=== PATIENT | male | born 1950 | race Caucasian/White ===

== ENCOUNTER 2020-01-10 13:47 | Inpatient (IN) | payer MEDICARE, SELFPAY ==
[2020-01-10] VITALS (15 sets, daily range): BP systolic 112–172; BP diastolic 72–131; PULSE 94–110; RESP 16–27; TEMP 36.6–37; O2SAT 88–97; BMI 36.6
--- NOTE | 2020-01-10 14:05 | W.ED.CHESTPA ---
HPI - Chest Pain General: Chief Complaint: Chest Pain Stated Complaint: cp Time Seen by Provider: 01/10/20 13:51 History of Present Illness: HPI narrative: 69-year-old male comes in complaining of chest pain for the last week. He has been daily taking nitro relieves his chest pain is worse with exertion but does not improve with rest unless he takes a nitro. He is taking 5 nitro since this morning most of his pain is gone he has known coronary disease and previously has had stents for coronary disease as well as peripheral artery disease. He does get dyspneic with that and nauseous he is not had any diaphoresis. He also reports he is a regular smoker and has a history of COPD he has noticed increasing clear sputum recently. MD complaint: chest pain Pertinent past history: coronary artery disease and other (COPD) Onset (ago): day(s) Timing of current episode: episodic, daily and increasing Prior episodes: Yes Onset: during exertion Pain location: substernal Severity: severe Quality: tightness and heaviness Relieving factors: nitroglycerin Exacerbating factors: exertion Associated symptoms: Deny diaphoresis, dyspnea, fever(s) or vomiting Treatment prior to arrival: nitroglycerin Review of Systems Const: Denies: fever or diaphoresis ENMT: Denies: throat pain, ear pain, nasal discharge or nasal congestion Card: Reports: chest pain and shortness of breath on exertion; Denies: edema or shortness of breath when lying down Resp: Reports: productive cough and wheezing; Denies: shortness of breath GI: Denies: vomiting : Denies: flank pain, painful urination, urinary frequency or urinary urgency Skin/Breast: Denies: rash or itching [facility] ED PFSH: Medical History (Updated 01/10/20 @ 17:15 by Mark Javier MD) ASHD (arteriosclerotic heart disease) Carotid stenosis, bilateral COPD (chronic obstructive pulmonary disease) Diabetes Diastolic heart failure Echocardiogram from 2017 shows an EF of 61% grade 1 diastolic dysfunction Dyslipidemia Haemophilus influenzae pneumonia Treated with Levaquin in 2017 Myocardial infarction Obesity PAD (peripheral artery disease) Tobacco abuse Surgical History H/O heart artery stent PCI to ostial 99% LCx on July 11, 2012;12/15/2016 he had another angiogram showing patent circumflex stent, 10-20% ostial left main, 20-30% ostial RCA stenosis and LV gram showed left ventricular ejection fraction of 50-55% with mild apical hypokinesis. S/P peripheral artery angioplasty with stent placement S/P shoulder surgery Family History (Updated 01/10/20 @ 16:32 by Mark Javier MD) Mother Psychiatric illness Other Cancer Social History (Updated 01/10/20 @ 16:33 by Mark Javier MD) Smoking and tobacco status: current every day smoker cigarettes Packs smoked per day: 1 Number of cigarettes per day: >20 Alcohol intake: former Household members: family Housing: House Physical Exam Const: COMMON NORMALS: no apparent distress GENERAL APPEARANCE: cooperative and comfortable ORIENTATION/CONSCIOUSNESS: Yes awake, Yes oriented to person, Yes oriented to place and Yes oriented to time HENMT: COMMON NORMALS: normocephalic, head/scalp atraumatic, hearing grossly normal bilaterally, external ears normal, EAC's normal, TM's normal bilaterally, nasal mucous membranes and turbinates normal, moist oral mucous membranes and oropharynx normal HEAD & SCALP: normocephalic and atraumatic NOSE: nasal mucous membranes and turbinates normal EXTERNAL EAR: Yes external ears normal EXTERNAL AUDITORY CANAL: EAC's normal TYMPANIC MEMBRANE: TM's normal bilaterally Eye: COMMON NORMALS: PERRL, EOMs intact bilaterally, conjunctivae normal and no scleral icterus CONJUNCTIVA: Yes conjunctivae normal PUPIL: Yes PERRL Neck/C-Spine: COMMON NORMALS: full ROM, no lymphadenopathy, supple and no JVD Lymph: LYMPHATIC: no lymphadenopathy noted and no lymphedema noted Resp: COMMON NORMALS: normal respiratory effort, no retractions, no use of accessory muscles and clear to auscultation bilaterally AUSCULTATION: clear to auscultation bilaterally Cardio: COMMON NORMALS: no JVD, regular rate, regular rhythm and no murmurs RATE: regular rate RHYTHM: regular rhythm GI: COMMON NORMALS: soft to palpation and no hepatosplenomegaly AUSCULTATION: Yes normoactive bowel sounds PALPATION: Yes soft, No tender, No guarding and Yes no hepatosplenomegaly Extremity: COMMON NORMALS: normal to inspection, normal capillary refill, no clubbing, cyanosis or edema, no calf tenderness and no pedal edema Neuro: SENSORIUM/ORIENTATION: Yes oriented to person, Yes oriented to place and Yes oriented to time Skin: COMMON NORMALS: no rashes or lesions noted GENERAL SKIN EXAM: no rashes or lesions noted Course Vital Signs: Vital signs: Vital Signs Temperature 98.0 F 01/10/20 13:52 Pulse Rate 98 01/10/20 16:42 Respiratory Rate 18 01/10/20 16:42 Blood Pressure 130/88 01/10/20 16:42 Pulse Oximetry 96 01/10/20 16:42 MDM - Chest Pain Lab Data: Labs: Lab Results 01/10/20 01/10/20 01/10/20 Range/Units 14:00 14:00 14:00 WBC 12.0 H (4.0-10.0) 10^3/ uL RBC 5.54 H (4.1-5.3) 10^6/u L Hgb 17.0 H (11.7-16.6) g/dL Hct 53.2 H (42.0-52.0) % MCV 96.0 H (80-94) fL MCH 30.7 (28.0-34.0) pg MCHC 32.0 (30.0-36.0) g/dL RDW 13.4 (12.1-15.1) % Plt Count 236 (130-400) 10^3/c mm MPV 9.2 (7.4-10.4) fL Neut % (Auto) 64.0 % Lymph % (Auto) 24.7 % [place] % (Auto) 7.5 % Eos % (Auto) 2.8 % Baso % (Auto) 0.5 % Neut # (Auto) 7.7 (1.8-7.7) 10^3/u L Lymph # (Auto) 3.0 (0.8-4.8) 10^3/u L [place] # (Auto) 0.9 (0.2-0.9) 10^3/u L Eos # (Auto) 0.3 (0.0-0.8) 10^3/u L Baso # (Auto) 0.1 (0.0-0.1) 10^3/u L Nucleated RBC % (a uto) 0 % Nucleated RBCs # 0.0 /100WBC PT (10.5-13.3) SECO NDS INR (0.8-1.2) APTT (23.9-36.7) SECO NDS D-Dimer (0-0.59) ug/mIFE U Specimen Type Sample Site ABG pH (7.35-7.45) ABG pCO2 (35-45) mmHg ABG pO2 (80.0-100.0) mmH g ABG HCO3 (22-26) mmol/L ABG Base Excess (-2.0-2.0) mmol/ L Mike Test Hematocrit (42-52) % O2 Delivery Device O2 Liters/Min % FiO2 % Manager Creative [employer] ID Blood Gas Notified Time Sodium 137 (136-145) mmol/L Potassium 4.2 (3.5-5.1) mmol/L Chloride 98 (98-107) mmol/L Carbon Dioxide 29 (22-29) mmol/L Anion Gap 14.2 (5-19) BUN 10 (8-23) mg/dL Creatinine 0.8 (0.7-1.2) mg/dL GFR Calculation 96.4 (90-130) mL/min Glucose 150 H (65-115) mg/dL Calculated Osmolal ity 283 L (285-295) mOsm/k g Lactic Acid (0.5-2.2) mmol/L Calcium 9.6 (8.5-10.5) mg/dL Magnesium 1.9 (1.7-2.3) mg/dL Total Bilirubin 0.5 (0.15-1.2) mg/dL AST 19 (0-40) U/L ALT 18 (0-41) U/L Alkaline Phosphata se 80 (40-130) IU/L Lactate Dehydrogen ase 204 (135-225) U/L Creatine Kinase 234 (39-308) U/L Troponin T Baselin e 42 H (0-15) ng/mL Troponin T [address] [place] (0-15) ng/mL Delta Troponin T (0-10) ABS# NT-Pro-B Natriuret Pep 1493 H (0-125) pg/mL Total Protein 7.6 (6.6-8.7) g/dL Albumin 4.4 (3.5-5.2) g/dL Globulin 3.2 (1.3-4.6) g/dL Procalcitonin 0.07 (0-0.5) ng/mL Urine Color (Yellow) Urine Appearance (CLEAR) Urine pH (5-7) Ur Specific Gravit y (1.005-1.030) Urine Protein (Negative) Urine Glucose (UA) (Normal) Urine Ketones (Negative) Urine Blood (Negative) Urine Nitrate (Negative) Urine Bilirubin (NEGATIVE) Urine Urobilinogen (Negative) mg/dL Ur Leukocyte Yoly ase (Negative) Influenza Type A A g (Negative) Influenza Type B A g (Negative) 01/10/20 01/10/20 01/10/20 Range/Units 14:00 14:00 15:05 WBC (4.0-10.0) 10^3/ uL RBC (4.1-5.3) 10^6/u L Hgb (11.7-16.6) g/dL Hct (42.0-52.0) % MCV (80-94) fL MCH (28.0-34.0) pg MCHC (30.0-36.0) g/dL RDW (12.1-15.1) % Plt Count (130-400) 10^3/c mm MPV (7.4-10.4) fL Neut % (Auto) % Lymph % (Auto) % [place] % (Auto) % Eos % (Auto) % Baso % (Auto) % Neut # (Auto) (1.8-7.7) 10^3/u L Lymph # (Auto) (0.8-4.8) 10^3/u L [place] # (Auto) (0.2-0.9) 10^3/u L Eos # (Auto) (0.0-0.8) 10^3/u L Baso # (Auto) (0.0-0.1) 10^3/u L Nucleated RBC % (a uto) % Nucleated RBCs # /100WBC PT 13.20 (10.5-13.3) SECO NDS INR 0.97 (0.8-1.2) APTT 27.6 (23.9-36.7) SECO NDS D-Dimer 0.95 H (0-0.59) ug/mIFE U Specimen Type Arterial Sample Site Radial, left ABG pH 7.38 (7.35-7.45) ABG pCO2 48.9 H (35-45) mmHg ABG pO2 72.5 L (80.0-100.0) mmH g ABG HCO3 29.0 H (22-26) mmol/L ABG Base Excess 2.8 H (-2.0-2.0) mmol/ L Mike Test Pos Hematocrit 51.7 (42-52) % O2 Delivery Device Nc O2 Liters/Min 2.0 % FiO2 28.0 % Manager [employer] ID [email or web address] Blood Gas Notified Time 1517 Sodium (136-145) mmol/L Potassium (3.5-5.1) mmol/L Chloride (98-107) mmol/L Carbon Dioxide (22-29) mmol/L Anion Gap (5-19) BUN (8-23) mg/dL Creatinine (0.7-1.2) mg/dL GFR Calculation (90-130) mL/min Glucose (65-115) mg/dL Calculated Osmolal ity (285-295) mOsm/k g Lactic Acid 2.2 (0.5-2.2) mmol/L Calcium (8.5-10.5) mg/dL Magnesium (1.7-2.3) mg/dL Total Bilirubin (0.15-1.2) mg/dL AST (0-40) U/L ALT (0-41) U/L Alkaline Phosphata se (40-130) IU/L Lactate Dehydrogen ase (135-225) U/L Creatine Kinase (39-308) U/L Troponin T Baselin e (0-15) ng/mL Troponin T [address] [place] (0-15) ng/mL Delta Troponin T (0-10) ABS# NT-Pro-B Natriuret Pep (0-125) pg/mL Total Protein (6.6-8.7) g/dL Albumin (3.5-5.2) g/dL Globulin (1.3-4.6) g/dL Procalcitonin (0-0.5) ng/mL Urine Color (Yellow) Urine Appearance (CLEAR) Urine pH (5-7) Ur Specific Gravit y (1.005-1.030) Urine Protein (Negative) Urine Glucose (UA) (Normal) Urine Ketones (Negative) Urine Blood (Negative) Urine Nitrate (Negative) Urine Bilirubin (NEGATIVE) Urine Urobilinogen (Negative) mg/dL Ur Leukocyte Yoly ase (Negative) Influenza Type A A g (Negative) Influenza Type B A g (Negative) 01/10/20 01/10/20 01/10/20 Range/Units 15:27 15:27 16:10 WBC (4.0-10.0) 10^3/ uL RBC (4.1-5.3) 10^6/u L Hgb (11.7-16.6) g/dL Hct (42.0-52.0) % MCV (80-94) fL MCH (28.0-34.0) pg MCHC (30.0-36.0) g/dL RDW (12.1-15.1) % Plt Count (130-400) 10^3/c mm MPV (7.4-10.4) fL Neut % (Auto) % Lymph % (Auto) % [place] % (Auto) % Eos % (Auto) % Baso % (Auto) % Neut # (Auto) (1.8-7.7) 10^3/u L Lymph # (Auto) (0.8-4.8) 10^3/u L [place] # (Auto) (0.2-0.9) 10^3/u L Eos # (Auto) (0.0-0.8) 10^3/u L Baso # (Auto) (0.0-0.1) 10^3/u L Nucleated RBC % (a uto) % Nucleated RBCs # /100WBC PT (10.5-13.3) SECO NDS INR (0.8-1.2) APTT (23.9-36.7) SECO NDS D-Dimer (0-0.59) ug/mIFE U Specimen Type Sample Site ABG pH (7.35-7.45) ABG pCO2 (35-45) mmHg ABG pO2 (80.0-100.0) mmH g ABG HCO3 (22-26) mmol/L ABG Base Excess (-2.0-2.0) mmol/ L Mike Test Hematocrit (42-52) % O2 Delivery Device O2 Liters/Min % FiO2 % Manager Creative [employer] ID Blood Gas Notified Time Sodium (136-145) mmol/L Potassium (3.5-5.1) mmol/L Chloride (98-107) mmol/L Carbon Dioxide (22-29) mmol/L Anion Gap (5-19) BUN (8-23) mg/dL Creatinine (0.7-1.2) mg/dL GFR Calculation (90-130) mL/min Glucose (65-115) mg/dL Calculated Osmolal ity (285-295) mOsm/k g Lactic Acid (0.5-2.2) mmol/L Calcium (8.5-10.5) mg/dL Magnesium (1.7-2.3) mg/dL Total Bilirubin (0.15-1.2) mg/dL AST (0-40) U/L ALT (0-41) U/L Alkaline Phosphata se (40-130) IU/L Lactate Dehydrogen ase (135-225) U/L Creatine Kinase (39-308) U/L Troponin T Baselin e (0-15) ng/mL Troponin T [address] [place] 38.89 H (0-15) ng/mL Delta Troponin T -3.11 L (0-10) ABS# NT-Pro-B Natriuret Pep (0-125) pg/mL Total Protein (6.6-8.7) g/dL Albumin (3.5-5.2) g/dL Globulin (1.3-4.6) g/dL Procalcitonin (0-0.5) ng/mL Urine Color Yellow (Yellow) Urine Appearance Clear (CLEAR) Urine pH 7 (5-7) Ur Specific Gravit y 1.000 L (1.005-1.030) Urine Protein Neg (Negative) Urine Glucose (UA) 4+ H (Normal) Urine Ketones Negative (Negative) Urine Blood Neg (Negative) Urine Nitrate Negative (Negative) Urine Bilirubin Neg (NEGATIVE) Urine Urobilinogen Norm (Negative) mg/dL Ur Leukocyte Yoly ase Negative (Negative) Influenza Type A A g Negative (Negative) Influenza Type B A g Negative (Negative) Discharge Plan Discharge Patient Disposition: Admitted As Inpatient Admit Provider: Mark Javier Clinical Impression: Unstable angina pectoris, COPD (chronic obstructive pulmonary disease), H/O heart artery stent, History of peripheral arterial disease, Diabetes mellitus Condition: Stable Interventions: ED Discharge Assessment Last Done: 01/10/20 16:42 Coding Level of Care Code ED Electronics Worker for Chg Fwd Exam Comprehensive
--- NOTE | 2020-01-10 14:16 | XR_ITS ---
WS: [id number] CHEST XRAY TECHNIQUE: Portable chest. CLINICAL INFORMATION: dyspnea/cough COMPARISON: September 13, 2017 FINDINGS: Heart: Cardiomegaly. Lungs: Diffuse bilateral perihilar and lower lung infiltrates. Correlation for CHF. Mild pulmonary va scular congestion. No significant pleural fluid. Bones: Normal visualized bony structures. XR/XR chest 1V portable [id number] IMPRESSION: 1. Cardiomegaly with pulmonary vascular congestion with perihilar and lower gabriel ng infiltrates. Recommend correlation for CHF. Interstitial pneumonia is an add itional consideration. 2. No significant pleural fluid.
--- NOTE | 2020-01-10 14:16 | ECG_ITS ---
Measurements Intervals [place] Rate: 105 P: 68 [place]: 153 QRS: 163 QRSD: 90 T: 21 QT: 338 QTc: 448 SINUS TACHYCARDIA PATTERN CONSISTENT WITH PULMONARY DISEASE POSSIBLE RIGHT VENTRICULAR HYPERTROPHY [SOME/ALL OF: PROMINENT R IN V1, LATE TRANSITION, RAD, NABILA, SSS] POSSIBLE INFERIOR MYOCARDIAL INFARCTION , PROBABLY OLD [30 ms Q WAVE IN II/aVF] Compared to ECG 09/10/2017 18:32:31 No significant changes Electronically Signed On 01-11-2020 6:43:29 CDT by Clyde Ritter M.D. [email or web address]
[2020-01-10] MEDS: nitroglycerin 1 gm/inch oint Pkt 1 INCH TOPICAL (14:34)
[2020-01-10] MEDS: enoxaparin 100 mg/mL Syringe SUBCUT (14:34)
[2020-01-10 15:18] LABS: ABG PCO2 48.9 mmHg (35-45); ABG PH Result 7.38 (7.35-7.45); Arterial Blood Gas Hematocrit 51.7 % (42-52); Base Excess ABG 2.8 mmol/L (-2.0-2.0); Blood Gas Allen Test Pos; Blood Gas Operator Identificat glc; Blood Gas Sample Site Radial, left; Blood Gas Sample Type Arterial; Oxygen Device NC; PO2 ABG 72.5 mmHg (80.0-100.0)
[2020-01-10 15:19] LABS: Blood Gas CCRB Time 1517
[2020-01-10 15:23] LABS: Lactic Sepsis W/Reflex 2.2 mmol/L (0.5-2.2)
[2020-01-10 15:29] LABS: Basophils # 0.1 10^3/uL (0.0-0.1); Basophils % 0.5 %; Eosinophils # 0.3 10^3/uL (0.0-0.8); Eosinophils % 2.8 %; Hematocrit 53.2 % (42.0-52.0); Lymphocytes % 24.7 %; Mean Corpuscular Hemoglobin 30.7 pg (28.0-34.0); Mean Platelet Volume 9.2 fL (7.4-10.4); Monocytes # 0.9 10^3/uL (0.2-0.9); Monocytes % 7.5 %; Neutrophils # 7.7 10^3/uL (1.8-7.7); Nucleated Red Blood Cells % 0 %; Platelet Count 236 10^3/cmm (130-400); Red Blood Count 5.54 10^6/uL (4.1-5.3); Red Cell Distribution Width 13.4 % (12.1-15.1)
--- NOTE | 2020-01-10 15:31 | PC.NURSE ---
Pt swabbed for COVID-19, influenza, sputum culture obtained, and urine sample obtained. All samples labeled and sent to lab. Pt provided with warm blanket per request.
[2020-01-10 15:37] LABS: INR 0.97 (0.8-1.2); Partial Thromboplastin Time 27.6 SECONDS (23.9-36.7)
[2020-01-10 15:40] LABS: D Dimer 0.95 ug/mIFEU (0-0.59)
[2020-01-10 15:44] LABS: Add Urine Microscopic? NO
[2020-01-10 15:49] LABS: Troponin(5th) Baseline 42 ng/mL (0-15)
[2020-01-10 15:58] LABS: Alanine Aminotransferase 18 U/L (0-41); Albumin Level 4.4 g/dL (3.5-5.2); Alkaline Phosphatase 80 IU/L (40-130); Anion Gap 14.2 (5-19); Aspartate Amino Transferase 19 U/L (0-40); Blood Urea Nitrogen 10 mg/dL (8-23); Calcium 9.6 mg/dL (8.5-10.5); Carbon Dioxide 29 mmol/L (22-29); Chloride 98 mmol/L (98-107); Creatine Phosphokinase 234 U/L (39-308); Globulin 3.2 g/dL (1.3-4.6); Glomerular Filtration Rate 96.4 mL/min (90-130); Glucose 150 mg/dL (65-115); Lactate Dehydrogenase 204 U/L (135-225); Magnesium 1.9 mg/dL (1.7-2.3); NT Pro B Type Natriuretic Pept 1493 pg/mL (0-125); Osmolality Calculated 283 mOsm/kg (285-295); Potassium 4.2 mmol/L (3.5-5.1); Sodium 137 mmol/L (136-145); Total Bilirubin 0.5 mg/dL (0.15-1.2); Total Protein 7.6 g/dL (6.6-8.7)
[2020-01-10 16:10] LABS: Influenza A by IFA Negative (Negative); Influenza B by IFA Negative (Negative)
[2020-01-10 16:13] LABS: Bilirubin Urine Neg (NEGATIVE); Blood Urine Neg (Negative); Glucose Urine UA 4+ (Normal); Ketones Urine Negative (Negative); Leukocyte Esterase Urine Negative (Negative); Nitrate Urine Negative (Negative); Protein Urine Neg (Negative); Urine Appearance Clear (CLEAR); Urine Color Yellow (Yellow); Urobilinogen Urine Norm (Negative); pH Urine 7 (5-7)
--- NOTE | 2020-01-10 16:16 | ECG_ITS ---
Measurements Intervals [place] Rate: 100 P: 71 [place]: 148 QRS: 199 QRSD: 98 T: -16 QT: 347 QTc: 448 SINUS TACHYCARDIA POSSIBLE RIGHT VENTRICULAR HYPERTROPHY [SOME/ALL OF: PROMINENT R IN V1, LATE TRANSITION, RAD, NABILA, SSS] POSSIBLE ANTERIOR MYOCARDIAL INFARCTION [30 ms Q WAVE IN V3/V4, OR R < 0.2 mV IN V4], OF INDETERMINATE AGE MODERATE T-WAVE ABNORMALITY, CONSIDER LATERAL ISCHEMIA [-0.1+ mV T WAVE IN I/aVL/V5/V6] Compared to ECG 09/10/2017 18:32:31 T-wave abnormality now present Possible ischemia now present Myocardial infarct finding still present Electronically Signed On 01-11-2020 6:47:24 CDT by Clyde Ritter M.D. [email or web address]
--- NOTE | 2020-01-10 16:28 | PM.HP ---
Providers/Chief Complaint Primary Care Provider: Melinda Mccullough DO Chief Complaint: ANGINA, COUGH, COPD History of Present Illness Ramy Lawler is a 69 year old male with significant past medical history of myocardial infarction, PCI to ostial LCx in June 2012, bilateral carotid artery stenosis, peripheral arterial disease post angioplasty, dyslipidemia, diastolic heart failure, type 2 diabetes mellitus, COPD, chronic smoker, hypertension who presented to the ER today with complaint of ongoing chest pain for last 7 days which is getting exacerbated with mild exertion and at present even sitting up fast in his bed makes this symptoms worse. Chest pain is central radiating to his jaw associated with nausea but no vomiting and dizziness. He is also complaining of shortness of breath which gets worse on mild exertion and states for last 3 weeks he has been getting up at night because of choking sensation but denies of having any orthopnea. He states he is also been having sinus congestion and postnasal drip for last 2 weeks which has been stable. He has not had any fevers at home. Denies of having any sick contacts or recent travels. Denies of having any palpitations, diaphoresis, abdominal pain, diarrhea, dysuria, generalized body aches, malaise, night sweats. Review of Systems Const: Denies: fever, chills, body aches, change in appetite, malaise, night sweats, diaphoresis, change in sleep pattern, daytime sleepiness or snoring Eyes: Denies: change in vision, blurry vision, photophobia, eye discomfort or eye discharge ENMT: Denies: throat pain, enlarged tonsils, hoarseness, mouth pain, oral sores/lesions, dry mouth, tinnitus, nasal congestion or post nasal drip Card: Reports: chest pain, lightheadedness, shortness of breath on exertion and leg pain with exertion; Denies: palpitations, irregular heart rhythm, edema, swelling of feet/ankles, syncope, pre-syncope, shortness of breath when lying down or bluish discoloration of hands/feet Resp: Reports: shortness of breath; Denies: productive cough, non-productive cough, wheezing, stridor, pain on inspiration, change in phlegm color, coughing up blood or chest congestion GI: Denies: abdominal pain, nausea, vomiting, vomiting blood, coffee grounds in vomit, difficulty swallowing, heartburn/indigestion, diarrhea, constipation, bloating, cramping, change in bowel habits, painful bowel movements, blood in stool or black tarry stool : Denies: flank pain, difficulty urinating, painful urination, urinary frequency, urinary urgency, urinary hesitancy, urinary dribbling, difficulty starting urination, change in urine stream, nighttime urination or blood in urine Musc: Denies: neck pain, back pain, extremity pain, joint pain, joint swelling, redness, joint stiffness or limited range of motion Neuro: Reports: numbness in extremities; Denies: headache, weakness in extremities, changes in sensation, lack of coordination, difficulty walking, frequent falls, dizziness, vertigo, confusion, slurred speech, difficulty communicating thoughts or seizure-like activity Psych: Denies: anxiety, depression, mood swings, panic attacks, hopelessness or irritability Endo: Denies: excessive urination, excessive thirst, tired all the time, cold intolerance, excessive sweating, flushing or heat intolerance Joao/Lymph: Denies: easy bruising or easy bleeding All/Imm: Denies: tongue swelling, facial swelling or acute wheezing Medications/Allergies Home Medications Medication Instructions Recorded Confirmed Last Taken Type atorvastatin 40 mg tablet 40 mg PO DAILY 01/08/20 01/10/20 01/09/20 History clopidogrel 75 mg tablet 75 mg PO DAILY 01/08/20 01/10/20 01/10/20 History furosemide 40 mg tablet 40 mg PO DAILY 01/08/20 01/10/20 01/08/20 History glipizide 10 mg tablet 10 mg PO DAILY 01/08/20 01/10/20 01/09/20 History lisinopril 10 mg tablet 10 mg PO DAILY PRN 01/08/20 01/10/20 Unknown History potassium chloride 10 mEq 10 meq PO DAILY 01/08/20 01/10/20 01/10/20 History tablet,extended release(part/cryst) tamsulosin 0.4 mg capsule 0.4 mg PO DAILY 01/08/20 01/10/20 Unknown History albuterol sulfate [Ventolin HFA] 2 puff INHALATION 6XD PRN 01/10/20 01/10/20 Unknown History empagliflozin-linagliptin 1 tab PO DAILY 01/10/20 01/10/20 01/10/20 History [Glyxambi] nitroglycerin 0.4 mg SUBLINGUAL PRN PRN 01/10/20 01/10/20 01/10/20 History semaglutide [Ozempic] 0.25 mg SUBCUT Q7D 01/10/20 01/10/20 01/07/20 History tiotropium-olodaterol [Stiolto See Rx Instructions .ROUTE .COMPLEX 01/10/20 01/10/20 Unknown History Respimat] Allergies Allergy/AdvReac Type Severity Reaction Status Date / Time Sulfa (Sulfonamide Allergy Unknown Unknown Unverified 01/08/20 15:06 Antibiotics) PFSH Acute PFSH: Medical History ASHD (arteriosclerotic heart disease) Carotid stenosis, bilateral COPD (chronic obstructive pulmonary disease) Diabetes Dyslipidemia Myocardial infarction Obesity PAD (peripheral artery disease) Tobacco abuse Surgical History H/O heart artery stent PCI to ostial 99% LCx on July 11, 2012;12/15/2016 he had another angiogram showing patent circumflex stent, 10-20% ostial left main, 20-30% ostial RCA stenosis and LV gram showed left ventricular ejection fraction of 50-55% with mild apical hypokinesis. S/P peripheral artery angioplasty with stent placement S/P shoulder surgery Family History (Updated 01/10/20 @ 16:32 by Mark Javier MD) Mother Psychiatric illness Other Cancer Social History (Updated 01/10/20 @ 16:33 by Mark Javier MD) Smoking and tobacco status: current every day smoker cigarettes Packs smoked per day: 1 Number of cigarettes per day: >20 Alcohol intake: former Household members: family Housing: House Vitals/I&O/Wt Last Vital Signs Temp 98.0 F 01/10/20 13:52 Pulse 100 01/10/20 16:16 Resp 16 01/10/20 16:16 BP 122/86 01/10/20 16:16 Pulse Ox 94 01/10/20 16:16 Weight last 48 hrs Weight 99.79 kg Physical Exam Narrative: EXAM NARRATIVE: General: No acute distress, AO x3 HEENT: PERRLA, pupils bilaterally equal and reactive Chest: Bilateral fine crackles, right more than left, normal vesicular breath sounds, equal good air entry bilaterally CVS: S1-S2 regular, no murmurs, no tachycardia, no gallops, no rubs Abdomen: Soft, nontender, no organomegaly, bowel sounds present Neuro: No focal deficits, no facial deformity, AO x3, power 5/5 in all limbs Data : 01/10/20 14:00 01/10/20 14:00 Micro: Microbiology 01/10/20 14:00 Blood Culture - Preliminary Blood SPECIMEN COLLECTED A&P Assessment and plan (1) Shortness of breath: Status: Acute (2) Angina of effort: Status: Acute (3) Tobacco abuse: Status: Acute (4) H/O heart artery stent: Status: Acute (5) COPD (chronic obstructive pulmonary disease): Status: Acute (6) Obesity: Status: Acute (7) Dyslipidemia: Status: Acute (8) Carotid stenosis, bilateral: Status: Acute (9) Diastolic heart failure: Status: Acute Additional A&P Information Angina: History of CAD with PCI in 2011: With last angiogram in 2017. Aspirin 325 mg stat followed by 81 mg daily. Continue with home dose of Plavix and statin. Patient already given full dose Lovenox. We will continue with 1 mg/kg body weight every 12 as creatinine clearance is more than 30. Nitrate as needed for pain. Morphine 1 mg IV every 2 hour as needed for pain Oxygen supplementation keeping saturation over 94%. Check lipid panel, HbA1c tomorrow morning. 2-hour troponin has a delta of -3. We will continue to follow-up every 6 hours. Shortness of breath: Most likely because of congestive heart failure. Last echocardiogram shows diastolic heart failure. Given the history of sinus congestion, postnasal drip and x-ray finding cannot rule out COVID-19. Will test. Isolation precautions till then. Lasix 40 mg IV stat. 40 mg Lasix daily from tomorrow morning. Strict input output charting. Daily weights. Echocardiogram. Chances of pneumonia are less as patient does not have any fever, procalcitonin is negative. Patient does have mild white blood count cell elevation but has no left shift. Most likely because of hemoconcentration as patient also has hemoglobin of 17. We will continue to monitor. We will hold off on antibiotics for now. Once COVID 19 test comes back we will consult cardiology as per the result status for further evaluation for anginal symptoms with stress test versus angiogram. Type 2 diabetes mellitus: Check HbA1c. History sliding scale at high protocol. Hypertension: Continue on home medication of lisinopril. We will continue to monitor blood pressures. Tobacco abuse: Discussed with patient in detail regarding need of tobacco cessation due to severe concerning symptoms of CAD. We will change medications as per the clinical course and the results of the blood work. Full code. Cardiac diabetic diet. Attestations Medical Necessity Statement*: For more than 2 midnights for angina Time Spent in Patient Care: Greater than 35 minutes Coding Level of Care Code Acute Scoreboard Operator for g Fwd Diagnoses Shortness of breath R06.02 Angina of effort I20.8 Tobacco abuse Z72.0 H/O heart artery stent Z95.5 COPD (chronic obstructive pulmonary disease) J44.9 Obesity E66.9 Dyslipidemia E78.5 Carotid stenosis, bilateral I65.23 Diastolic heart failure I50.30
[2020-01-10 16:32] LABS: Troponin 5 2HR 38.89 ng/mL (0-15)
[2020-01-10 16:49] LABS: Troponin 5 2HR Delta -3.11 ABS# (0-10)
[2020-01-10 16:57] LABS: Reflex Lactate Order REFLEX LACTIC ORDERD
[2020-01-10 17:17] LABS: Procalcitonin 0.07 ng/mL (0-0.5)
[2020-01-10 17:28] LABS: C Reactive Protein 1.9 mg/L (0.0-4.9); Ferritin 240 ng/mL (30-400)
[2020-01-10] MEDS: FUROsemide 10 mg/mL SDV 4mL 40 MG IVP (17:52)
[2020-01-10] MEDS: aspirin 325 mg EC Tablet PO (17:52)
[2020-01-10] MEDS: albuterol 8 gm MDI 2 PUFF INHALATION (20:11)
--- NOTE | 2020-01-10 20:16 | ECG_ITS ---
Measurements Intervals [place] Rate: 95 P: 71 AK: 159 QRS: 162 QRSD: 91 T: -12 QT: 346 QTc: 435 SINUS RHYTHM PATTERN CONSISTENT WITH PULMONARY DISEASE RIGHT VENTRICULAR HYPERTROPHY AND ST-T CHANGE [SOME/ALL OF: PROMINENT R IN V1, LATE TRANSITION, RAD, NABILA, SSS, RIGHT PRECORDIA Compared to ECG 09/10/2017 18:32:31 ST (T wave) deviation now present Sinus tachycardia no longer present Myocardial infarct finding no longer present Electronically Signed On 01-11-2020 6:46:57 CDT by Clyde Ritter M.D. [id number]
--- NOTE | 2020-01-10 20:21 | PC.NURSE ---
PT in normal sinus rhythm to sinus tachycardia. See rhythm strip in chart.
--- NOTE | 2020-01-10 20:26 | PC.NURSE ---
Patient refuses SCDs at this time as he is having to stand to urinate frequently. Requests that SCDs be placed when he goes to bed.
[2020-01-10 20:38] LABS: Lactic Acid level (Lactate) 1.7 mmol/L (0.5-2.2)
[2020-01-10 20:39] LABS: Troponin 5 6HR 44.73 ng/mL (0-15); Troponin 5 6HR Delta 2.73 ng/L (0-12)
[2020-01-10 21:38] LABS: Glucose Point of Care 127 mg/dL (70-110)
[2020-01-11] VITALS (18 sets, daily range): BP systolic 93–153; BP diastolic 68–88; PULSE 87–114; RESP 17–25; TEMP 36.5–37; O2SAT 90–95
[2020-01-11] MEDS: enoxaparin 100 mg/mL Syringe SUBCUT (02:16)
[2020-01-11] MEDS: albuterol 8 gm MDI 2 PUFF INHALATION ×4 (02:25→21:03)
[2020-01-11 04:50] LABS: Basophils # 0.1 10^3/uL (0.0-0.1); Basophils % 0.6 %; Eosinophils # 0.5 10^3/uL (0.0-0.8); Eosinophils % 4.2 %; Hematocrit 52.2 % (42.0-52.0); Hemoglobin 16.8 g/dL (11.7-16.6); Lymphocytes # 3.3 10^3/uL (0.8-4.8); Mean Corpuscular HGB Conc 32.2 g/dL (30.0-36.0); Mean Corpuscular Hemoglobin 30.8 pg (28.0-34.0); Mean Corpuscular Volume 95.8 fL (80-94); Mean Platelet Volume 9.2 fL (7.4-10.4); Monocytes # 0.9 10^3/uL (0.2-0.9); Monocytes % 8.1 %; Neutrophils # 6.5 10^3/uL (1.8-7.7); Neutrophils % 57.7 %; Nucleated Red Blood Cells % 0 %; Platelet Count 234 10^3/cmm (130-400); Red Blood Count 5.45 10^6/uL (4.1-5.3); Red Cell Distribution Width 13.5 % (12.1-15.1); White Blood Count 11.2 10^3/uL (4.0-10.0)
[2020-01-11 05:03] LABS: Estmated Average Glucose 180; Hemoglobin A1C 7.9 % (4.0-6.0)
[2020-01-11 05:09] LABS: Alanine Aminotransferase 21 U/L (0-41); Albumin Level 3.9 g/dL (3.5-5.2); Alkaline Phosphatase 75 IU/L (40-130); Anion Gap 15.2 (5-19); Blood Urea Nitrogen 12 mg/dL (8-23); Calcium 9.5 mg/dL (8.5-10.5); Carbon Dioxide 30 mmol/L (22-29); Chloride 98 mmol/L (98-107); Chol HDL Ratio 5.47 mg/dL (1.0-5.00); Cholesterol 164 mg/dL (0-200); Globulin 3.5 g/dL (1.3-4.6); Glomerular Filtration Rate 96.4 mL/min (90-130); Glucose 150 mg/dL (65-115); HDL Cholesterol 30 mg/dL (60-100); LDL Cholesterol Calculated 57 mg/dL (50-129); Osmolality Calculated 287 mOsm/kg (285-295); Potassium 4.2 mmol/L (3.5-5.1); Sodium 139 mmol/L (136-145); Total Bilirubin 0.2 mg/dL (0.15-1.2); Total Protein 7.4 g/dL (6.6-8.7); Triglycerides 384 mg/dL (0-150); VLDL Cholestrol Calculation 77 mg/dL (0-30)
[2020-01-11] MEDS: acetaminophen 325 mg Tablet 650 MG PO (05:09)
[2020-01-11 05:11] LABS: Aspartate Amino Transferase 23 U/L (0-40)
--- NOTE | 2020-01-11 07:39 | XR_ITS ---
WS: [id number] CHEST XRAY TECHNIQUE: Portable chest. CLINICAL INFORMATION: chf COMPARISON: January 10, 2020 FINDINGS: Heart: Cardiomegaly. Aortic calcification. Lungs: Mild chronic emphysematous changes. No focal pneumonia. No acute pulmonary infiltrates. Bones: Normal visualized bony structures. XR/XR chest 1V portable [id number] IMPRESSION: 1. Stable cardiomegaly. 2. No acute pulmonary infiltrates. No focal pneumonia.
--- NOTE | 2020-01-11 09:23 | ECG_ITS ---
Measurements Intervals [place] Rate: 111 P: 54 MA: 136 QRS: 183 QRSD: 91 T: 40 QT: 330 QTc: 450 SINUS TACHYCARDIA POSSIBLE RIGHT VENTRICULAR HYPERTROPHY [SOME/ALL OF: PROMINENT R IN V1, LATE FAUSTIN TRANSITION, RAD, NABILA, SSS] POSSIBLE ANTERIOR MYOCARDIAL INFARCTION [30 ms Q WAVE IN V3/V4, OR R < 0.2 mV IN V4]PROBABLY OLD INTERPRETATION BASED ON A DEFAULT AGE OF 40 YEARS Compared to ECG 01/10/2020 20:22:44 T-wave abnormality no longer present Possible ischemia no longer present Myocardial infarct finding still present Electronically Signed On 01-11-2020 18:11:31 CDT by Michael Arora M.D. [id number]
[2020-01-11] MEDS: nitroglycerin 0.4 mg sublingual Tablet SUBLINGUAL ×2 (09:25→16:31)
[2020-01-11] MEDS: tamsulosin 0.4 mg Capsule PO (09:32)
[2020-01-11] MEDS: clopidogrel 75 mg Tablet PO (09:32)
[2020-01-11] MEDS: FUROsemide 10 mg/mL SDV 4mL 40 MG IVP ×2 (09:32→17:22)
[2020-01-11] MEDS: aspirin 81 mg EC Tablet PO (09:33)
[2020-01-11] MEDS: atorvastatin 40 mg Tablet PO (09:33)
--- NOTE | 2020-01-11 09:55 | PC.NURSE ---
complaint of chest pain with pain going down left arm and hand tingling with pain. Nitro given once subl. BP elevated. within 5 minutes says pain is easing down, and within 15 min says he feels much better. EKG and chest xray was done.
--- NOTE | 2020-01-11 10:58 | P.PN_ITS ---
Subjective Subjective: Interval history: No acute events overnight. This morning on evaluation patient had chest pain 15 minutes ago. Chest pain was central radiating to left arm with numbness in his hand. Patient states chest pain is similar to what he had during his heart attack. He states at home he lives at 6-1/2 L of oxygen. He states his breathing is at baseline. Denies any nausea, vomiting, headache, palpitations, dizziness. Vitals/I&O/Wt Last Vital Signs Temp 97.8 F 01/11/20 06:00 Pulse 111 H 01/11/20 10:00 Resp 18 01/11/20 10:00 BP 119/77 01/11/20 10:00 Pulse Ox 91 01/11/20 10:00 01/10/20 01/11/20 01/11/20 22:59 06:59 14:59 Intake Total 1320 / 1320 170 / 1490 240 / 240 Output Total 1600 / 1600 925 / 2525 Balance -280 / -280 -755 / -1035 240 / 240 Weight last 48 hrs Weight 98.702 kg Weight 99.79 kg Physical Exam Narrative: EXAM NARRATIVE: General: No acute distress, AO x3 HEENT: PERRLA, pupils bilaterally equal and reactive Chest: Bilateral fine crackles, right more than left, normal vesicular breath sounds, equal good air entry bilaterally CVS: S1-S2 regular, no murmurs, no tachycardia, no gallops, no rubs Abdomen: Soft, nontender, no organomegaly, bowel sounds present Neuro: No focal deficits, no facial deformity, AO x3, power 5/5 in all limbs Data : 01/11/20 04:21 01/11/20 04:21 Micro: Microbiology 01/10/20 17:00 Blood Culture - Preliminary Blood SPECIMEN COLLECTED 01/10/20 15:27 Gram Stain - Final Sputum - Expectorated Sputum 01/10/20 14:00 Blood Culture - Preliminary Blood SPECIMEN COLLECTED A&P Assessment and plan (1) Shortness of breath: Status: Acute (2) Angina of effort: Status: Acute (3) Tobacco abuse: Status: Acute (4) H/O heart artery stent: Status: Acute (5) COPD (chronic obstructive pulmonary disease): Status: Acute (6) Obesity: Status: Acute (7) Dyslipidemia: Status: Acute (8) Carotid stenosis, bilateral: Status: Acute (9) Diastolic heart failure: Status: Acute Additional A&P Information Angina: History of CAD with PCI in 2012: With last angiogram in 2017. Continue with aspirin, Plavix and statin. Lipid panel results noted. Continue with Lovenox full dose at 1 mg/kg body weight every 12 hourly. If patient has more chest pain we will start him on a nitro drip. For now sublingual nitrate as needed for pain. Morphine 1 mg IV every 2 hour as needed for pain Oxygen supplementation keeping saturation over 94%. Cardiology consulted. Dr. Ritter will see patient today. Shortness of breath: Most likely because of congestive heart failure. Last echocardiogram shows diastolic heart failure. Given the history of sinus congestion, postnasal drip and x-ray finding cannot rule out COVID-19. Results awaited. Continue with isolation. Lasix 40 mg IV every 12 hourly. Overall 2 L negative since admission. Chest x-ray today morning better than yesterday but still showing congestion. Strict input output charting. Daily weights. Echocardiogram. Chances of pneumonia are less as patient does not have any fever, procalcitonin is negative. Patient does have mild white blood count cell elevation but has no left shift. Most likely because of hemoconcentration as patient also has hemoglobin of 17. We will continue to monitor. We will hold off on antibiotics for now. Type 2 diabetes mellitus: A1c 7.9. History sliding scale at high protocol. Hypertension: Continue on home medication of lisinopril. We will continue to monitor blood pressures. Tobacco abuse: Discussed with patient in detail regarding need of tobacco cessation due to severe concerning symptoms of CAD. We will change medications as per the clinical course and the results of the blood work. Full code. Cardiac diabetic diet. Attestations Medical Necessity Statement*: Angina, COVID-19 rule out Time Spent in Patient Care: Greater than 35 minutes Coding Level of Care Code Acute Legal Job Titles for [facility] Fwd Diagnoses Shortness of breath R06.02 Angina of effort I20.8 Tobacco abuse Z72.0 H/O heart artery stent Z95.5 COPD (chronic obstructive pulmonary disease) J44.9 Obesity E66.9 Dyslipidemia E78.5 Carotid stenosis, bilateral I65.23 Diastolic heart failure I50.30
[2020-01-11 11:31] LABS: Glucose Point of Care 192 mg/dL (70-110)
[2020-01-11 11:31] LABS: Glucose Point of Care 125 mg/dL (70-110)
--- NOTE | 2020-01-11 11:36 | P.CONIM_ITS ---
Providers/Reason For Consult Consulting Physican/Specialty*: Cardiovascular medicine Reason for Consult*: Chest pain Attending Physician: Mark Javier MD Primary Care Provider: Melinda Mccullough DO History of Present Illness History of Present Illness Ramy Lawler is a 69 year old male who is well-known to me with multiple problems noted below. He has chronic coronary artery disease and relatively severe peripheral vascular disease along with diabetes, chronic tobacco abuse and a history of alcoholism. He simply will not stop smoking. He had a stent placed in his ostial circumflex back in 2013. Almost exactly 3 years ago he was admitted with an episode just like this complaint with chest pain. Angiography was performed but it was very difficult. Because of his underlying peripheral disease he had no access from the legs. He also had no pulse in the wrist so access from the radial was impossible. We performed the angiogram from the right brachial artery. He had 20 to 30% stenoses. The circumflex stent was patent. His ejection fraction was 50 to 55%. He is in and out of the office in the emergency room with chest pain fairly frequently. About 7 or 8 days ago he started having mild swelling in his legs and noticed that his legs were discolored. He has severe underlying peripheral arterial disease. Both external iliac arteries are occluded. He has been to [place] at some point and had an intervention however I do not have those records. After his legs became discolored he then started having chest pain. He is a very poor historian but it sounds like he is been taking nitroglycerin 6 or 7 a day. He called and requested an office appointment. When he came in yesterday, he was having chest pain so the nurses took him to the emergency room and he has been admitted. His COVID-19 test is still pending. He is been placed on Lovenox. He is not had any further episodes of chest pain since he has been here. He has a history of an old myocardial infarction with an ischemic cardiomyopathy and multiple other problems as listed below. His last echo suggested cor pulmonale with an increased right heart size. He also probably has sleep apnea but I have never seen a test for this. His troponins have been negative. His EKG shows right ventricular hypertrophy and right axis deviation consistent with pulmonary disease. His BNP is slightly elevated. His chest x-ray shows a mild degree of pulmonary vascular redistribution slightly worse since 2017. Review of Systems General: Reports: 10 or more systems reviewed and unremarkable except in HPI and below Meds/Allergies Home Medications and Allergies Home Medications Medication Instructions Recorded Confirmed Last Taken Type atorvastatin 40 mg tablet 40 mg PO DAILY 01/08/20 01/10/20 01/09/20 History clopidogrel 75 mg tablet 75 mg PO DAILY 01/08/20 01/10/20 01/10/20 History furosemide 40 mg tablet 40 mg PO DAILY 01/08/20 01/10/20 01/08/20 History glipizide 10 mg tablet 10 mg PO DAILY 01/08/20 01/10/20 01/09/20 History lisinopril 10 mg tablet 10 mg PO DAILY PRN 01/08/20 01/10/20 Unknown History potassium chloride 10 mEq 10 meq PO DAILY 01/08/20 01/10/20 01/10/20 History tablet,extended release(part/cryst) tamsulosin 0.4 mg capsule 0.4 mg PO DAILY 01/08/20 01/10/20 Unknown History albuterol sulfate [Ventolin HFA] 2 puff INHALATION 6XD PRN 01/10/20 01/10/20 Unknown History empagliflozin-linagliptin 1 tab PO DAILY 01/10/20 01/10/20 01/10/20 History [Glyxambi] nitroglycerin 0.4 mg SUBLINGUAL PRN PRN 01/10/20 01/10/20 01/10/20 History semaglutide [Ozempic] 0.25 mg SUBCUT Q7D 01/10/20 01/10/20 01/07/20 History tiotropium-olodaterol [Stiolto See Rx Instructions .ROUTE .COMPLEX 01/10/20 01/10/20 Unknown History Respimat] Allergies Allergy/AdvReac Type Severity Reaction Status Date / Time Sulfa (Sulfonamide Allergy Unknown Unknown Unverified 01/08/20 15:06 Antibiotics) Current Medications Current Medications Generic Name Dose Route Start Last Admin Trade Name Freq PRN Reason Stop Dose Admin Acetaminophen 650 mg 01/10/20 17:32 01/11/20 05:09 Tylenol PO 650 mg Q6H PRN Administration Mild/Mod Pain Or Temp >/= 101 Albuterol Sulfate 2 puff 01/10/20 21:00 01/11/20 09:15 Ventolin INHALATION 2 puff Q6H.RESPIRATORY AMBERLY Administration Aspirin 81 mg 01/11/20 09:00 01/11/20 09:33 Aspirin Ec PO 81 mg DAILY AMBERLY Administration Atorvastatin Calcium 40 mg 01/11/20 09:00 01/11/20 09:33 Lipitor PO 40 mg DAILY AMBERLY Administration Clopidogrel Bisulfate 75 mg 01/11/20 09:00 01/11/20 09:32 Plavix PO 75 mg DAILY AMBERLY Administration Enoxaparin Sodium 100 mg 01/11/20 02:30 01/11/20 02:16 Lovenox 1 mg/kg (100 mg) 100 mg SUBCUT Administration Q12H [facility] Insulin Aspart 0 unit 01/10/20 18:00 01/11/20 11:31 Novolog SUBCUT 8 unit WM&BEDTIME AMBERLY Administration Protocol Nitroglycerin 0.4 mg 01/10/20 17:32 01/11/20 09:25 Nitrostat SUBLINGUAL 1 tab PRN PRN Administration CHEST PAINS Tamsulosin HCl 0.4 mg 01/11/20 09:00 01/11/20 09:32 Flomax PO 0.4 mg DAILY AMBERLY Administration Tiotropium [place] 18 mcg 01/11/20 08:00 01/11/20 09:14 Spiriva INHALATION 18 mcg DAILY.RESPIRATORY AMBERLY Administration PFSH Acute PFSH: Medical History (Updated 01/11/20 @ 11:43 by Clyde Ritter MD) ASHD (arteriosclerotic heart disease) Carotid stenosis, bilateral COPD (chronic obstructive pulmonary disease) Cor pulmonale Diabetes Diastolic heart failure Echocardiogram from 2017 shows an EF of 61% grade 1 diastolic dysfunction Dyslipidemia Haemophilus influenzae pneumonia Treated with Levaquin in 2017 Myocardial infarction Obesity PAD (peripheral artery disease) Sleep apnea Tobacco abuse Surgical History H/O heart artery stent PCI to ostial 99% LCx on July 11, 2012;12/15/2016 he had another angiogram showing patent circumflex stent, 10-20% ostial left main, 20-30% ostial RCA stenosis and LV gram showed left ventricular ejection fraction of 50-55% with mild apical hypokinesis. S/P peripheral artery angioplasty with stent placement S/P shoulder surgery Family History (Updated 01/10/20 @ 16:32 by Mark Javier MD) Mother Psychiatric illness Other Cancer Social History (Updated 01/10/20 @ 16:33 by Mark Javier MD) Smoking and tobacco status: current every day smoker cigarettes Packs smoked per day: 1 Number of cigarettes per day: >20 Alcohol intake: former Household members: family Housing: House Vitals/I&O/Wt Last Vital Signs Temp 97.8 F 01/11/20 06:00 Pulse 111 H 01/11/20 10:00 Resp 18 01/11/20 10:00 BP 119/77 01/11/20 10:00 Pulse Ox 91 01/11/20 10:00 01/10/20 01/11/20 01/11/20 22:59 06:59 14:59 Intake Total 1320 / 1320 170 / 1490 240 / 240 Output Total 1600 / 1600 925 / 2525 Balance -280 / -280 -755 / -1035 240 / 240 Weight last 48 hrs Weight 217 lb 9.6 oz Weight 220 lb Physical Exam Narrative: EXAM NARRATIVE: GENERAL: In general he is comfortable at rest eating lunch HEENT: Exam within normal limits. NECK: Supple without jugular vein distention. The carotid upstroke is normal without bruits. BACK: Exam normal. LUNGS: Clear. HEART: Regular rate and rhythm. ABDOMEN: Benign without organomegaly or tenderness. EXTREMITIES: No edema. Decreased pulses from the femorals down. No right radial pulse. Slight discoloration of the feet. NEUROLOGIC: Exam normal. SKIN: Unremarkable. Data Micro: Micro: Microbiology 01/10/20 17:00 Blood Culture - Pr eliminary Blood SPECIMEN [facility] 01/10/20 15:27 Gram Stain - Final Sputum - Expector ated Sputum 01/10/20 14:00 Blood Culture - Pr eliminary Blood SPECIMEN [facility] A&P Assessment and plan (1) Shortness of breath: Status: Acute (2) Diastolic heart failure: Status: Acute (3) Tobacco abuse: Status: Acute (4) H/O heart artery stent: Status: Acute (5) COPD (chronic obstructive pulmonary disease): Status: Acute (6) Obesity: Status: Acute (7) Dyslipidemia: Status: Acute (8) Carotid stenosis, bilateral: Status: Acute (9) ASHD (arteriosclerotic heart disease): Status: Acute (10) PAD (peripheral artery disease): Status: Acute Additional A&P Information He usually presents a difficult diagnostic dilemma. I do not see any changes on his EKG and his troponins are negative. If he was truly having unstable angina for the last 8 days one would expect changes on the EKG and a troponin leak. He has had neither. The other problem is difficult access. About the only place to access his vasculature is the right brachial artery which is not a particularly safe place to perform angiography. Therefore, once his COVID-19 test comes back negative I would perform a Lexiscan sestamibi tomorrow. If his ischemic burden is nil or low I would continue to treat him medically. Consult Attestations Medical Necessity Statement: Not applicable Coding Level of Care Code New Pt Acute Incident Response Engineer for Chg Fwd Patient Type New History Comprehensive Exam Comprehensive Medical Decision Making High Complexity Diagnoses Shortness of breath R06.02 Diastolic heart failure I50.30 Tobacco abuse Z72.0 H/O heart artery stent Z95.5 COPD (chronic obstructive pulmonary disease) J44.9 Obesity E66.9 Dyslipidemia E78.5 Carotid stenosis, bilateral I65.23 ASHD (arteriosclerotic heart disease) I25.10 PAD (peripheral artery disease) I73.9
--- NOTE | 2020-01-11 14:00 | ECG_ITS ---
Measurements Intervals [place] Rate: 99 P: 71 NM: 151 QRS: 171 QRSD: 90 T: -51 QT: 341 QTc: 438 SINUS RHYTHM POSSIBLE LEFT ATRIAL ENLARGEMENT [-0.1mV P WAVE IN V1/V2] POSSIBLE RIGHT VENTRICULAR HYPERTROPHY [SOME/ALL OF: PROMINENT R IN V1, LATE TRANSITION, RAD, NABILA, SSS] POSSIBLE ANTERIOR MYOCARDIAL INFARCTION [30 ms Q WAVE IN V3/V4, OR R < 0.2 mV IN V4 OF INDETERMINATE AGE MODERATE T-WAVE ABNORMALITY, CONSIDER LATERAL ISCHEMIA [-0.1+ mV T WAVE IN I/a I/aVL/V5/V6].INTERPRETATION BASED ON A DEFAULT AGE OF 40 YEARS Compared to ECG 01/10/2020 20:22:44.Sinus tachycardia no longer present Myocardial infarct finding still present.T-wave abnormality still present Possible ischemia still present Electronically Signed On 01-11-2020 18:13:13 CDT by Michael Arora M.D. [id number]
--- NOTE | 2020-01-11 14:35 | PC.NURSE ---
1400 complaint of chest pain going down left arm into hand, making hand numb while sitting in bedside chair. Feet purple, after getting back into bed feet pinked back up. Nitro subl. given, 1 tablet, pain eased down within 3 minutes, hanging on with hand numbness slightly for about 15 min until feeling better. Became diaphoretic with chest pain, and pale after it was gone. Dr. Ritter and Dr. Angel notified.
--- NOTE | 2020-01-11 15:45 | PC.NURSE ---
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 No c/o's of pain. Daughter, Tamera notified of transfering to [facility].
--- NOTE | 2020-01-11 16:40 | PC.NURSE ---
Patient reports chest pain located in medial chest, rated 8/10, radiating to left arm with tingling in left hand. Patient reports the pain as pressure and tightness in chest that makes it difficult to breathe. Vitals assessed, 1 SL nitro administered. Pain reassessed in 5 minutes. Patient stated chest pain was gone but left hand was still tingling. Pain reassessed again in 5 minutes. Patient states symptoms have resolved. Nurse to continue to monitor.
[2020-01-11 16:51] LABS: Glucose Point of Care 115 mg/dL (70-110)
--- NOTE | 2020-01-11 17:21 | USCV_ITS ---
Ramy Lawler Age: 69 Gender: M : 1950 Exam Date: 01/11/2020 16:46 Ordering Phys: Mark Javier MD Technologist: Bogdan Ceballos Exam Location: [facility] Indication: CHF HX OF [place] BP: 112 / 80 HR: 93 Rhythm: Sinus Technical Quality: Suboptimal MEASUREMENTS (Male / Female) Normal Values 2D ECHO LV Diastolic Diameter PLAX 5.0 cm 4.2 - 5.9 / 3.9 - 5.3 cm LV Systolic Diameter PLAX 3.1 cm IVS Diastolic Thickness 0.9 cm 0.6 - 1.0 / 0.6 - 0.9 cm IVS Systolic Thickness 1.7 cm LVPW Diastolic Thickness 1.1 cm 0.6 - 1.0 / 0.6 - 0.9 cm LVPW Systolic Thickness 1.7 cm LVOT Diameter 2.1 cm LV Ejection Fraction 2D Teich 69.3 % LV Ejection Fraction MOD 2C 56.5 % LV Ejection Fraction 2C AL 57.3 % LA Diameter 3.9 cm LA Width 3.9 cm LA Height 5.8 cm RA Width 5.8 cm RA Height 6.2 cm Aorta at Sinotubular Diameter 2.5 cm M-MODE LV Diastolic Diameter MM 4.6 cm 4.2 - 5.9 / 3.9 - 5.3 cm LV Systolic Diameter MM 3.0 cm LV Ejection Fraction MM Teich 63.8 % IVS Diastolic Thickness MM 1.3 cm 0.6 - 1.0 / 0.6 - 0.9 cm IVS Systolic Thickness MM 1.7 cm LVPW Diastolic Thickness MM 1.2 cm 0.6 - 1.0 / 0.6 - 0.9 cm LVPW Systolic Thickness MM 1.6 cm RV Diastolic Diameter MM 2.5 cm Aortic Annulus Diameter 3.8 cm LA Ao Ratio MM 1.0 MV E Point Septal Separation 1.0 cm DOPPLER AV Peak Velocity 110.0 cm/s LVOT Peak Velocity 78.0 cm/s AV Area Cont Eq vti 3.4 cm squared AV Area Cont Eq pk 2.5 cm squared MV Area PHT 5.0 cm squared Mitral E to A Ratio 0.7 MV E' Velocity 5.0 cm/s Mitral E to MV E' Ratio 10.9 Mitral E to LV E' Lateral Ratio 9.2 Mitral E to LV E' Septal Ratio 13.6 TR Peak Velocity 104.0 cm/s TR Peak Gradient 4.3 mmHg FINDINGS Left Ventricle The ventricle is poorly seen. It appears to be normal in size to upper limit of normal in size. There is hypokinesis of the anterior wall, lateral wall and perhaps the apex. The inferior wall appears to be moving normally. A rough estimate of the ejection fraction would be 40%. Diastolic function cannot be determined. Right Ventricle Normal right ventricular size and systolic function. Right Atrium Moderately increased right atrial size. Left Atrium Mildly increased left atrial size. Mitral Valve Mitral valve not well visualized. Aortic Valve Aortic valve not well visualized. Tricuspid Valve Tricuspid valve not well visualized. Pulmonic Valve Pulmonic valve not well visualized. Pericardium Normal pericardium without effusion. Aorta Normal ascending aorta dimension. CONCLUSIONS The ventricle is poorly seen. It appears to be normal in size to upper limit of normal in size. There is hypokinesis of the anterior wall, lateral wall and perhaps the apex. The inferior wall appears to be moving normally. A rough estimate of the ejection fraction would be 40%. Diastolic function cannot be determined. Moderately increased right atrial size. Mildly increased left atrial size. When compared to the previous echo from 2017 the ejection fraction has dropped. This suggest the development of worsening coronary artery disease Dr. Clyde Ritter MD (Electronically Signed) Final Date: 12 January 2020 14:50 S
[2020-01-11 20:45] LABS: Glucose Point of Care 203 mg/dL (70-110)
[2020-01-11] MEDS: budesonide 0.5 mg/2 mL Neb INHALATION (21:03)
[2020-01-12] VITALS (10 sets, daily range): BP systolic 94–148; BP diastolic 60–78; PULSE 86–108; RESP 18–20; TEMP 36.4–36.8; O2SAT 91–96
[2020-01-12] MEDS: nitroglycerin 0.4 mg sublingual Tablet SUBLINGUAL ×2 (02:28→10:00)
--- NOTE | 2020-01-12 02:30 | PC.NURSE ---
PT C/O CHEST PAIN 03/29. PT STATES THAT ITS USUALLY RELIEVED WITH A NITRO. WILL CONTINUE TO MONITOR.
--- NOTE | 2020-01-12 02:35 | PC.NURSE ---
PT STATES THAT CP IS A LOT BETTER AFTER NITRO. BP 120/63 AFTER NITRO. PT C/O 2/10 CHEST PAIN. WILL CONTINUE TO MONITOR.
[2020-01-12] MEDS: albuterol 8 gm MDI 2 PUFF INHALATION ×3 (02:54→21:12)
[2020-01-12] MEDS: FUROsemide 10 mg/mL SDV 4mL 40 MG IVP (05:18)
[2020-01-12 05:28] LABS: Basophils % 0.4 %; Eosinophils # 0.4 10^3/uL (0.0-0.8); Eosinophils % 3.9 %; Hematocrit 53.3 % (42.0-52.0); Hemoglobin 17.2 g/dL (11.7-16.6); Lymphocytes # 2.9 10^3/uL (0.8-4.8); Lymphocytes % 25.2 %; Mean Corpuscular HGB Conc 32.3 g/dL (30.0-36.0); Mean Platelet Volume 8.9 fL (7.4-10.4); Monocytes % 8.7 %; Neutrophils % 61.4 %; Nucleated Red Blood Cells % 0 %; Platelet Count 219 10^3/cmm (130-400); Red Blood Count 5.55 10^6/uL (4.1-5.3); Red Cell Distribution Width 13.2 % (12.1-15.1); White Blood Count 11.4 10^3/uL (4.0-10.0)
[2020-01-12 05:47] LABS: Alanine Aminotransferase 20 U/L (0-41); Alkaline Phosphatase 69 IU/L (40-130); Anion Gap 14.9 (5-19); Aspartate Amino Transferase 17 U/L (0-40); Blood Urea Nitrogen 17 mg/dL (8-23); Calcium 9.6 mg/dL (8.5-10.5); Carbon Dioxide 29 mmol/L (22-29); Chloride 97 mmol/L (98-107); Creatinine Clr Calc Pharmacy 94.2638; Globulin 3.5 g/dL (1.3-4.6); Glomerular Filtration Rate 96.4 mL/min (90-130); Glucose 142 mg/dL (65-115); Osmolality Calculated 283 mOsm/kg (285-295); Potassium 3.9 mmol/L (3.5-5.1); Sodium 137 mmol/L (136-145); Total Bilirubin 0.5 mg/dL (0.15-1.2); Total Protein 7.5 g/dL (6.6-8.7)
--- NOTE | 2020-01-12 06:15 | ECG_ITS ---
NAME OF STUDY: LEXISCAN SESTAMIBI STRESS TEST INDICATION: Chest Pain, PROCEDURE: At the baseline, the EKG revealed normal sinus rhythm with a poor R wave progression. Possible old anteroseptal PR. Diffuse nonspecific ST-T changes. Low voltage complexes in the limb leads. The baseline blood pressure was 102/77 mm Hg with a heart rate of 91 beats/min. Lexiscan was infused over a period of 20 seconds. A total of 0.4 milligrams of Lexiscan was infused. The stress phase was continued for a total of 5 minutes. Heart rate at the end of the stress phase was 99 with a blood pressure 101/65. The EKG at the peak infusion revealed no significant changes. Sestamibi was injected 20 seconds after the Lexiscan infusion. Blood pressure at the end of the recovery phase was 100/65 with a heart rate of 99 per minute. CONCLUSION: 1. No significant EKG changes with the LexiScan infusion 2. No LexiScan induced chest pain or cardiac arrhythmia 3. Normal blood pressure and heart rate response 4. Sestamibi/sestamibi perfusion scan pending; see separate report. Electronically Signed On 01-12-2020 13:23:16 CDT by Michael Arora M.D. [id number]
[2020-01-12 06:32] LABS: Glucose Point of Care 137 mg/dL (70-110)
--- NOTE | 2020-01-12 07:00 | NMCV_ITS ---
NM mary perf SPECT r/s* [id number] Ramy Lawler Age: 69 Gender: M : 1950 Exam Date: 01/12/2020 07:00 Ordering Phys: Clyde Ritter MD ([email or web address]) Technologist: MOOSE [place] Exam Location: [facility] Indications: ANGINA, COUGH, COPD STRESS TEST Please see separate stress test report in [facility] for full findings IMAGE PROTOCOL Rest/Stress 1 Lexiscan Day Radiopharmaceutical Dose (mCi) Administration Site Administered by Rest: Tc-99m 10.9 IV MOOSE Delvalle Sestamibi Stress:Tc-99m 33.0 IV MOOSE Delvalle Sestamibi Rest: 12-Jan-2020 60 Discovery 630 Stress: 12-Jan-2020 30 Discovery 630 0.4mg Lexiscan. Supine position only as patient was unable to lay prone. SPECT RESULTS Technical Quality: Excellent Raw Data Analysis: Normal Image Corrections: No attenuation or motion correction applied Summed Stress Score: 11 Summed Rest Score: 2 Summed Difference Score: 9 PERFUSION FINDINGS Moderate area of decreased tracer uptake in the mid anterolateral, mid inferoseptal,, apical anterior, lateral, inferior and LV apex. Some reversibility was noted during all these regions. FUNCTIONAL RESULTS (calculated via Gated SPECT) Stress Image LV EF (%): 36 Stress EDV (mL):107 TID: 1.04 Stress ESV (mL):68 FUNCTIONAL FINDINGS: Segmental wall motion analysis revealed diffuse hypokinesia of the septum, LV apex, mid and apical anterior wall regions. IMPRESSIONS 1. Myocardial perfusion imaging revealing areas of persistent decreased tracer uptake in the distal distribution of all the 3 coronary arteries with significant ischemia, suggestive of three-vessel coronary artery disease 2. Diminished LV ejection fraction of 36%. 3. LV wall motion analysis revealing multiple wall motion normalities. 4. Mildly dilated LV cavity. No similar previous studies are available for comparison Dr Michael Arora MD FAC (Electronically Signed) Final Date: 12 January 2020 14:11 S
--- NOTE | 2020-01-12 07:30 | PC.NURSE ---
Patient off unit to [facility] for stress test.
--- NOTE | 2020-01-12 07:45 | P.PN_ITS ---
Subjective Subjective: Interval history: Ramy had a couple of episodes of chest pain yesterday while in the ICU. Still no EKG changes and still no troponin elevation. He is scheduled for stress test this morning. He has been moved out of the ICU and up to the second floor. Medications: Reviewed: Yes Vitals/I&O/Wt Last Vital Signs Temp 97.5 F L 01/12/20 04:00 Pulse 95 01/12/20 04:00 Resp 20 H 01/12/20 04:00 BP 109/74 01/12/20 04:00 Pulse Ox 91 01/12/20 04:00 01/11/20 01/12/20 01/12/20 22:59 06:59 14:59 Intake Total 240 / 840 Output Total 825 / 1825 Balance -585 / -985 Weight last 48 hrs Weight 206 lb 9 oz Weight 217 lb 9.6 oz Weight 220 lb Physical Exam Narrative: EXAM NARRATIVE: GENERAL: General he looks comfortable at rest HEENT: Exam within normal limits. NECK: Supple without jugular vein distention. The carotid upstroke is normal without bruits. BACK: Exam normal. LUNGS: Clear. HEART: Regular rate and rhythm. ABDOMEN: Benign without organomegaly or tenderness. EXTREMITIES: No edema. NEUROLOGIC: Exam normal. SKIN: Unremarkable. Data : 01/12/20 05:00 01/12/20 05:00 Micro: Microbiology 01/10/20 17:00 Blood Culture - Preliminary Blood NEGATIVE TO DATE 01/10/20 14:00 Blood Culture - Preliminary Blood NEGATIVE TO DATE A&P Assessment and plan (1) Myocardial infarction: Status: Acute (2) PAD (peripheral artery disease): Status: Acute (3) ASHD (arteriosclerotic heart disease): Status: Acute (4) Shortness of breath: Status: Acute (5) Diastolic heart failure: Status: Acute (6) Tobacco abuse: Status: Acute (7) H/O heart artery stent: Status: Acute (8) COPD (chronic obstructive pulmonary disease): Status: Acute (9) Obesity: Status: Acute (10) Dyslipidemia: Status: Acute (11) Carotid stenosis, bilateral: Status: Acute Additional A&P Information We will await the results of the stress test then make further recommendations. Attestations Medical Necessity Statement*: Not applicable Coding Level of Care Code Acute Health Care Facility Administrator for Chg Fwd History Detailed Exam Detailed Medical Decision Making Moderate Complexity Diagnoses Myocardial infarction I21.9 PAD (peripheral artery disease) I73.9 ASHD (arteriosclerotic heart disease) I25.10 Shortness of breath R06.02 Diastolic heart failure I50.30 Tobacco abuse Z72.0 H/O heart artery stent Z95.5 COPD (chronic obstructive pulmonary disease) J44.9 Obesity E66.9 Dyslipidemia E78.5 Carotid stenosis, bilateral I65.23
[2020-01-12] MEDS: regadenoson 0.4 Mg/5 ml Syringe IVP (08:05)
--- NOTE | 2020-01-12 10:00 | PC.NURSE ---
Patient c/o chest pain radiating to left arm 06/29. Re;ieved with one ntg sL.
[2020-01-12] MEDS: clopidogrel 75 mg Tablet PO (10:01)
[2020-01-12] MEDS: aspirin 81 mg EC Tablet PO (10:01)
[2020-01-12] MEDS: tamsulosin 0.4 mg Capsule PO (10:02)
[2020-01-12] MEDS: enoxaparin 40 mg/0.4 mL Syringe SUBCUT (10:02)
[2020-01-12] MEDS: atorvastatin 40 mg Tablet PO (10:02)
--- NOTE | 2020-01-12 11:08 | PM.PN ---
Subjective Subjective: Interval history: Overnight patient had chest pain twice. Will last chest pain around 10 AM. Patient underwent stress test today morning. Chest pain associated with nausea but no vomiting and mild diaphoresis. He denies of having any shortness of breath at present. He continues to saturate over 90% on 5 L nasal cannula. Vitals/I&O/Wt Last Vital Signs Temp 97.5 F L 01/12/20 04:00 Pulse 99 01/12/20 08:19 Resp 20 H 01/12/20 04:00 BP 100/65 01/12/20 08:19 Pulse Ox 91 01/12/20 04:00 01/11/20 01/12/20 01/12/20 22:59 06:59 14:59 Intake Total 240 / 840 Output Total 825 / 1825 Balance -585 / -985 Weight last 48 hrs Weight 93.695 kg Weight 98.702 kg Weight 99.79 kg Physical Exam Narrative: EXAM NARRATIVE: General: No acute distress, AO x3 HEENT: PERRLA, pupils bilaterally equal and reactive Chest: Bilateral fine crackles, right more than left, normal vesicular breath sounds, equal good air entry bilaterally CVS: S1-S2 regular, no murmurs, no tachycardia, no gallops, no rubs Abdomen: Soft, nontender, no organomegaly, bowel sounds present Neuro: No focal deficits, no facial deformity, AO x3, power 5/5 in all limbs Data : 01/12/20 05:00 01/12/20 05:00 Micro: Microbiology 01/10/20 15:27 Gram Stain - Final Sputum - Expectorated Sputum Sputum Culture - Preliminary 01/10/20 17:00 Blood Culture - Preliminary Blood NEGATIVE TO DATE 01/10/20 14:00 Blood Culture - Preliminary Blood NEGATIVE TO DATE A&P Assessment and plan (1) Shortness of breath: Status: Acute (2) Angina of effort: Status: Acute (3) Tobacco abuse: Status: Acute (4) H/O heart artery stent: Status: Acute (5) COPD (chronic obstructive pulmonary disease): Status: Acute (6) Obesity: Status: Acute (7) Dyslipidemia: Status: Acute (8) Carotid stenosis, bilateral: Status: Acute (9) Diastolic heart failure: Status: Acute Additional A&P Information Angina: History of CAD with PCI in 2011: With last angiogram in 2017. Continue with aspirin, Plavix and statin. Lipid panel results noted. Because patient continues to have chest pain we will start him on a low-dose of Imdur 30 mg daily. Patient underwent stress test today morning. Will await for the results. Dr. Ritter's input appreciated. Shortness of breath: Most likely because of congestive heart failure. Last echocardiogram shows diastolic dysfunction. COVID-19 testing negative. Patient already got IV 40 mg Lasix today morning. We will start him on oral Lasix 60 mg for tomorrow morning. Overall 2 L negative since admission. Chest x-ray today morning better than yesterday but still showing congestion. Strict input output charting. Daily weights. Echocardiogram results awaited. Chances of pneumonia are less as patient does not have any fever, procalcitonin is negative. Patient does have mild white blood count cell elevation but has no left shift. Most likely because of hemoconcentration as patient also has hemoglobin of 17. We will continue to monitor. We will hold off on antibiotics for now. COPD: Continue with home dose of inhalers. At home patient is on 6 L of nasal cannula oxygen supplementation. Patient would most likely need oxygen evaluation before discharge. Type 2 diabetes mellitus: A1c 7.9. History sliding scale at high protocol. Hypertension: Continue on home medication of lisinopril. We will continue to monitor blood pressures. Tobacco abuse: Discussed with patient in detail regarding need of tobacco cessation due to severe concerning symptoms of CAD. We will change medications as per the clinical course and the results of the blood work. Full code. Cardiac diabetic diet. Attestations Medical Necessity Statement*: Unstable angina, Time Spent in Patient Care: 16 - 35 minutes Coding Level of Care Code Acute Cell Inspector for [facility] Fwd Diagnoses Shortness of breath R06.02 Angina of effort I20.8 Tobacco abuse Z72.0 H/O heart artery stent Z95.5 COPD (chronic obstructive pulmonary disease) J44.9 Obesity E66.9 Dyslipidemia E78.5 Carotid stenosis, bilateral I65.23 Diastolic heart failure I50.30
[2020-01-12 11:09] LABS: Glucose Point of Care 152 mg/dL (70-110)
[2020-01-12] MEDS: isosorbide mononitrate ER 30 mg Tablet PO (12:10)
[2020-01-12 16:55] LABS: Glucose Point of Care 147 mg/dL (70-110)
--- NOTE | 2020-01-12 19:44 | PC.NURSE ---
Talked to patient reguarding NPO status after midnight for his procedure tomorrow. Patient verbalized understanding. Will continue to monitor.
[2020-01-12 21:09] LABS: Glucose Point of Care 163 mg/dL (70-110)
[2020-01-12] MEDS: budesonide 0.5 mg/2 mL Neb INHALATION (21:12)
--- NOTE | 2020-01-12 21:34 | PC.NURSE ---
Late entry: Javi NGO called Dr. Ritter and told him patient wanted to go ahead and do the angiogram procedure 01/13/2020. Javi NGO told me that Dr. Ritter would come in the morning and place orders for the procedure. Will continue to monitor.
[2020-01-13] VITALS (24 sets, daily range): BP systolic 61–132; BP diastolic 43–85; PULSE 24–129; RESP 13–25; TEMP 35.6–36.5; O2SAT 90–118
--- NOTE | 2020-01-13 05:57 | XACV_ITS ---
Exam Room: [facility] Ht: 165 cm Wt: 95 kg BSA: 2.13 m2 Gender: Male : 1950 Any Known Allergies: Sulfa Exam Priority: Routine Indication(s): - Abnormal nuclear perfusion test - Chest pain Procedure(s): Procedure Description: Diagnostic procedure Procedure Description: Coronary Angiography Diagnostic Cath Status: Urgent Diagnostic Findings 69-year-old man with multiple underlying medical problems including known coronary artery disease, peripheral disease, tobacco abuse among others. Presented with unstable angina with frequent use of sublingual nitroglycerin. EKG and troponins unremarkable. Stress testing abnormal in all 3 distributions. Previous angiography attempts have been made difficult by the lack of access via the femoral arteries and lack of pulses in the radial artery. Patient's previous angiogram 3 years ago was done from the right brachial artery. At that time a previously placed circumflex stent was patent and there were no significant new lesions. Angiography this time again performed via the right brachial artery. Difficulty with access. Also proximal upper arm vessels very tortuous and calcified making placement of the catheters difficult. Additionally, the patient was agitated and had multiple severe coughing paroxysms during the angiogram. Angiography reveals right coronary artery dominance. The left main coronary artery exhibits a 50% ostial stenosis which is calcified. The LAD contains a 99% stenosis in the proximal portion which is heavily calcified. The remainder of the LAD exhibits mild diffuse disease. The circumflex contains a stent in the very proximal portion. The stent is patent and there is patchy in-stent restenosis throughout which is about 10 or 20% stenosed at the worst. There then 3 obtuse marginal branches. The first is a medium sized vessel and contains moderate proximal disease. The second is a large vessel and contains moderate proximal disease. The third is a large vessel and is normal. The right coronary artery is the dominant vessel and is nearly flush occluded. There is a 99% ostial stenosis. I was never able to actually enter the ostium of the vessel with multiple catheters. There is a elongated 99% stenosis in the proximal portion. The remainder the vessel exhibits mild diffuse disease. Due to the patient's underlying severe comorbidities and high risk for coronary bypass surgery I made an attempt briefly to place a stent in the proximal LAD. The guide caused angina due to restriction of flow. Several attempts to pass the stent including the use of a guide liner failed. The vessel is simply too heavily calcified to allow passage of a stent. I was concerned that balloon angioplasty would rupture the vessel and cause a dissection and closure. I then stopped the procedure. I will have cardiac surgery evaluate the patient. Conclusions Left main coronary artery disease. Three-vessel coronary artery disease. Recommendations Medical treatment. Cardiac surgery consultation for risk assessment. Interventional RX Recommendation: medical therapy and/or counseling Diagnostic RX Recommendation: medical therapy and/or counseling Anticoagulation: Heparin Pressures Phase:Rest AO : 95 mmHg / 61 mmHg ( 77 mmHg ) @ 2:40:00 AM 100 mmHg / 60 mmHg ( 79 mmHg ) @ 2:43:00 AM 100 mmHg / 64 mmHg ( 79 mmHg ) @ 2:46:00 AM 99 mmHg / 61 mmHg ( 78 mmHg ) @ 3:00:00 AM 105 mmHg / 60 mmHg ( 78 mmHg ) @ 3:06:00 AM 89 mmHg / 57 mmHg ( 70 mmHg ) @ 3:14:00 AM 111 mmHg / 84 mmHg ( 98 mmHg ) @ 3:21:00 AM Clinical Evaluation EBL: 5mL-10mL Procedural Details Procedure Consent Obtained. Current Diagnosis : Chest Pain. Pre-Procedure Time Out. Identified patient by full name and date of as verbalized by the patient/guarantor. Does the consent match the physician's order: Yes. Accurate & Complete Informed Consent: Yes. Inpatient/Outpatient History & Physical on Chart: Yes. If H&P is completed, is and addenduem needed: No; If yes, is the addendum complete: N/A. Visualize and Verify Site with Patient/Guarantor: N/A. Relevant Radiology Images available: Yes. The risks, benefits, and alternatives of sedation and/or procedure were discussed by physician. The patient agrees to continue. Procedure started. [facility] Clinical Fraility Score: 6: Moderately Frail. Visual Basic .Net Developer Indications: ACS > 24 hours. Chest Pain Symptom Assessment: Typical Angina Symptoms. Cardiovascular Instability: No. Correct patient, site and procedure confirmed by cath team. PERRLA. Strong, equal hand handle sander operator bilaterally. Lungs clear x 5 lobes. Current diagnosis: ACS. Patient arrives with a wet, productive cough and is coarse throughout all lung feilds. The existing IV in the right AC was discontiued by Lola Aden RN, [facility]. The site was noted to be filled with white pus and had a foul odor. Dr Ritter was notified and an order was received for Ancef 1 gm IVPB. IV Site on Arrival: 20 gauge in the left hand. IV Fluids: 0.9% NaCl at KVO. 0 mL infused prior to pathology laboratory technologist. Pre Procedural Pulses: right brachial was Doppled. Oxygen started at 2liters/min via nasal canula. right brachial was prepped with chloroprep then draped in the usual sterile fashion. Physician notified. Baseline sample Acquired. HR: 94 BPM. Patient's family unavailable due to the hospital's current restrictions d/t COVID-19. Physician arrived. Equipment: 6F - Radial. Cardiac Cath Pack. ACIST Manifold Kit Model BT 2000. Heparinized Saline (2 units/mL), 1000 mL bag. Physician scrubbed in. Immediate Pre-Procedure Time Out. Correct Patient: Yes; Correct Procedure: Yes; Correct Site: Yes; Correct Patient Position: Yes; Correct Supplies: Yes; Dried Flammable Prep: Yes; Blood Products Available: N/A. Lidocaine 1% infiltrated to the right brachial. Brachial artery access on the right have been unsuccessful up to this point. Arterial access obtained. A 6 greenlandic TIG catheter in over the exchange wire. Multiple views taken of left coronary artery. Catheter redirected to the RCA. Catheter attached to Normal Saline flush at KVO to maintain patency. Dr Ritter scrubbed out. Dr Ritter scrubbed in. Catheter removed over the exchange wire. A CRD 6F JR4 100cm Diagnostic Catheter was advanced over the exchange wire and used for Right coronary angiography. Unable to cannulate the RCA. Catheter removed over the exchange wire. A 6 greenlandic 3DRC catheter in over the exchange wire. Unable to cannulate the RCA. A 6 greenlandic AR MOD catheter in over the exchange wire. Multiple views taken of right coronary artery. Catheter removed over the exchange wire. Inventory is FIA Formula E XT .014 190cm Str. Guidewire. Inventory is Endoflator. Physician review of cine films. 6 greenlandic XB 3 guide catheter was inserted over the exchange wire. Delia guidewire was advanced through the guide catheter to lesion in the Prox LAD. Resolute [place] 3.5 x 12 stent in over the Delia guidewire. Intact stent baloon out over the Delia guidewire. Guideliner in over the Delia guidewire. Delia guidewire out, guideliner out, XB 3.[address] Ritter scrubbed out. Sheath(s) sutured into position with 2-0 silk and sterile 4x4's and Op-site applied over the site. No oozing or signs and symptoms of hematoma noted. Arterial sheath flushed and connected to tranducer and pressure bag with heparinized saline. Post Procedure: Pulses reassessed and unchanged. PERRLA. Strong, equal hand handle sander operator bilaterally. No VTE prophylaxis required. Medication's Wasted: Lidocaine 1% = 15 mL. Medication's Wasted: Heparin = 4000 units. PCI Indication: NSTE. Complications: none. Estimated blood loss: 5mL-10mL. Procedure completed. A Suture was successful obtaining hemostatsis at the Right Brachial artery insertion site. Patient transferred by wheelchair to ICU. Vital chart was stopped. Site: Right Brachial artery Sheath Size: 6 Fr Hemostasis Method: Suture Hemostasis Success: Successful Procedure Medications Start: 7:05 AM Stop: 7:05 AM Medication: Versed Amount: 1 mg Route: I.V. Start: 7:05 AM Stop: 7:05 AM Medication: Fentanyl Amount: 25 mcg Route: I.V. Start: 7:19 AM Stop: 7:19 AM Medication: Ancef Amount: 1 g Route: I.V. Start: 7:20 AM Stop: 7:20 AM Medication: Versed Amount: 1 mg Route: I.V. Start: 7:24 AM Stop: 7:24 AM Medication: Fentanyl Amount: 25 mcg Route: I.V. Start: 7:39 AM Stop: 7:39 AM Medication: Versed Amount: 1 mg Route: I.V. Start: 8:12 AM Stop: 8:12 AM Medication: Heparin Amount: 5000 units Start: 8:19 AM Stop: 8:19 AM Medication: Fentanyl Amount: 25 mcg Route: I.V. Start: 8:24 AM Stop: 8:24 AM Medication: Fentanyl Amount: 25 mcg Route: I.V. I, the attending physician, have reviewed and verified all procedure medications. Yes, all medications given per verbal order History/Risk Factors Hypertension: Yes Dyslipidemia: Yes Diabetic Therapy: Insulin Peripheral Arterial Disease (PAD): Yes Myocardial Infarction (ID): Yes Obesity: Yes Renal Disease: No Tobacco Use: Current/Recent(w/in 1 year) Prior Interventions PCI: Yes CABG: No Valve Surgery: No Date of PCI: 07/11/2012 Report Signatures Finalized by:Dr. Clyde Ritter MD on 01/13/2020 9:10:37 AM
[2020-01-13] MEDS: diphenhydrAMINE 50 mg Capsule PO (06:06)
[2020-01-13] MEDS: sodium chloride 0.9% 1,000 ML 50 ML IV (06:06)
[2020-01-13 06:19] LABS: Glucose Point of Care 142 mg/dL (70-110)
--- NOTE | 2020-01-13 06:47 | PC.NURSE ---
Patient off to pathology lab technician report given to Jamie NGO.
[2020-01-13] MEDS: morphine 4 mg/mL SDV 1 mL 2 MG IVP ×4 (09:02→20:12)
--- NOTE | 2020-01-13 09:10 | PC.SOCIAL ---
IMM Page 2 of IMM updated and given to patient with [employer] number provided. Initialed, dated, and timed and placed in chart.
[2020-01-13] MEDS: nitroglycerin 0.4 mg sublingual Tablet SUBLINGUAL ×2 (09:41→12:58)
--- NOTE | 2020-01-13 09:55 | USCV_ITS ---
Ramy Lawler Age: 69 Gender: M : 1950 Exam Date: 01/13/2020 10:20 Ordering Phys: Beck Pedroza MD (Andy) ([email or web address]) Technologist: Yamileth Oh [place] [facility] [place]: Failed cath intervention, assess for CABG RIGHT LEFT LOWER EXTREMITY Diameter Diameter (cm) (cm) 0.57 High Thigh 0.31 0.31 Mid Thigh 0.20 0.21 Above Knee 0.22 0.29 Below Knee 0.27 0.28 Mid Calf 0.30 0.32 Ankle 0.24 RIGHT LEFT UPPER EXTREMITY The Upper Extremity section is not evaluated at this time Findings See measurements listed above. Veins are found to be easily compressible. Conclusions Relatively small caliber patent veins bilaterally with no evidence of thrombosis The veins measured anywhere from 0.21-0.57 on the right side and 0.2-0.31 on the left side. The venous dimensions are as mentioned above Dr Michael Arora MD FAC (Electronically Signed) Final Date: 14 January 2020 09:34 S
[2020-01-13] MEDS: metoprolol tartrate 1 mg/1 mL SDV 5 mL 5 MG IV ×2 (10:08→17:31)
[2020-01-13] MEDS: tamsulosin 0.4 mg Capsule PO (10:10)
[2020-01-13] MEDS: lisinopril 5 mg Tablet PO (10:10)
[2020-01-13] MEDS: atorvastatin 40 mg Tablet PO (10:11)
[2020-01-13] MEDS: FUROsemide 40 mg Tablet 60 MG PO (10:11)
[2020-01-13] MEDS: isosorbide mononitrate ER 30 mg Tablet PO (10:11)
--- NOTE | 2020-01-13 10:17 | P.PN_ITS ---
Subjective Subjective: Interval history: This morning patient was examined in the ICU, he has returned to his cardiac catheterization procedure, there was difficulty in access during the procedure and there are plans for cardiothoracic surgical evaluation, currently patient is complaining of chest pain, states that 2 mg of morphine does not help, denies shortness of breath, is on 6 L oxygen, states that he uses 6 L oxygen intermittently throughout the day at home, denies headaches, blurry vision, jaw pain, shoulder pain, back pain Vitals/I&O/Wt Last Vital Signs Temp 97.7 F 01/13/20 08:50 Pulse 24 L 01/13/20 09:50 Resp 20 H 01/13/20 09:02 BP 120/79 01/13/20 08:50 Pulse Ox 118 H 01/13/20 09:50 01/12/20 01/13/20 01/13/20 22:59 06:59 14:59 Intake Total 480 / 840 Output Total 250 / 250 Balance 480 / 840 -250 / 590 Weight last 48 hrs Weight 95.481 kg Weight 93.695 kg Physical Exam Narrative: EXAM NARRATIVE: At the left arterial line in place Const: COMMON NORMALS: no apparent distress and oriented x3 HENMT: COMMON NORMALS: normocephalic HEAD & SCALP: normocephalic Neck/C-Spine: COMMON NORMALS: no JVD Resp: COMMON NORMALS: normal respiratory effort, no retractions, no use of accessory muscles and clear to auscultation bilaterally AUSCULTATION: clear to auscultation bilaterally Cardio: COMMON NORMALS: no JVD, regular rate, regular rhythm, S1 normal heart sound and S2 normal heart sound RATE: regular rate RHYTHM: regular rhythm HEART SOUNDS: S1 normal and S2 normal GI: COMMON NORMALS: normal to inspection, nondistended, normoactive bowel sounds, soft to palpation, non-tender, no hepatosplenomegaly, no masses and no bruits PALPATION: Yes soft and Yes no hepatosplenomegaly Extremity: COMMON NORMALS: normal capillary refill, no clubbing, cyanosis or edema, no calf tenderness and no pedal edema Neuro: COMMON NORMALS: oriented x3 Data : 01/12/20 05:00 01/12/20 05:00 Micro: Microbiology 01/10/20 15:27 Gram Stain - Final Sputum - Expectorated Sputum Sputum Culture - Preliminary A&P Assessment and plan (1) Shortness of breath: Status: Acute (2) Angina of effort: Status: Acute (3) Tobacco abuse: Status: Acute (4) H/O heart artery stent: Status: Acute (5) COPD (chronic obstructive pulmonary disease): Status: Acute (6) Obesity: Status: Acute (7) Dyslipidemia: Status: Acute (8) Carotid stenosis, bilateral: Status: Acute (9) Diastolic heart failure: Status: Acute Additional A&P Information Angina: History of CAD with PCI in 2012: With last angiogram in 2017. Continue with aspirin, Plavix and statin and Imdur 30 mg daily Cardiac stress test shows triple-vessel CAD Patient had a cardiac catheterization this morning, will await Dr. Ritter's recommendation but I hear that there are plans for cardiothoracic surgical evaluation and vein mapping Shortness of breath: Most likely because of congestive heart failure. Last echocardiogram shows diastolic dysfunction. COVID-19 testing negative. 60 mg Lasix p.o. daily Overall 1430cc negative since admission.. Strict input output charting. Daily weights. Echocardiogram results: -There is hypokinesis of the anterior wall, lateral wall and perhaps the apex. The inferior wall appears to be moving normally. A rough estimate of the ejection fraction would be 40%. Diastolic function cannot be determined.Moderately increased right atrial size.Mildly increased left atrial size.When compared to the previous echo from 2017 the ejection fraction has dropped. This suggest the development of worsening coronary artery disease Leukocytosis 11.4, likely reactive, no fevers COPD: Continue with home dose of inhalers. At home patient is on 6 L of nasal cannula oxygen supplementation. Patient states he has been smoking since he was 8 years old Type 2 diabetes mellitus: A1c 7.9. History sliding scale at high protocol. Hypertension: Continue on home medication of lisinopril. We will continue to monitor blood pressures. Tobacco abuse: Discussed with patient in detail regarding need of tobacco cessation due to severe concerning symptoms of CAD. Full code. diabetic diet. Attestations Medical Necessity Statement*: Patient requires continued hospitalization due to angina, plans on cardiothoracic surgical evaluation Coding Level of Care Code Acute [employer] Supervisor for [facility] Shawn Diagnoses Shortness of breath R06.02 Angina of effort I20.8 Tobacco abuse Z72.0 H/O heart artery stent Z95.5 COPD (chronic obstructive pulmonary disease) J44.9 Obesity E66.9 Dyslipidemia E78.5 Carotid stenosis, bilateral I65.23 Diastolic heart failure I50.30
[2020-01-13] MEDS: sodium chloride 0.9% 1,000 ML 100 ML IV ×2 (10:21→16:29)
[2020-01-13] MEDS: morphine 4 mg/mL SDV 1 mL 1 MG IVP (10:23)
[2020-01-13 10:34] LABS: Glucose Point of Care 216 mg/dL (70-110)
[2020-01-13] MEDS: nitroglycerin 1 gm/inch oint Pkt 1 INCH TOPICAL ×3 (10:40→23:52)
[2020-01-13 12:41] LABS: Glucose Point of Care 274 mg/dL (70-110)
[2020-01-13] MEDS: enoxaparin 40 mg/0.4 mL Syringe SUBCUT (12:54)
[2020-01-13] MEDS: aspirin 81 mg EC Tablet PO (12:54)
[2020-01-13] MEDS: acetaminophen 325 mg Tablet 650 MG PO (12:57)
--- NOTE | 2020-01-13 12:57 | PM.CONSULT ---
Providers/Reason For Consult Consulting Physican/Specialty*: Dr. Pedroza, cardiothoracic surgery Reason for Consult*: Severe coronary artery disease not addressable by percutaneous intervention Requesting Physcian: Dr. Ritter Attending Physician: Huey Malin MD Primary Care Provider: Melinda Mccullough DO History of Present Illness History of Present Illness Ramy Lawler is a 69 year old male with a known history of coronary artery disease as well as substantial peripheral vascular disease status post bilateral external iliac artery interventions. He has had prior interventions of the coronary system including stenting of the circumflex artery. He was last seen by Dr. Ritter about 3 years ago where he was found to have a patent stent in the proximal circumflex artery and some diffuse disease throughout. He represents with worsening anginal symptoms. Due to his substantial peripheral vascular disease, is required prior angiography by Dr. Ritter 3 years ago through the right brachial approach. He underwent Covid screening and was negative. He had a sestamibi study performed which did reveal ischemia throughout. He has completed a left heart catheterization earlier today by Dr. Ritter. Unfortunately, his disease has advanced. He has a complex and quite calcific proximal LAD stenosis but he also has an ostial left main lesion as well. He also has an ostial heavily diseased right RCA. Ejection fraction about 50%. Dr. Ritter did attempt in a valiant approach to intervene on the proximal LAD lesion though due to the ostial stenosis of the left main as well as difficulty maintaining engagement of appropriate guidance, this was unsuccessful and as well the patient had progressive chest discomfort during these attempts as well as protracted coughing episodes while lying flat. Mr. Lawler has substantial comorbidities that would make open surgery revascularization quite challenging. He is substantially obese, has severe peripheral vascular disease with dependent rubor of the lower extremities, protracted and recalcitrant tobacco use for which he is been unable to decrease at all despite his vascular disease. He clearly has very marginal pulmonary reserve and states he can only walk several feet at a time without marked dyspnea. I have personally reviewed the left heart catheterization with Dr. Ritter. I have conversed with Mr. Lawler at bedside. Of also spoken with his daughter who is a nursing leader here at [facility] [place]. Review of Systems Const: Denies: fever, chills, change in appetite, change in weight, fatigue or night sweats Eyes: Denies: change in vision or blurry vision ENMT: Denies: painful swallowing or hoarseness Card: Reports: chest pain, edema, shortness of breath on exertion, shortness of breath when lying down, leg pain with exertion and bluish discoloration of hands/feet Resp: Reports: shortness of breath, non-productive cough and wheezing; Denies: coughing up blood GI: Denies: abdominal pain, nausea, vomiting, difficulty swallowing, heartburn/indigestion or change in bowel habits : Denies: difficulty urinating, painful urination, urinary frequency, urinary urgency or urinary hesitancy Musc: Denies: extremity pain or extremity swelling Skin/Breast: Denies: rash Neuro: Reports: numbness in extremities and changes in sensation; Denies: headache Psych: Denies: anxiety, depression or change in appetite Endo: Denies: excessive urination, excessive thirst or cold intolerance Joao/Lymph: Denies: easy bruising, easy bleeding, petechiae or enlarged lymph nodes Meds/Allergies Home Medications and Allergies Home Medications Medication Instructions Recorded Confirmed Last Taken Type atorvastatin 40 mg tablet 40 mg PO DAILY 01/08/20 01/10/20 01/09/20 History clopidogrel 75 mg tablet 75 mg PO DAILY 01/08/20 01/10/20 01/10/20 History furosemide 40 mg tablet 40 mg PO DAILY 01/08/20 01/10/20 01/08/20 History glipizide 10 mg tablet 10 mg PO DAILY 01/08/20 01/10/20 01/09/20 History lisinopril 10 mg tablet 10 mg PO DAILY PRN 01/08/20 01/10/20 Unknown History potassium chloride 10 mEq 10 meq PO DAILY 01/08/20 01/10/20 01/10/20 History tablet,extended release(part/cryst) tamsulosin 0.4 mg capsule 0.4 mg PO DAILY 01/08/20 01/10/20 Unknown History albuterol sulfate [Ventolin HFA] 2 puff INHALATION 6XD PRN 01/10/20 01/10/20 Unknown History empagliflozin-linagliptin 1 tab PO DAILY 01/10/20 01/10/20 01/10/20 History [Glyxambi] nitroglycerin 0.4 mg SUBLINGUAL PRN PRN 01/10/20 01/10/20 01/10/20 History semaglutide [Ozempic] 0.25 mg SUBCUT Q7D 01/10/20 01/10/20 01/07/20 History tiotropium-olodaterol [Stiolto See Rx Instructions .ROUTE .COMPLEX 01/10/20 01/10/20 Unknown History Respimat] Allergies Allergy/AdvReac Type Severity Reaction Status Date / Time Sulfa (Sulfonamide Allergy Unknown Unknown Verified 01/11/20 15:25 Antibiotics) Current Medications Current Medications Generic Name Dose Route Start Last Admin Trade Name Freq PRN Reason Stop Dose Admin Acetaminophen 650 mg 01/10/20 17:32 01/11/20 05:09 Tylenol PO 650 mg Q6H PRN Administration Mild/Mod Pain Or Temp >/= 101 Albuterol Sulfate 2 puff 01/10/20 21:00 01/13/20 08:26 Ventolin INHALATION Not Given Q6H.RESPIRATORY AMBERLY Aspirin 81 mg 01/11/20 09:00 01/13/20 12:54 Aspirin Ec PO 81 mg DAILY AMBERLY Administration Atorvastatin Calcium 40 mg 01/11/20 09:00 01/13/20 10:11 Lipitor PO 40 mg DAILY AMBERLY Administration Budesonide 0.5 mg 01/11/20 18:00 01/13/20 08:27 Pulmicort INHALATION Not Given BID.RESPIRATORY AMBERLY Clopidogrel Bisulfate 75 mg 01/11/20 09:00 01/12/20 10:01 Plavix PO 75 mg DAILY AMBERLY Administration Enoxaparin Sodium 40 mg 01/12/20 09:00 01/13/20 12:54 Lovenox SUBCUT 40 mg DAILY AMBERLY Administration Furosemide 60 mg 01/13/20 08:00 01/13/20 10:11 Lasix PO 60 mg DAILY@0800 AMBERLY Administration Sodium Chloride 1,000 mls @ 50 mls/hr 01/13/20 05:56 01/13/20 06:06 Sodium Chloride 0.9% IV 01/14/20 01:55 50 mls/hr .Q20H ONE Administration Sodium Chloride 1,000 mls @ 50 mls/hr 01/13/20 06:15 01/13/20 06:31 Sodium Chloride 0.9% IV 01/14/20 02:14 Not Given .Q20H ONE Sodium Chloride 1,000 mls @ 100 mls/hr 01/13/20 08:50 01/13/20 10:21 Sodium Chloride 0.9% IV 100 mls/hr .Q10H AMBERLY Administration Insulin Aspart 0 unit 01/10/20 18:00 01/13/20 12:18 Novolog SUBCUT Not Given [facility] Protocol Isosorbide Mononitrate 30 mg 01/12/20 11:55 01/13/20 10:11 Imdur PO 30 mg DAILY AMBERLY Administration Lisinopril 5 mg 01/13/20 09:00 01/13/20 10:10 Prinivil PO 5 mg DAILY AMBERLY Administration Metoprolol Tartrate 5 mg 01/13/20 09:49 01/13/20 10:08 Metoprolol Tartrate IV 5 mg Q6H PRN Administration HEART RATE-HIGH Morphine Sulfate 2 mg 01/10/20 17:32 01/13/20 09:02 Morphine IVP 2 mg Q4H PRN Administration SEVERE PAIN Morphine Sulfate 1 mg 01/13/20 10:18 01/13/20 10:23 Morphine IVP 1 mg ONCE PRN Administration SEVERE PAIN Nitroglycerin 0.4 mg 01/10/20 17:32 01/13/20 09:41 Nitrostat SUBLINGUAL 1 tab PRN PRN Administration CHEST PAINS Nitroglycerin 1 inch 01/13/20 10:00 01/13/20 10:40 Nitro-Bid TOPICAL 1 inch Q6H AMBERLY Administration Tamsulosin HCl 0.4 mg 01/11/20 09:00 01/13/20 10:10 Flomax PO 0.4 mg DAILY AMBERLY Administration Tiotropium [place] 18 mcg 01/11/20 08:00 01/13/20 08:27 Spiriva INHALATION Not Given DAILY.RESPIRATORY AMBERLY PFSH Acute PFSH: Medical History (Updated 01/11/20 @ 11:43 by Clyde Ritter MD) ASHD (arteriosclerotic heart disease) Carotid stenosis, bilateral COPD (chronic obstructive pulmonary disease) Cor pulmonale Diabetes Diastolic heart failure Echocardiogram from 2017 shows an EF of 61% grade 1 diastolic dysfunction Dyslipidemia Haemophilus influenzae pneumonia Treated with Levaquin in 2017 Myocardial infarction Obesity PAD (peripheral artery disease) Sleep apnea Tobacco abuse Surgical History H/O heart artery stent PCI to ostial 99% LCx on July 11, 2012;12/15/2016 he had another angiogram showing patent circumflex stent, 10-20% ostial left main, 20-30% ostial RCA stenosis and LV gram showed left ventricular ejection fraction of 50-55% with mild apical hypokinesis. S/P peripheral artery angioplasty with stent placement S/P shoulder surgery Family History Mother Psychiatric illness Other Cancer Social History Smoking and tobacco status: current every day smoker cigarettes Packs smoked per day: 1 Number of cigarettes per day: >20 Alcohol intake: former Household members: family Housing: House Vitals/I&O/Wt Last Vital Signs Temp 97.7 F 01/13/20 08:50 Pulse 24 L 01/13/20 09:50 Resp 20 H 01/13/20 09:02 BP 120/79 01/13/20 08:50 Pulse Ox 118 H 01/13/20 09:50 01/12/20 01/13/20 01/13/20 22:59 06:59 14:59 Intake Total 480 / 840 Output Total 250 / 250 Balance 480 / 840 -250 / 590 Weight last 48 hrs Weight 210 lb 8 oz Weight 206 lb 9 oz Physical Exam Narrative: EXAM NARRATIVE: Mr. Lawler is a obese ill-appearing gentleman with clearly advanced pulmonary dysfunction and marked obesity. He has dependent rubor of his lower extremities consistent with his known severe peripheral vascular disease. Chest: COMMONS NORMALS: inspection of chest normal CHEST: No sternal flail Resp: COMMON NORMALS: negative for no use of accessory muscles EFFORT & INSPECTION: Yes actively coughing, Yes uses accessory muscles, Yes paradoxical thoraco-abdominal movements and No tracheal deviation AUSCULTATION: abnormal I/E ratio and wheezes Cardio: COMMON NORMALS: negative for regular rhythm and negative for peripheral pulses 2+ throughout RHYTHM: abnormal rhythm PERIPHERAL PULSES: No pulses 2+ throughout, radial pulses not present, posterior tibial pulses not present and dorsalis pedis pulses not present GI: COMMON NORMALS: non-tender INSPECTION: No normal to inspection (Marked obesity) Extremity: GENERAL: Yes pallor and Yes pulses abnormal Data Micro: Micro: Microbiology 01/10/20 15:27 Gram Stain - Final Sputum - Expector ated Sputum Sputum Culture - P reliminary A&P Assessment and plan (1) Myocardial infarction: 69-year-old gentleman with severe, noninterventional coronary artery disease including ostial left main stenosis, critical and calcific proximal LAD stenosis, and heavily diseased proximal RCA. Ejection fraction about 50%. He has multiple comorbidities including severe peripheral vascular disease with prior bilateral external iliac artery interventions, prior stenting to the circumflex artery, COPD, home oxygen dependency for at least 3 years, type 2 diabetes mellitus, heavy and persistent tobacco use, dyslipidemia, diastolic heart failure, and hypertension. I have performed Society of thoracic surgery calculations in relation to the data that I have available. At least risk include the following: Mortality 10% Renal failure 4% Permanent stroke 4% Prolonged ventilation 50% or greater Deep sternal wound infection 1% Reoperation 4% Morbidity or mortality combination of over 50% Extended length of hospital stay at least 25% Dr. Van from our pulmonary medicine service has been gracious enough to come in this weekend to assist in evaluation of Mr. Lawler. Even with the best of situations, I feel this is a substantially risky endeavor with clearly a protracted course to ensue with an outcome which is very much uncertain. Our options, however, may be limited. 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
[2020-01-13] MEDS: albuterol 8 gm MDI 2 PUFF INHALATION (14:45)
[2020-01-13 16:38] LABS: Glucose Point of Care 216 mg/dL (70-110)
[2020-01-13 18:07] LABS: Hematocrit 53.5 % (42.0-52.0); Hemoglobin 16.4 g/dL (11.7-16.6)
--- NOTE | 2020-01-13 21:31 | PM.CONSULT ---
Providers/Reason For Consult Consulting Physican/Specialty*: Pulmonary and critical care medicine Reason for Consult*: Evaluation of the pulmonary status in a patient with multivessel coronary artery disease likely requiring coronary artery bypass graft Attending Physician: Huey Malin MD Primary Care Provider: Melinda Mccullough DO History of Present Illness History of Present Illness Ramy Lawler is a 69 year old male who presented to the hospital on January 09 with substernal chest pain lasting for about a week. The patient has an extensive past medical history. The patient has coronary artery disease status post PCI and stenting. The patient has severe peripheral vascular disease. He is diabetic with an A1c of 7.8. Essentially a bad vasculopath. The patient unfortunately also has a diagnosis of COPD and uses 6-1/2 L of oxygen at home. The patient has been smoking since he was 8 years of age and despite multiple sessions of counseling he was not able to quit smoking. The patient gives me history of chronic cough, sputum production, wheezing and severe exertional shortness of breath. The patient would get predictably short of breath walking less than 50 feet. He also gives a history of exacerbation of COPD once to twice a year. Following presentation to the hospital on January 09, the patient underwent a cardiac stress test, echocardiogram and a cardiac catheterization. The cardiac catheterization performed on 01/12 revealed multivessel coronary artery disease. The patient also has reduced ejection fraction. The patient continues to experience ongoing substernal chest pain which he describes as burning and heaviness. Following the cardiac catheterization today, the patient had episodes of arrhythmia and currently the patient is in sinus tachycardia with a heart rate in 1115's. Interestingly, the patient does not have any significant elevation of the creatinine and he is not hypertensive. Radiologic data: The patient had several chest x-rays performed after presenting to the hospital. The initial chest x-ray revealed bilateral hyperinflation with pulmonary vascular congestion. The repeat chest x-ray revealed improvement of the pulmonary vascular congestion. There is no evidence of any mass lesion. A CT scan of the chest from 2016 revealed bilateral upper lobe predominant paraseptal emphysema. The CT scan was obtained with contrast to rule out pulmonary embolism. There was some degree of groundglass opacity in the lung parenchyma which could have been secondary to the contrast. Or that could have been indicative of some degree of interstitial lung disease secondary to smoking. Pulmonary function test: None available. Laboratory data: The patient had an arterial blood gas performed on admission. His PCO2 was 49 and PO2 was 72 on 2 L oxygen. It appears that the patient does not have any significant oxygenation problem the predominant problem is mild degree of hypercapnia which is also correlating with a bicarbonate level of 27 on the BMP. The patient's body habitus and symptomatology and data is consistent with chronic bronchitis. The patient is currently on dual antiplatelet therapy. He has completed 3 days therapy with enoxaparin. He is receiving Nitropaste as well as morphine as needed. Currently he is on DuoNeb and Pulmicort nebulization. I had performed a bedside ultrasound. The patient has bilateral B-lines without any pleural effusion. There is significant enlargement of the right ventricle with interventricular septal deviation to the left as well as significantly dilated inferior vena cava without any respiratory variation. Review of Systems Narrative: General: No fevers chills Skin: No rash HEENT: No nasal congestion, rhinitis, sinusitis Neck: There is no neck swelling, mass or swollen glands. Respiratory: Please see my HPI. Cardiovascular: Substernal chest pain, no significant resting shortness of breath, no lower extremity edema. Gastrointestinal: No abdominal pain, nausea, vomiting, burning sensation in the epigastric area Musculoskeletal: No joint pain or swelling currently, however the patient has bilateral lower extremity swelling at home at baseline Neurological: Patient is awake alert and oriented x3, no paralysis, gross motor function is normal. Psychiatric: Mild anxiety Meds/Allergies Home Medications and Allergies Home Medications Medication Instructions Recorded Confirmed Last Taken Type atorvastatin 40 mg tablet 40 mg PO DAILY 01/08/20 01/10/20 01/09/20 History clopidogrel 75 mg tablet 75 mg PO DAILY 01/08/20 01/10/20 01/10/20 History furosemide 40 mg tablet 40 mg PO DAILY 01/08/20 01/10/20 01/08/20 History glipizide 10 mg tablet 10 mg PO DAILY 01/08/20 01/10/20 01/09/20 History lisinopril 10 mg tablet 10 mg PO DAILY PRN 01/08/20 01/10/20 Unknown History potassium chloride 10 mEq 10 meq PO DAILY 01/08/20 01/10/20 01/10/20 History tablet,extended release(part/cryst) tamsulosin 0.4 mg capsule 0.4 mg PO DAILY 01/08/20 01/10/20 Unknown History albuterol sulfate [Ventolin HFA] 2 puff INHALATION 6XD PRN 01/10/20 01/10/20 Unknown History empagliflozin-linagliptin 1 tab PO DAILY 01/10/20 01/10/20 01/10/20 History [Glyxambi] nitroglycerin 0.4 mg SUBLINGUAL PRN PRN 01/10/20 01/10/20 01/10/20 History semaglutide [Ozempic] 0.25 mg SUBCUT Q7D 01/10/20 01/10/20 01/07/20 History tiotropium-olodaterol [Stiolto See Rx Instructions .ROUTE .COMPLEX 01/10/20 01/10/20 Unknown History Respimat] Allergies Allergy/AdvReac Type Severity Reaction Status Date / Time Sulfa (Sulfonamide Allergy Unknown Unknown Verified 01/11/20 15:25 Antibiotics) Current Medications Current Medications Generic Name Dose Route Start Last Admin Trade Name Freq PRN Reason Stop Dose Admin Acetaminophen 650 mg 01/10/20 17:32 01/13/20 12:57 Tylenol PO 650 mg Q6H PRN Administration Mild/Mod Pain Or Temp >/= 101 Aspirin 81 mg 01/11/20 09:00 01/13/20 12:54 Aspirin Ec PO 81 mg DAILY AMBERLY Administration Atorvastatin Calcium 40 mg 01/11/20 09:00 01/13/20 10:11 Lipitor PO 40 mg DAILY AMBERLY Administration Budesonide 0.5 mg 01/11/20 18:00 01/13/20 08:27 Pulmicort INHALATION Not Given BID.RESPIRATORY AMBERLY Clopidogrel Bisulfate 75 mg 01/11/20 09:00 01/12/20 10:01 Plavix PO 75 mg DAILY AMBERLY Administration Enoxaparin Sodium 40 mg 01/12/20 09:00 01/13/20 12:54 Lovenox SUBCUT 40 mg DAILY AMBERLY Administration Furosemide 60 mg 01/13/20 08:00 01/13/20 10:11 Lasix PO 60 mg DAILY@0800 AMBERLY Administration Sodium Chloride 1,000 mls @ 50 mls/hr 01/13/20 05:56 01/13/20 06:06 Sodium Chloride 0.9% IV 01/14/20 01:55 50 mls/hr .Q20H ONE Administration Sodium Chloride 1,000 mls @ 50 mls/hr 01/13/20 06:15 01/13/20 06:31 Sodium Chloride 0.9% IV 01/14/20 02:14 Not Given .Q20H ONE Sodium Chloride 1,000 mls @ 100 mls/hr 01/13/20 08:50 01/13/20 20:41 Sodium Chloride 0.9% IV 30 mls/hr .Q10H AMBERLY Infusion Insulin Aspart 0 unit 01/10/20 18:00 01/13/20 17:47 Novolog SUBCUT 8 unit WM&BEDTIME AMBERLY Administration Protocol Isosorbide Mononitrate 30 mg 01/12/20 11:55 01/13/20 10:11 Imdur PO 30 mg DAILY AMBERLY Administration Lisinopril 5 mg 01/13/20 09:00 01/13/20 10:10 Prinivil PO 5 mg DAILY AMBERLY Administration Metoprolol Tartrate 5 mg 01/13/20 09:49 01/13/20 17:31 Metoprolol Tartrate IV 5 mg Q6H PRN Administration HEART RATE-HIGH Morphine Sulfate 2 mg 01/13/20 20:05 01/13/20 20:12 Morphine IVP 2 mg Q2H PRN Administration SEVERE PAIN Nitroglycerin 0.4 mg 01/10/20 17:32 01/13/20 12:58 Nitrostat SUBLINGUAL 1 tab PRN PRN Administration CHEST PAINS Nitroglycerin 1 inch 01/13/20 10:00 01/13/20 16:47 Nitro-Bid TOPICAL 1 inch Q6H AMBERLY Administration Tamsulosin HCl 0.4 mg 01/11/20 09:00 01/13/20 10:10 Flomax PO 0.4 mg DAILY AMBERLY Administration PFSH Acute PFSH: Medical History ASHD (arteriosclerotic heart disease) Carotid stenosis, bilateral COPD (chronic obstructive pulmonary disease) Cor pulmonale Diabetes Diastolic heart failure Echocardiogram from 2017 shows an EF of 61% grade 1 diastolic dysfunction Dyslipidemia Haemophilus influenzae pneumonia Treated with Levaquin in 2017 Myocardial infarction Obesity PAD (peripheral artery disease) Sleep apnea Tobacco abuse Surgical History H/O heart artery stent PCI to ostial 99% LCx on July 11, 2012;12/15/2016 he had another angiogram showing patent circumflex stent, 10-20% ostial left main, 20-30% ostial RCA stenosis and LV gram showed left ventricular ejection fraction of 50-55% with mild apical hypokinesis. S/P peripheral artery angioplasty with stent placement S/P shoulder surgery Family History Mother Psychiatric illness Other Cancer Social History Smoking and tobacco status: current every day smoker cigarettes Packs smoked per day: 1 Number of cigarettes per day: >20 Alcohol intake: former Household members: family Housing: House Vitals/I&O/Wt Last Vital Signs Temp 96.4 F L 01/13/20 16:00 Pulse 115 H 01/13/20 20:00 Resp 20 H 01/13/20 20:12 BP 101/71 01/13/20 20:00 Pulse Ox 100 01/13/20 20:12 01/13/20 01/13/20 01/13/20 06:59 14:59 22:59 Intake Total 500 / 500 1745 / 2245 Output Total 250 / 250 125 / 125 425 / 550 Balance -250 / 590 375 / 375 1320 / 1695 Weight last 48 hrs Weight 210 lb 8 oz Weight 206 lb 9 oz Physical Exam Narrative: EXAM NARRATIVE: General: Patient is awake alert and oriented, in mild distress from chest discomfort Neck: Positive JVD Respiratory: Auscultation: Vesicular breath sound with prolonged expiration, no significant crackles or wheezing diffuse rhonchi Cardiovascular: Tachycardia, regular rhythm, S1-S2 present, pansystolic murmur in the tricuspid area, positive right ventricular heave, no peripheral edema. Abdomen: Soft, nontender, distended from obesity, positive bowel sound Musculoskeletal: No obvious joint deformity Skin: No rash Neuro: Mental status is normal, no gross cranial nerve deficit, normal motor and coordination. Urinary Catheter Management^: Reyes: Cath Placed During This Visit: yes Reason for Continuing Indwelling Catheter: Accurate Measurement of Urinary Output in Critically Ill Patients Urinary Catheter Date of Insertion: 01/13/20 Urinary Catheter Time of Insertion: 11:00 Data Micro: Micro: Microbiology 01/10/20 15:27 Gram Stain - Final Sputum - Expector ated Sputum Sputum Culture - P reliminary Other Data: Other data: I have reviewed the patient's laboratory, microbiologic and radiologic data. Please see the HPI for details. A&P Assessment and plan (1) COPD (chronic obstructive pulmonary disease): The patient has a diagnosis of COPD and based on his symptoms and mMRC class III he would qualify for gold class D COPD. At home, the patient was on Stiolto and as needed albuterol inhaler. Here we are going to start the patient on Pulmicort nebulization as well as levalbuterol and ipratropium nebulizer. The CT scan of the chest in 2017 revealed bilateral upper lobe predominant paraseptal emphysema. The patient symptomatology and radiologic appearance is more consistent with chronic bronchitis. The patient's body habitus is also consistent with chronic bronchitis. The patient has evidence of cor pulmonale. On the bedside echocardiogram today the patient had RV dilation with deviation of the interventricular septum towards the left. The patient had also evidence of bilateral B-lines. This would be consistent with biventricular failure. The cor pulmonale is likely secondary to a combination of left heart and elevated pulmonary pressure from COPD. Unfortunately I do not have any pulmonary function test available. Based on the fact that the patient has hypercapnia I would assume his FEV1 is less than 40%. Status: Acute (2) Chronic respiratory failure with hypercapnia: The patient has evidence of chronic respiratory failure with hypercapnia. This could be secondary to sleep apnea, obesity hypoventilation syndrome or nocturnal hypoventilation from COPD or a combination of all of them. The patient will benefit from BiPAP or a home ventilator. I am going to try and see if the patient can tolerate the BiPAP tonight. I will give him a small dose of Xanax to help him with a Status: Acute (3) Nocturnal hypoxia: The patient would officially need a pulse oximetry and a sleep study if he is able to tolerate that in the future. For the time being, we are going to closely monitor his pulse oximetry at nighttime. I had stopped the patient oxygen when he was resting and his oxygen saturation was well above 92%. Status: Acute (4) Chronic hypoxemic respiratory failure: The patient has a diagnosis of chronic hypoxic respiratory failure and uses oxygen during the day as well as night. I do not have a 6-minute walk test or nocturnal oximetry to evaluate the patient. The patient does tell me that his oxygen saturation level at home goes down to 70% sometimes with exertion and that is when he would use oxygen. History I am assuming the patient has desaturation with exertion. Status: Acute (5) Tobacco abuse: The patient unfortunately continues smoke. Had an extensive discussion with the patient regarding importance of quitting smoking however the patient is not sure whether he will be able to do that. The patient is at high risk for any surgical intervention given his ongoing smoking history. Status: Acute (6) ASHD (arteriosclerotic heart disease): The patient has multivessel coronary artery disease and is currently undergoing evaluation by Dr. Pedroza for coronary artery bypass graft. The patient will be a high risk candidate from the pulmonary standpoint given the presence of hypercapnia which is also indicative of an FEV1 likely less than 40%. The patient also has evidence of polycythemia which is likely secondary to nocturnal hypoventilation or obesity hypoventilation syndrome. The patient continues to smoke which will also add to his risk. The patient is likely to lose significant amount of lung function secondary to atelectasis from pain and the surgical intervention in the thorax. I discussed this with the patient and his family in detail. It is possible to optimize the patient as outpatient however his coronary artery disease is critical which might result in significant complication including . The patient also has severe peripheral vascular disease and any intraoperative borderline hypotension might result in organ hypoperfusion and dysfunction. Status: Acute Coding Level of Care Code Acute Head End [employer] [facility] for [facility] Fwd Diagnoses COPD (chronic obstructive pulmonary disease) J44.9 Chronic respiratory failure with hypercapnia J96.12 Nocturnal hypoxia G47.34 Chronic hypoxemic respiratory failure J96.11 Tobacco abuse Z72.0 ASHD (arteriosclerotic heart disease) I25.10
[2020-01-13] MEDS: metoprolol tartrate 1 mg/1 mL SDV 5 mL 2.5 MG IV ×2 (21:43→23:56)
[2020-01-13] MEDS: levalbuterol 1.25 mg/3 mL Neb INHALATION (21:46)
[2020-01-13] MEDS: ALPRAZolam 0.25 mg Tablet PO (21:46)
[2020-01-13] MEDS: budesonide 0.5 mg/2 mL Neb INHALATION (21:46)
[2020-01-13] MEDS: FUROsemide 10 mg/mL SDV 4mL 40 MG IVP (21:58)
[2020-01-14] VITALS (19 sets, daily range): BP systolic 59–90; BP diastolic 42–67; PULSE 72–115; RESP 14–25; TEMP 36.3–36.7; O2SAT 86–100
[2020-01-14 00:33] LABS: Glucose Point of Care 161 mg/dL (70-110)
[2020-01-14] MEDS: levalbuterol 1.25 mg/3 mL Neb INHALATION ×4 (00:47→11:32)
[2020-01-14] MEDS: ipratropium 0.5 mg/2.5 mL Neb INHALATION ×4 (00:47→11:32)
--- NOTE | 2020-01-14 00:55 | ECG_ITS ---
Measurements Intervals [place] Rate: 95 P: 77 ND: 158 QRS: 126 QRSD: 98 T: 123 QT: 359 QTc: 453 SINUS RHYTHM PATTERN CONSISTENT WITH PULMONARY DISEASE POSSIBLE RIGHT VENTRICULAR HYPERTROPHY [SOME/ALL OF: PROMINENT R IN V1, LATE TRANSITION, RAD, NABILA, SSS] ST DEVIATION AND MODERATE T-WAVE ABNORMALITY, CONSIDER ANTERIOR ISCHEMIA [-0.1+ mV T WAVE IN V3/V4] Compared to ECG 01/11/2020 13:30:30 Myocardial infarct finding no longer present T-wave abnormality still present Possible ischemia still present Electronically Signed On 01-14-2020 20:22:55 CDT by Michael Arora M.D. [id number]
--- NOTE | 2020-01-14 00:56 | PC.NURSE ---
Addendum entered by Dai Vargas RN 01/14/20 01:12: Nitro patch to chest was taken off at time of event. Will continue to monitor closely. Original Note: At 0045 BP 70/47 which dropped to 59/42. Upon entering room pt laying on left side comfortably. Found patient diaphoretic with complaints of nausea. Reports chest pain 2/10 verbalizes its not too bad right now . HR now 74, telemetry showing changes with some ST depression and tall P waves. Dr. Wall notified by phone. EKG ordered and completed. Bp had improved on physician arrival to unit 85/45. Patient dozing intermittently.
--- NOTE | 2020-01-14 01:06 | P.EN_ITS ---
Event Note Event Note: Called the patient's blood pressure 50s over 30s. He had been given 40 mg of IV Lasix earlier. He is only had about 225 ml of urine output since then. He actually feels better than he has with less chest pain. He is alert. Twelve-lead EKG does not show any acute changes and actually looks bet ter than the previous one in terms of ST segment changes. Current blood pressure is 75/58 with a map of 63. I reviewed patient's records. He has had this happen a couple of times. Reported to me that he had some fluid on bedside echo done this evening. I had originally ordered a small fluid bolus but we will presently hold off. May have to consider pressor support. Heart rate is currently right around 100. Nursing reports that there was some consideration for Midrin but I do not see an order for such. His nitroglycerin paste was removed. He is on Imdur 30 mg daily, lisinopril 5 mg daily as well as Lasix orally daily. I suspect the current hypotension is in association with the Lasix. Nursing is at the bedside and monitoring him closely. Since he actually feels better we will not acutely intervene at this moment in time but I discussed plans with nursing staff should blood pressures remain persistently low.
[2020-01-14 05:05] LABS: Basophils % 0.2 %; Eosinophils % 0.2 %; Hematocrit 50.4 % (42.0-52.0); Hemoglobin 15.5 g/dL (11.7-16.6); Lymphocytes # 2.3 10^3/uL (0.8-4.8); Lymphocytes % 11.8 %; Mean Corpuscular HGB Conc 30.8 g/dL (30.0-36.0); Mean Corpuscular Hemoglobin 31.1 pg (28.0-34.0); Mean Corpuscular Volume 101.2 fL (80-94); Mean Platelet Volume 9.2 fL (7.4-10.4); Monocytes # 1.3 10^3/uL (0.2-0.9); Monocytes % 6.9 %; Neutrophils # 15.5 10^3/uL (1.8-7.7); Neutrophils % 80.3 %; Nucleated Red Blood Cells % 0 %; Platelet Count 205 10^3/cmm (130-400); Red Blood Count 4.98 10^6/uL (4.1-5.3); Red Cell Distribution Width 13.6 % (12.1-15.1); White Blood Count 19.2 10^3/uL (4.0-10.0)
[2020-01-14 05:20] LABS: Anion Gap 18.7 (5-19); Blood Urea Nitrogen 26 mg/dL (8-23); Calcium 9.3 mg/dL (8.5-10.5); Carbon Dioxide 24 mmol/L (22-29); Chloride 96 mmol/L (98-107); Glomerular Filtration Rate 84.2 mL/min (90-130); Glucose 172 mg/dL (65-115); Osmolality Calculated 279 mOsm/kg (285-295); Potassium 4.7 mmol/L (3.5-5.1); Sodium 134 mmol/L (136-145)
[2020-01-14] MEDS: nitroglycerin 1 gm/inch oint Pkt 1 INCH TOPICAL (05:20)
[2020-01-14] MEDS: ondansetron 2 mg/ML SDV 2 mL 4 MG IVP (06:29)
[2020-01-14 07:34] LABS: Glucose Point of Care 150 mg/dL (70-110)
[2020-01-14] MEDS: FUROsemide 40 mg Tablet 60 MG PO (07:34)
--- NOTE | 2020-01-14 08:13 | XRR_ITS ---
PROCEDURE INFORMATION: Exam: XR Chest, 1 View Exam date and time: 01/14/2020 8:14 AM Age: 69 years old Clinical indication: Shortness of breath; Additional info: SOB TECHNIQUE: Imaging protocol: XR of the chest Views: 1 view. COMPARISON: CR XR chest 1V portable [id number] 01/11/2020 9:05 AM FINDINGS: Lungs: Emphysematous change, interstitial prominence, and mild airspace disease. Pleural space: Small left pleural effusion. Heart/Mediastinum: Borderline cardiomegaly. Bones/joints: Osteopenia and degenerative change. XR/XR chest 1V portable [id number] IMPRESSION: 1. Emphysematous change, interstitial prominence, and mild airspace disease. 2. Small left pleural effusion.
[2020-01-14] MEDS: budesonide 0.5 mg/2 mL Neb INHALATION (08:17)
[2020-01-14] MEDS: tamsulosin 0.4 mg Capsule PO (09:07)
[2020-01-14] MEDS: isosorbide mononitrate ER 30 mg Tablet PO (09:07)
[2020-01-14] MEDS: aspirin 81 mg EC Tablet PO (09:07)
[2020-01-14] MEDS: clopidogrel 75 mg Tablet PO (09:07)
[2020-01-14] MEDS: atorvastatin 40 mg Tablet PO (09:07)
[2020-01-14] MEDS: lisinopril 5 mg Tablet PO (09:07)
[2020-01-14] MEDS: metoprolol tartrate 1 mg/1 mL SDV 5 mL 5 MG IV (09:08)
[2020-01-14] MEDS: enoxaparin 40 mg/0.4 mL Syringe SUBCUT (09:08)
--- NOTE | 2020-01-14 09:49 | PM.PN ---
Subjective Subjective: Interval history: Cardiology coverage This is a 69-year-old white male, is admitted to hospital with complaints of chest pain and shortness of breath. He has LV dysfunction by echocardiogram, ejection fraction around 40%. He had abnormal myocardial perfusion imaging, and underwent cardiac authorization yesterday. He was found to have high-grade complex coronary lesions. Further details, please refer to the echocardiogram, myocardial perfusion imaging and the cardiac catheterization data. Patient has been having episodes of chest pain since hospital admission. The pain seems to be better today. He grades intensity of pain as 2/10 today. The chest pain has been waxing and waning. His blood pressure was running low in the 80s. The mean pressure is between 60-70 mmHg. He denies any fever or chills. He was tested for COVID-19 and was found to be negative. Medications: Reviewed: Yes Medication Review Details: Current Medications Acetaminophen (Tylenol) 650 mg PO Q6H PRN PRN Reason: Mild/Mod Pain Or Temp >/= 101 Last Admin: 01/13/20 12:57 Dose: 650 mg Documented by: Aspirin (Aspirin Ec) 81 mg PO DAILY [facility] Last Admin: 01/14/20 09:07 Dose: 81 mg Documented by: Atorvastatin Calcium (Lipitor) 40 mg PO DAILY [facility] Last Admin: 01/14/20 09:07 Dose: 40 mg Documented by: Bisacodyl (Dulcolax) 10 mg PO DAILY PRN PRN Reason: CONSTIPATION Budesonide (Pulmicort) 0.5 mg INHALATION BID.RESPIRATORY [facility] Last Admin: 01/14/20 08:17 Dose: 0.5 mg Documented by: Clopidogrel Bisulfate (Plavix) 75 mg PO DAILY [facility] Last Admin: 01/14/20 09:07 Dose: 75 mg Documented by: Enoxaparin Sodium (Lovenox) 40 mg SUBCUT DAILY [facility] Last Admin: 01/14/20 09:08 Dose: 40 mg Documented by: Furosemide (Lasix) 60 mg PO DAILY@0800 [facility] Last Admin: 01/14/20 07:34 Dose: 60 mg Documented by: Amiodarone HCl 900 mg/Dextrose/ IV Miscellaneous Supplies 518 mls @ 0 mls/hr IV .Q0M [facility]; Protocol Amiodarone HCl 900 mg/Dextrose/ IV Miscellaneous Supplies 518 mls @ 17.267 mls/hr IV .Q24H [facility] Nitroglycerin/Dextrose (Nitroglycerin Drip) 50 mg in 250 mls @ 0 mls/hr IV .Q0M [facility]; Protocol Insulin Aspart (Novolog) 0 unit SUBCUT WM&BEDTIME AMBERLY; Protocol Last Admin: 01/14/20 07:35 Dose: 6 unit Documented by: Ipratropium [place] (Atrovent Neb) 0.5 mg INHALATION Q4H.RESPIRATORY [facility] Last Admin: 01/14/20 08:17 Dose: 0.5 mg Documented by: Isosorbide Mononitrate (Imdur) 30 mg PO DAILY [facility] Last Admin: 01/14/20 09:07 Dose: 30 mg Documented by: Lactulose (Constulose) 10 gm PO DAILY PRN PRN Reason: CONSTIPA Levalbuterol HCl (Xopenex) 1.25 mg INHALATION Q4H.RESPIRATORY PRN PRN Reason: SHORTNESS OF BREATH Last Admin: 01/14/20 08:17 Dose: 1.25 mg Documented by: Lisinopril (Prinivil) 5 mg PO DAILY [facility] Last Admin: 01/14/20 09:07 Dose: 5 mg Documented by: Metoprolol Tartrate (Metoprolol Tartrate) 5 mg IV Q6H PRN PRN Reason: HEART RATE-HIGH Last Admin: 01/14/20 09:08 Dose: 5 mg Documented by: Morphine Sulfate (Morphine) 2 mg IVP Q2H PRN PRN Reason: SEVERE PAIN Last Admin: 01/13/20 20:12 Dose: 2 mg Documented by: Nitroglycerin (Nitrostat) 0.4 mg SUBLINGUAL PRN PRN PRN Reason: CHEST PAINS Last Admin: 01/13/20 12:58 Dose: 1 tab Documented by: Nitroglycerin (Nitro-Bid) 1 inch TOPICAL Q6H [facility] Last Admin: 01/14/20 05:20 Dose: 1 inch Documented by: Ondansetron HCl (Zofran) 4 mg IVP Q6H PRN PRN Reason: NAUSEA AND VOMITING Last Admin: 01/14/20 06:29 Dose: 4 mg Documented by: Tamsulosin HCl (Flomax) 0.4 mg PO DAILY [facility] Last Admin: 01/14/20 09:07 Dose: 0.4 mg Documented by: Vitals/I&O/Wt Last Vital Signs Temp 97.3 F L 01/14/20 08:00 Pulse 109 H 01/14/20 08:23 Resp 18 01/14/20 08:23 BP 80/60 01/14/20 08:00 Pulse Ox 93 01/14/20 08:23 01/13/20 01/14/20 01/14/20 22:59 06:59 14:59 Intake Total 1835 / 2335 210 / 2545 368 / 368 Output Total 425 / 550 325 / 875 Balance 1410 / 1785 -115 / 1670 368 / 368 Weight last 48 hrs Weight 211 lb 14.4 oz Weight 210 lb 8 oz Physical Exam Narrative: EXAM NARRATIVE: GENERAL: The patient is alert and oriented times three. Mild discomfort. Minimally short of breath. HEENT: No significant pallor, icterus or lymphadenopathy. NECK: Trachea appears to be central. No masses noted. No JVD or thyromegaly appreciated. No carotid bruit. RESPIRATORY: The breath sounds are heard bilaterally with diminished intensity of breath sounds in the bases. Coarse crackles and occasional expiratory wheezing. BREASTS: Deferred. HEART: The PMI could not be palpated. No other palpable precordial events. The first and second heart sounds are normal. No S3. S4 present. Short systolic murmur in the left sternal border. No diastolic murmurs. No pericardial rub. ABDOMEN: No vessel pulsations or distention. No tenderness. No organomegaly appreciated. No abdominal bruit. Bowel sounds are normally heard. : Deferred. RECTAL: Deferred. LYMPHATIC: No lymphadenopathy noted in the neck . EXTREMITIES: Dorsalis pedis and posterior pulses are nonpalpable. Lower extremities related to cold with purplish discoloration, in the left lower extremity. MUSCULOSKELETAL: No acute joint deformities or swelling SKIN: As mentioned above. No rashes NEUROPSYCHIATRIC: The patient is alert and oriented x3. No focal motor deficits. Urinary Catheter Management^: Reyes: Cath Placed During This Visit: yes Reason for Continuing Indwelling Catheter: Accurate Measurement of Urinary Output in Critically Ill Patients Urinary Catheter Date of Insertion: 01/13/20 Urinary Catheter Time of Insertion: 11:00 Data : 01/14/20 04:40 01/14/20 04:40 Micro: Microbiology 01/10/20 15:27 Gram Stain - Final Sputum - Expectorated Sputum Sputum Culture - Preliminary Cardiac catheterization: My impression: I reviewed the cardiac catheterization data pt was found to have around 50% left main disease near the ostium. The LAD was found to have a high-grade calcified lesion proximally and also in the mid segment. Right coronary artery ostium also was found to have a high-grade lesion.? Codominant artery. The circumflex artery was found to have a proximally stented segment with mild to moderate in-stent stenosis. One of the obtuse marginal artery also may have moderate to severe disease. Because of the heavy calcification in the arteries, the degree of stenosis could not be delineated well. Echo: My impression: The echocardiogram from 01/11/2020 the ventricle is poorly seen. It appears to be normal in size to upper limit of normal in size. There is hypokinesis of the anterior wall, lateral wall and perhaps the apex. The inferior wall appears to be moving normally. A rough estimate of the ejection fraction would be 40%. Diastolic function cannot be determined. Moderately increased right atrial size. Mildly increased left atrial size. When compared to the previous echo from 2017 the ejection fraction has dropped. This suggest the development of worsening coronary artery disease Myocardial perfusion imaging: I personally reviewed and interpreted this imaging study as follows: My impression: Perfusion imaging was done on 01/12/2020 1. Myocardial perfusion imaging revealing areas of persistent decreased tracer uptake in the distal distribution of all the 3 coronary arteries with significant ischemia, suggestive of three-vessel coronary artery disease 2. Diminished LV ejection fraction of 36%. 3. LV wall motion analysis revealing multiple wall motion normalities. 4. Mildly dilated LV cavity. EKG 6: My Interpretation: Sinus rhythm with diffuse nonspecific ST-T changes. Poor R wave progression. Some features of right ventricular hypertrophy. No significant change from the previous EKGs. A&P Assessment and plan (1) Atherosclerotic heart disease [place] coronary artery w/angina pectoris: Patient's chest pain seems to be better than what he had at the time of admission. However, in view of his ongoing symptoms and the complex coronary lesions, for further management of this condition, he requires a revascularization procedure. Both the surgical and the percutaneous interventions high risk procedures in view of his multiple comorbid conditions. His severe extensive peripheral artery disease, extensive calcification in the coronary arteries, severe COPD/cor pulmonale are going to be some major limiting factors. Since our hospital is not equipped for high risk procedures, it would be appropriate to transfer him to a facility where this can be performed. After discussions with the patient and his family, it was decided to transfer the patient to [facility] in [place]. The risk and benefits were discussed with the patient and family in detail which they understood well. Dr. Ritter had extensive discussions with the family and patient today and also in the past. I contacted Dr. Hutchinson, the shactor helper at the [facility] in [place]. The patient's condition and the current status was discussed in detail. Dr. Hutchinson accepted his transfer for further evaluation and management. Status: Acute Qualifiers: [place] vs. transplanted heart: [place] heart Qualified Code(s): I25.119 - Atherosclerotic heart disease of [place] coronary artery with unspecified angina pectoris (2) Hypotension arterial: This could be multifactorial. The ischemia, LV dysfunction, nitrates, diuretics, etc. are contributing factors. The mean arterial pressure is in the 60-70 range. Patient seems to be reasonably comfortable with this. Status: Acute Qualifiers: Hypotension type: other hypotension type Qualified Code(s): I95.89 - Other hypotension (3) Chronic hypoxemic respiratory failure: May continue on the current management for the time being. Patient may require invasive pulmonary evaluation, if he goes for surgical intervention. He was seen by our intellectual property lawyer yesterday. Appreciate Dr. Van's recommendations Status: Acute (4) Diastolic heart failure: Currently he seems to be compensated. It may be difficult to trial court judge the hemodynamics because of severe COPD, without invasive monitoring. According the patient, his shortness of breath is improving Status: Acute Qualifiers: Heart failure chronicity: acute on chronic Qualified Code(s): I50.33 - Acute on chronic diastolic (congestive) heart failure (5) Ischemic cardiomyopathy: The LV ejection fraction was around 40% by echocardiogram. Because of the relative hypotension, he may not be a candidate for any afterload reduction at this point. May continue on the current medications. Status: Acute Additional A&P Information Since the patient seems to be fairly stable over the last more than 12 hours, even though the blood pressure is relatively low, in view of complex medical conditions, it may be appropriate to transfer him to a facility where high risk procedures can be performed. Patient and the family understand this well. We will make the arrangements for him to be transferred to [facility]. Attestations Medical Necessity Statement*: Possible transfer to the [facility] in [place] today. Coding Level of Care Code Acute Hospital Unit Coordinator for [facility] Diagnoses Atherosclerotic heart disease [place] coronary artery w/angina pectoris I25.119 [place] vs. transplanted heart: [place] heart Hypotension arterial I95.89 Hypotension type: other hypotension type Chronic hypoxemic respiratory failure J96.11 Diastolic heart failure I50.33 Heart failure chronicity: acute on chronic Ischemic cardiomyopathy I25.5
--- NOTE | 2020-01-14 11:18 | P.MISC_ITS ---
Miscellaneous Note Note: I was contacted by the patient's daughter who is a nurse here in this facility to talk to the patient. I reviewed the consultation notes by Dr. Pedroza and Dr. Van. I had a conversation with the patient in his room with his daughter present and his on speaker phone. I explained to all of them in detail the situation. He has severe three-vessel disease with left main disease. Yesterday during the angiogram I made an attempt to stent the LAD. Upon placement of the guide he had angina due to decrease in flow secondary to the guide placement with left main disease. The LAD lesion is heavily calcified and a stent would not pass beyond the very proximal portion of the lesion. I was not comfortable trying to place a balloon and therefore fear of cracking or rupturing the lesion and not being able to pass a stent. This is due to the heavy calcification. Additionally I could not place a catheter coaxially in the right coronary artery due to it being a near flush occlusion. There is a subtotal stenosis at the ostium of the right. The circumflex is patent however there is modest disease there as well. His severe underlying comorbidities to include severe COPD which is oxygen dependent, cor pulmonale, diffuse noncardiac vascular disease, obesity, diabetes among others makes his surgical risk very high and certainly prohibitive in this institution. He cannot be sent home to tune up his lungs due to unstable angina at rest despite treatment here in the hospital. He had an episode of hypotension last night probably related to the combination of topical nitrates and loop diuretics. Therefore, he needs transfer to a tertiary care facility for reassessment of revascularization options. After a lengthy discussion with the patient, his and daughter they agree to transfer to [facility] in [place]. I will arrange for the echo to be placed on a CD as well as the cardiac cath films to be placed on a CD. We will send them with him obviously.
[2020-01-14 12:49] LABS: Glucose Point of Care 169 mg/dL (70-110)
[2020-01-14] MEDS: ALPRAZolam 0.25 mg Tablet PO (13:07)
--- NOTE | 2020-01-14 13:45 | P.PN_ITS ---
Subjective Subjective: Interval history: Overnight patient had an episode of hypotension overnight, he did receive Lasix, was asymptomatic, currently his maps greater than 65, denies chest pain, denies shortness of breath, patient wants us to speak to his about his options, he is a bit weary about the various opinions, and he is having difficulty understanding the various options are available, and he would like us to include his and is the decision making. Vitals/I&O/Wt Last Vital Signs Temp 97.3 F L 01/14/20 08:00 Pulse 99 01/14/20 11:35 Resp 22 H 01/14/20 11:32 BP 81/55 01/14/20 10:00 Pulse Ox 94 01/14/20 11:32 01/13/20 01/14/20 01/14/20 22:59 06:59 14:59 Intake Total 1835 / 2335 210 / 2545 368 / 368 Output Total 425 / 550 325 / 875 Balance 1410 / 1785 -115 / 1670 368 / 368 Weight last 48 hrs Weight 96.116 kg Weight 95.481 kg Physical Exam Const: COMMON NORMALS: no apparent distress and oriented x3 HENMT: COMMON NORMALS: normocephalic HEAD & SCALP: normocephalic Neck/C-Spine: COMMON NORMALS: no JVD Resp: COMMON NORMALS: normal respiratory effort, no retractions, no use of accessory muscles and clear to auscultation bilaterally AUSCULTATION: clear to auscultation bilaterally Cardio: COMMON NORMALS: no JVD, regular rate, regular rhythm, S1 normal heart sound and S2 normal heart sound RATE: regular rate RHYTHM: regular rhythm HEART SOUNDS: S1 normal and S2 normal GI: COMMON NORMALS: normal to inspection, nondistended, normoactive bowel sounds, soft to palpation, non-tender, no hepatosplenomegaly, no masses and no bruits PALPATION: Yes soft and Yes no hepatosplenomegaly Extremity: COMMON NORMALS: normal capillary refill, no clubbing, cyanosis or edema, no calf tenderness and no pedal edema Neuro: COMMON NORMALS: oriented x3 Urinary Catheter Management^: Reyes: Cath Placed During This Visit: yes Reason for Continuing Indwelling Catheter: Accurate Measurement of Urinary Output in Critically Ill Patients Urinary Catheter Date of Insertion: 01/13/20 Urinary Catheter Time of Insertion: 11:00 Data : 01/14/20 04:40 01/14/20 04:40 Micro: Microbiology 01/10/20 15:27 Gram Stain - Final Sputum - Expectorated Sputum Sputum Culture - Final A&P Assessment and plan (1) Shortness of breath: Status: Acute (2) Angina of effort: Status: Acute (3) Tobacco abuse: Status: Acute (4) H/O heart artery stent: Status: Acute (5) COPD (chronic obstructive pulmonary disease): Status: Acute (6) Obesity: Status: Acute (7) Dyslipidemia: Status: Acute (8) Carotid stenosis, bilateral: Status: Acute (9) Diastolic heart failure: Status: Acute Additional A&P Information Angina: History of CAD with PCI in 2011: With last angiogram in 2017. Continue with aspirin, Plavix and statin and Imdur 30 mg daily Cardiac stress test and cardiac cath shows triple-vessel CAD Will await Dr. Ritter's, Dr. Van's, Dr. Pedroza's recommendations Shortness of breath: Most likely because of congestive heart failure. Last echocardiogram shows diastolic dysfunction. COVID-19 testing negative. 60 mg Lasix p.o. daily +608 mL since admission Strict input output charting. Daily weights. Echocardiogram results: -There is hypokinesis of the anterior wall, lateral wall and perhaps the apex. The inferior wall appears to be moving normally. A rough estimate of the ejection fraction would be 40%. Diastolic function cannot be determined.M oderately increased right atrial size.Mildly increased left atrial size.When compared to the previous echo from 2017 the ejection fraction has dropped. This suggest the development of worsening coronary artery disease Leukocytosis 19.2, likely reactive, chest x-ray no focal pneumonia, no fevers COPD: Continue with home dose of inhalers. At home patient is on 6 L of nasal cannula oxygen supplementation. Patient states he has been smoking since he was 8 years old Type 2 diabetes mellitus: A1c 7.9. History sliding scale at high protocol. Hypertension: Continue on home medication of lisinopril. We will continue to monitor blood pressures. Tobacco abuse: Discussed with patient in detail regarding need of tobacco cessation due to severe concerning symptoms of CAD. Full code. diabetic diet. 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
[2020-01-14 15:59] LABS: Troponin T (5th) Once 2975 ng/mL (0-15)
--- NOTE | 2020-01-14 16:03 | PC.NURSE ---
CRITICAL TROPONIN RESULT OF 2,[address] MARQUEZ; TELEPHONE ORDER ENTERED FOR 80MG OF LOVENOX IN ADDITION TO THE 40 ALREADY RECEIVED AT 0900 THIS MORNING; WILL CONTINUE TO MONITOR
[2020-01-14 16:13] LABS: Glucose Point of Care 179 mg/dL (70-110)
[2020-01-14] MEDS: enoxaparin 80 mg/0.8 mL Syringe SUBCUT (16:14)
--- NOTE | 2020-01-14 17:06 | PM.TDS ---
Transfer Summary Providers Date of Admission: 01/10/20 16:17 Date of Discharge: 01/14/20 Attending Provider at Admission: Mark Javier MD Attending Provider at Transfer: Huey Malin MD Primary Care Provider: Melinda Mccullough DO Anticipated Date of Transfer: Anticipated date of transfer: 01/14/20 Receiving Facility & Provider: Receiving Provider: [] Receiving facility: [] Diagnoses at Discharge Discharge Diagnosis (1) Atherosclerotic heart disease [place] coronary artery w/angina pectoris: Status: Acute Qualifiers: [place] vs. transplanted heart: [place] heart Qualified Code(s): I25.119 - Atherosclerotic heart disease of [place] coronary artery with unspecified angina pectoris (2) Hypotension arterial: Status: Acute Qualifiers: Hypotension type: other hypotension type Qualified Code(s): I95.89 - Other hypotension (3) Chronic hypoxemic respiratory failure: Status: Acute (4) Diastolic heart failure: Status: Acute Problem details: Echocardiogram from 2017 shows an EF of 61% grade 1 diastolic dysfunction Qualifiers: Heart failure chronicity: acute on chronic Qualified Code(s): I50.33 - Acute on chronic diastolic (congestive) heart failure (5) Ischemic cardiomyopathy: Status: Acute (6) Carotid stenosis, bilateral: Status: Acute (7) Dyslipidemia: Status: Acute (8) Obesity: Status: Acute (9) H/O heart artery stent: Status: Acute Problem details: PCI to ostial 99% LCx on July 11, 2012;12/15/2016 he had another angiogram showing patent circumflex stent, 10-20% ostial left main, 20-30% ostial RCA stenosis and LV gram showed left ventricular ejection fraction of 50-55% with mild apical hypokinesis. (10) Angina of effort: Status: Acute (11) Shortness of breath: Status: Acute Reason for Visit Reason for Visit: Reason For Visit: ANGINA, COUGH, COPD Hospital Course Discharge Summary: This is a 69-year-old male with a past medical history of myocardial infarct with PCI to ostial left circumflex, in June 2012, with last angiogram in 2016, bilateral carotid artery stenosis, peripheral arterial disease status post angioplasty, dyslipidemia, diastolic heart failure, insulin-dependent type 2 diabetes mellitus, COPD 6 L oxygen dependent, chronic smoker, hypertension, who presents the emergency room due to complaints of chest pain. Patient was admitted for unstable angina, was started on aspirin, Plavix, statin, therapeutic Lovenox, Imdur, cardiac stress test was abnormal myocardial perfusion imaging revealing areas of persistent decreased tracer uptake in the distal distribution of all the 3 coronary arteries with significant ischemia, suggestive of three-vessel coronary artery disease. Patient's echocardiogram showed hypokinesia of the anterior wall, lateral wall, and perhaps the apex. The inferior wall appears to be moving normally, ejection fraction of 40%, compared to echocardiogram in 2017 the ejection fraction had decreased, findings concerning for worsening coronary artery disease. Dr. Ritter performed a cardiac angiogram, which showed three-vessel coronary artery disease, LAD lesion to be heavily calcified, diffuse heavy calcification, subtotal stenosis of the ostium of the right, circumflex was patent however modest disease. Cardiothoracic surgery was consulted for surgical evaluation, however given his significant comorbidities (COPD 6 L dependent, cor pulmonale, diffuse noncardiac vascular disease, insulin-dependent type 2 diabetes mellitus), patient was felt to be a high risk for surgical intervention at our facility. Solar Installation Helper at our hospital spoke to Dr. Hutchinson body builder at [facility], who accepted the transfer. Given patient's hypotensive episodes, continued chest pain as inpatient, severe three-vessel CAD, he was deemed an urgent need for Air-Evac to [facility] for surgical evaluation and intervention. Physical Exam Const: COMMON NORMALS: no apparent distress and oriented x3 HENMT: COMMON NORMALS: normocephalic HEAD & SCALP: normocephalic Neck/C-Spine: COMMON NORMALS: no JVD Resp: COMMON NORMALS: normal respiratory effort, no retractions, no use of accessory muscles and clear to auscultation bilaterally AUSCULTATION: clear to auscultation bilaterally Cardio: COMMON NORMALS: no JVD, regular rate, regular rhythm, S1 normal heart sound and S2 normal heart sound RATE: regular rate RHYTHM: regular rhythm HEART SOUNDS: S1 normal and S2 normal GI: COMMON NORMALS: normal to inspection, nondistended, normoactive bowel sounds, soft to palpation, non-tender, no hepatosplenomegaly, no masses and no bruits PALPATION: Yes soft and Yes no hepatosplenomegaly Extremity: COMMON NORMALS: normal capillary refill, no clubbing, cyanosis or edema, no calf tenderness and no pedal edema Neuro: COMMON NORMALS: oriented x3 Psych: COMMON NORMALS: mental status grossly normal Urinary Catheter Management^: Reyes: Cath Placed During This Visit: yes Reason for Continuing Indwelling Catheter: Accurate Measurement of Urinary Output in Critically Ill Patients Urinary Catheter Date of Insertion: 01/13/20 Urinary Catheter Time of Insertion: 11:00 TS Data Data Completed and Pending: Completed Studies During Hospitalization Category Date Time Status 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 WASH 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 request for service Routin e Exams 01/13/20 05:[address] MIBI [Sestamibi Stress Test Reque st Exams 01/12/20 06:15 Completed ] Routine XR chest 1V sheeba ble [id number] Routine Exams 01/11/20 07:39 Completed XR chest 1V sheeba ble [id number] Stat Exams 01/10/20 14:16 Completed XR chest 1V sheeba ble [id number] Stat Exams 01/14/20 08:13 Completed NM mary perf SPECT r/s* [id number] Routin e Nuc Med 01/12/20 07:00 Completed CV echo complete* [id number] Routine Ultrasound 01/11/20 17:21 Completed US venous mapping lower extremity b ilate [CV venous Ultrasound 01/13/20 09:55 Completed mapping LE BI 939 70] Stat Pending at discharge Category Date Time Status Blood Culture Sta t Lab 01/10/20 17:00 Results Labs from last 24 hours 01/14/20 01/14/20 01/14/20 16:09 12:45 07:31 WBC RBC Hgb Hct MCV MCH MCHC RDW Plt Count MPV Neut % (Auto) Lymph % (Auto) [place] % (Auto) Eos % (Auto) Baso % (Auto) Neut # (Auto) Lymph # (Auto) [place] # (Auto) Eos # (Auto) Baso # (Auto) Nucleated RBC % (a uto) Nucleated RBCs # Sodium Potassium Chloride Carbon Dioxide Anion Gap BUN Creatinine GFR Calculation Glucose POC Glucose 179 169 150 Calculated Osmolal ity Calcium Troponin T Gen 5 n g/L 01/14/20 01/14/20 01/14/20 04:40 04:40 04:40 WBC 19.2 H RBC 4.98 Hgb 15.5 Hct 50.4 MCV 101.2 H MCH 31.1 MCHC 30.8 RDW 13.6 Plt Count 205 MPV 9.2 Neut % (Auto) 80.3 Lymph % (Auto) 11.8 [place] % (Auto) 6.9 Eos % (Auto) 0.2 Baso % (Auto) 0.2 Neut # (Auto) 15.5 H Lymph # (Auto) 2.3 [place] # (Auto) 1.3 H Eos # (Auto) 0.0 Baso # (Auto) 0.0 Nucleated RBC % (a uto) 0 Nucleated RBCs # 0.0 Sodium 134 L Potassium 4.7 Chloride 96 L Carbon Dioxide 24 Anion Gap 18.7 BUN 26 H Creatinine 0.9 GFR Calculation 84.2 L Glucose 172 H POC Glucose Calculated Osmolal ity 279 L Calcium 9.3 Troponin T Gen 5 n g/L 2975 H* 01/13/20 01/13/20 21:37 18:01 WBC RBC Hgb 16.4 Hct 53.5 H MCV MCH MCHC RDW Plt Count MPV Neut % (Auto) Lymph % (Auto) [place] % (Auto) Eos % (Auto) Baso % (Auto) Neut # (Auto) Lymph # (Auto) [place] # (Auto) Eos # (Auto) Baso # (Auto) Nucleated RBC % (a uto) Nucleated RBCs # Sodium Potassium Chloride Carbon Dioxide Anion Gap BUN Creatinine GFR Calculation Glucose POC Glucose 161 Calculated Osmolal ity Calcium Troponin T Gen 5 n g/L Vitals: Last Vital Signs Temp 97.8 F 01/14/20 16:00 Pulse 112 H 01/14/20 16:00 Resp 17 01/14/20 16:00 BP 76/57 01/14/20 16:00 Pulse Ox 99 01/14/20 16:00 TS Medications Medications Home Medications atorvastatin 40 mg tablet 40 mg PO DAILY 01/08/20 [History Confirmed 01/10/20] clopidogrel 75 mg tablet 75 mg PO DAILY 01/08/20 [History Confirmed 01/10/20] furosemide 40 mg tablet 40 mg PO DAILY 01/08/20 [History Confirmed 01/10/20] glipizide 10 mg tablet 10 mg PO DAILY 01/08/20 [History Confirmed 01/10/20] lisinopril 10 mg tablet 10 mg PO DAILY PRN 01/08/20 [History Confirmed 01/10/20] potassium chloride 10 mEq tablet,extended release(part/cryst) 10 meq PO DAILY 01/08/20 [History Confirmed 01/10/20] tamsulosin 0.4 mg capsule 0.4 mg PO DAILY 01/08/20 [History Confirmed 01/10/20] albuterol sulfate [Ventolin HFA] 2 puff INHALATION 6XD PRN 01/10/20 [History Confirmed 01/10/20] empagliflozin-linagliptin [Glyxambi] 1 tab PO DAILY 01/10/20 [History Confirmed 01/10/20] nitroglycerin 0.4 mg SUBLINGUAL PRN PRN 01/10/20 [History Confirmed 01/10/20] semaglutide [Ozempic] 0.25 mg SUBCUT Q7D 01/10/20 [History Confirmed 01/10/20] tiotropium-olodaterol [Stiolto Respimat] See Rx Instructions .ROUTE .COMPLEX 01/10/20 [History Confirmed 01/10/20] Active Medications Acetaminophen (Tylenol) 650 mg PO Q6H PRN PRN Reason: Mild/Mod Pain Or Temp >/= 101 Last Admin: 01/13/20 12:57 Dose: 650 mg Documented by: Alprazolam (Xanax) 0.25 mg PO BID PRN PRN Reason: ANXIETY Last Admin: 01/14/20 13:07 Dose: 0.25 mg Documented by: Aspirin (Aspirin Ec) 81 mg PO DAILY [facility] Last Admin: 01/14/20 09:07 Dose: 81 mg Documented by: Atorvastatin Calcium (Lipitor) 40 mg PO DAILY [facility] Last Admin: 01/14/20 09:07 Dose: 40 mg Documented by: Bisacodyl (Dulcolax) 10 mg PO DAILY PRN PRN Reason: CONSTIPATION Budesonide (Pulmicort) 0.5 mg INHALATION BID.RESPIRATORY [facility] Last Admin: 01/14/20 08:17 Dose: 0.5 mg Documented by: Clopidogrel Bisulfate (Plavix) 75 mg PO DAILY [facility] Last Admin: 01/14/20 09:07 Dose: 75 mg Documented by: Enoxaparin Sodium (Lovenox) 40 mg SUBCUT DAILY [facility] Last Admin: 01/14/20 09:08 Dose: 40 mg Documented by: Furosemide (Lasix) 60 mg PO DAILY@0800 [facility] Last Admin: 01/14/20 07:34 Dose: 60 mg Documented by: Amiodarone HCl 900 mg/Dextrose/ IV Miscellaneous Supplies 518 mls @ 0 mls/hr IV .Q0M [facility]; Protocol Amiodarone HCl 900 mg/Dextrose/ IV Miscellaneous Supplies 518 mls @ 17.267 mls/hr IV .Q24H [facility]BER[facility] Nitroglycerin/Dextrose (Nitroglycerin Drip) 50 mg in 250 mls @ 0 mls/hr IV .Q0M [facility]; Protocol Insulin Aspart (Novolog) 0 unit SUBCUT WM&BEDTIME [facility]; Protocol Last Admin: 01/14/20 12:50 Dose: 6 unit Documented by: Ipratropium Nelson (Atrovent Neb) 0.5 mg INHALATION Q4H.RESPIRATORY [facility] Last Admin: 01/14/20 16:09 Dose: Not Given Documented by: Isosorbide Mononitrate (Imdur) 30 mg PO DAILY [facility] Last Admin: 01/14/20 09:07 Dose: 30 mg Documented by: Lactulose (Constulose) 10 gm PO DAILY PRN PRN Reason: CONSTIPA Levalbuterol HCl (Xopenex) 1.25 mg INHALATION Q4H.RESPIRATORY PRN PRN Reason: SHORTNESS OF BREATH Last Admin: 01/14/20 11:32 Dose: 1.25 mg Documented by: Lisinopril (Prinivil) 5 mg PO DAILY [facility] Last Admin: 01/14/20 09:07 Dose: 5 mg Documented by: Metoprolol Tartrate (Metoprolol Tartrate) 5 mg IV Q6H PRN PRN Reason: HEART RATE-HIGH Last Admin: 01/14/20 09:08 Dose: 5 mg Documented by: Morphine Sulfate (Morphine) 2 mg IVP Q2H PRN PRN Reason: SEVERE PAIN Last Admin: 01/13/20 20:12 Dose: 2 mg Documented by: Nitroglycerin (Nitrostat) 0.4 mg SUBLINGUAL PRN PRN PRN Reason: CHEST PAINS Last Admin: 01/13/20 12:58 Dose: 1 tab Documented by: Nitroglycerin (Nitro-Bid) 1 inch TOPICAL Q6H [facility] Last Admin: 01/14/20 12:41 Dose: Not Given Documented by: Ondansetron HCl (Zofran) 4 mg IVP Q6H PRN PRN Reason: NAUSEA AND VOMITING Last Admin: 01/14/20 06:29 Dose: 4 mg Documented by: Tamsulosin HCl (Flomax) 0.4 mg PO DAILY [facility] Last Admin: 01/14/20 09:07 Dose: 0.4 mg Documented by: Discharge Plan Discharge Patient Disposition: Xfer Other Condition: Fair Prescriptions: New alprazolam 0.25 mg Tablet 0.25 mg PO BID PRN (Reason: Anxiety) 30 Days Qty: 30 RF: 0 bisacodyl 5 mg Tablet,Delayed Release (Dr/Ec) 10 mg PO DAILY PRN (Reason: Constipation) 30 Days Qty: 30 RF: 0 budesonide 0.5 mg/2 mL Suspension For Nebulization 0.5 mg inhalation BID.RESPIRATORY 30 Days Qty: 120 RF: 0 acetaminophen 325 mg Tablet 650 mg PO Q6H PRN (Reason: Mild/Mod Pain Or Temp >/= 101) Qty: 90 RF: 0 aspirin 81 mg Tablet,Delayed Release (Dr/Ec) 81 mg PO DAILY 30 Days Qty: 30 RF: 0 insulin aspart U-100 [Novolog U-100 Insulin aspart] 100 unit/mL Solution 0 unit SUBCUT WM&BEDTIME Qty: 30 RF: 0 isosorbide mononitrate 30 mg Tablet Extended Release 24 Hr 30 mg PO DAILY 30 Days Qty: 30 RF: 0 furosemide 40 mg Tablet 60 mg PO DAILY@0800 Qty: 30 RF: 0 levalbuterol HCl 1.25 mg/3 mL Solution For Nebulization 1.25 mg inhalation Q4H.RESPIRATORY PRN (Reason: Shortness Of Breath) 30 Days Qty: 30 RF: 0 ipratropium bromide 0.02 % Solution 0.5 mg inhalation Q4H.RESPIRATORY 30 Days Qty: 3 RF: 0 Continued clopidogrel 75 mg tablet 75 mg PO DAILY RF: 0 potassium chloride [Klor-Con M10] 10 mEq tablet,ER particles/crystals 10 meq PO DAILY RF: 0 tamsulosin [Flomax] 0.4 mg capsule 0.4 mg PO DAILY RF: 0 glipizide 10 mg tablet 10 mg PO DAILY RF: 0 atorvastatin 40 mg tablet 40 mg PO DAILY RF: 0 lisinopril 10 mg tablet 10 mg PO DAILY PRN (Reason: ELEVATED BLOOD PRESSURE) RF: 0 nitroglycerin 0.4 mg tablet, sublingual 0.4 mg sublingual PRN PRN (Reason: CHEST PAINS) RF: 0 Ventolin HFA 90 mcg/actuation Hfa Aerosol Inhaler 2 puff INHALATION 6XD PRN (Reason: Shortness Of Breath) RF: 0 Glyxambi 25-5 mg tablet 1 tab PO DAILY RF: 0 Stiolto Respimat 2.5-2.5 mcg/actuation mist See Rx Instructions .ROUTE .COMPLEX RF: 0 Ozempic 0.25 mg or 0.5 mg(2 mg/1.5 mL) pen injector 0.25 mg SUBCUT Q7D RF: 0 Discontinued furosemide 40 mg tablet 40 mg PO DAILY RF: 0 Discharge Orders: Discharge Order (Routine); Ordered 01/14/20 Ordered By: Huey Malin Discharge Diet: Cardiac Discharge Activity: Resume usual activity Transfer Attestations Time Spent in Transfer Care*: less than 30 min Quality Metrics Clinical Quality Measures: During this hospital stay, did patient experience: AMI Clinical Trial Participant: No Contraindication to aspirin (AMI): Aspirin given Contraindication to statin: Statin prescribed Coding Level of Care Code Acute Body Trimmer for g Fwd Diagnoses Atherosclerotic heart disease [place] coronary artery w/angina pectoris I25.119 [place] vs. transplanted heart: [place] heart Hypotension arterial I95.89 Hypotension type: other hypotension type Chronic hypoxemic respiratory failure J96.11 Diastolic heart failure I50.33 Heart failure chronicity: acute on chronic Ischemic cardiomyopathy I25.5 Carotid stenosis, bilateral I65.23 Dyslipidemia E78.5 Obesity E66.9 H/O heart artery stent Z95.5 Angina of effort I20.8 Shortness of breath R06.02
--- NOTE | 2020-01-14 17:52 | PC.NURSE ---
REPORT CALLED TO SHREYAS AT [facility]; AIR EVAC CREW AT BEDSIDE, REPORT GIVEN; PT PACKAGED UP AND TRANSFERRED TO STRETCHER; FAMILY NOTIFIED OF DEPARTURE; THIS RN CALLED SHREYAS TO INFORM THAT PT HAD DEPARTED; WILL CONTINUE TO MONITOR
== END 2020-01-14 16:30 | disposition short-term general hospital (02) | DRG 286 ==
LOC: ER 16:35 → CSU 16:36 → ICU 17:08 → MEDSURG 01-11 15:29 → ICU 01-13 08:34
PROVIDERS: Internal Medicine Cardiovascular Disease; Admitting Provider Student in an Organized Health Care Education/Training Program; Emergency Provider Family Medicine; Family Provider Family Medicine; PCP Family Medicine; Visit Provider Family Medicine
PROC: B2111ZZ Fluoroscopy of Multiple Coronary Arteries using Low Osmolar Contrast (ICD-10-PCS; principal; 2020-01-13 07:00)
DX: I25.119 Atherosclerotic heart disease of native coronary artery with unspecified angina pectoris (principal); I50.33 Acute on chronic diastolic (congestive) heart failure; I24.9 Acute ischemic heart disease, unspecified; J96.11 Chronic respiratory failure with hypoxia; I25.2 Old myocardial infarction; I65.23 Occlusion and stenosis of bilateral carotid arteries; E11.51 Type 2 diabetes mellitus with diabetic peripheral angiopathy without gangrene; Z95.820 Peripheral vascular angioplasty status with implants and grafts; E78.5 Hyperlipidemia, unspecified; I11.0 Hypertensive heart disease with heart failure; J44.9 Chronic obstructive pulmonary disease, unspecified; F17.210 Nicotine dependence, cigarettes, uncomplicated; E66.9 Obesity, unspecified; Z68.35 Body mass index [BMI] 35.0-35.9, adult; I25.5 Ischemic cardiomyopathy; I27.81 Cor pulmonale (chronic); Z87.01 Personal history of pneumonia (recurrent); F10.21 Alcohol dependence, in remission; Z79.51 Long term (current) use of inhaled steroids; Z79.84 Long term (current) use of oral hypoglycemic drugs; Z79.02 Long term (current) use of antithrombotics/antiplatelets; I95.9 Hypotension, unspecified
CPT/HCPCS: 12345; 36415; 36416; 36600; 51702; 71045; 78452; 80048; 80053; 80061; 81003; 82550; 82728; 82803; 82962; 83036; 83605; 83615; 83735; 83880; 84145; 84484; 85014; 85018; 85025; 85378; 85610; 85730; 86140; 87040; 87070; 87205; 87635; 87804; 93005; 93017; 93306; 93454; 93970; 94640; 94660; 96372; 96375; 99284; A9500; C1769; C1887; C1894; J1644; J1650; J1815; J1940; J2001; J2250; J2270; J2405; J2785; J3010; J3490; J7030; J7614; J7626; J7644; Q0163; Q9967

== ENCOUNTER 2020-02-27 13:32 | Outpatient (CLI) | payer MEDICARE, SELFPAY ==
[2020-02-27 13:57] LABS: Basophils % 0.3 %; Eosinophils # 0.6 10^3/uL (0.0-0.8); Eosinophils % 4.4 %; Hematocrit 31.8 % (42.0-52.0); Hemoglobin 9.9 g/dL (11.7-16.6); Lymphocytes # 2.2 10^3/uL (0.8-4.8); Lymphocytes % 16.6 %; Mean Corpuscular HGB Conc 31.1 g/dL (30.0-36.0); Mean Corpuscular Hemoglobin 30.5 pg (28.0-34.0); Mean Corpuscular Volume 97.8 fL (80-94); Mean Platelet Volume 9.6 fL (7.4-10.4); Monocytes # 0.8 10^3/uL (0.2-0.9); Monocytes % 6.1 %; Neutrophils # 9.3 10^3/uL (1.8-7.7); Neutrophils % 72.1 %; Nucleated Red Blood Cells % 0 %; Platelet Count 308 10^3/cmm (130-400); Red Blood Count 3.25 10^6/uL (4.1-5.3); Red Cell Distribution Width 14.7 % (12.1-15.1); White Blood Count 12.9 10^3/uL (4.0-10.0)
[2020-02-27 14:03] LABS: Anion Gap 15.2 (5-19); Blood Urea Nitrogen 30 mg/dL (8-23); Calcium 8.7 mg/dL (8.5-10.5); Carbon Dioxide 31 mmol/L (22-29); Chloride 92 mmol/L (98-107); Glomerular Filtration Rate 96.4 mL/min (90-130); Glucose 232 mg/dL (65-115); Osmolality Calculated 285 mOsm/kg (285-295); Potassium 3.2 mmol/L (3.5-5.1); Sodium 135 mmol/L (136-145)
== END 2020-02-27 13:33 | disposition home or self-care (01) ==
LOC: LAB 13:37
PROVIDERS: PCP Family Medicine; Visit Provider Internal Medicine Cardiovascular Disease
DX: I50.9 Heart failure, unspecified (principal); I25.10 Atherosclerotic heart disease of native coronary artery without angina pectoris
CPT/HCPCS: 80048; 85025

== ENCOUNTER 2020-03-05 14:54 | Outpatient (CLI) | payer MEDICARE, SELFPAY ==
[2020-03-05 15:28] LABS: Basophils % 0.4 %; Eosinophils # 0.6 10^3/uL (0.0-0.8); Eosinophils % 5.8 %; Hematocrit 32.5 % (42.0-52.0); Hemoglobin 10.2 g/dL (11.7-16.6); Lymphocytes # 1.8 10^3/uL (0.8-4.8); Lymphocytes % 17.9 %; Mean Corpuscular HGB Conc 31.4 g/dL (30.0-36.0); Mean Corpuscular Hemoglobin 30.9 pg (28.0-34.0); Mean Corpuscular Volume 98.5 fL (80-94); Mean Platelet Volume 9.3 fL (7.4-10.4); Monocytes # 0.7 10^3/uL (0.2-0.9); Monocytes % 6.8 %; Neutrophils # 7.1 10^3/uL (1.8-7.7); Neutrophils % 68.6 %; Nucleated Red Blood Cells % 0 %; Platelet Count 346 10^3/cmm (130-400); Red Cell Distribution Width 15.1 % (12.1-15.1); White Blood Count 10.3 10^3/uL (4.0-10.0)
[2020-03-05 16:03] LABS: Alanine Aminotransferase 16 U/L (0-41); Albumin Level 3.8 g/dL (3.5-5.2); Alkaline Phosphatase 88 IU/L (40-130); Anion Gap 16.4 (5-19); Aspartate Amino Transferase 14 U/L (0-40); Blood Urea Nitrogen 17 mg/dL (8-23); Calcium 9.6 mg/dL (8.5-10.5); Carbon Dioxide 31 mmol/L (22-29); Chloride 95 mmol/L (98-107); Globulin 3.4 g/dL (1.3-4.6); Glomerular Filtration Rate 96.4 mL/min (90-130); Glucose 215 mg/dL (65-115); Osmolality Calculated 291 mOsm/kg (285-295); Potassium 3.4 mmol/L (3.5-5.1); Sodium 139 mmol/L (136-145); Total Bilirubin 0.3 mg/dL (0.15-1.2); Total Protein 7.2 g/dL (6.6-8.7)
== END 2020-03-05 14:55 | disposition home or self-care (01) ==
LOC: LAB 14:56
PROVIDERS: PCP Family Medicine; Visit Provider Internal Medicine Cardiovascular Disease
DX: I50.9 Heart failure, unspecified (principal); N18.9 Chronic kidney disease, unspecified
CPT/HCPCS: 80053; 85025

== ENCOUNTER 2020-03-12 15:04 | Outpatient (CLI) | payer MEDICARE, SELFPAY ==
[2020-03-12 18:03] LABS: Basophils # 0.1 10^3/uL (0.0-0.1); Basophils % 0.5 %; Eosinophils # 0.3 10^3/uL (0.0-0.8); Eosinophils % 2.8 %; Hematocrit 33.4 % (42.0-52.0); Hemoglobin 10.2 g/dL (11.7-16.6); Lymphocytes # 2.6 10^3/uL (0.8-4.8); Lymphocytes % 23.5 %; Mean Corpuscular HGB Conc 30.5 g/dL (30.0-36.0); Mean Corpuscular Hemoglobin 31.1 pg (28.0-34.0); Mean Corpuscular Volume 101.8 fL (80-94); Mean Platelet Volume 9.5 fL (7.4-10.4); Monocytes # 0.6 10^3/uL (0.2-0.9); Monocytes % 5.3 %; Neutrophils # 7.4 10^3/uL (1.8-7.7); Neutrophils % 67.3 %; Nucleated Red Blood Cells % 0 %; Platelet Count 327 10^3/cmm (130-400); Red Blood Count 3.28 10^6/uL (4.1-5.3); Red Cell Distribution Width 15.1 % (12.1-15.1)
[2020-03-12 18:20] LABS: Anion Gap 18.5 (5-19); Blood Urea Nitrogen 19 mg/dL (8-23); Calcium 8.8 mg/dL (8.5-10.5); Carbon Dioxide 29 mmol/L (22-29); Chloride 94 mmol/L (98-107); Glomerular Filtration Rate 84.2 mL/min (90-130); Glucose 206 mg/dL (65-115); Osmolality Calculated 288 mOsm/kg (285-295); Potassium 3.5 mmol/L (3.5-5.1); Sodium 138 mmol/L (136-145)
== END 2020-03-12 15:05 | disposition home or self-care (01) ==
LOC: LAB 15:07
PROVIDERS: PCP Family Medicine; Visit Provider Internal Medicine Cardiovascular Disease
DX: Z45.2 Encounter for adjustment and management of vascular access device (principal)
CPT/HCPCS: 80048; 85025

== ENCOUNTER 2020-03-18 13:24 | Outpatient (CLI) | payer MEDICARE, SELFPAY ==
[2020-03-18 13:57] LABS: Basophils # 0.1 10^3/uL (0.0-0.1); Basophils % 0.5 %; Eosinophils # 0.4 10^3/uL (0.0-0.8); Eosinophils % 4.1 %; Hematocrit 35.7 % (42.0-52.0); Hemoglobin 10.9 g/dL (11.7-16.6); Lymphocytes % 21.5 %; Mean Corpuscular HGB Conc 30.5 g/dL (30.0-36.0); Mean Corpuscular Hemoglobin 30.3 pg (28.0-34.0); Mean Corpuscular Volume 99.2 fL (80-94); Mean Platelet Volume 9.5 fL (7.4-10.4); Monocytes # 0.6 10^3/uL (0.2-0.9); Monocytes % 5.9 %; Neutrophils # 6.3 10^3/uL (1.8-7.7); Neutrophils % 67.8 %; Nucleated Red Blood Cells % 0 %; Platelet Count 274 10^3/cmm (130-400); Red Cell Distribution Width 15.9 % (12.1-15.1); White Blood Count 9.3 10^3/uL (4.0-10.0)
[2020-03-18 14:11] LABS: Anion Gap 16.9 (5-19); Blood Urea Nitrogen 14 mg/dL (8-23); Calcium 9.4 mg/dL (8.5-10.5); Carbon Dioxide 28 mmol/L (22-29); Chloride 99 mmol/L (98-107); Glomerular Filtration Rate 84.2 mL/min (90-130); Glucose 119 mg/dL (65-115); Osmolality Calculated 287 mOsm/kg (285-295); Potassium 3.9 mmol/L (3.5-5.1); Sodium 140 mmol/L (136-145)
== END 2020-03-18 13:25 | disposition home or self-care (01) ==
LOC: LAB 13:26
PROVIDERS: PCP Family Medicine; Visit Provider Internal Medicine Cardiovascular Disease
DX: Z45.2 Encounter for adjustment and management of vascular access device (principal)
CPT/HCPCS: 80048; 85025

== ENCOUNTER 2020-03-26 15:31 | Outpatient (CLI) | payer MEDICARE, SELFPAY ==
[2020-03-26 16:07] LABS: Basophils # 0.1 10^3/uL (0.0-0.1); Basophils % 0.6 %; Eosinophils # 0.4 10^3/uL (0.0-0.8); Eosinophils % 3.9 %; Hematocrit 37.7 % (42.0-52.0); Hemoglobin 11.7 g/dL (11.7-16.6); Lymphocytes # 2.3 10^3/uL (0.8-4.8); Lymphocytes % 21.3 %; Mean Corpuscular Hemoglobin 30.5 pg (28.0-34.0); Mean Corpuscular Volume 98.2 fL (80-94); Mean Platelet Volume 9.7 fL (7.4-10.4); Monocytes # 0.7 10^3/uL (0.2-0.9); Monocytes % 6.7 %; Neutrophils # 7.2 10^3/uL (1.8-7.7); Neutrophils % 67.2 %; Nucleated Red Blood Cells % 0 %; Platelet Count 276 10^3/cmm (130-400); Red Blood Count 3.84 10^6/uL (4.1-5.3); Red Cell Distribution Width 15.6 % (12.1-15.1); White Blood Count 10.8 10^3/uL (4.0-10.0)
[2020-03-26 17:04] LABS: Anion Gap 17.7 (5-19); Blood Urea Nitrogen 21 mg/dL (8-23); Calcium 9.8 mg/dL (8.5-10.5); Carbon Dioxide 30 mmol/L (22-29); Chloride 91 mmol/L (98-107); Glomerular Filtration Rate 84.2 mL/min (90-130); Glucose 150 mg/dL (65-115); Osmolality Calculated 279 mOsm/kg (285-295); Potassium 3.7 mmol/L (3.5-5.1); Sodium 135 mmol/L (136-145)
== END 2020-03-26 15:32 | disposition home or self-care (01) ==
LOC: LAB 15:34
PROVIDERS: PCP Family Medicine; Visit Provider Internal Medicine Cardiovascular Disease
DX: Z45.2 Encounter for adjustment and management of vascular access device (principal)
CPT/HCPCS: 80048; 85025

== ENCOUNTER 2020-04-01 14:03 | Outpatient (CLI) | payer MEDICARE, SELFPAY ==
[2020-04-01 14:50] LABS: Basophils # 0.1 10^3/uL (0.0-0.1); Basophils % 0.6 %; Eosinophils # 0.4 10^3/uL (0.0-0.8); Hematocrit 39.4 % (42.0-52.0); Hemoglobin 12.1 g/dL (11.7-16.6); Lymphocytes # 1.7 10^3/uL (0.8-4.8); Lymphocytes % 15.1 %; Mean Corpuscular HGB Conc 30.7 g/dL (30.0-36.0); Mean Corpuscular Hemoglobin 30.4 pg (28.0-34.0); Mean Platelet Volume 9.6 fL (7.4-10.4); Monocytes # 0.7 10^3/uL (0.2-0.9); Neutrophils # 8.62 10^3/uL (1.8-7.7); Nucleated Red Blood Cells % 0 %; Platelet Count 271 10^3/cmm (130-400); Red Blood Count 3.98 10^6/uL (4.1-5.3); Red Cell Distribution Width 15.2 % (12.1-15.1); White Blood Count 11.5 10^3/uL (4.0-10.0)
[2020-04-01 14:56] LABS: Anion Gap 16.8 (5-19); Blood Urea Nitrogen 23 mg/dL (8-23); Carbon Dioxide 30 mmol/L (22-29); Chloride 92 mmol/L (98-107); Glomerular Filtration Rate 60.4 mL/min (90-130); Glucose 210 mg/dL (65-115); Osmolality Calculated 283 mOsm/kg (285-295); Potassium 3.8 mmol/L (3.5-5.1); Sodium 135 mmol/L (136-145)
== END 2020-04-01 14:04 | disposition home or self-care (01) ==
PROVIDERS: PCP Family Medicine; Visit Provider Internal Medicine Cardiovascular Disease
DX: Z45.2 Encounter for adjustment and management of vascular access device (principal)
CPT/HCPCS: 80048; 85025

== ENCOUNTER 2020-04-09 15:09 | Outpatient (CLI) | payer MEDICARE, SELFPAY ==
[2020-04-09 15:39] LABS: Basophils # 0.1 10^3/uL (0.0-0.1); Basophils % 0.5 %; Eosinophils # 0.3 10^3/uL (0.0-0.8); Eosinophils % 2.7 %; Hematocrit 40.6 % (42.0-52.0); Hemoglobin 12.3 g/dL (11.7-16.6); Lymphocytes % 18.5 %; Mean Corpuscular HGB Conc 30.3 g/dL (30.0-36.0); Mean Corpuscular Hemoglobin 29.4 pg (28.0-34.0); Mean Corpuscular Volume 96.9 fL (80-94); Mean Platelet Volume 9.4 fL (7.4-10.4); Monocytes # 0.6 10^3/uL (0.2-0.9); Monocytes % 5.5 %; Neutrophils # 7.83 10^3/uL (1.8-7.7); Neutrophils % 72.5 %; Nucleated Red Blood Cells % 0 %; Platelet Count 287 10^3/cmm (130-400); Red Blood Count 4.19 10^6/uL (4.1-5.3); Red Cell Distribution Width 14.7 % (12.1-15.1); White Blood Count 10.8 10^3/uL (4.0-10.0)
[2020-04-09 16:37] LABS: Alanine Aminotransferase 9 U/L (0-41); Albumin Level 4.6 g/dL (3.5-5.2); Alkaline Phosphatase 76 IU/L (40-130); Anion Gap 18.1 (5-19); Aspartate Amino Transferase 13 U/L (0-40); Blood Urea Nitrogen 21 mg/dL (8-23); Calcium 9.9 mg/dL (8.5-10.5); Carbon Dioxide 29 mmol/L (22-29); Chloride 92 mmol/L (98-107); Chol HDL Ratio 3.32 mg/dL (1.0-5.00); Cholesterol 113 mg/dL (0-200); Glomerular Filtration Rate 74.5 mL/min (90-130); Glucose 218 mg/dL (65-115); HDL Cholesterol 34 mg/dL (60-100); LDL Cholesterol Calculated 60 mg/dL (50-129); LDL HDL Ratio 1.76 RATIO (0.00-3.22); NT Pro B Type Natriuretic Pept 5763 pg/mL (0-125); Osmolality Calculated 285 mOsm/kg (285-295); Potassium 3.1 mmol/L (3.5-5.1); Sodium 136 mmol/L (136-145); Thyroid Stimulating Hormone 1.49 uIU/mL (0.27-4.20); Total Bilirubin 0.5 mg/dL (0.15-1.2); Total Protein 7.6 g/dL (6.6-8.7); Triglycerides 93 mg/dL (0-150)
[2020-04-09 17:10] LABS: Estmated Average Glucose 169; Hemoglobin A1C 7.5 % (4.0-6.0)
[2020-04-09 17:16] LABS: 25 Hydroxy Vitamin D 16 ng/mL (30-100)
== END 2020-04-09 15:10 | disposition home or self-care (01) ==
LOC: LAB 15:13
PROVIDERS: PCP Family Medicine; Visit Provider Internal Medicine Cardiovascular Disease
DX: Z45.2 Encounter for adjustment and management of vascular access device (principal)
CPT/HCPCS: 80053; 80061; 82306; 83036; 83880; 84443; 85025

== ENCOUNTER 2020-04-15 14:54 | Outpatient (CLI) | payer MEDICARE, SELFPAY ==
[2020-04-15 17:24] LABS: Anion Gap 18.9 (5-19); Blood Urea Nitrogen 27 mg/dL (8-23); Calcium 9.6 mg/dL (8.5-10.5); Carbon Dioxide 28 mmol/L (22-29); Chloride 92 mmol/L (98-107); Glomerular Filtration Rate 74.5 mL/min (90-130); Glucose 321 mg/dL (65-115); Osmolality Calculated 291 mOsm/kg (285-295); Sodium 136 mmol/L (136-145)
[2020-04-15 17:48] LABS: Hematocrit 38.6 % (42.0-52.0); Hemoglobin 11.9 g/dL (11.7-16.6); Mean Corpuscular HGB Conc 30.8 g/dL (30.0-36.0); Mean Corpuscular Hemoglobin 29.8 pg (28.0-34.0); Mean Corpuscular Volume 96.7 fL (80-94); Mean Platelet Volume 9.9 fL (7.4-10.4); Platelet Count 245 10^3/cmm (130-400); Red Blood Count 3.99 10^6/uL (4.1-5.3); Red Cell Distribution Width 14.6 % (12.1-15.1); White Blood Count 9.4 10^3/uL (4.0-10.0)
[2020-04-15 18:26] LABS: Potassium 2.9 mmol/L (3.5-5.1)
[2020-04-15 19:06] LABS: Absolute Eosinophils 0.1 10^3/cmm (0.0-0.7); Absolute Segmented Neutrophil 7.2 10/cmm (1.6-7.1); Eosinophils 2 %; Lymphocytes 17 %; Monocytes Absolute 0.2 10^3/cmm (0.1-0.6); Segmented Neutrophils 77 %; Total Cells Counted 100 (0-100)
[2020-04-15 19:07] LABS: Giant Platelets Trace; Platelet Estimate Normal (Normal)
== END 2020-04-15 14:55 | disposition home or self-care (01) ==
PROVIDERS: PCP Family Medicine; Visit Provider Internal Medicine Cardiovascular Disease
DX: I50.43 Acute on chronic combined systolic (congestive) and diastolic (congestive) heart failure (principal)
CPT/HCPCS: 80048; 85007; 85027

== ENCOUNTER 2020-04-23 14:32 | Outpatient (CLI) | payer MEDICARE, SELFPAY ==
[2020-04-23 15:30] LABS: Basophils % 0.4 %; Eosinophils # 0.2 10^3/uL (0.0-0.8); Eosinophils % 1.5 %; Hematocrit 40.8 % (42.0-52.0); Hemoglobin 12.7 g/dL (11.7-16.6); Lymphocytes # 1.6 10^3/uL (0.8-4.8); Lymphocytes % 15.3 %; Mean Corpuscular HGB Conc 31.1 g/dL (30.0-36.0); Mean Corpuscular Hemoglobin 30.3 pg (28.0-34.0); Mean Corpuscular Volume 97.4 fL (80-94); Mean Platelet Volume 10.1 fL (7.4-10.4); Monocytes # 0.6 10^3/uL (0.2-0.9); Neutrophils # 7.96 10^3/uL (1.8-7.7); Neutrophils % 76.4 %; Nucleated Red Blood Cells % 0 %; Platelet Count 221 10^3/cmm (130-400); Red Blood Count 4.19 10^6/uL (4.1-5.3); Red Cell Distribution Width 15.1 % (12.1-15.1); White Blood Count 10.4 10^3/uL (4.0-10.0)
[2020-04-23 15:52] LABS: Anion Gap 16.2 (5-19); Blood Urea Nitrogen 28 mg/dL (8-23); Calcium 8.8 mg/dL (8.5-10.5); Carbon Dioxide 24 mmol/L (22-29); Chloride 98 mmol/L (98-107); Glomerular Filtration Rate 66.8 mL/min (90-130); Glucose 201 mg/dL (65-115); Osmolality Calculated 281 mOsm/kg (285-295); Potassium 4.2 mmol/L (3.5-5.1); Sodium 134 mmol/L (136-145)
== END 2020-04-23 14:33 | disposition home or self-care (01) ==
LOC: LAB 14:34
PROVIDERS: PCP Family Medicine; Visit Provider Internal Medicine Cardiovascular Disease
DX: I50.43 Acute on chronic combined systolic (congestive) and diastolic (congestive) heart failure (principal)
CPT/HCPCS: 80048; 85025

== ENCOUNTER 2020-04-29 14:06 | Outpatient (CLI) | payer MEDICARE, SELFPAY ==
[2020-04-29 14:30] LABS: Basophils % 0.4 %; Eosinophils # 0.1 10^3/uL (0.0-0.8); Eosinophils % 1.5 %; Hematocrit 40.5 % (42.0-52.0); Hemoglobin 12.6 g/dL (11.7-16.6); Lymphocytes # 2.3 10^3/uL (0.8-4.8); Lymphocytes % 23.7 %; Mean Corpuscular HGB Conc 31.1 g/dL (30.0-36.0); Mean Corpuscular Hemoglobin 30.1 pg (28.0-34.0); Mean Corpuscular Volume 96.7 fL (80-94); Mean Platelet Volume 9.5 fL (7.4-10.4); Monocytes # 0.5 10^3/uL (0.2-0.9); Monocytes % 4.8 %; Neutrophils # 6.62 10^3/uL (1.8-7.7); Neutrophils % 69.3 %; Nucleated Red Blood Cells % 0 %; Platelet Count 213 10^3/cmm (130-400); Red Blood Count 4.19 10^6/uL (4.1-5.3); White Blood Count 9.6 10^3/uL (4.0-10.0)
[2020-04-29 14:49] LABS: Anion Gap 13.8 (5-19); Blood Urea Nitrogen 28 mg/dL (8-23); Carbon Dioxide 28 mmol/L (22-29); Chloride 96 mmol/L (98-107); Glomerular Filtration Rate 74.5 mL/min (90-130); Glucose 181 mg/dL (65-115); Osmolality Calculated 280 mOsm/kg (285-295); Potassium 3.8 mmol/L (3.5-5.1); Sodium 134 mmol/L (136-145)
== END 2020-04-29 14:07 | disposition home or self-care (01) ==
LOC: LAB 14:09
PROVIDERS: PCP Family Medicine; Visit Provider Internal Medicine Cardiovascular Disease
DX: Z45.2 Encounter for adjustment and management of vascular access device (principal)
CPT/HCPCS: 80048; 85025

== ENCOUNTER 2020-05-07 15:26 | Outpatient (CLI) | payer MEDICARE, SELFPAY ==
[2020-05-07 15:47] LABS: Basophils % 0.4 %; Eosinophils # 0.2 10^3/uL (0.0-0.8); Eosinophils % 2.1 %; Hematocrit 40.5 % (42.0-52.0); Hemoglobin 12.5 g/dL (11.7-16.6); Lymphocytes # 1.8 10^3/uL (0.8-4.8); Mean Corpuscular HGB Conc 30.9 g/dL (30.0-36.0); Mean Corpuscular Hemoglobin 29.1 pg (28.0-34.0); Mean Corpuscular Volume 94.2 fL (80-94); Mean Platelet Volume 9.6 fL (7.4-10.4); Monocytes # 0.5 10^3/uL (0.2-0.9); Monocytes % 4.8 %; Neutrophils # 8.08 10^3/uL (1.8-7.7); Neutrophils % 75.3 %; Nucleated Red Blood Cells % 0 %; Platelet Count 280 10^3/cmm (130-400); Red Cell Distribution Width 14.8 % (12.1-15.1); White Blood Count 10.7 10^3/uL (4.0-10.0)
[2020-05-07 16:14] LABS: Anion Gap 16.2 (5-19); Blood Urea Nitrogen 24 mg/dL (8-23); Carbon Dioxide 30 mmol/L (22-29); Chloride 91 mmol/L (98-107); Glomerular Filtration Rate 66.8 mL/min (90-130); Glucose 174 mg/dL (65-115); Osmolality Calculated 279 mOsm/kg (285-295); Potassium 3.2 mmol/L (3.5-5.1); Sodium 134 mmol/L (136-145)
== END 2020-05-07 15:27 | disposition home or self-care (01) ==
LOC: LAB 15:28
PROVIDERS: PCP Family Medicine; Visit Provider Internal Medicine Cardiovascular Disease
DX: I25.5 Ischemic cardiomyopathy (principal)
CPT/HCPCS: 80048; 85025

== ENCOUNTER 2020-05-13 14:00 | Outpatient (CLI) | payer MEDICARE, SELFPAY ==
[2020-05-13 14:27] LABS: Basophils # 0.1 10^3/uL (0.0-0.1); Basophils % 0.4 %; Eosinophils # 0.2 10^3/uL (0.0-0.8); Eosinophils % 1.6 %; Hematocrit 40.1 % (42.0-52.0); Hemoglobin 12.4 g/dL (11.7-16.6); Lymphocytes # 2.1 10^3/uL (0.8-4.8); Lymphocytes % 18.3 %; Mean Corpuscular HGB Conc 30.9 g/dL (30.0-36.0); Mean Corpuscular Hemoglobin 29.1 pg (28.0-34.0); Mean Corpuscular Volume 94.1 fL (80-94); Mean Platelet Volume 9.4 fL (7.4-10.4); Monocytes # 0.7 10^3/uL (0.2-0.9); Monocytes % 6.1 %; Neutrophils # 8.25 10^3/uL (1.8-7.7); Neutrophils % 73.2 %; Nucleated Red Blood Cells % 0 %; Platelet Count 325 10^3/cmm (130-400); Red Blood Count 4.26 10^6/uL (4.1-5.3); Red Cell Distribution Width 15.1 % (12.1-15.1); White Blood Count 11.3 10^3/uL (4.0-10.0)
[2020-05-13 14:46] LABS: Blood Urea Nitrogen 32 mg/dL (8-23); Calcium 8.9 mg/dL (8.5-10.5); Carbon Dioxide 26 mmol/L (22-29); Chloride 94 mmol/L (98-107); Glomerular Filtration Rate 74.5 mL/min (90-130); Glucose 155 mg/dL (65-115); Osmolality Calculated 276 mOsm/kg (285-295); Sodium 133 mmol/L (136-145)
== END 2020-05-13 14:01 | disposition home or self-care (01) ==
LOC: LAB 14:01
PROVIDERS: PCP Family Medicine; Visit Provider Internal Medicine Cardiovascular Disease
DX: I50.9 Heart failure, unspecified (principal); N18.2 Chronic kidney disease, stage 2 (mild); E11.9 Type 2 diabetes mellitus without complications; I73.9 Peripheral vascular disease, unspecified
CPT/HCPCS: 80048; 85025

== ENCOUNTER 2020-05-21 13:42 | Outpatient (CLI) | payer MEDICARE, SELFPAY ==
[2020-05-21 14:00] LABS: Hematocrit 41.1 % (42.0-52.0); Hemoglobin 13.2 g/dL (11.7-16.6); Mean Corpuscular HGB Conc 32.1 g/dL (30.0-36.0); Mean Corpuscular Hemoglobin 29.4 pg (28.0-34.0); Mean Corpuscular Volume 91.5 fL (80-94); Mean Platelet Volume 9.3 fL (7.4-10.4); Platelet Count 271 10^3/cmm (130-400); Red Blood Count 4.49 10^6/uL (4.1-5.3); White Blood Count 9.9 10^3/uL (4.0-10.0)
[2020-05-21 14:30] LABS: Anion Gap 20.1 (5-19); Blood Urea Nitrogen 37 mg/dL (8-23); Calcium 9.3 mg/dL (8.5-10.5); Carbon Dioxide 30 mmol/L (22-29); Chloride 86 mmol/L (98-107); Glomerular Filtration Rate 60.4 mL/min (90-130); Glucose 255 mg/dL (65-115); Osmolality Calculated 282 mOsm/kg (285-295); Potassium 3.1 mmol/L (3.5-5.1); Sodium 133 mmol/L (136-145)
[2020-05-21 14:33] LABS: Absolute Segmented Neutrophil 6.7 10/cmm (1.6-7.1); Lymphocytes 27 %; Monocytes Absolute 0.4 10^3/cmm (0.1-0.6); Segmented Neutrophils 68 %; Total Cells Counted 100 (0-100)
[2020-05-21 14:34] LABS: Platelet Estimate Normal (Normal)
== END 2020-05-21 13:43 | disposition home or self-care (01) ==
LOC: LAB 13:45
PROVIDERS: PCP Family Medicine; Visit Provider Internal Medicine Cardiovascular Disease
DX: I50.43 Acute on chronic combined systolic (congestive) and diastolic (congestive) heart failure (principal)
CPT/HCPCS: 80048; 85007; 85027

== ENCOUNTER 2020-05-28 11:58 | Outpatient (CLI) | payer MEDICARE, SELFPAY ==
[2020-05-28 12:20] LABS: Hematocrit 43.3 % (42.0-52.0); Hemoglobin 13.3 g/dL (11.7-16.6); Mean Corpuscular HGB Conc 30.7 g/dL (30.0-36.0); Mean Corpuscular Hemoglobin 28.5 pg (28.0-34.0); Mean Corpuscular Volume 92.7 fL (80-94); Mean Platelet Volume 9.9 fL (7.4-10.4); Platelet Count 218 10^3/cmm (130-400); Red Blood Count 4.67 10^6/uL (4.1-5.3); Red Cell Distribution Width 15.6 % (12.1-15.1); White Blood Count 10.9 10^3/uL (4.0-10.0)
[2020-05-28 12:41] LABS: Anion Gap 18.1 (5-19); Blood Urea Nitrogen 30 mg/dL (8-23); Carbon Dioxide 25 mmol/L (22-29); Chloride 95 mmol/L (98-107); Glomerular Filtration Rate 60.4 mL/min (90-130); Glucose 273 mg/dL (65-115); Osmolality Calculated 285 mOsm/kg (285-295); Potassium 4.1 mmol/L (3.5-5.1); Sodium 134 mmol/L (136-145)
[2020-05-28 12:51] LABS: Absolute Eosinophils 0.2 10^3/cmm (0.0-0.7); Absolute Neutrophil 9.2 10^3/cmm (1.4-6.5); Band Neutrophils Absolute 0.1 10^3/cmm (0.0-1.2); Eosinophils 2 %; Lymphocytes 7 %; Lymphocytes Absolute 0.9 10^3/cmm (1.2-3.4); Monocytes Absolute 0.4 10^3/cmm (0.1-0.6); Platelet Estimate Normal (Normal); Segmented Neutrophils 83 %; Total Cells Counted 100 (0-100)
== END 2020-05-28 11:59 | disposition home or self-care (01) ==
LOC: LAB 12:00
PROVIDERS: PCP Family Medicine; Visit Provider Internal Medicine Cardiovascular Disease
DX: I50.43 Acute on chronic combined systolic (congestive) and diastolic (congestive) heart failure (principal)
CPT/HCPCS: 80048; 85007; 85027

== ENCOUNTER 2020-06-04 14:12 | Outpatient (CLI) | payer MEDICARE, SELFPAY ==
[2020-06-04 14:23] LABS: Basophils # 0.1 10^3/uL (0.0-0.1); Basophils % 0.4 %; Eosinophils # 0.2 10^3/uL (0.0-0.8); Eosinophils % 1.5 %; Hematocrit 42.7 % (42.0-52.0); Hemoglobin 13.5 g/dL (11.7-16.6); Lymphocytes # 2.1 10^3/uL (0.8-4.8); Mean Corpuscular HGB Conc 31.6 g/dL (30.0-36.0); Mean Corpuscular Hemoglobin 29.1 pg (28.0-34.0); Mean Platelet Volume 9.5 fL (7.4-10.4); Monocytes # 0.6 10^3/uL (0.2-0.9); Neutrophils # 8.72 10^3/uL (1.8-7.7); Neutrophils % 74.6 %; Nucleated Red Blood Cells % 0 %; Platelet Count 227 10^3/cmm (130-400); Red Blood Count 4.64 10^6/uL (4.1-5.3); Red Cell Distribution Width 15.7 % (12.1-15.1); White Blood Count 11.7 10^3/uL (4.0-10.0)
[2020-06-04 14:39] LABS: Anion Gap 19.8 (5-19); Blood Urea Nitrogen 23 mg/dL (8-23); Calcium 9.3 mg/dL (8.5-10.5); Carbon Dioxide 23 mmol/L (22-29); Chloride 94 mmol/L (98-107); Glomerular Filtration Rate 60.4 mL/min (90-130); Glucose 237 mg/dL (65-115); Osmolality Calculated 280 mOsm/kg (285-295); Potassium 3.8 mmol/L (3.5-5.1); Sodium 133 mmol/L (136-145)
== END 2020-06-04 14:13 | disposition home or self-care (01) ==
LOC: LAB 14:14
PROVIDERS: PCP Family Medicine; Visit Provider Internal Medicine Cardiovascular Disease
DX: I50.43 Acute on chronic combined systolic (congestive) and diastolic (congestive) heart failure (principal)
CPT/HCPCS: 80048; 85025

== ENCOUNTER 2020-06-10 16:12 | Outpatient (CLI) | payer MEDICARE, SELFPAY ==
[2020-06-10 16:33] LABS: Basophils # 0.1 10^3/uL (0.0-0.1); Basophils % 0.4 %; Eosinophils # 0.2 10^3/uL (0.0-0.8); Eosinophils % 2.1 %; Hematocrit 44.9 % (42.0-52.0); Lymphocytes # 2.2 10^3/uL (0.8-4.8); Lymphocytes % 19.6 %; Mean Corpuscular HGB Conc 31.2 g/dL (30.0-36.0); Mean Corpuscular Hemoglobin 28.7 pg (28.0-34.0); Mean Corpuscular Volume 92.2 fL (80-94); Mean Platelet Volume 9.8 fL (7.4-10.4); Monocytes # 0.6 10^3/uL (0.2-0.9); Monocytes % 5.2 %; Neutrophils # 8.08 10^3/uL (1.8-7.7); Nucleated Red Blood Cells % 0 %; Platelet Count 243 10^3/cmm (130-400); Red Blood Count 4.87 10^6/uL (4.1-5.3); Red Cell Distribution Width 15.6 % (12.1-15.1); White Blood Count 11.3 10^3/uL (4.0-10.0)
== END 2020-06-10 16:13 | disposition home or self-care (01) ==
PROVIDERS: PCP Family Medicine; Visit Provider Internal Medicine Cardiovascular Disease
DX: Z45.2 Encounter for adjustment and management of vascular access device (principal)
CPT/HCPCS: 85025

== ENCOUNTER 2020-06-14 14:14 | Outpatient (CLI) | payer MEDICARE, SELFPAY ==
[2020-06-14 15:03] LABS: Anion Gap 15.7 (5-19); Blood Urea Nitrogen 22 mg/dL (8-23); Calcium 9.3 mg/dL (8.5-10.5); Carbon Dioxide 25 mmol/L (22-29); Chloride 94 mmol/L (98-107); Glomerular Filtration Rate 74.5 mL/min (90-130); Glucose 223 mg/dL (65-115); Osmolality Calculated 282 mOsm/kg (285-295); Potassium 3.7 mmol/L (3.5-5.1); Sodium 131 mmol/L (136-145)
== END 2020-06-14 14:15 | disposition home or self-care (01) ==
LOC: LAB 14:18
PROVIDERS: PCP Family Medicine; Visit Provider Internal Medicine Cardiovascular Disease
DX: Z45.2 Encounter for adjustment and management of vascular access device (principal)
CPT/HCPCS: 80048

== ENCOUNTER 2020-06-18 13:52 | Outpatient (CLI) | payer MEDICARE, SELFPAY ==
[2020-06-18 14:47] LABS: Basophils % 0.3 %; Eosinophils # 0.1 10^3/uL (0.0-0.8); Eosinophils % 1.1 %; Hematocrit 41.8 % (42.0-52.0); Hemoglobin 13.2 g/dL (11.7-16.6); Lymphocytes # 1.9 10^3/uL (0.8-4.8); Lymphocytes % 15.9 %; Mean Corpuscular HGB Conc 31.6 g/dL (30.0-36.0); Mean Corpuscular Hemoglobin 29.3 pg (28.0-34.0); Mean Corpuscular Volume 92.9 fL (80-94); Mean Platelet Volume 9.8 fL (7.4-10.4); Monocytes # 0.6 10^3/uL (0.2-0.9); Monocytes % 5.2 %; Neutrophils # 9.18 10^3/uL (1.8-7.7); Nucleated Red Blood Cells % 0 %; Platelet Count 233 10^3/cmm (130-400); Red Cell Distribution Width 15.9 % (12.1-15.1); White Blood Count 11.9 10^3/uL (4.0-10.0)
[2020-06-18 15:06] LABS: Anion Gap 22.5 (5-19); Blood Urea Nitrogen 33 mg/dL (8-23); Calcium 9.9 mg/dL (8.5-10.5); Carbon Dioxide 27 mmol/L (22-29); Chloride 84 mmol/L (98-107); Glomerular Filtration Rate 60.4 mL/min (90-130); Glucose 340 mg/dL (65-115); Osmolality Calculated 291 mOsm/kg (285-295); Potassium 3.5 mmol/L (3.5-5.1); Sodium 130 mmol/L (136-145)
== END 2020-06-18 13:53 | disposition home or self-care (01) ==
LOC: LAB 13:56
PROVIDERS: PCP Family Medicine; Visit Provider Internal Medicine Cardiovascular Disease
DX: Z45.2 Encounter for adjustment and management of vascular access device (principal)
CPT/HCPCS: 80048; 85025

== ENCOUNTER 2020-06-28 13:05 | Emergency (ER) | payer MEDICARE, SELFPAY ==
[2020-06-28] VITALS (9 sets, daily range): BP systolic 92–108; BP diastolic 56–66; PULSE 83–103; RESP 19–25; TEMP 36.9; O2SAT 95–99; BMI 36.1
--- NOTE | 2020-06-28 13:48 | XR_ITS ---
WS: [id number] Portable AP upright chest, 06/28/2020 Clinical Data: SOB Comparison: Portable chest, 01/14/2020. Findings: The heart is enlarged and the pulmonary vascularity is increased. No nodules or masses are seen. The aortic arch shows calcification and tortuosity. There is a right internal jugular venous ca theter which ends in the superior vena cava. There are clips in the infraclavicular regions bilateral ly from surgery. Monitor leads are on the chest wall. XR/XR chest 1V portable [id number] Impression: 1. Cardiomegaly and pulmonary vascular congestion. 2. Right internal jugular venous catheter.
--- NOTE | 2020-06-28 13:49 | ECG_ITS ---
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 Measurements Intervals [place] Rate: 96 P: 144 IL: 153 QRS: -16 QRSD: 105 T: 150 QT: 384 QTc: 486 Interpretive Statements SINUS RHYTHM LEFT ATRIAL ENLARGEMENT [-0.15mV P WAVE IN V1/V2] LOW QRS VOLTAGE IN EXTREMITY LEADS [QRS DEFLECTION < 0.5 mV IN LIMB LEADS] PATTERN CONSISTENT WITH PULMONARY DISEASE Compared to ECG 01/14/2020 00:56:51 Ectopic atrial rhythm now present Ventricular premature complex(es) now present Low QRS voltage now present Sinus rhythm no longer present T-wave abnormality no longer present Possible ischemia no longer present Electronically Signed On 06-28-2020 18:45:52 CDT by Chandler Thompson M.D. [id number] f
[2020-06-28 14:23] LABS: Basophils % 0.2 %; Eosinophils # 0.1 10^3/uL (0.0-0.8); Eosinophils % 0.8 %; Hematocrit 40.2 % (42.0-52.0); Hemoglobin 13.3 g/dL (11.7-16.6); Lymphocytes # 1.6 10^3/uL (0.8-4.8); Lymphocytes % 10.9 %; Mean Corpuscular HGB Conc 33.1 g/dL (30.0-36.0); Mean Corpuscular Hemoglobin 29.1 pg (28.0-34.0); Mean Platelet Volume 9.2 fL (7.4-10.4); Monocytes # 0.9 10^3/uL (0.2-0.9); Monocytes % 5.9 %; Neutrophils # 11.92 10^3/uL (1.8-7.7); Neutrophils % 81.4 %; Nucleated Red Blood Cells % 0 %; Platelet Count 283 10^3/cmm (130-400); Red Blood Count 4.57 10^6/uL (4.1-5.3); Red Cell Distribution Width 15.8 % (12.1-15.1); White Blood Count 14.6 10^3/uL (4.0-10.0)
[2020-06-28 14:42] LABS: Lactic Sepsis W/Reflex 2.5 mmol/L (0.5-2.2)
[2020-06-28 14:44] LABS: Add Urine Microscopic? NO
[2020-06-28 14:49] LABS: INR 1.11 (0.8-1.2)
[2020-06-28 14:49] LABS: Bilirubin Urine Neg (Negative); Blood Urine Neg (Negative); Glucose Urine UA 4+ (Normal); Ketones Urine Negative (Negative); Leukocyte Esterase Urine Negative (Negative); Nitrate Urine Negative (Negative); Protein Urine Neg (Negative); Urine Appearance Clear (CLEAR); Urine Color Yellow (Yellow); Urobilinogen Urine Neg (Negative); pH Urine 6 (5-7)
[2020-06-28 14:52] LABS: Alanine Aminotransferase 13 U/L (0-41); Albumin Level 4.7 g/dL (3.5-5.2); Alkaline Phosphatase 123 IU/L (40-130); Anion Gap 17.1 (5-19); Aspartate Amino Transferase 14 U/L (0-40); Blood Urea Nitrogen 39 mg/dL (8-23); Calcium 10.1 mg/dL (8.5-10.5); Carbon Dioxide 35 mmol/L (22-29); Chloride 81 mmol/L (98-107); Globulin 3.1 g/dL (1.3-4.6); Glomerular Filtration Rate 66.8 mL/min (90-130); Glucose 381 mg/dL (65-115); Magnesium 2.3 mg/dL (1.7-2.3); NT Pro B Type Natriuretic Pept 12378 pg/mL (0-125); Osmolality Calculated 295 mOsm/kg (285-295); Potassium 3.1 mmol/L (3.5-5.1); Sodium 130 mmol/L (136-145); Total Bilirubin 0.9 mg/dL (0.15-1.2); Total Protein 7.8 g/dL (6.6-8.7)
[2020-06-28 14:58] LABS: Troponin(5th) Baseline 153 ng/L (0-15)
--- NOTE | 2020-06-28 15:49 | ECG_ITS ---
[facility] Test Date: 2020-06-28 Pat Name: Ramy Lawler Department: Room: Gender: Male Collect On Delivery Clerk: : 1950 Requested By: Pamela Musa Order Number: [id number] Aristeo MD: Ai Faustin M.D. Measurements Intervals [place] Rate: 95 P: 55 [place]: 153 QRS: -46 QRSD: 103 T: 64 QT: 364 QTc: 460 Interpretive Statements SINUS RHYTHM POSSIBLE LEFT ATRIAL ENLARGEMENT [-0.1mV P WAVE IN V1/V2] LEFT AXIS DEVIATION [QRS AXIS < -30] LOW QRS VOLTAGE IN EXTREMITY LEADS [QRS DEFLECTION < 0.5 mV IN LIMB LEADS] Compared to ECG 06/28/2020 16:23:50 Sinus arrhythmia no longer present Electronically Signed On 06-29-2020 18:12:49 CDT by Ai Faustin M.D. [id number]
[2020-06-28 16:06] LABS: Reflex Lactate Order REFLEX LACTIC ORDERD
[2020-06-28] MEDS: oxyCODONE-APAP 10-325 mg Tablet 1 TAB PO (17:01)
[2020-06-28 17:09] LABS: Troponin 5 2HR Delta 5.1 ABS# (0-10)
[2020-06-28 17:15] LABS: Troponin 5 2HR 158.1 ng/L (0-15)
[2020-06-28 17:40] LABS: Lactic Acid level (Lactate) 2.1 mmol/L (0.5-2.2)
--- NOTE | 2020-06-28 19:05 | ED_ITS ---
HPI - Chest Pain General: Chief Complaint: Chest Pain Stated Complaint: CHEST PAIN Time Seen by Provider: 06/28/20 13:46 History of Present Illness: HPI narrative: Patient is a 69-year-old male with a history of end-stage CHF. He had an IA in the springtime, somewhere around January. He was transferred to [place] and discharged from there in early February with a dobutamine drip. He has been on the same dose without any specific follow-up since then. Over the past week or so he is gotten increasingly more short of breath, has had increased fluid buildup, less responsive to his diuretics. He was seen at his explosives operator office here locally and they sent him to the ER to be evaluated and then transferred to [place]. complaint: chest pain Onset (ago): week(s) (Off and on) Timing of current episode: episodic Prior episodes: Yes Onset: during rest Pain location: left chest Pain radiation: none Quality: tightness and aching Exacerbating factors: nothing Associated symptoms: Reports dyspnea and leg edema; Deny abdominal pain, fever(s), nausea or vomiting Review of Systems General: Reports: 10 or more systems reviewed and unremarkable except in HPI and below Const: Denies: fever(s), chills, fatigue or malaise Eyes: Denies: change in vision ENMT: Denies: odynophagia Card: Reports: swelling of feet/ankles; Denies: chest pain Resp: Reports: dyspnea GI: Denies: abdominal pain, nausea or vomiting : Denies: flank pain Musc: Denies: neck pain or back pain Skin/Breast: Denies: rash Neuro: Reports: weakness in extremities; Denies: headache(s) or numbness in extremities Joao/Lymph: Denies: easy bruising or easy bleeding PFS ED PFSH: Medical History ASHD (arteriosclerotic heart disease) Atherosclerotic heart disease [place] coronary artery w/angina pectoris Carotid stenosis, bilateral COPD (chronic obstructive pulmonary disease) Cor pulmonale Diabetes Diastolic heart failure Dyslipidemia Haemophilus influenzae pneumonia Treated with Levaquin in 2017 Ischemic cardiomyopathy Myocardial infarction Obesity PAD (peripheral artery disease) Sleep apnea Systolic heart failure LVEF 40%, echocardiogram 01/11/2020 Tobacco abuse Surgical History H/O heart artery stent PCI to ostial 99% LCx on July 11, 2012;12/15/2016 he had another angiogram showing patent circumflex stent, 10-20% ostial left main, 20-30% ostial RCA stenosis and LV gram showed left ventricular ejection fraction of 50-55% with mild apical hypokinesis. S/P peripheral artery angioplasty with stent placement S/P shoulder surgery Family History Mother Psychiatric illness Other Cancer Social History Smoking and tobacco status: former smoker Alcohol intake: former Substance/Drug Use: never Household members: family Housing: House Physical Exam Const: COMMON NORMALS: no acute distress, patient oriented x3, no limitations and alert GENERAL APPEARANCE: cooperative HENMT: HEAD & SCALP: normal to inspection FACE & SINUS: normal facial exam Eye: GENERAL EYE: appearance normal, both eyes and all related structures Neck/C-Spine: COMMON NORMALS: supple, no meningeal signs and no JVD Chest: COMMONS NORMALS: normal inspection of the chest Resp: EFFORT & INSPECTION: Yes tachypneic and Yes labored AUSCULTATION: rales Cardio: COMMON NORMALS: no JVD, regular rate, regular rhythm and No murmurs present (Cardio) RATE: regular rate RHYTHM: regular rhythm GI: COMMON NORMALS: Normal to inspection, nondistended, normoactive bowel sounds present, Soft to palpation and non-tender INSPECTION: Yes normal to inspection AUSCULTATION: Yes normoactive bowel sounds PALPATION: Yes Soft to palpation Back/Pelvis: COMMON NORMALS: thoracic and lumbar spine normal to inspection Extremity: COMMON NORMALS: normal to inspection GENERAL: Yes edema (3+) Neuro: COMMON NORMALS: patient oriented x3, moves all extremities, no focal motor deficits and no sensory deficits noted SENSORIUM/ORIENTATION: Yes alert MENINGEAL SIGNS: Yes no meningeal signs Psych: COMMON NORMALS: mental status grossly normal, cooperative and normal affect Skin: COMMON NORMALS: no rashes or lesions noted and turgor normal GENERAL SKIN EXAM: no rashes or lesions noted and turgor normal Course ED course: This patient has advanced CHF. He is on a home dobutamine infusion. I spoke with the explosives operator here and they feel that they do not have anything to offer him here so he will need to be transferred. He has had some frustrations with arranging follow-up and outpatient management through [facility] and initially requested to go somewhere else. There were no other beds available however and [facility] did have a bed. He has agreed to go there. Spoke with Dr. Weaver who has accepted him for cardiology patient. Vital Signs: Vital signs: Vital Signs Temperature 98.5 F 06/28/20 13:32 Pulse Rate 103 H 06/28/20 18:00 Respiratory Rate 19 H 06/28/20 18:00 Blood Pressure 108/66 06/28/20 18:00 Pulse Oximetry 98 06/28/20 18:00 MDM - Chest Pain Lab Data: Labs: Lab Results 06/28/20 06/28/20 06/28/20 Range/Units 14:15 14:15 14:15 WBC 14.6 H (4.0-10.0) 10^3/ uL RBC 4.57 (4.1-5.3) 10^6/u L Hgb 13.3 (11.7-16.6) g/dL Hct 40.2 L (42.0-52.0) % MCV 88.0 (80-94) fL MCH 29.1 (28.0-34.0) pg MCHC 33.1 (30.0-36.0) g/dL RDW 15.8 H (12.1-15.1) % Plt Count 283 (130-400) 10^3/c mm MPV 9.2 (7.4-10.4) fL Neut % (Auto) 81.4 % Lymph % (Auto) 10.9 % Mercer % (Auto) 5.9 % Eos % (Auto) 0.8 % Baso % (Auto) 0.2 % Neut # (Auto) 11.92 H (1.8-7.7) 10^3/u L Lymph # (Auto) 1.6 (0.8-4.8) 10^3/u L Mercer # (Auto) 0.9 (0.2-0.9) 10^3/u L Eos # (Auto) 0.1 (0.0-0.8) 10^3/u L Baso # (Auto) 0.0 (0.0-0.1) 10^3/u L Nucleated RBC % (a uto) 0 % Nucleated RBCs # 0.0 /100WBC PT 14.70 (12.1-14.9) SECO NDS INR 1.11 (0.8-1.2) Sodium 130 L (136-145) mmol/L Potassium 3.1 L (3.5-5.1) mmol/L Chloride 81 L (98-107) mmol/L Carbon Dioxide 35 H (22-29) mmol/L Anion Gap 17.1 (5-19) BUN 39 H (8-23) mg/dL Creatinine 1.1 (0.7-1.2) mg/dL GFR Calculation 66.8 L (90-130) mL/min Glucose 381 H (65-115) mg/dL Calculated Osmolal ity 295 (285-295) mOsm/k g Lactic Acid (0.5-2.2) mmol/L Lactic Acid (Sepsi s) (0.5-2.2) mmol/L Calcium 10.1 (8.5-10.5) mg/dL Magnesium 2.3 (1.7-2.3) mg/dL Total Bilirubin 0.9 (0.15-1.2) mg/dL AST 14 (0-40) U/L ALT 13 (0-41) U/L Alkaline Phosphata se 123 (40-130) IU/L Troponin T Baselin e (0-15) ng/L Troponin T 120 Min duc (0-15) ng/L Delta Troponin T (0-10) ABS# NT-Pro-B Natriuret Pep 13281 H (0-125) pg/mL Total Protein 7.8 (6.6-8.7) g/dL Albumin 4.7 (3.5-5.2) g/dL Globulin 3.1 (1.3-4.6) g/dL Urine Color (Yellow) Urine Appearance (CLEAR) Urine pH (5-7) Ur Specific Gravit y (1.005-1.030) Urine Protein (Negative) Urine Glucose (UA) (Normal) Urine Ketones (Negative) Urine Blood (Negative) Urine Nitrate (Negative) Urine Bilirubin (Negative) Urine Urobilinogen (Negative) mg/dL Ur Leukocyte Yoly ase (Negative) 06/28/20 06/28/20 06/28/20 Range/Units 14:15 14:15 14:35 WBC (4.0-10.0) 10^3/ uL RBC (4.1-5.3) 10^6/u L Hgb (11.7-16.6) g/dL Hct (42.0-52.0) % MCV (80-94) fL MCH (28.0-34.0) pg MCHC (30.0-36.0) g/dL RDW (12.1-15.1) % Plt Count (130-400) 10^3/c mm MPV (7.4-10.4) fL Neut % (Auto) % Lymph % (Auto) % Mercer % (Auto) % Eos % (Auto) % Baso % (Auto) % Neut # (Auto) (1.8-7.7) 10^3/u L Lymph # (Auto) (0.8-4.8) 10^3/u L Mercer # (Auto) (0.2-0.9) 10^3/u L Eos # (Auto) (0.0-0.8) 10^3/u L Baso # (Auto) (0.0-0.1) 10^3/u L Nucleated RBC % (a uto) % Nucleated RBCs # /100WBC PT (12.1-14.9) SECO NDS INR (0.8-1.2) Sodium (136-145) mmol/L Potassium (3.5-5.1) mmol/L Chloride (98-107) mmol/L Carbon Dioxide (22-29) mmol/L Anion Gap (5-19) BUN (8-23) mg/dL Creatinine (0.7-1.2) mg/dL GFR Calculation (90-130) mL/min Glucose (65-115) mg/dL Calculated Osmolal ity (285-295) mOsm/k g Lactic Acid 2.5 H (0.5-2.2) mmol/L Lactic Acid (Sepsi s) (0.5-2.2) mmol/L Calcium (8.5-10.5) mg/dL Magnesium (1.7-2.3) mg/dL Total Bilirubin (0.15-1.2) mg/dL AST (0-40) U/L ALT (0-41) U/L Alkaline Phosphata se (40-130) IU/L Troponin T Baselin e 153 H* (0-15) ng/L Troponin T 120 Min duc (0-15) ng/L Delta Troponin T (0-10) ABS# NT-Pro-B Natriuret Pep (0-125) pg/mL Total Protein (6.6-8.7) g/dL Albumin (3.5-5.2) g/dL Globulin (1.3-4.6) g/dL Urine Color Yellow (Yellow) Urine Appearance Clear (CLEAR) Urine pH 6 (5-7) Ur Specific Gravit y 1.010 (1.005-1.030) Urine Protein Neg (Negative) Urine Glucose (UA) 4+ H (Normal) Urine Ketones Negative (Negative) Urine Blood Neg (Negative) Urine Nitrate Negative (Negative) Urine Bilirubin Neg (Negative) Urine Urobilinogen Neg (Negative) mg/dL Ur Leukocyte Yoly ase Negative (Negative) 06/28/20 06/28/20 Range/Units 16:18 17:17 WBC (4.0-10.0) 10^3/ uL RBC (4.1-5.3) 10^6/u L Hgb (11.7-16.6) g/dL Hct (42.0-52.0) % MCV (80-94) fL MCH (28.0-34.0) pg MCHC (30.0-36.0) g/dL RDW (12.1-15.1) % Plt Count (130-400) 10^3/c mm MPV (7.4-10.4) fL Neut % (Auto) % Lymph % (Auto) % Mercer % (Auto) % Eos % (Auto) % Baso % (Auto) % Neut # (Auto) (1.8-7.7) 10^3/u L Lymph # (Auto) (0.8-4.8) 10^3/u L Mercer # (Auto) (0.2-0.9) 10^3/u L Eos # (Auto) (0.0-0.8) 10^3/u L Baso # (Auto) (0.0-0.1) 10^3/u L Nucleated RBC % (a uto) % Nucleated RBCs # /100WBC PT (12.1-14.9) SECO NDS INR (0.8-1.2) Sodium (136-145) mmol/L Potassium (3.5-5.1) mmol/L Chloride (98-107) mmol/L Carbon Dioxide (22-29) mmol/L Anion Gap (5-19) BUN (8-23) mg/dL Creatinine (0.7-1.2) mg/dL GFR Calculation (90-130) mL/min Glucose (65-115) mg/dL Calculated Osmolal ity (285-295) mOsm/k g Lactic Acid (0.5-2.2) mmol/L Lactic Acid (Sepsi s) 2.1 (0.5-2.2) mmol/L Calcium (8.5-10.5) mg/dL Magnesium (1.7-2.3) mg/dL Total Bilirubin (0.15-1.2) mg/dL AST (0-40) U/L ALT (0-41) U/L Alkaline Phosphata se (40-130) IU/L Troponin T Baselin e (0-15) ng/L Troponin T 120 Min duc 158.1 H (0-15) ng/L Delta Troponin T 5.1 (0-10) ABS# NT-Pro-B Natriuret Pep (0-125) pg/mL Total Protein (6.6-8.7) g/dL Albumin (3.5-5.2) g/dL Globulin (1.3-4.6) g/dL Urine Color (Yellow) Urine Appearance (CLEAR) Urine pH (5-7) Ur Specific Gravit y (1.005-1.030) Urine Protein (Negative) Urine Glucose (UA) (Normal) Urine Ketones (Negative) Urine Blood (Negative) Urine Nitrate (Negative) Urine Bilirubin (Negative) Urine Urobilinogen (Negative) mg/dL Ur Leukocyte Yoly ase (Negative) Discharge Plan Discharge Prescriptions: No Action clopidogrel 75 mg tablet 75 mg PO DAILY RF: 0 tamsulosin [Flomax] 0.4 mg capsule 0.4 mg PO DAILY RF: 0 furosemide 40 mg tablet 80 mg PO DAILY RF: 0 atorvastatin 40 mg tablet 80 mg PO DAILY RF: 0 dobutamine 250 mg/20 mL (12.5 mg/mL) solution 700 mg IV DIRECTED RF: 0 Corlanor 5 mg tablet 5 mg PO BID RF: 0 potassium chloride 20 mEq tablet extended release See Rx Instructions .ROUTE .COMPLEX RF: 0 bumetanide 2 mg tablet 2 mg PO DAILY RF: 0 metolazone 5 mg tablet 5 mg PO DAILY PRN (Reason: Edema) RF: 0 spironolactone 25 mg tablet 25 mg PO DAILY RF: 0 ferrous sulfate 325 mg (65 mg iron) tablet 325 mg PO DAILY RF: 0 escitalopram oxalate 10 mg tablet 10 mg PO DAILY RF: 0 aspirin [Adult Low Dose Aspirin] 81 mg tablet,delayed release (DR/EC) 81 mg PO DAILY RF: 0 guaifenesin [Mucinex] 600 mg tablet extended release 12hr 600 mg PO BID PRN (Reason: Congestion) RF: 0 docusate sodium [Colace] 100 mg capsule 100 mg PO DAILY PRN (Reason: constipation) Qty: 90 RF: 3 nitroglycerin 0.4 mg tablet, sublingual 0.4 mg sublingual PRN PRN (Reason: CHEST PAINS) RF: 0 Glyxambi 25-5 mg tablet 1 tab PO DAILY RF: 0 Stiolto Respimat 2.5-2.5 mcg/actuation mist See Rx Instructions .ROUTE .COMPLEX RF: 0 isosorbide mononitrate 30 mg Tablet Extended Release 24 Hr 30 mg PO DAILY RF: 0 pantoprazole 40 mg Tablet,Delayed Release (Dr/Ec) 40 mg PO DAILY RF: 0 gabapentin 300 mg Capsule 300 mg PO TID PRN (Reason: Pain) RF: 0 oxycodone-acetaminophen 7.5-325 mg Tablet 1 tab PO TID PRN (Reason: Pain) RF: 0 Jardiance 25 mg Tablet 25 mg PO DAILY RF: 0 Coding Level of Care Code ED Pattern Scratcher for Michi Escobar
--- NOTE | 2020-06-28 19:49 | ECG_ITS ---
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 Measurements Intervals [place] Rate: 82 P: -40 MD: 144 QRS: -72 QRSD: 100 T: -41 QT: 372 QTc: 435 Interpretive Statements SINUS RHYTHM WITH SINUS ARRHYTHMIA LEFT AXIS DEVIATION [QRS AXIS < -30] LOW QRS VOLTAGE IN EXTREMITY LEADS [QRS DEFLECTION < 0.5 mV IN LIMB LEADS] PATTERN CONSISTENT WITH PULMONARY DISEASE Compared to ECG 06/28/2020 13:34:00 Left-axis deviation now present Ectopic atrial rhythm no longer present Ventricular premature complex(es) no longer present Atrial abnormality no longer present Electronically Signed On 06-28-2020 19:10:18 CDT by Chandler Thompson M.D. [id number]
[2020-06-28 21:11] LABS: Troponin 5 6HR 165.2 ng/L (0-15); Troponin 5 6HR Delta 12.2 ng/L (0-12)
== END 2020-06-28 20:41 | disposition other institution (70) ==
PROVIDERS: Emergency Provider Emergency Medicine; PCP Family Medicine
DX: R07.9 Chest pain, unspecified (principal); Z79.02 Long term (current) use of antithrombotics/antiplatelets; Z79.82 Long term (current) use of aspirin; J44.9 Chronic obstructive pulmonary disease, unspecified; E11.9 Type 2 diabetes mellitus without complications; I50.20 Unspecified systolic (congestive) heart failure; I25.10 Atherosclerotic heart disease of native coronary artery without angina pectoris; E78.5 Hyperlipidemia, unspecified; I25.2 Old myocardial infarction; Z87.891 Personal history of nicotine dependence
CPT/HCPCS: 12345; 36415; 71045; 80053; 81003; 83605; 83735; 83880; 84484; 85025; 85610; 93005; 99283; 99285

== ENCOUNTER 2020-07-29 15:10 | Outpatient (CLI) | payer MEDICARE, SELFPAY ==
[2020-07-29 15:42] LABS: Basophils % 0.3 %; Eosinophils # 0.2 10^3/uL (0.0-0.8); Eosinophils % 1.7 %; Hematocrit 36.5 % (42.0-52.0); Hemoglobin 11.7 g/dL (11.7-16.6); Lymphocytes % 17.1 %; Mean Corpuscular HGB Conc 32.1 g/dL (30.0-36.0); Mean Corpuscular Hemoglobin 28.9 pg (28.0-34.0); Mean Corpuscular Volume 90.1 fL (80-94); Mean Platelet Volume 9.7 fL (7.4-10.4); Monocytes # 0.8 10^3/uL (0.2-0.9); Monocytes % 6.8 %; Neutrophils # 8.39 10^3/uL (1.8-7.7); Neutrophils % 73.4 %; Nucleated Red Blood Cells % 0 %; Platelet Count 268 10^3/cmm (130-400); Red Blood Count 4.05 10^6/uL (4.1-5.3); Red Cell Distribution Width 17.2 % (12.1-15.1); White Blood Count 11.4 10^3/uL (4.0-10.0)
[2020-07-29 16:35] LABS: Anion Gap 13.9 (5-19); Blood Urea Nitrogen 56 mg/dL (8-23); Calcium 8.9 mg/dL (8.5-10.5); Carbon Dioxide 33 mmol/L (22-29); Chloride 89 mmol/L (98-107); Glomerular Filtration Rate 84.2 mL/min (90-130); Glucose 138 mg/dL (65-115); Osmolality Calculated 294 mOsm/kg (285-295); Sodium 133 mmol/L (136-145)
[2020-07-29 18:12] LABS: Potassium 2.9 mmol/L (3.5-5.1)
== END 2020-07-29 15:11 | disposition home or self-care (01) ==
LOC: LAB 15:12
PROVIDERS: PCP Family Medicine; Visit Provider Family Medicine
DX: I25.5 Ischemic cardiomyopathy (principal)
CPT/HCPCS: 80048; 85025

== ENCOUNTER 2020-08-02 13:38 | Outpatient (CLI) | payer MEDICARE, SELFPAY ==
[2020-08-02 14:12] LABS: Anion Gap 14.3 (5-19); Blood Urea Nitrogen 50 mg/dL (8-23); Carbon Dioxide 33 mmol/L (22-29); Chloride 88 mmol/L (98-107); Glomerular Filtration Rate 84.2 mL/min (90-130); Glucose 119 mg/dL (65-115); Osmolality Calculated 288 mOsm/kg (285-295); Potassium 3.3 mmol/L (3.5-5.1); Sodium 132 mmol/L (136-145)
== END 2020-08-02 13:39 | disposition home or self-care (01) ==
LOC: LAB 13:40
PROVIDERS: PCP Family Medicine; Visit Provider Family Medicine
DX: I25.5 Ischemic cardiomyopathy (principal)
CPT/HCPCS: 80048

== ENCOUNTER 2020-08-05 01:40 | Outpatient (CLI) | payer MEDICARE, SELFPAY ==
[2020-08-05 13:56] LABS: Basophils % 0.3 %; Eosinophils # 0.2 10^3/uL (0.0-0.8); Eosinophils % 1.5 %; Hematocrit 34.9 % (42.0-52.0); Lymphocytes # 1.7 10^3/uL (0.8-4.8); Lymphocytes % 14.4 %; Mean Corpuscular HGB Conc 31.5 g/dL (30.0-36.0); Mean Corpuscular Hemoglobin 29.3 pg (28.0-34.0); Mean Corpuscular Volume 93.1 fL (80-94); Mean Platelet Volume 9.7 fL (7.4-10.4); Monocytes # 0.7 10^3/uL (0.2-0.9); Monocytes % 6.3 %; Neutrophils # 8.86 10^3/uL (1.8-7.7); Neutrophils % 77.1 %; Nucleated Red Blood Cells % 0 %; Platelet Count 252 10^3/cmm (130-400); Red Blood Count 3.75 10^6/uL (4.1-5.3); Red Cell Distribution Width 17.6 % (12.1-15.1); White Blood Count 11.5 10^3/uL (4.0-10.0)
[2020-08-05 14:15] LABS: Anion Gap 16.2 (5-19); Blood Urea Nitrogen 41 mg/dL (8-23); Calcium 9.2 mg/dL (8.5-10.5); Carbon Dioxide 33 mmol/L (22-29); Chloride 88 mmol/L (98-107); Glomerular Filtration Rate 66.8 mL/min (90-130); Glucose 188 mg/dL (65-115); Osmolality Calculated 293 mOsm/kg (285-295); Potassium 3.2 mmol/L (3.5-5.1); Sodium 134 mmol/L (136-145)
== END 2020-08-05 01:41 | disposition home or self-care (01) ==
LOC: LAB 13:40
PROVIDERS: PCP Family Medicine; Visit Provider Internal Medicine
DX: I25.5 Ischemic cardiomyopathy (principal)
CPT/HCPCS: 80048; 85025

== ENCOUNTER 2020-08-12 11:44 | Outpatient (CLI) | payer MEDICARE, SELFPAY ==
[2020-08-12 12:13] LABS: Basophils # 0.1 10^3/uL (0.0-0.1); Basophils % 0.6 %; Eosinophils # 0.3 10^3/uL (0.0-0.8); Eosinophils % 2.5 %; Hematocrit 34.1 % (42.0-52.0); Hemoglobin 10.6 g/dL (11.7-16.6); Lymphocytes # 1.7 10^3/uL (0.8-4.8); Lymphocytes % 16.6 %; Mean Corpuscular HGB Conc 31.1 g/dL (30.0-36.0); Mean Corpuscular Volume 93.4 fL (80-94); Mean Platelet Volume 9.5 fL (7.4-10.4); Monocytes # 0.9 10^3/uL (0.2-0.9); Monocytes % 8.4 %; Neutrophils # 7.35 10^3/uL (1.8-7.7); Neutrophils % 71.5 %; Nucleated Red Blood Cells % 0 %; Platelet Count 242 10^3/cmm (130-400); Red Blood Count 3.65 10^6/uL (4.1-5.3); Red Cell Distribution Width 17.7 % (12.1-15.1); White Blood Count 10.3 10^3/uL (4.0-10.0)
[2020-08-12 12:35] LABS: Anion Gap 14.6 (5-19); Blood Urea Nitrogen 43 mg/dL (8-23); Calcium 8.6 mg/dL (8.5-10.5); Carbon Dioxide 34 mmol/L (22-29); Chloride 87 mmol/L (98-107); Glomerular Filtration Rate 60.4 mL/min (90-130); Glucose 186 mg/dL (65-115); Osmolality Calculated 290 mOsm/kg (285-295); Potassium 3.6 mmol/L (3.5-5.1); Sodium 132 mmol/L (136-145)
== END 2020-08-12 11:45 | disposition home or self-care (01) ==
LOC: LAB 11:46
PROVIDERS: PCP Family Medicine; Visit Provider Internal Medicine
DX: I25.5 Ischemic cardiomyopathy (principal)
CPT/HCPCS: 80048; 85025

== ENCOUNTER 2020-08-19 11:26 | Outpatient (CLI) | payer MEDICARE, SELFPAY ==
[2020-08-19 12:29] LABS: Basophils # 0.1 10^3/uL (0.0-0.1); Basophils % 0.5 %; Eosinophils # 0.2 10^3/uL (0.0-0.8); Eosinophils % 1.6 %; Hematocrit 35.5 % (42.0-52.0); Hemoglobin 11.2 g/dL (11.7-16.6); Lymphocytes # 1.5 10^3/uL (0.8-4.8); Lymphocytes % 14.2 %; Mean Corpuscular HGB Conc 31.5 g/dL (30.0-36.0); Mean Corpuscular Hemoglobin 29.3 pg (28.0-34.0); Mean Corpuscular Volume 92.9 fL (80-94); Mean Platelet Volume 9.6 fL (7.4-10.4); Monocytes # 0.7 10^3/uL (0.2-0.9); Monocytes % 6.5 %; Neutrophils % 76.8 %; Nucleated Red Blood Cells % 0 %; Platelet Count 285 10^3/cmm (130-400); Red Blood Count 3.82 10^6/uL (4.1-5.3); Red Cell Distribution Width 17.1 % (12.1-15.1); White Blood Count 10.8 10^3/uL (4.0-10.0)
[2020-08-19 13:10] LABS: Albumin Level 4.3 g/dL (3.5-5.2); Anion Gap 17.4 (5-19); Blood Urea Nitrogen 47 mg/dL (8-23); Calcium 9.4 mg/dL (8.5-10.5); Carbon Dioxide 33 mmol/L (22-29); Chloride 87 mmol/L (98-107); Glomerular Filtration Rate 46.7 mL/min (90-130); Glucose 195 mg/dL (65-115); NT Pro B Type Natriuretic Pept 7209 pg/mL (0-125); Osmolality Calculated 296 mOsm/kg (285-295); Phosphorus 4.3 mg/dL (2.5-4.5); Potassium 3.4 mmol/L (3.5-5.1); Sodium 134 mmol/L (136-145)
== END 2020-08-19 11:27 | disposition home or self-care (01) ==
PROVIDERS: PCP Family Medicine; Visit Provider Family Medicine
DX: I25.5 Ischemic cardiomyopathy (principal)
CPT/HCPCS: 80048; 80069; 83880; 85025

== ENCOUNTER 2020-08-23 11:28 | Outpatient (CLI) | payer MEDICARE, SELFPAY ==
[2020-08-23 11:56] LABS: Basophils # 0.1 10^3/uL (0.0-0.1); Basophils % 0.5 %; Eosinophils # 0.2 10^3/uL (0.0-0.8); Eosinophils % 2.1 %; Hematocrit 35.5 % (42.0-52.0); Hemoglobin 11.2 g/dL (11.7-16.6); Lymphocytes # 1.8 10^3/uL (0.8-4.8); Lymphocytes % 16.6 %; Mean Corpuscular HGB Conc 31.5 g/dL (30.0-36.0); Mean Corpuscular Hemoglobin 28.7 pg (28.0-34.0); Mean Platelet Volume 9.5 fL (7.4-10.4); Monocytes # 0.8 10^3/uL (0.2-0.9); Monocytes % 6.8 %; Neutrophils # 8.09 10^3/uL (1.8-7.7); Neutrophils % 73.5 %; Nucleated Red Blood Cells % 0 %; Platelet Count 289 10^3/cmm (130-400); Red Cell Distribution Width 16.8 % (12.1-15.1)
[2020-08-23 12:21] LABS: Albumin Level 4.4 g/dL (3.5-5.2); Anion Gap 10.8 (5-19); Blood Urea Nitrogen 53 mg/dL (8-23); Calcium 9.7 mg/dL (8.5-10.5); Carbon Dioxide 37 mmol/L (22-29); Chloride 84 mmol/L (98-107); Glomerular Filtration Rate 50.5 mL/min (90-130); Glucose 188 mg/dL (65-115); NT Pro B Type Natriuretic Pept 8409 pg/mL (0-125); Osmolality Calculated 285 mOsm/kg (285-295); Phosphorus 3.4 mg/dL (2.5-4.5); Potassium 3.8 mmol/L (3.5-5.1); Sodium 128 mmol/L (136-145)
== END 2020-08-23 11:29 | disposition home or self-care (01) ==
LOC: LAB 11:29
PROVIDERS: PCP Family Medicine; Visit Provider Family Medicine
DX: I25.5 Ischemic cardiomyopathy (principal)
CPT/HCPCS: 80048; 80069; 83880; 85025

== ENCOUNTER 2020-08-26 14:03 | Outpatient (CLI) | payer MEDICARE, SELFPAY | END 2020-08-26 14:04 | disposition home or self-care (01) | LOC: WOUND 14:04 | PROVIDERS: PCP Family Medicine; Visit Provider Nurse Practitioner Family | DX: E11.622 Type 2 diabetes mellitus with other skin ulcer (principal); L97.812 Non-pressure chronic ulcer of other part of right lower leg with fat layer exposed | CPT/HCPCS: 99214 ==

== ENCOUNTER 2020-08-26 16:55 | Inpatient (IN) | payer MEDICARE, SELFPAY ==
[2020-08-26] VITALS (8 sets, daily range): BP systolic 92–126; BP diastolic 63–82; PULSE 85–102; RESP 14–22; TEMP 35.9; O2SAT 96–99; BMI 38.6
--- NOTE | 2020-08-26 17:31 | USCV_ITS ---
Ramy Lawler Age: 69 Gender: M : 1950 Exam Date: 08/26/2020 20:15 Ordering Phys: Slick Hsu DO Technologist: Bogdan Ceballos Exam Location: [facility] [place] Indication: ULCERS RIGHT LEFT Brachial 110.00 mmHg Brachial 110.00 mmHg Pressure (mmHg) Waveform Pressure (mmHg) Waveform 60.00 DITCHER OPERATOR 95.00 70.00 DPA 95.00 0.63 Ankle/Brachial Index 0.86 FINDINGS Abnormal resting ABIs bilaterally-0.63 on the right side and 0.86 on the left side CONCLUSIONS 1. Features of moderate peripheral artery disease on the right side 2. Features of mild peripheral artery disease on the left side Dr Michael Arora MD [facility] (Electronically Signed) Final Date: 28 August 2020 00:22 S
--- NOTE | 2020-08-26 17:43 | W.ED.WOUNDLC ---
Documented by User: Slick Hsu DO 08/26/20 18:04 HPI - Wound/Laceration General: Chief Complaint: Wound/Laceration Stated Complaint: RLE WOUND CARE, SENT FROM WOUND CARE SERVICES Time Seen by Provider: 08/26/20 17:23 History of Present Illness: HPI narrative: Mr. Lawler is a 69-year-old male with severe coronary artery disease. I had seen him in December of this year at that time he was having angina he was admitted underwent angiogram he had three-vessel disease including left main disease were unable to do any interventions and ultimately decided to transfer the patient to [facility]. He was there for prolonged period of time per his report he has been in and out of there a couple of times. He has end-stage COPD diabetes mellitus as well as end-stage congestive heart failure. 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 He is a little bit difficult to get a history from he keeps kind of wandering in and out of lucidness. When I am will wake him and keep his attention he seems to answer questions well but he dozes off quite quickly. His is with him and is actually a fairly good historian. He states he has had this ulcer for quite some time and has been managing it first at [facility] and then it wound care. Sounds is developed because of significant stasis edema causing skin breakdown. Onset (ago): week(s) Extremity Location: Right: lower leg Place: home Associated symptoms: Reports nausea and pain; Denies chills, fever(s), foreign body sensation, inability to move, numbness or syncope Treatments prior to arrival: bandage Review of Systems Const: Denies: fever(s) or chills Card: Denies: syncope GI: Reports: nausea PFSH ED PFSH: Medical History ASHD (arteriosclerotic heart disease) Atherosclerotic heart disease [place] coronary artery w/angina pectoris Carotid stenosis, bilateral COPD (chronic obstructive pulmonary disease) Cor pulmonale Diabetes Diastolic heart failure Dyslipidemia Haemophilus influenzae pneumonia Treated with Levaquin in 2017 Ischemic cardiomyopathy Myocardial infarction Obesity PAD (peripheral artery disease) Sleep apnea Systolic heart failure LVEF 40%, echocardiogram 01/11/2020 Tobacco abuse Surgical History H/O heart artery stent PCI to ostial 99% LCx on July 11, 2012;12/15/2016 he had another angiogram showing patent circumflex stent, 10-20% ostial left main, 20-30% ostial RCA stenosis and LV gram showed left ventricular ejection fraction of 50-55% with mild apical hypokinesis. S/P peripheral artery angioplasty with stent placement S/P shoulder surgery Family History Mother Psychiatric illness Other Cancer Social History Smoking and tobacco status: former smoker Alcohol intake: former Household members: family Housing: House Physical Exam Const: COMMON NORMALS: no acute distress GENERAL APPEARANCE: cooperative HENMT: COMMON NORMALS: normocephalic and atraumatic HEAD & SCALP: normocephalic and atraumatic Neck/C-Spine: COMMON NORMALS: no JVD Resp: COMMON NORMALS: normal respiratory effort, No retractions, No use of accessory muscles and clear to auscultation bilaterally AUSCULTATION: clear to auscultation bilaterally Cardio: COMMON NORMALS: no JVD, regular rate, regular rhythm and No murmurs present (Cardio) RATE: regular rate RHYTHM: regular rhythm GI: COMMON NORMALS: Soft to palpation and No hepatosplenomegaly present AUSCULTATION: Yes normoactive bowel sounds PALPATION: Yes Soft to palpation, No Tenderness to palpation present (GI), No Guarding due to palpation present (GI) and Yes No hepatosplenomegaly present Extremity: NARRATIVE EXTREMITY EXAM: Redness and erythema bilateral lower legs more impressive on the right lower leg focal to the ulcers on the posterior calf. There is a hard dry eschar there involving approximately 8 to 9 cm in length and 3 cm in width. It spreads proximally across the medial thigh with lymphangitic spread there is some induration of the skin as well there is small amount of fluid drainage from blistering on the anterior melgar. No purulent drainage noted medial aspect of the left leg had some redness and erythema as well GENERAL: Yes calf tenderness Course Vital Signs: Vital signs: Vital Signs Temperature 96.6 F L 08/26/20 17:13 Pulse Rate 96 08/26/20 19:25 Respiratory Rate 14 08/26/20 19:25 Blood Pressure 113/74 08/26/20 19:25 Pulse Oximetry 98 08/26/20 19:25 MDM - Wound/Laceration MDM Narrative: Medical decision making narrative: Turned over to Dr. Pavon at change of shift, please see his notes for final diagnosis and disposition Lab Data: Labs: Lab Results 08/26/20 08/26/20 08/26/20 Range/Units 18:05 18:05 18:05 WBC 11.4 H (4.0-10.0) 10^3/ uL RBC 3.82 L (4.1-5.3) 10^6/u L Hgb 11.1 L (11.7-16.6) g/dL Hct 34.2 L (42.0-52.0) % MCV 89.5 (80-94) fL MCH 29.1 (28.0-34.0) pg MCHC 32.5 (30.0-36.0) g/dL RDW 16.8 H (12.1-15.1) % Plt Count 264 (130-400) 10^3/c mm MPV 9.3 (7.4-10.4) fL Neut % (Auto) 76.6 % Lymph % (Auto) 14.0 % Maverick % (Auto) 6.3 % Eos % (Auto) 2.2 % Baso % (Auto) 0.5 % Neut # (Auto) 8.69 H (1.8-7.7) 10^3/u L Lymph # (Auto) 1.6 (0.8-4.8) 10^3/u L Maverick # (Auto) 0.7 (0.2-0.9) 10^3/u L Eos # (Auto) 0.3 (0.0-0.8) 10^3/u L Baso # (Auto) 0.1 (0.0-0.1) 10^3/u L Nucleated RBC % (a uto) 0 % Nucleated RBCs # 0.0 /100WBC Sodium 131 L (136-145) mmol/L Potassium 4.3 (3.5-5.1) mmol/L Chloride 85 L (98-107) mmol/L Carbon Dioxide 28 (22-29) mmol/L Anion Gap 22.3 H (5-19) BUN 44 H (8-23) mg/dL Creatinine 1.7 H (0.7-1.2) mg/dL GFR Calculation 40.4 L (90-130) mL/min Glucose 169 H (65-115) mg/dL Calculated Osmolal ity 287 (285-295) mOsm/k g Calcium 9.4 (8.5-10.5) mg/dL Total Bilirubin 0.7 (0.15-1.2) mg/dL AST 20 (0-40) U/L ALT 14 (0-41) U/L Alkaline Phosphata se 94 (40-130) IU/L Creatine Kinase 136 (39-308) U/L Troponin T Baselin e 83 H (0-15) ng/L Total Protein 7.5 (6.6-8.7) g/dL Albumin 4.3 (3.5-5.2) g/dL Globulin 3.2 (1.3-4.6) g/dL Urine Color (Yellow) Urine Appearance (CLEAR) Urine pH (5-7) Ur Specific Gravit y (1.005-1.030) Urine Protein (Negative) Urine Glucose (UA) (Normal) Urine Ketones (Negative) Urine Blood (Negative) Urine Nitrate (Negative) Urine Bilirubin (Negative) Urine Urobilinogen (Negative) mg/dL Ur Leukocyte Yoly ase (Negative) 08/26/20 Range/Units 19:25 WBC (4.0-10.0) 10^3/ uL RBC (4.1-5.3) 10^6/u L Hgb (11.7-16.6) g/dL Hct (42.0-52.0) % MCV (80-94) fL MCH (28.0-34.0) pg MCHC (30.0-36.0) g/dL RDW (12.1-15.1) % Plt Count (130-400) 10^3/c mm MPV (7.4-10.4) fL Neut % (Auto) % Lymph % (Auto) % Maverick % (Auto) % Eos % (Auto) % Baso % (Auto) % Neut # (Auto) (1.8-7.7) 10^3/u L Lymph # (Auto) (0.8-4.8) 10^3/u L Maverick # (Auto) (0.2-0.9) 10^3/u L Eos # (Auto) (0.0-0.8) 10^3/u L Baso # (Auto) (0.0-0.1) 10^3/u L Nucleated RBC % (a uto) % Nucleated RBCs # /100WBC Sodium (136-145) mmol/L Potassium (3.5-5.1) mmol/L Chloride (98-107) mmol/L Carbon Dioxide (22-29) mmol/L Anion Gap (5-19) BUN (8-23) mg/dL Creatinine (0.7-1.2) mg/dL GFR Calculation (90-130) mL/min Glucose (65-115) mg/dL Calculated Osmolal ity (285-295) mOsm/k g Calcium (8.5-10.5) mg/dL Total Bilirubin (0.15-1.2) mg/dL AST (0-40) U/L ALT (0-41) U/L Alkaline Phosphata se (40-130) IU/L Creatine Kinase (39-308) U/L Troponin T Baselin e (0-15) ng/L Total Protein (6.6-8.7) g/dL Albumin (3.5-5.2) g/dL Globulin (1.3-4.6) g/dL Urine Color Straw (Yellow) Urine Appearance Clear (CLEAR) Urine pH 7 (5-7) Ur Specific Gravit y 1.005 (1.005-1.030) Urine Protein Neg (Negative) Urine Glucose (UA) Norm (Normal) Urine Ketones Negative (Negative) Urine Blood Neg (Negative) Urine Nitrate Negative (Negative) Urine Bilirubin Neg (Negative) Urine Urobilinogen Norm (Negative) mg/dL Ur Leukocyte Yoly ase Negative (Negative) Discharge Plan Discharge Prescriptions: No Action clopidogrel 75 mg tablet 75 mg PO DAILY@0830 RF: 0 tamsulosin [Flomax] 0.4 mg capsule 0.4 mg PO DAILY@0830 RF: 0 atorvastatin 40 mg tablet 80 mg PO DAILY@0830 RF: 0 dobutamine 250 mg/20 mL (12.5 mg/mL) solution 700 mg IV DIRECTED RF: 0 Corlanor 5 mg tablet 5 mg PO BID@ RF: 0 potassium chloride 20 mEq tablet extended release 60 meq PO TID@829,, RF: 0 metolazone 5 mg tablet 5 mg PO DAILY PRN (Reason: Edema) RF: 0 spironolactone 25 mg tablet 25 mg PO BID@ RF: 0 escitalopram oxalate 10 mg tablet 10 mg PO DAILY@829 RF: 0 aspirin [Adult Low Dose Aspirin] 81 mg tablet,delayed release (DR/EC) 81 mg PO DAILY@829 RF: 0 guaifenesin [Mucinex] 600 mg tablet extended release 12hr 600 mg PO BID PRN (Reason: Congestion) RF: 0 docusate sodium [Colace] 100 mg capsule 100 mg PO DAILY PRN (Reason: constipation) Qty: 90 RF: 3 nitroglycerin 0.4 mg tablet, sublingual 0.4 mg sublingual PRN PRN (Reason: CHEST PAINS) RF: 0 Stiolto Respimat 2.5-2.5 mcg/actuation mist See Rx Instructions .ROUTE .COMPLEX RF: 0 isosorbide mononitrate 30 mg Tablet Extended Release 24 Hr 30 mg PO DAILY@829 RF: 0 oxycodone-acetaminophen 7.5-325 mg Tablet 1 tab PO TID PRN (Reason: Pain) RF: 0 acetaminophen 325 mg Tablet 325 - 650 mg PO Q4H PRN (Reason: Pain) RF: 0 sulfamethoxazole-trimethoprim 800-160 mg tablet 1 tab PO BID@829,1599 RF: 0 tramadol 50 mg tablet See Rx Instructions .ROUTE .COMPLEX RF: 0 torsemide 100 mg tablet 100 mg PO BID@ RF: 0 cephalexin 500 mg capsule 500 mg PO BID@ RF: 0 Ozempic 0.25 mg or 0.5 mg(2 mg/1.5 mL) pen injector 50 mg SUBCUT Q7D RF: 0 Sign Out Sign Out Data: Patient Sign Out occurred on 08/26/20 at 18:16. Patient's care was discussed, and care was transferred from to [facility]. Coding Level of Care Code ED Press Technician for Chg Fwd Exam Detailed Documented by User: Tory Naik 08/26/20 20:21 HPI - Wound/Laceration General: Chief Complaint: Wound/Laceration Stated Complaint: RLE WOUND CARE, SENT FROM WOUND CARE SERVICES Time Seen by Provider: 08/26/20 17:23 PFS ED PFSH: Medical History ASHD (arteriosclerotic heart disease) Atherosclerotic heart disease [place] coronary artery w/angina pectoris Carotid stenosis, bilateral COPD (chronic obstructive pulmonary disease) Cor pulmonale Diabetes Diastolic heart failure Dyslipidemia Haemophilus influenzae pneumonia Treated with Levaquin in 2017 Ischemic cardiomyopathy Myocardial infarction Obesity PAD (peripheral artery disease) Sleep apnea Systolic heart failure LVEF 40%, echocardiogram 01/11/2020 Tobacco abuse Surgical History H/O heart artery stent PCI to ostial 99% LCx on July 11, 2012;12/15/2016 he had another angiogram showing patent circumflex stent, 10-20% ostial left main, 20-30% ostial RCA stenosis and LV gram showed left ventricular ejection fraction of 50-55% with mild apical hypokinesis. S/P peripheral artery angioplasty with stent placement S/P shoulder surgery Family History Mother Psychiatric illness Other Cancer Social History Smoking and tobacco status: former smoker Alcohol intake: former Household members: family Housing: House Course Vital Signs: Vital signs: Vital Signs Temperature 96.6 F L 08/26/20 17:13 Pulse Rate 96 08/26/20 19:25 Respiratory Rate 14 08/26/20 19:25 Blood Pressure 113/74 08/26/20 19:25 Pulse Oximetry 98 08/26/20 19:25 MDM - Wound/Laceration Lab Data: Labs: Lab Results 1208/26/20 08/26/20 Range/Units 18:05 18:05 18:05 WBC 11.4 H (4.0-10.0) 10^3/ uL RBC 3.82 L (4.1-5.3) 10^6/u L Hgb 11.1 L (11.7-16.6) g/dL Hct 34.2 L (42.0-52.0) % MCV 89.5 (80-94) fL MCH 29.1 (28.0-34.0) pg MCHC 32.5 (30.0-36.0) g/dL RDW 16.8 H (12.1-15.1) % Plt Count 264 (130-400) 10^3/c mm MPV 9.3 (7.4-10.4) fL Neut % (Auto) 76.6 % Lymph % (Auto) 14.0 % Maverick % (Auto) 6.3 % Eos % (Auto) 2.2 % Baso % (Auto) 0.5 % Neut # (Auto) 8.69 H (1.8-7.7) 10^3/u L Lymph # (Auto) 1.6 (0.8-4.8) 10^3/u L Maverick # (Auto) 0.7 (0.2-0.9) 10^3/u L Eos # (Auto) 0.3 (0.0-0.8) 10^3/u L Baso # (Auto) 0.1 (0.0-0.1) 10^3/u L Nucleated RBC % (a uto) 0 % Nucleated RBCs # 0.0 /100WBC Sodium 131 L (136-145) mmol/L Potassium 4.3 (3.5-5.1) mmol/L Chloride 85 L (98-107) mmol/L Carbon Dioxide 28 (22-29) mmol/L Anion Gap 22.3 H (5-19) BUN 44 H (8-23) mg/dL Creatinine 1.7 H (0.7-1.2) mg/dL GFR Calculation 40.4 L (90-130) mL/min Glucose 169 H (65-115) mg/dL Calculated Osmolal ity 287 (285-295) mOsm/k g Calcium 9.4 (8.5-10.5) mg/dL Total Bilirubin 0.7 (0.15-1.2) mg/dL AST 20 (0-40) U/L ALT 14 (0-41) U/L Alkaline Phosphata se 94 (40-130) IU/L Creatine Kinase 136 (39-308) U/L Troponin T Baselin e 83 H (0-15) ng/L Total Protein 7.5 (6.6-8.7) g/dL Albumin 4.3 (3.5-5.2) g/dL Globulin 3.2 (1.3-4.6) g/dL Urine Color (Yellow) Urine Appearance (CLEAR) Urine pH (5-7) Ur Specific Gravit y (1.005-1.030) Urine Protein (Negative) Urine Glucose (UA) (Normal) Urine Ketones (Negative) Urine Blood (Negative) Urine Nitrate (Negative) Urine Bilirubin (Negative) Urine Urobilinogen (Negative) mg/dL Ur Leukocyte Yoly ase (Negative) 08/26/20 Range/Units 19:25 WBC (4.0-10.0) 10^3/ uL RBC (4.1-5.3) 10^6/u L Hgb (11.7-16.6) g/dL Hct (42.0-52.0) % MCV (80-94) fL MCH (28.0-34.0) pg MCHC (30.0-36.0) g/dL RDW (12.1-15.1) % Plt Count (130-400) 10^3/c mm MPV (7.4-10.4) fL Neut % (Auto) % Lymph % (Auto) % Maverick % (Auto) % Eos % (Auto) % Baso % (Auto) % Neut # (Auto) (1.8-7.7) 10^3/u L Lymph # (Auto) (0.8-4.8) 10^3/u L Maverick # (Auto) (0.2-0.9) 10^3/u L Eos # (Auto) (0.0-0.8) 10^3/u L Baso # (Auto) (0.0-0.1) 10^3/u L Nucleated RBC % (a uto) % Nucleated RBCs # /100WBC Sodium (136-145) mmol/L Potassium (3.5-5.1) mmol/L Chloride (98-107) mmol/L Carbon Dioxide (22-29) mmol/L Anion Gap (5-19) BUN (8-23) mg/dL Creatinine (0.7-1.2) mg/dL GFR Calculation (90-130) mL/min Glucose (65-115) mg/dL Calculated Osmolal ity (285-295) mOsm/k g Calcium (8.5-10.5) mg/dL Total Bilirubin (0.15-1.2) mg/dL AST (0-40) U/L ALT (0-41) U/L Alkaline Phosphata se (40-130) IU/L Creatine Kinase (39-308) U/L Troponin T Baselin e (0-15) ng/L Total Protein (6.6-8.7) g/dL Albumin (3.5-5.2) g/dL Globulin (1.3-4.6) g/dL Urine Color Straw (Yellow) Urine Appearance Clear (CLEAR) Urine pH 7 (5-7) Ur Specific Gravit y 1.005 (1.005-1.030) Urine Protein Neg (Negative) Urine Glucose (UA) Norm (Normal) Urine Ketones Negative (Negative) Urine Blood Neg (Negative) Urine Nitrate Negative (Negative) Urine Bilirubin Neg (Negative) Urine Urobilinogen Norm (Negative) mg/dL Ur Leukocyte Yoly ase Negative (Negative) Imaging Data^: Ultrasound venous duplex right lower extremity: My impression: Tech interpretation -no DVT US Vascular: My impression: Right lower extremity arterial Doppler with NORMA -monophasic flow present throughout. NORMA 0.65. Discharge Plan Discharge Prescriptions: No Action clopidogrel 75 mg tablet 75 mg PO DAILY@0830 RF: 0 tamsulosin [Flomax] 0.4 mg capsule 0.4 mg PO DAILY@0830 RF: 0 atorvastatin 40 mg tablet 80 mg PO DAILY@0830 RF: 0 dobutamine 250 mg/20 mL (12.5 mg/mL) solution 700 mg IV DIRECTED RF: 0 Corlanor 5 mg tablet 5 mg PO BID@0830,1999 RF: 0 potassium chloride 20 mEq tablet extended release 60 meq PO TID@0830,,20 RF: 0 metolazone 5 mg tablet 5 mg PO DAILY PRN (Reason: Edema) RF: 0 spironolactone 25 mg tablet 25 mg PO BID@829,1999 RF: 0 escitalopram oxalate 10 mg tablet 10 mg PO DAILY@0830 RF: 0 aspirin [Adult Low Dose Aspirin] 81 mg tablet,delayed release (DR/EC) 81 mg PO DAILY@0830 RF: 0 guaifenesin [Mucinex] 600 mg tablet extended release 12hr 600 mg PO BID PRN (Reason: Congestion) RF: 0 docusate sodium [Colace] 100 mg capsule 100 mg PO DAILY PRN (Reason: constipation) Qty: 90 RF: 3 nitroglycerin 0.4 mg tablet, sublingual 0.4 mg sublingual PRN PRN (Reason: CHEST PAINS) RF: 0 Stiolto Respimat 2.5-2.5 mcg/actuation mist See Rx Instructions .ROUTE .COMPLEX RF: 0 isosorbide mononitrate 30 mg Tablet Extended Release 24 Hr 30 mg PO DAILY@0830 RF: 0 oxycodone-acetaminophen 7.5-325 mg Tablet 1 tab PO TID PRN (Reason: Pain) RF: 0 acetaminophen 325 mg Tablet 325 - 650 mg PO Q4H PRN (Reason: Pain) RF: 0 sulfamethoxazole-trimethoprim 800-160 mg tablet 1 tab PO BID@0830,1600 RF: 0 tramadol 50 mg tablet See Rx Instructions .ROUTE .COMPLEX RF: 0 torsemide 100 mg tablet 100 mg PO BID@829,1999 RF: 0 cephalexin 500 mg capsule 500 mg PO BID@829,1999 RF: 0 Ozempic 0.25 mg or 0.5 mg(2 mg/1.5 mL) pen injector 50 mg SUBCUT Q7D RF: 0 Sign Out Sign Out Data: Patient Sign Out occurred on 08/26/20 at 18:16. Patient's care was discussed, and care was transferred from to [facility]. Coding Level of Care Code ED Press Technician for Michi Fwiglesia Exam Detailed
--- NOTE | 2020-08-26 17:51 | USCV_ITS ---
Ramy Lawler Age: 69 Gender: M : 1950 Exam Date: 08/26/2020 20:07 Ordering Phys: Slick Hsu DO Technologist: Bogdan Ceballos [place]am [place] [facility] [place] Indication: BILAT PAIN AND EDEMA HISTORY: Lower extremity swelling. Lower extremity pain. PROCEDURES: The venous duplex Doppler examination of both lower extremities was performed in the standard fashion. The following venous structures were evaluated: common femoral vein, profunda vein, proximal portion of the greater saphenous vein, superficial femoral vein, and the popliteal vein. In addition, the posterior tibial and peroneal trunk were evaluated. Bilaterally, the common femoral, superficial femoral, profunda femoral, popliteal, posterior tibial, greater saphenous veins, and the peroneal trunk were identified and interrogated in the standard fashion. FINDINGS: Normal 2-D Doppler and augmentation and compressibility throughout the lower extremity venous structures. Additional imaging through the proximal calf veins also reveals no thrombus. Limited evaluation of the greater saphenous vein is patent with no thrombus.. The veins were found to be easily compressible with spontaneous blood flow. Non pulsatile flow pattern. Multiple hypoechoic areas were noted in the subcutaneous plane CONCLUSIONS No evidence of DVT in the above-mentioned identifiable veins. Features of fluid retention/edema bilaterally in the below-knee areas Dr Michael Arora MD [facility] (Electronically Signed) Final Date: 28 August 2020 00:18 S
[2020-08-26 18:19] LABS: Basophils # 0.1 10^3/uL (0.0-0.1); Basophils % 0.5 %; Eosinophils # 0.3 10^3/uL (0.0-0.8); Eosinophils % 2.2 %; Hematocrit 34.2 % (42.0-52.0); Hemoglobin 11.1 g/dL (11.7-16.6); Lymphocytes # 1.6 10^3/uL (0.8-4.8); Mean Corpuscular HGB Conc 32.5 g/dL (30.0-36.0); Mean Corpuscular Hemoglobin 29.1 pg (28.0-34.0); Mean Corpuscular Volume 89.5 fL (80-94); Mean Platelet Volume 9.3 fL (7.4-10.4); Monocytes # 0.7 10^3/uL (0.2-0.9); Monocytes % 6.3 %; Neutrophils # 8.69 10^3/uL (1.8-7.7); Neutrophils % 76.6 %; Nucleated Red Blood Cells % 0 %; Platelet Count 264 10^3/cmm (130-400); Red Blood Count 3.82 10^6/uL (4.1-5.3); Red Cell Distribution Width 16.8 % (12.1-15.1); White Blood Count 11.4 10^3/uL (4.0-10.0)
[2020-08-26] MEDS: morphine 4 mg/mL SDV 1 mL 2 MG IVP (18:46)
[2020-08-26 18:50] LABS: Troponin(5th) Baseline 83 ng/L (0-15)
[2020-08-26 19:08] LABS: Alanine Aminotransferase 14 U/L (0-41); Albumin Level 4.3 g/dL (3.5-5.2); Alkaline Phosphatase 94 IU/L (40-130); Aspartate Amino Transferase 20 U/L (0-40); Blood Urea Nitrogen 44 mg/dL (8-23); Calcium 9.4 mg/dL (8.5-10.5); Carbon Dioxide 28 mmol/L (22-29); Creatine Phosphokinase 136 U/L (39-308); Globulin 3.2 g/dL (1.3-4.6); Glomerular Filtration Rate 40.4 mL/min (90-130); Glucose 169 mg/dL (65-115); Total Bilirubin 0.7 mg/dL (0.15-1.2); Total Protein 7.5 g/dL (6.6-8.7)
[2020-08-26] MEDS: piperacillin-tazobactam 3.375 GM in sodium chloride 0.9% (plus) 50 ML IV (19:15)
[2020-08-26 19:30] LABS: Anion Gap 22.3 (5-19); Chloride 85 mmol/L (98-107); Osmolality Calculated 287 mOsm/kg (285-295); Potassium 4.3 mmol/L (3.5-5.1); Sodium 131 mmol/L (136-145)
[2020-08-26 19:31] LABS: Add Urine Microscopic? NO
[2020-08-26 19:32] LABS: Bilirubin Urine Neg (Negative); Blood Urine Neg (Negative); Glucose Urine UA Norm (Normal); Ketones Urine Negative (Negative); Leukocyte Esterase Urine Negative (Negative); Nitrate Urine Negative (Negative); Protein Urine Neg (Negative); Specific Gravity, Urine 1.005 (1.005-1.030); Urine Appearance Clear (CLEAR); Urine Color Straw (Yellow); Urobilinogen Urine Norm (Negative); pH Urine 7 (5-7)
--- NOTE | 2020-08-26 19:48 | ECG_ITS ---
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 Measurements Intervals [place] Rate: 96 P: 55 IA: 162 QRS: -50 QRSD: 97 T: 84 QT: 344 QTc: 436 Interpretive Statements SINUS RHYTHM WITH FREQUENT VENTRICULAR PREMATURE COMPLEXES LEFT AXIS DEVIATION [QRS AXIS < -30] LOW QRS VOLTAGE IN EXTREMITY LEADS [QRS DEFLECTION < 0.5 mV IN LIMB LEADS] Compared to ECG 06/28/2020 19:56:22 Ventricular premature complex(es) now present Electronically Signed On 08-27-2020 17:15:13 [employer] by Ai Fasutin M.D. [id number]
[2020-08-26 20:24] LABS: Troponin 5 2HR 76.84 ng/L (0-15)
[2020-08-26] MEDS: morphine 4 mg/mL SDV 1 mL IVP (20:31)
[2020-08-26 20:39] LABS: Troponin 5 2HR Delta -6.16 ABS# (0-10)
[2020-08-26 20:44] LABS: Lactic Sepsis W/Reflex 2.3 mmol/L (0.5-2.2)
--- NOTE | 2020-08-26 20:45 | P.HP_ITS ---
Providers/Chief Complaint Primary Care Provider: Melinda Mccullough DO Chief Complaint: [facility], SENT FROM WOUND CARE SERVICES History of Present Illness Ramy Lawler is a 69 year old male with a past medical history of myocardial infarct with PCI to ostial left circumflex, in June 2012, with last angiogram in 2016, bilateral carotid artery stenosis, peripheral arterial disease status post angioplasty, dyslipidemia, diastolic heart failure, insulin-dependent type 2 diabetes mellitus, COPD 6 L oxygen dependent, chronic smoker, hypertension, who presents the emergency room with worsening lower extremity swelling and rita n. Her daughter Tamera is at the bedside who mentioned that at [facility] he was placed on Impella and ECMO in December for prolonged period of time and was discharged on dobutamine infusion along with Bumex and Lasix combination, he was not able to ambulate at all when he got home, he seemed to make good progress with home physical therapy, he started using walker to go to the bathroom, (at baseline he is not very active). He was admitted again in May for readjustment of his diuretics for worsening of lower extremity edema, he was deemed not a suitable candidate for any kind of surgical intervention for coronary ischemia or right lower extremity occluded vessels. For last 2 weeks his legs have been getting worse, his PCP Dr. Mccullough prescribed Keflex and Bactrim for cellulitis, has changed his diuretics to torsemide 200 mg, discontinued Bumex and Lasix, his torsemide dose was optimized to 200 mg, and recently it was cut down to 100 mg a day, he is also taking metolazone twice a days, spironolactone. In last 2 weeks his legs have been getting more swollen, reddish, with serosanguineous discharge, right leg seem to be more swollen as compared to left, pain is getting worse as well. He went to wound care clinic today who recommended him to go to the ER. Patient is denying fever, chills, he is endorsing skin rash which started recently, his skin was so frail that with mild scratching of skin he noticed bleeding and sometimes blood clots especially around his right upper extremity, he also has a rash around his umbilical area, he did notice itching without fever, lip swelling, choking sensation, shortness of breath at rest or stridor. He is denying active chest pain. In the emergency department initially he was tachycardic, he has leukocytosis, lactic acid is pending, he has been given vancomycin and Zosyn, he has JOANA, as per the daughter his volume status seems to be better, patient was complaining of right lower extremity pain at the time my evaluation. He was saturating well on 6 L nasal cannula, systolic blood pressure was ranging between 85 to 90 mmHg. As per my discussion with Dr. Pavon he did not notice any venous clots, right leg NORMA is 0.6 Review of Systems Const: Reports: body aches and fatigue; Denies: fever(s) Eyes: Denies: change in vision ENMT: Reports: oral sores Card: Reports: edema, swelling of feet/ankles, lightheadedness, pre-syncope and leg pain with exertion; Denies: chest pain or irregular heart rhythm Resp: Reports: dyspnea; Denies: wheezing or stridor GI: Denies: abdominal pain : Denies: flank pain Musc: Reports: joint stiffness, limited range of motion and muscle cramps Skin/Breast: Reports: rash, skin tenderness, skin swelling, sores and new lesions Neuro: Denies: headache(s) Psych: Reports: irritability Endo: Denies: polyuria Joao/Lymph: Reports: easy bruising All/Imm: Denies: urticaria, throat swelling, tongue swelling, facial swelling, acute wheezing or itchy eyes Medications/Allergies Home Medications Medication Instructions Recorded Confirmed Last Taken Type clopidogrel 75 mg tablet 75 mg PO DAILY@0830 01/08/20 08/26/20 08/26/20 History tamsulosin 0.4 mg capsule 0.4 mg PO DAILY@82901/08/20 08/26/20 08/26/20 History nitroglycerin 0.4 mg SUBLINGUAL PRN PRN 01/10/20 08/26/20 08/26/20 History tiotropium-olodaterol [Stiolto See Rx Instructions .ROUTE .COMPLEX 01/10/20 08/26/20 Unknown History Respimat] aspirin 81 mg tablet,delayed 81 mg PO DAILY@0830 05/28/20 08/26/20 08/26/20 History release atorvastatin 40 mg tablet 80 mg PO DAILY@0830 tab 05/28/20 08/26/20 08/26/20 History dobutamine 250 mg/20 mL (12.5 700 mg IV DIRECTED ml 05/28/20 08/26/20 08/26/20 History mg/mL) intravenous solution docusate sodium 100 mg capsule 100 mg PO DAILY PRN #90 cap 05/28/20 08/26/20 08/26/20 Rx escitalopram oxalate 10 mg tablet 10 mg PO DAILY@0830 05/28/20 08/26/20 06/28/20 History guaifenesin 600 mg tablet, 600 mg PO BID PRN 05/28/20 08/26/20 Unknown History extended release 12 hr ivabradine 5 mg tablet 5 mg PO BID@0830,199905/28/20 08/26/20 08/26/20 History metolazone 5 mg tablet 5 mg PO DAILY PRN 05/28/20 08/26/20 08/26/20 History potassium chloride 20 mEq 60 meq PO TID@0830,14,20 tab 05/28/20 08/26/20 08/26/20 History tablet,extended release spironolactone 25 mg tablet 25 mg PO BID@0830,199905/28/20 08/26/20 08/26/20 History isosorbide mononitrate 30 mg PO DAILY@0830 06/28/20 08/26/20 08/26/20 History oxycodone-acetaminophen 1 tab PO TID PRN 06/28/20 08/26/20 08/26/20 History acetaminophen 325 - 650 mg PO Q4H PRN 08/26/20 08/26/20 08/26/20 History cephalexin 500 mg PO BID@0830,199908/26/20 08/26/20 08/26/20 History semaglutide [Ozempic] 50 mg SUBCUT Q7D 08/26/20 08/26/20 08/23/20 History sulfamethoxazole-trimethoprim 1 tab PO BID@0830,1600 08/26/20 08/26/20 08/26/20 History torsemide 100 mg PO BID@0830,199908/26/20 08/26/20 08/26/20 History tramadol See Rx Instructions .ROUTE .COMPLEX 08/26/20 08/26/20 Unknown History Allergies Allergy/AdvReac Type Severity Reaction Status Date / Time Sulfa (Sulfonamide Allergy Unknown Unknown Verified 08/26/20 17:20 Antibiotics) PFSH Acute PFSH: Medical History (Updated 08/26/20 @ 21:53 by Simran Hopkins MD) ASHD (arteriosclerotic heart disease) Atherosclerotic heart disease [place] coronary artery w/angina pectoris Carotid stenosis, bilateral COPD (chronic obstructive pulmonary disease) Cor pulmonale Diabetes Diastolic heart failure Dyslipidemia Haemophilus influenzae pneumonia Treated with Levaquin in 2017 Ischemic cardiomyopathy Myocardial infarction Obesity PAD (peripheral artery disease) Sleep apnea Systolic heart failure LVEF 40%, echocardiogram 01/11/2020 Tobacco abuse Surgical History H/O heart artery stent PCI to ostial 99% LCx on July 11, 2012;12/15/2016 he had another angiogram showing patent circumflex stent, 10-20% ostial left main, 20-30% ostial RCA stenosis and LV gram showed left ventricular ejection fraction of 50-55% with mild apical hypokinesis. S/P peripheral artery angioplasty with stent placement S/P shoulder surgery Family History Mother Psychiatric illness Other Cancer Social History (Updated 08/26/20 @ 21:49 by Simran Hopkins MD) Smoking and tobacco status: current some day smoker smokeless tobacco Alcohol intake: former Household members: family Housing: House Vitals/I&O/Wt Last Vital Signs Temp 96.6 F L 08/26/20 17:13 Pulse 88 08/26/20 20:32 Resp 14 08/26/20 20:32 BP 109/76 08/26/20 20:32 Pulse Ox 99 08/26/20 20:32 Weight last 48 hrs Weight 98.883 kg Physical Exam Narrative: EXAM NARRATIVE: This is a male who appears more than stated age Was saturating well on 6 L nasal cannula He seemed to be in distress due to right leg pain Obese male, Awake alert oriented x3 GCS 15 Right lower extremity black eschar extending from his right calf muscle up to lower border of patella fossa, serosanguineous discharge, feeble pulse dorsalis pedis 1+, hyperemia, tender to palpation, right leg swelling greater than left, sensations intact, no critical limb ischemic gangrenous toes, Left lower extremity has abrasion and laceration Hyperemia lower abdominal wall with macular rash No swelling of lips no stridor or wheezing He has pursed lip breathing which seem to be chronic no acute exacerbation No active chest pain Variable S1-S2, clinically looks fluid overloaded Distended abdomen nontender bowel sounds present Bilateral breath sounds with crackles diffuse, no rhonchi or stridor Awake alert oriented x3 Appropriate mood and affect Multiple skin lacerations petechia purpura noted all over his extremities Data : 08/26/20 18:05 08/26/20 18:05 Micro: Microbiology 08/26/20 18:05 Blood Culture - Preliminary Blood SPECIMEN COLLECTED 08/26/20 18:05 Blood Culture - Preliminary Blood SPECIMEN COLLECTED A&P Assessment and plan (1) Cellulitis: Status: Acute (2) Sepsis: Status: Acute (3) Drug reaction: Status: Acute (4) JOANA (acute kidney injury): Status: Acute (5) Peripheral vascular disease: Status: Acute (6) Nocturnal hypoxia: Status: Acute (7) Ischemic cardiomyopathy: Status: Acute Additional A&P Information Purulent cellulitis of right lower extremity Failed outpatient therapy(Keflex, Bactrim), symptoms started 2 weeks ago, hyperemia has extending from right calf muscle up to his right thigh also some hyperemia of lower abdominal wall noticed, no fever however he meets sepsis criteria with tachycardia and leukocytosis, lactic acid is pending Vancomycin given in the ER I would switch to linezolid and Zosyn to be dosed renally Blood cultures Venous Doppler to rule out DVT Right leg NORMA 0.6, he has intact sensation, however right leg is swollen as compared to left, tender on palpation, no critical ischemic changes around toes, black eschar right calf muscle with serosanguineous discharge He has history of occluded vascular disease of right leg, he is not a surgical surgical candidate as per my discussion with the daughter, For now I would keep him on antibiotics, avoid fluids because of end-stage heart failure, chronic consider vascular consult in the morning Limited options to use compression stockings because of low NORMA I have recommended keeping legs elevated, readjusting diuretics and antibiotics for now Sepsis: Judicious use of fluids, would choose to avoid for now, management as mentioned above Drug reaction: Patient has sulfa allergy and he was put on Bactrim, on CBC he has high eosinophils, this most likely is consistent with drug induced skin reaction, is hyperemia of lower abdominal wall seems to be different in appearance than right lower extremity, no active stridor, lip swelling, would use Benadryl to see monitor effect for now Acute kidney injury: This most likely is multifactorial secondary to Bactrim use, torsemide 200 mg dose which was recently readjusted to 100 mg daily, as per the family he has lost 20 pounds in last 2 weeks I would hold spironolactone, keep torsemide at 100 mg, decreased potassium supplementation to 60 mg daily instead of 3 times a day, change metolazone to 1 time a day dose before torsemide Monitor for cardiorenal etiology for JOANA with correlation with daily output and creatinine and volume status End-stage heart failure His dobutamine drip gets changed every 40 hours, his has changed his drip today we should be good for next 2.5 days, His systolic blood pressure range between 85 to 90 mmHg, no active chest pain negative troponin, no ischemic changes on EKG, he was deemed not a suitable candidate for any kind of surgical intervention Nocturnal hypoxemia: Noncompliant with CPAP Patient only wants to use 6 L of nasal cannula during his hospitalization He was also using Vasquez-Synephrine for nasal congestion which I have discontinued because of his end-stage heart failure condition CODE STATUS: Full code (discussed with the daughter) DVT prophylaxis Heparin Cardiac diet Bedrest Attestations Medical Necessity Statement*: Anticipating stay in the hospital across more than 2 midnights because of purulent cellulitis and concern for progressive cellulitis failing outpatient therapy, JOANA, carries guarded prognosis Time Spent in Patient Care: (>than 50% of time spent in counselling and/or direct pt care on unit) . 60mins Coding Level of Care Code Acute Chartered Financial Analyst for g Fwd Diagnoses Cellulitis L03.90 Sepsis A41.9 Drug reaction T50.905A JOANA (acute kidney injury) N17.9 Peripheral vascular disease I73.9 Nocturnal hypoxia G47.34 Ischemic cardiomyopathy I25.5
[2020-08-26] MEDS: HYDROmorphone 1 mg/mL INJ 1 mL IVP (22:13)
[2020-08-26 22:20] LABS: Reflex Lactate Order REFLEX LACTIC ORDERD
[2020-08-26 23:02] LABS: Lactic Acid level (Lactate) 1.6 mmol/L (0.5-2.2)
[2020-08-26] MEDS: diphenhydrAMINE 25 mg Capsule PO (23:04)
[2020-08-26] MEDS: linezolid premix 600 MG/300 ML PREMIX 300 MG IV (23:05)
[2020-08-26 23:36] LABS: Glucose Point of Care 156 mg/dL (70-110)
--- NOTE | 2020-08-26 23:48 | ECG_ITS ---
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 Measurements Intervals [place] Rate: 90 P: 55 [place]: 160 QRS: -27 QRSD: 97 T: 0 QT: 236 QTc: 289 Interpretive Statements SINUS RHYTHM BORDERLINE LEFT AXIS DEVIATION [QRS AXIS < -20] LOW QRS VOLTAGE IN EXTREMITY LEADS [QRS DEFLECTION < 0.5 mV IN LIMB LEADS] WARNING: DATA QUALITY MAY AFFECT INTERPRETATION Compared to ECG 08/26/2020 19:14:47 Ventricular premature complex(es) no longer present Electronically Signed On 08-27-2020 17:14:49 BILLET INSPECTOR by Ai Faustin M.D. [id number]
[2020-08-27] VITALS (34 sets, daily range): BP systolic 79–115; BP diastolic 57–83; PULSE 70–103; RESP 10–25; TEMP 36.1–36.9; O2SAT 83–98
[2020-08-27 01:18] LABS: Troponin 5 6HR 69.58 ng/L (0-15)
[2020-08-27] MEDS: oxyCODONE-APAP 5-325 mg Tablet 1 TAB PO ×2 (01:22→09:26)
[2020-08-27] MEDS: piperacillin-tazobactam 3.375 GM in sodium chloride 0.9% (plus) 50 ML IV ×3 (03:32→18:36)
[2020-08-27 05:12] LABS: Blood Urea Nitrogen 43 mg/dL (8-23); Calcium 9.2 mg/dL (8.5-10.5); Carbon Dioxide 30 mmol/L (22-29); Chloride 88 mmol/L (98-107); Glomerular Filtration Rate 43.3 mL/min (90-130); Glucose 150 mg/dL (65-115); Osmolality Calculated 286 mOsm/kg (285-295); Sodium 131 mmol/L (136-145)
[2020-08-27 05:25] LABS: Basophils # 0.1 10^3/uL (0.0-0.1); Basophils % 0.7 %; Eosinophils # 0.4 10^3/uL (0.0-0.8); Eosinophils % 3.9 %; Hematocrit 34.2 % (42.0-52.0); Hemoglobin 10.9 g/dL (11.7-16.6); Lymphocytes # 1.8 10^3/uL (0.8-4.8); Lymphocytes % 17.4 %; Mean Corpuscular HGB Conc 31.9 g/dL (30.0-36.0); Mean Corpuscular Hemoglobin 28.8 pg (28.0-34.0); Mean Corpuscular Volume 90.5 fL (80-94); Monocytes % 9.1 %; Neutrophils # 7.23 10^3/uL (1.8-7.7); Neutrophils % 68.5 %; Nucleated Red Blood Cells % 0 %; Platelet Count 228 10^3/cmm (130-400); Red Blood Count 3.78 10^6/uL (4.1-5.3); Red Cell Distribution Width 16.8 % (12.1-15.1); White Blood Count 10.6 10^3/uL (4.0-10.0)
[2020-08-27 05:33] LABS: Anion Gap 16.3 (5-19); Potassium 3.3 mmol/L (3.5-5.1)
[2020-08-27 06:41] LABS: Glucose Point of Care 139 mg/dL (70-110)
--- NOTE | 2020-08-27 08:17 | PC.CHAP ---
Pastoral Care Encounter/Spiritual Assessment Type of Contact [] Declined site foreman visit [] Patient/Family/Request visit [] Outpatient visit [] Follow-up visit [] Physician referral [] Code/Alert [x] Routine visit [] Staff referral [] Actively dying [] Patient sleeping [] Family support [] [] Out of room [] Palliative care [] [] Receiving care in room [] Pre-surgical visit [] Trauma [] Long length of stay [] ICU visit [] Other: Relational/Emotional Strength [] Patient feels connected with others/family/visitors/staff [] Distress [] Loneliness/isolation [] Abandonment Spirituality of Patient [] Person of Rhiannon [] Attends Baptism of their Rhiannon [] Believes in Prayer [] Reads Bible or Hinduism materials [] There are Spiritual issues to be addressed Manager Helpdesk Interventions [x] Prayer [x] Active listening [x] Non-anxious presence [x] Spiritual/emotional support [] Crisis/trauma care [] Spiritual counseling [] Bereavement support [] Provided bereavement packet [] Provided Bible/devotional materials [] Provided toy/stuffed animal, coloring book to patient or family member [] Provided Communion [] Anointing/[place] [] Salvation [x] Completed spiritual assessment [] Other: Impact on Illness or Injury [] Angry [] Fearful [] Anxious [] Often cries [] Exhaustion [] Unable to work [] Unable to attend sabianism [] Unable to walk/stand [] Unable to read [] Unable to drive [] Unable to eat/drink [] Unable to sleep [] Unable to be with family [] Patient intubated [] Other: Summary patient so uncomfortable.. pain, bleeding.. getting no rest Time spent with patient 10 min
[2020-08-27] MEDS: aspirin 81 mg EC Tablet PO (08:44)
[2020-08-27] MEDS: TORSEmide 20 mg Tablet 100 MG PO (08:44)
[2020-08-27] MEDS: clopidogrel 75 mg Tablet PO (08:45)
[2020-08-27] MEDS: tamsulosin 0.4 mg Capsule PO (08:45)
[2020-08-27] MEDS: potassium chloride ER 20 mEq Tablet 60 MEQ PO (08:45)
[2020-08-27] MEDS: metOLazone 5 MG Tablet PO (08:46)
[2020-08-27] MEDS: isosorbide mononitrate ER 30 mg Tablet PO (08:46)
--- NOTE | 2020-08-27 09:33 | PC.RESP ---
SMOKING CESSATION AND PULMONARY REHAB INFORMATION SENT TO PATIENT.
[2020-08-27 11:21] LABS: Glucose Point of Care 150 mg/dL (70-110)
--- NOTE | 2020-08-27 11:36 | USCV_ITS ---
Ramy Lawler Age: 69 Gender: M : 1950 Exam Date: 08/27/2020 12:37 Ordering Phys: Mark Javier MD Technologist: Bogdan Ceballos Exam Location[place] [facility] [place]ication: chest pain BP: 143 / 85 HR: 94 Rhythm: Sinus Technical Quality: Fair MEASUREMENTS (Male / Female) Normal Values 2D ECHO LV Diastolic Diameter PLAX 4.9 cm 4.2 - 5.9 / 3.9 - 5.3 cm LV Systolic Diameter PLAX 3.4 cm IVS Diastolic Thickness 0.6 cm 0.6 - 1.0 / 0.6 - 0.9 cm IVS Systolic Thickness 1.4 cm LVPW Diastolic Thickness 1.0 cm 0.6 - 1.0 / 0.6 - 0.9 cm LVPW Systolic Thickness 1.1 cm LVOT Diameter 2.0 cm LV Ejection Fraction 2D Teich 57.4 % LV Ejection Fraction MOD 2C 21.7 % LV Ejection Fraction 2C AL 20.1 % LA Diameter 4.3 cm LA Width 4.2 cm LA Height 4.9 cm RA Width 5.5 cm RA Height 4.9 cm Aorta at Sinotubular Diameter 2.4 cm M-MODE LV Diastolic Diameter MM 5.1 cm 4.2 - 5.9 / 3.9 - 5.3 cm LV Systolic Diameter MM 3.9 cm LV Ejection Fraction MM Teich 45.8 % IVS Diastolic Thickness MM 1.5 cm 0.6 - 1.0 / 0.6 - 0.9 cm IVS Systolic Thickness MM 1.4 cm LVPW Diastolic Thickness MM 1.1 cm 0.6 - 1.0 / 0.6 - 0.9 cm LVPW Systolic Thickness MM 1.5 cm RV Diastolic Diameter MM 2.5 cm Aortic Annulus Diameter 3.3 cm LA Ao Ratio MM 1.3 MV E Point Septal Separation 1.2 cm DOPPLER AV Peak Velocity 106.0 cm/s LVOT Peak Velocity 62.0 cm/s AV Area Cont Eq vti 1.8 cm squared AV Area Cont Eq pk 1.9 cm squared MV Area PHT 5.0 cm squared Mitral E to A Ratio 2.3 MV E' Velocity 50.5 cm/s Mitral E to MV E' Ratio 13.5 Mitral E to LV E' Lateral Ratio 10.1 Mitral E to LV E' Septal Ratio 20.4 TR Peak Velocity 205.0 cm/s TR Peak Gradient 16.8 mmHg TV Peak E Velocity 87.0 cm/s Right Atrial Pressure 15.0 mmHg Pulmonary Artery Systolic Pressu 31.8 mmHg FINDINGS Left Ventricle Severe diffuse hypokinesia of the septum, anteroseptum and the LV apex with an ejection fraction around 20%. The septum is thinned out Right Ventricle Mildly dilated right ventricle with possibly normal ejection fraction Right Atrium Mildly increased right atrial size. Left Atrium Normal left atrial size. Mitral Valve Thickened mitral valve. Moderate mitral annular calcification. Mild mitral valve regurgitation. Aortic Valve Thickened aortic valve. Tricuspid Valve Mild tricuspid valve regurgitation. Pulmonic Valve Estimated pulmonary artery peak systolic pressure 32 mmHg Pericardium Dilated inferior vena cava Aorta Normal aortic annulus size. CONCLUSIONS Severe diffuse hypokinesia of the septum, anteroseptum and the LV apex with an ejection fraction around 20%. The septum is thinned out. Mildly dilated right atrium and right ventricleThickened mitral valve. Moderate mitral annular calcification. Mild mitral valve regurgitation. Mild tricuspid valve regurgitation. Compared to the study from 01/11/2020, there is significant decline in the LV ejection fraction Dr Michael Arora MD [facility] (Electronically Signed) Final Date: 28 August 2020 01:49 S
--- NOTE | 2020-08-27 11:39 | P.PN_ITS ---
Subjective Subjective: Interval history: Admitted overnight. H&P and labs noted. As per the patient's family member he has been on dobutamine pump at home and recently his dose of diuretics were changed. Currently he was taking torsemide 100 mg daily, metolazone 5 mg twice a day, spironolactone. He is swelling in his legs have been decreasing and is never been as low as present, and has lost 20 pounds in last 2 weeks. Blood pressures at home usually around 95 systolics. He came to the ER because of worsening pain, wound with discharge from his right leg for last 1 week. Currently on examination sitting in chair on 5 L oxygen supplementation saturating 92% with blood pressure 100 systolic complaining of pain in his leg. Denies any nausea, vomiting, headache, palpitation, dizziness. Vitals/I&O/Wt Last Vital Signs Temp 97.6 F 08/27/20 10:47 Pulse 93 08/27/20 10:47 Resp 18 08/27/20 10:47 BP 103/62 08/27/20 10:47 Pulse Ox 96 08/27/20 10:47 08/26/20 08/27/20 08/27/20 22:59 06:59 14:59 Intake Total 50 / 50 1340 / 1390 1160 / 1160 Output Total 850 / 850 200 / 200 Balance 50 / 50 490 / 540 960 / 960 Weight last 48 hrs Weight 98.883 kg Physical Exam Narrative: EXAM NARRATIVE: This is a male who appears more than stated age He seemed to be in distress due to right leg pain Obese male, Awake alert oriented x3 GCS 15 Right lower extremity black eschar extending from his right calf muscle up to lower border of patella fossa, serosanguineous discharge, feeble pulse dorsalis pedis 1+, hyperemia, tender to palpation, right leg swelling greater than left, sensations intact, no critical limb ischemic gangrenous toes, Left lower extremity has abrasion and laceration Hyperemia lower abdominal wall with macular rash No swelling of lips no stridor or wheezing He has pursed lip breathing which seem to be chronic no acute exacerbation No active chest pain Variable S1-S2, clinically looks fluid overloaded Distended abdomen nontender bowel sounds present Bilateral breath sounds with crackles diffuse, no rhonchi or stridor Awake alert oriented x3 Appropriate mood and affect Multiple skin lacerations petechia purpura noted all over his extremities Data : 08/27/20 05:00 08/27/20 04:06 Micro: Microbiology 08/26/20 18:05 Blood Culture - Preliminary Blood SPECIMEN COLLECTED 08/26/20 18:05 Blood Culture - Preliminary Blood SPECIMEN COLLECTED A&P Assessment and plan (1) Cellulitis: Status: Acute (2) Sepsis: Status: Acute (3) Peripheral vascular disease: Status: Acute (4) Drug reaction: Status: Acute (5) JOANA (acute kidney injury): Status: Acute (6) Ischemic cardiomyopathy: Status: Acute (7) Acute on chronic systolic heart failure: Status: Acute (8) COPD (chronic obstructive pulmonary disease): Status: Acute Qualifiers: COPD type: unspecified COPD Qualified Code(s): J44.9 - Chronic obstructive pulmonary disease, unspecified (9) Nocturnal hypoxia: Status: Acute Additional A&P Information Sepsis secondary to purulent cellulitis of right lower extremity: Failed outpatient therapy(Keflex, Bactrim), symptoms started 2 weeks ago, hyperemia has extending from right calf muscle up to his right thigh also some hyperemia of lower abdominal wall noticed, no fever however he meets sepsis criteria with tachycardia and leukocytosis. Check procalcitonin, MRSA swab. Follow-up blood culture results. For now for continue with linezolid and Zosyn. Will dose both antibiotics renally. Lower limb Dopplers, ankle-brachial index for peripheral vascular disease pending. Patient is a poor surgical candidate for any endovascular surgeries because of severe COPD, severe cardiomyopathy on dobutamine drip. We will consult ID for antibiotic recommendations, surgery for wound care recommendations versus possible debridement. For pain Dilaudid 1 mg every 6 hours as needed, tramadol 50 every 8 hours as needed. Continue with dobutamine drip. Maintain systolic blood pressures at baseline of around 90-100 mmHg. CAD/ischemic cardiomyopathy: End-stage heart failure on dobutamine pump as an outpatient. Follows up with light bulb replacer service at [facility]. Continue with aspirin, statin, Plavix, ivabradine, Imdur at home dose. We will consult cardiology for further assistance. For now continue with torsemide 100 mg daily, metolazone 5 mg daily. Hold off on spironolactone. Reyes catheterization for strict input output charting. Daily weights, strict input output charting. Acute kidney injury: This most likely is multifactorial secondary to Bactrim use, aggressive diuresis with torsemide 200 mg dose which was recently readjus gunnar to 100 mg daily, as per the family he has lost 20 pounds in last 2 weeks Monitor for cardiorenal etiology for JOANA with correlation with daily output and creatinine and volume status Will monitor urine output if on the lower side will consult nephrology. Nocturnal hypoxemia: Noncompliant with CPAP Patient only wants to use 6 L of nasal cannula during his hospitalization He was also using Vasquez-Synephrine for nasal congestion which I have discontinued because of his end-stage heart failure condition Continue other chronic oral medications. CODE STATUS: Discussed with daughter on phone and with and patient at bedside. Patient states he has had multiple cardiac arrest and chest jolly sions in the past and if needed is okay with all of the same again. But is not okay with any surgical interventions as he has been told in the past that he is not a good surgical/anesthetic candidate. Patient is full code. DVT prophylaxis Heparin Cardiac diet Out of bed to chair. Attestations Medical Necessity Statement*: Requires further hospitalization for management of cellulitis, end-stage COPD, end-stage heart failure on dobutamine drip, acute kidney injury Time Spent in Patient Care: Greater than 35 minutes (>than 50% of time spent in counselling and/or direct pt care on unit) . Coding Level of Care Code Acute Accountant Certified Public for Michi Escobar Diagnoses Cellulitis L03.90 Sepsis A41.9 Peripheral vascular disease I73.9 Drug reaction T50.905A JOANA (acute kidney injury) N17.9 Ischemic cardiomyopathy I25.5 Acute on chronic systolic heart failure I50.23 COPD (chronic obstructive pulmonary disease) J44.9 COPD type: unspecified COPD Nocturnal hypoxia G47.34
[2020-08-27 12:06] LABS: NT Pro B Type Natriuretic Pept 8381 pg/mL (0-125); Thyroid Stimulating Hormone 3.07 uIU/mL (0.27-4.20)
[2020-08-27 12:17] LABS: Iron 54 ug/dL (59-158); Total Iron Binding Capacity 336 mcg/dl; Unsaturated Iron Binding 282 ug/dL (112-347)
[2020-08-27] MEDS: HYDROmorphone 1 mg/mL INJ 1 mL 0.5 MG IVP ×2 (12:42→23:04)
[2020-08-27] MEDS: linezolid premix 600 MG/300 ML PREMIX 300 MG IV ×2 (12:51→22:55)
--- NOTE | 2020-08-27 13:54 | PM.CONSULT ---
Providers/Reason For Consult Consulting Physican/Specialty*: ASHKAN Arora MD/cardiology Reason for Consult*: Patient with severe LV dysfunction/recurrent CHF/on Dobutrex Attending Physician: Mark Javier MD Primary Care Provider: Melinda Mccullough DO History of Present Illness History of Present Illness Ramy Lawler is a 69 year old male, is admitted to the hospital through the emergency room, where he presented with complaints of increasing lower extremity swelling, nonhealing ulcer in the right leg and some worsening of the shortness of breath. This patient is known to have a very complicated cardiovascular history. In December of this year, he was admitted to the hospital with unstable anginal symptoms. Cardiac catheterization at that time revealed severe three-vessel coronary artery disease, including left main. Because of his high surgical risk, percutaneous intervention was attempted by Dr. Ritter which was unsuccessful. He was subsequently transferred to [facility]. Patient apparently sustained an acute myocardial infarction, requiring Impella support and subsequently was on ECMO for several days. He ended up staying in the [facility] for more than 5 weeks. He was on inotropic agents in the hospital. Patient is known to have severe COPD, bilateral carotid artery disease, extensive peripheral artery disease requiring interventions and chronic renal disease. He is on 6 L of oxygen by nasal cannula for the COPD. He was in and out of heart failure in the hospital. Finally he was stabilized on with the dobutamine infusion. He was discharged home with a dobutamine pump. He also was taking high-dose of Lasix and bumetanide. Recently the Lasix was discontinued. Currently he is on torsemide 100 mg p.o. twice daily. He also on metolazone 5 mg twice daily and spironolactone 25 mg p.o. daily. He is on IV dobutamine 7.5 mics per KG per minute. He seems to be responding to the current treatment. His urine output seems to be improving. He has features of bilateral lower extremity cellulitis. He has ulceration of both lower extremities. He is on multiple antibiotics. Denies any chest pain. No fever or chills. No cough. Review of Systems Narrative: CONSTITUTIONAL: No fever or chills. Generalized weakness and shortness of breath EYES: No blurring of vision or other visual disturbances lately. ENT: No hoarseness of voice, has hearing impairment. CARDIOVASCULAR: As mentioned above. RESPIRATORY: Significant dyspnea on exertion GASTROINTESTINAL: No hematemesis or melena. GENITOURINARY: Has occasional difficulty in urination INTEGUMENTARY: Bilateral erythema in the lower extremities with ulcerations. Erythematous discoloration was also noted in the lower abdominal area NEURO: No transient ischemic attacks or amaurosis. PSYCHIATRIC: No history of psychosis or major depression. HEMATOLOGIC: No bleeding disorders or significant anemia. ENDOCRINE: No history of polyuria or polydipsia. MUSCULOSKELETAL: No recent joint pain or swelling. ALLERGY/IMMUNOLOGY: As mentioned above. Meds/Allergies Home Medications and Allergies Home Medications Medication Instructions Recorded Confirmed Last Taken Type clopidogrel 75 mg tablet 75 mg PO DAILY@0830 01/08/20 08/26/20 08/26/20 History tamsulosin 0.4 mg capsule 0.4 mg PO DAILY@0830 01/08/20 08/26/20 08/26/20 History nitroglycerin 0.4 mg SUBLINGUAL PRN PRN 01/10/20 08/26/20 08/26/20 History tiotropium-olodaterol [Stiolto See Rx Instructions .ROUTE .COMPLEX 01/10/20 08/26/20 Unknown History Respimat] aspirin 81 mg tablet,delayed 81 mg PO DAILY@0830 05/28/20 08/26/20 08/26/20 History release atorvastatin 40 mg tablet 80 mg PO DAILY@0830 tab 05/28/20 08/26/20 08/26/20 History dobutamine 250 mg/20 mL (12.5 700 mg IV DIRECTED ml 05/28/20 08/26/20 08/26/20 History mg/mL) intravenous solution docusate sodium 100 mg capsule 100 mg PO DAILY PRN #90 cap 05/28/20 08/26/20 08/26/20 Rx escitalopram oxalate 10 mg tablet 10 mg PO DAILY@0830 05/28/20 08/26/20 06/28/20 History guaifenesin 600 mg tablet, 600 mg PO BID PRN 05/28/20 08/26/20 Unknown History extended release 12 hr ivabradine 5 mg tablet 5 mg PO BID@0830,199905/28/20 08/26/20 08/26/20 History metolazone 5 mg tablet 5 mg PO DAILY PRN 0908/26/20 08/26/20 History potassium chloride 20 mEq 60 meq PO TID@0830,14,20 tab 05/28/20 08/26/20 08/26/20 History tablet,extended release spironolactone 25 mg tablet 25 mg PO BID@0830,199905/28/20 08/26/20 08/26/20 History isosorbide mononitrate 30 mg PO DAILY@0830 06/28/20 08/26/20 08/26/20 History oxycodone-acetaminophen 1 tab PO TID PRN 06/28/20 08/26/20 08/26/20 History acetaminophen 325 - 650 mg PO Q4H PRN 08/26/20 08/26/20 08/26/20 History cephalexin 500 mg PO BID@0830,199908/26/20 08/26/20 08/26/20 History semaglutide [Ozempic] 50 mg SUBCUT Q7D 08/26/20 08/26/20 08/23/20 History sulfamethoxazole-trimethoprim 1 tab PO BID@0830,159908/26/20 08/26/20 08/26/20 History torsemide 100 mg PO BID@0830,199908/26/20 08/26/20 08/26/20 History tramadol See Rx Instructions .ROUTE .COMPLEX 08/26/20 08/26/20 Unknown History Allergies Allergy/AdvReac Type Severity Reaction Status Date / Time No Known Allergies Allergy Verified 08/26/20 22:49 Current Medications Current Medications Generic Name Dose Route Start Last Admin Trade Name Freq PRN Reason Stop Dose Admin Aspirin 81 mg 08/27/20 08:30 08/27/20 08:44 Aspirin 81 Mg Ec Tablet PO 81 mg DAILY@0830 [facility] Administration Clopidogrel Bisulfate 75 mg 08/27/20 08:30 08/27/20 08:45 Clopidogrel 75 Mg Tablet PO 75 mg DAILY@0830 [facility] Administration Heparin Sodium (Beef Lung) 5,000 unit 08/26/20 21:54 08/27/20 13:48 Heparin 5,000 Unit/Ml Inj 1 Ml SUBCUT Not Given Q8H [facility] Hydromorphone HCl 0.5 mg 08/27/20 11:35 08/27/20 12:42 Hydromorphone 1 Mg/Ml Inj 1 Ml IVP 0.5 mg Q4H PRN Administration pain scale 5-10 Linezolid 600 mg in 300 mls @ 300 mls/hr 08/26/20 23:00 08/27/20 13:47 Zyvox Premix IV Infused Q12H [facility] Infusion Protocol Piperacillin Sod/Tazobactam 50 mls @ 12.5 mls/hr 08/26/20 03:00 08/27/20 12:47 Sod 3.375 gm/ Sodium Chloride IV 12.5 mls/hr Q8H AMBERLY Administration Protocol As Directed Insulin Aspart 0 unit 08/27/20 08:00 08/27/20 12:06 Insulin Aspart 100 Unit/1 Ml SUBCUT 4 unit WM&BEDTIME [facility] Administration Protocol Isosorbide Mononitrate 30 mg 08/27/20 08:30 08/27/20 08:46 Isosorbide Mononitrate Er 30 Mg Tablet PO 30 mg DAILY@0830 AMBER[facility] Administration Metolazone 5 mg 08/27/20 09:00 08/27/20 08:46 Metolazone 5 Mg Tablet PO 5 mg DAILY [facility] Administration Non-Formulary Medication 5 mg 08/27/20 08:30 08/27/20 08:47 Ivabradine [Corlanor] PO Not Given BID@0830,1999 [facility] Potassium Chloride 60 meq 08/27/20 09:00 08/27/20 08:45 Potassium Chloride Er 20 Meq Tablet PO 60 meq DAILY AMBERLY Administration Tamsulosin HCl 0.4 mg 08/27/20 08:30 08/27/20 08:45 Tamsulosin 0.4 Mg Capsule PO 0.4 mg DAILY@0830 [facility] Administration Torsemide 100 mg 08/27/20 09:00 08/27/20 08:44 Torsemide 20 Mg Tablet PO 100 mg DAILY AMBERLY Administration PFSH Acute PFSH: Medical History (Updated 08/27/20 @ 20:16 by Michael Arora MD) ASHD (arteriosclerotic heart disease) Atherosclerotic heart disease [place] coronary artery w/angina pectoris Carotid stenosis, bilateral COPD (chronic obstructive pulmonary disease) Cor pulmonale Diabetes Diastolic heart failure Dyslipidemia Haemophilus influenzae pneumonia Treated with Levaquin in 2017 Ischemic cardiomyopathy Myocardial infarction Obesity PAD (peripheral artery disease) Sleep apnea Systolic heart failure LVEF 40%, echocardiogram 01/11/2020 Tobacco abuse Surgical History H/O heart artery stent PCI to ostial 99% LCx on July 11, 2012;12/15/2016 he had another angiogram showing patent circumflex stent, 10-20% ostial left main, 20-30% ostial RCA stenosis and LV gram showed left ventricular ejection fraction of 50-55% with mild apical hypokinesis. S/P peripheral artery angioplasty with stent placement S/P shoulder surgery Family History Mother Psychiatric illness Other Cancer Social History (Updated 08/26/20 @ 21:49 by Simran Hopkins MD) Smoking and tobacco status: current some day smoker smokeless tobacco Alcohol intake: former Household members: family Housing: House Vitals/I&O/Wt Last Vital Signs Temp 97.6 F 08/27/20 10:47 Pulse 93 08/27/20 10:47 Resp 22 H 08/27/20 12:42 BP 103/62 08/27/20 10:47 Pulse Ox 96 08/27/20 10:47 08/26/20 08/27/20 08/27/20 22:59 06:59 14:59 Intake Total 50 / 50 1340 / 1390 1680 / 1680 Output Total 850 / 850 800 / 800 Balance 50 / 50 490 / 540 880 / 880 Weight last 48 hrs Weight 218 lb Physical Exam Narrative: EXAM NARRATIVE: GENERAL: The patient is alert and oriented times three. Not in any acute distress. HEENT: Moderate pallor, icterus or lymphadenopathy. The pupils are symmetrical oral cavity: There are no mucous membrane lesions. Funduscopic examination: Fundus is not visualized NECK: Trachea appears to be central. No masses noted. JVD just above the angle of Omar. No thyromegaly appreciated. No carotid bruit. RESPIRATORY: Chest is symmetrical. No intercostals muscle retraction or any accessory muscle activation. There is no chest wall tenderness. Breath sounds are heard bilaterally. No rales or rhonchi heard. No evidence of any consolidation. Diminished intensity of breath sounds in the bases BREASTS: Deferred. HEART: The PMI could not be palpated. First and second heart sounds are normal. Soft S3. Systolic murmur grade 2/6 the mitral area and in the tricuspid area. No diastolic murmurs. No pericardial rub ABDOMEN: Abdomen is distended. Bowel sounds are heard, somewhat sluggish. No abdominal bruit. Diffuse erythema of the lower abdominal wall. : Deferred. RECTAL: Deferred. LYMPHATIC: No lymphadenopathy noted in the neck or groin. EXTREMITIES: 2-3+ edema both lower extremities. Superficial ulceration bilaterally in the below-knee area mostly in the calf region. The ulcerations are covered with necrotic tissue MUSCULOSKELETAL: No acute joint deformities swelling SKIN: Diffuse erythematous skin in the lower extremities NEUROPSYCHIATRIC: The patient is alert and oriented x3. Appears to be in a good mood. The higher functions are grossly within normal limits. No tremors or rigidity noted. Urinary Catheter Management^: Reyes Latex: Cath Placed During This Visit: yes Urinary Catheter Date of Insertion: 08/27/20 Urinary Catheter Time of Insertion: 13:00 Data Labs: Other Labs: Laboratory Last Values WBC 10.6 10^3/uL (4.0 -10.0) H 08/27/20 05:00 RBC 3.78 10^6/uL (4.1 -5.3) L 08/27/20 05:00 Hgb 10.9 g/dL (11.7-1 6.6) L 08/27/20 05:00 Hct 34.2 % (42.0-52.0 ) L 08/27/20 05:00 MCV 90.5 fL (80-94) 08/27/20 05:00 MCH 28.8 pg (28.0-34. 0) 08/27/20 05:00 MCHC 31.9 g/dL (30.0-3 6.0) 08/27/20 05:00 RDW 16.8 % (12.1-15.1 ) H 08/27/20 05:00 Plt Count 228 10^3/cmm (130 -400) 08/27/20 05:00 MPV 9.0 fL (7.4-10.4) 08/27/20 05:00 Neut % (Auto) 68.5 % 08/27/20 05:00 Lymph % (Auto) 17.4 % 08/27/20 05:00 [place] % (Auto) 9.1 % 08/27/20 05:00 Eos % (Auto) 3.9 % 08/27/20 05:00 Baso % (Auto) 0.7 % 08/27/20 05:00 Neut # (Auto) 7.23 10^3/uL (1.8 -7.7) 08/27/20 05:00 Lymph # (Auto) 1.8 10^3/uL (0.8- 4.8) 08/27/20 05:00 [place] # (Auto) 1.0 10^3/uL (0.2- 0.9) H 08/27/20 05:00 Eos # (Auto) 0.4 10^3/uL (0.0- 0.8) 08/27/20 05:00 Baso # (Auto) 0.1 10^3/uL (0.0- 0.1) 08/27/20 05:00 Nucleated RBC % (a uto) 0 % 08/27/20 05:00 Nucleated RBCs # 0.0 /100WBC 08/27/20 05:00 Sodium 131 mmol/L (136-1 45) L 08/27/20 04:06 Potassium 3.3 mmol/L (3.5-5 .1) L 08/27/20 04:06 Chloride 88 mmol/L (98-107 ) L 08/27/20 04:06 Carbon Dioxide 30 mmol/L (22-29) H 08/27/20 04:06 Anion Gap 16.3 (5-19) 08/27/20 04:06 BUN 43 mg/dL (8-23) H 08/27/20 04:06 Creatinine 1.6 mg/dL (0.7-1. 2) H 08/27/20 04:06 GFR Calculation 43.3 mL/min (90-1 30) L 08/27/20 04:06 Glucose 150 mg/dL (65-115 ) H 08/27/20 04:06 POC Glucose 150 mg/dL (70-110 ) 08/27/20 10:47 Calculated Osmolal ity 286 mOsm/kg (285- 295) 08/27/20 04:06 Lactic Acid 2.3 mmol/L (0.5-2 .2) H 08/26/20 18:05 Lactic Acid (Sepsi s) 1.6 mmol/L (0.5-2 .2) 08/26/20 22:30 Calcium 9.2 mg/dL (8.5-10 .5) 08/27/20 04:06 Iron 54 ug/dL (59-158) L 08/27/20 05:00 TIBC 336 mcg/dl 08/27/20 05:00 % Saturation 16.0 % (20-50) L 08/27/20 05:00 Unsat Iron Binding 282 ug/dL (112-34 7) 08/27/20 05:00 Total Bilirubin 0.7 mg/dL (0.15-1 .2) 08/26/20 18:05 AST 20 U/L (0-40) 08/26/20 18:05 ALT 14 U/L (0-41) 08/26/20 18:05 Alkaline Phosphata se 94 IU/L (40-130) 08/26/20 18:05 Creatine Kinase 136 U/L (39-308) 08/26/20 18:05 Troponin T Baselin e 83 ng/L (0-15) H 08/26/20 18:05 Troponin T 120 Min duc 76.84 ng/L (0-15) H 08/26/20 19:55 Delta Troponin T -6.16 ABS# (0-10) L 08/26/20 19:55 Troponin T Hi Sens 6Hr 69.58 ng/L (0-15) H 08/27/20 00:40 Troponin T Hi Sens 6Hr Delta -13.42 ng/L (0-12 ) L 08/27/20 00:40 NT-Pro-B Natriuret Pep 8381 pg/mL (0-125 ) H 08/27/20 05:00 Total Protein 7.5 g/dL (6.6-8.7 ) 08/26/20 18:05 Albumin 4.3 g/dL (3.5-5.2 ) 08/26/20 18:05 Globulin 3.2 g/dL (1.3-4.6 ) 08/26/20 18:05 Procalcitonin 0.40 ng/mL (0-0.5 ) 08/27/20 05:00 TSH 3.07 uIU/mL (0.27 -4.20) 08/27/20 05:00 Urine Color Straw (Yellow) 08/26/20 19:25 Urine Appearance Clear (CLEAR) 08/26/20 19:25 Urine pH 7 (5-7) 08/26/20 19:25 Ur Specific Gravit y 1.005 (1.005-1.0 30) 08/26/20 19:25 Urine Protein Neg (Negative) 08/26/20 19:25 Urine Glucose (UA) Norm (Normal) 08/26/20 19:25 Urine Ketones Negative (Negati ve) 08/26/20 19:25 Urine Blood Neg (Negative) 08/26/20 19:25 Urine Nitrate Negative (Negati ve) 08/26/20 19:25 Urine Bilirubin Neg (Negative) 08/26/20 19:25 Urine Urobilinogen Norm mg/dL (Negat negrita) 08/26/20 19: Ur Leukocyte Yoly ase Negative (Negati ve) 08/26/20: Micro: Micro: Microbiology 08/26/20 18:05 Blood Culture - Pr eliminary Blood [facility] 08/26/20 18:05 Blood Culture - Pr eliminary Blood [facility] Cardiac catheterization December 2019 revealed Angiography this time again performed via the right brachial artery. Difficulty with access. Also proximal upper arm vessels very tortuous and calcified making placement of the catheters difficult. Additionally, the patient was agitated and had multiple severe coughing paroxysms during the angiogram. Angiography reveals right coronary artery dominance. The left main coronary artery exhibits a 50% ostial stenosis which is calcified. The LAD contains a 99% stenosis in the proximal portion which is heavily calcified. The remainder of the LAD exhibits mild diffuse disease. The circumflex contains a stent in the very proximal portion. The stent is patent and there is patchy in-stent restenosis throughout which is about 10 or 20% stenosed at the worst. There then 3 obtuse marginal branches. The first is a medium sized vessel and contains moderate proximal disease. The second is a large vessel and contains moderate proximal disease. The third is a large vessel and is normal. The right coronary artery is the dominant vessel and is nearly flush occluded. There is a 99% ostial stenosis. I was never able to actually enter the ostium of the vessel with multiple catheters. There is a elongated 99% stenosis in the proximal portion. The remainder the vessel exhibits mild diffuse disease. Due to the patient's underlying severe comorbidities and high risk for coronary bypass surgery I made an attempt briefly to place a stent in the proximal LAD. The guide caused angina due to restriction of flow. Several attempts to pass the stent including the use of a guide liner failed. The vessel is simply too heavily calcified to allow passage of a stent. I was concerned that balloon angioplasty would rupture the vessel and cause a dissection and closure. I then stopped the procedure. I will have cardiac surgery evaluate the patient. EKG^: EKG 1: My Interpretation: The EKG showed a sinus rhythm with poor R wave progression. Nonspecific ST-T changes. Low voltage complex in the limb leads. A&P Assessment and plan (1) Acute on chronic systolic heart failure: Patient seems to have end-stage heart disease. He is on high-dose of diuretics and IV dobutamine infusion. Since he seems to be responding to the current medication treatment, may continue on the current measures. His long-term prognosis very poor. We will supplement potassium Status: Acute (2) ASHD (arteriosclerotic heart disease): Since the patient has no specific symptoms of coronary insufficiency, may not require any further investigations at this time. Advised to continue on the current medications. Importance of compliance to diet and exercise were discussed which the patient seems to understand well. Status: Acute (3) PAD (peripheral artery disease): Patient has bilateral peripheral arterial disease. The nonhealing ulcers, etiology is unclear. The peripheral edema, diabetes, dependency, etc. are cardiorenal factors. Status: Acute (4) Chronic hypoxemic respiratory failure: Currently respiratory status seems to be stable. Status: Acute (5) Ischemic cardiomyopathy: We will try to optimize the afterload and preload reducing agents. The low ejection fraction around 50% prior to the myocardial infarction. Patient had an echocardiogram today. I will be reviewing the study. Status: Acute (6) JOANA (acute kidney injury): Will be closely monitor the kidney function. Supplemental potassium Status: Acute (7) Cellulitis: IV antibiotics as per the primary. Status: Acute Qualifiers: Laterality: right Site of cellulitis: extremity Site of cellulitis of extremity: lower extremity Qualified Code(s): L03.115 - Cellulitis of right lower limb Additional A&P Information Other problems are Hypokalemia Generalized debilitation COPD Chronic renal insufficiency Carotid artery disease I will be reviewing the echocardiogram. Based on the results of the above and also patient's clinical progress, further recommendations will be made. 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
[2020-08-27 14:16] LABS: Eosinophil Urine No Eosinophils Seen; Urine Eosinophil Count 0 (0-0)
[2020-08-27 14:38] LABS: Potassium, Radom Urine 48 mmol/L; Urine Creatinine 19 mg/dL (39-259); Urine Random Chloride 93 mmol/L; Urine Random Sodium 64 mmol/L
[2020-08-27 16:48] LABS: Glucose Point of Care 136 mg/dL (70-110)
--- NOTE | 2020-08-27 17:46 | P.CONIM_ITS ---
Providers/Reason For Consult Consulting Physican/Specialty*: Colonoscopy with possible biopsy. Possible polypectomy. Reason for Consult*: wound care consult Attending Physician: Mark Javier MD Primary Care Provider: Melinda Mccullough DO History of Present Illness History of Present Illness Ramy Lawler is a 69 year old male with significant comorbidities including peripheral artery disease diastolic heart failure on dobutamine infusion who has been admitted to the hospital with lower extremity pain and swelling. Patient has multiple superficial ulcers on bilateral lower extremities. He complains of pain bilaterally as well as significant serous drainage. Patient was empirically started on vancomycin and Zosyn. I was consulted for wound care and he is not a candidate for any surgical intervention Review of Systems General: Reports: 10 or more systems reviewed and unremarkable except in HPI and below Meds/Allergies Home Medications and Allergies Home Medications Medication Instructions Recorded Confirmed Last Taken Type clopidogrel 75 mg tablet 75 mg PO DAILY@0830 01/08/20 08/26/20 08/26/20 History tamsulosin 0.4 mg capsule 0.4 mg PO DAILY@0830 01/08/20 08/26/20 08/26/20 History nitroglycerin 0.4 mg SUBLINGUAL PRN PRN 01/10/20 08/26/20 08/26/20 History tiotropium-olodaterol [Stiolto See Rx Instructions .ROUTE .COMPLEX 01/10/20 08/26/20 Unknown History Respimat] aspirin 81 mg tablet,delayed 81 mg PO DAILY@0830 05/28/20 08/26/20 08/26/20 Hi story release atorvastatin 40 mg tablet 80 mg PO DAILY@0830 tab 05/28/20 08/26/20 08/26/20 History dobutamine 250 mg/20 mL (12.5 700 mg IV DIRECTED ml 05/28/20 08/26/20 08/26/20 History mg/mL) intravenous solution docusate sodium 100 mg capsule 100 mg PO DAILY PRN #90 cap 05/28/20 08/26/20 08/26/20 Rx escitalopram oxalate 10 mg tablet 10 mg PO DAILY@0830 05/28/20 08/26/20 06/28/20 History guaifenesin 600 mg tablet, 600 mg PO BID PRN 05/28/20 08/26/20 Unknown History extended release 12 hr ivabradine 5 mg tablet 5 mg PO BID@0830,199905/28/20 08/26/20 08/26/20 History metolazone 5 mg tablet 5 mg PO DAILY PRN 05/28/20 08/26/20 08/26/20 History potassium chloride 20 mEq 60 meq PO TID@0830,14,20 tab 05/28/20 08/26/20 08/26/20 History tablet,extended release spironolactone 25 mg tablet 25 mg PO BID@0830,199905/28/20 08/26/20 08/26/20 History isosorbide mononitrate 30 mg PO DAILY@0830 06/28/20 08/26/20 08/26/20 History oxycodone-acetaminophen 1 tab PO TID PRN 06/28/20 08/26/20 08/26/20 History acetaminophen 325 - 650 mg PO Q4H PRN 08/26/20 08/26/20 08/26/20 History cephalexin 500 mg PO BID@0830,199908/26/20 08/26/20 08/26/20 History semaglutide [Ozempic] 50 mg SUBCUT Q7D 08/26/20 08/26/20 08/23/20 History sulfamethoxazole-trimethoprim 1 tab PO BID@0830,159908/26/20 08/26/20 08/26/20 History torsemide 100 mg PO BID@0830,199908/26/20 08/26/20 08/26/20 History tramadol See Rx Instructions .ROUTE .COMPLEX 08/26/20 08/26/20 Unknown History Allergies Allergy/AdvReac Type Severity Reaction Status Date / Time No Known Allergies Allergy Verified 08/26/20 22:49 Current Medications Current Medications Generic Name Dose Route Start Last Admin Trade Name Freq PRN Reason Stop Dose Admin Aspirin 81 mg 08/27/20 08:30 08/27/20 08:44 Aspirin 81 Mg Ec Tablet PO 81 mg DAILY@0830 AMBERLY Administration Clopidogrel Bisulfate 75 mg 08/27/20 08:30 08/27/20 08:45 Clopidogrel 75 Mg Tablet PO 75 mg DAILY@0830 AMBERLY Administration Heparin Sodium (Beef Lung) 5,000 unit 08/26/20 21:54 08/27/20 13:48 Heparin 5,000 Unit/Ml Inj 1 Ml SUBCUT Not Given Q8H AMBERLY Hydromorphone HCl 0.5 mg 08/27/20 11:35 08/27/20 12:42 Hydromorphone 1 Mg/Ml Inj 1 Ml IVP 0.5 mg Q4H PRN Administration pain scale 5-10 Linezolid 600 mg in 300 mls @ 300 mls/hr 08/26/20 23:00 08/27/20 13:47 Zyvox Premix IV Infused Q12H AMBERLY Infusion Protocol Piperacillin Sod/Tazobactam 50 mls @ 12.5 mls/hr 08/26/20 03:00 08/27/20 16:50 Sod 3.375 gm/ Sodium Chloride IV Infused Q8H AMBERLY Infusion Protocol As Directed Insulin Aspart 0 unit 08/27/20 08:00 08/27/20 17:00 Insulin Aspart 100 Unit/1 Ml SUBCUT Not Given WM&BEDTIME AMBERLY Protocol Isosorbide Mononitrate 30 mg 08/27/20 08:30 08/27/20 08:46 Isosorbide Mononitrate Er 30 Mg Tablet PO 30 mg DAILY@0830 AMBERLY Administration Metolazone 5 mg 08/27/20 09:00 08/27/20 08:46 Metolazone 5 Mg Tablet PO 5 mg DAILY AMBERLY Administration Potassium Chloride 60 meq 08/27/20 09:00 08/27/20 08:45 Potassium Chloride Er 20 Meq Tablet PO 60 meq DAILY AMBERLY Administration Tamsulosin HCl 0.4 mg 08/27/20 08:30 08/27/20 08:45 Tamsulosin 0.4 Mg Capsule PO 0.4 mg DAILY@0830 AMBERLY Administration Torsemide 100 mg 08/27/20 09:00 08/27/20 08:44 Torsemide 20 Mg Tablet PO 100 mg DAILY AMBERLY Administration PFSH Acute PFSH: Medical History ASHD (arteriosclerotic heart disease) Atherosclerotic heart disease [place] coronary artery w/angina pectoris Carotid stenosis, bilateral COPD (chronic obstructive pulmonary disease) Cor pulmonale Diabetes Diastolic heart failure Dyslipidemia Haemophilus influenzae pneumonia Treated with Levaquin in 2017 Ischemic cardiomyopathy Myocardial infarction Obesity PAD (peripheral artery disease) Sleep apnea Systolic heart failure LVEF 40%, echocardiogram 01/11/2020 Tobacco abuse Surgical History H/O heart artery stent PCI to ostial 99% LCx on July 11, 2012;12/15/2016 he had another angiogram showing patent circumflex stent, 10-20% ostial left main, 20-30% ostial RCA stenosis and LV gram showed left ventricular ejection fraction of 50-55% with mild apical hypokinesis. S/P peripheral artery angioplasty with stent placement S/P shoulder surgery Family History Mother Psychiatric illness Other Cancer Social History Smoking and tobacco status: current some day smoker smokeless tobacco Alcohol intake: former Household members: family Housing: House Vitals/I&O/Wt Last Vital Signs Temp 97.9 F 08/27/20 15:06 Pulse 92 08/27/20 15:06 Resp 22 H 08/27/20 15:06 BP 108/76 08/27/20 15:06 Pulse Ox 97 08/27/20 15:06 08/27/20 08/27/20 08/27/20 06:59 14:59 22:59 Intake Total 1340 / 1390 1680 / 1970 290 / 1970 Output Total 850 / 850 800 / 800 Balance 490 / 540 880 / 1170 290 / 1170 Weight last 48 hrs Weight 218 lb Physical Exam Narrative: EXAM NARRATIVE: HEENT: Normocephalic Eye: Sclera /conjunctiva normal Respiratory and chest: Bilateral clear breath sounds on auscultation Cardiovascular: Normal S1 and S2 heart sounds Abdomen: Soft to palpation Neurological: Oriented to place person and time Skin: Cellulitis bilateral lower extremities right worse than the left with multiple skin ulcers on the posterior aspect of the calf muscle with necrotic tissue, tender to palpation, no drainable collections. Urinary Catheter Management^: Reyes Latex: Cath Placed During This Visit: yes Urinary Catheter Date of Insertion: 08/27/20 Urinary Catheter Time of Insertion: 13:00 Data Micro: Micro: Microbiology 08/26/20 18:05 Blood Culture - Pr eliminary Blood SPECIMEN [facility] 08/26/20 18:05 Blood Culture - Pr eliminary Blood SPECIMEN [facility] A&P Assessment and plan (1) Cellulitis: 69-year-old male with multiple comorbidities currently on dobutamine pump at home. Patient presents with cellulitis and multiple wounds on the posterior aspect of his right lower extremity as well as small wounds on the left lower extremity. He has been seen in the wound care clinic on 08/26/2020 and wet-to-dry dressing was recommended. Patient does not want his legs wrapped and therefore will try Santyl cream and OptiForm dressings to cover the wounds. Patient's family is not keen on undergoing surgical debridement considering his high anesthetic risk and therefore we will continue with local wound care and IV antibiotics. Status: Acute Coding Level of Care Code Acute [facility] for [facility] Fwd Diagnoses Cellulitis L03.90
--- NOTE | 2020-08-27 18:44 | PC.NURSE ---
Dr. Javier notified of hematuria. No intervention at this time. Nurse to continue to monitor.
[2020-08-27] MEDS: atorvastatin 40 mg Tablet 80 MG PO (20:54)
[2020-08-27 21:10] LABS: Glucose Point of Care 205 mg/dL (70-110)
[2020-08-28] VITALS (15 sets, daily range): BP systolic 96–111; BP diastolic 53–76; PULSE 83–100; RESP 17–24; TEMP 36.1–36.8; O2SAT 94–99
[2020-08-28] MEDS: piperacillin-tazobactam 3.375 GM in sodium chloride 0.9% (plus) 50 ML IV ×3 (03:39→18:17)
[2020-08-28 05:39] LABS: Basophils # 0.1 10^3/uL (0.0-0.1); Basophils % 0.4 %; Eosinophils # 0.5 10^3/uL (0.0-0.8); Eosinophils % 3.6 %; Hematocrit 33.2 % (42.0-52.0); Hemoglobin 10.9 g/dL (11.7-16.6); Lymphocytes # 1.6 10^3/uL (0.8-4.8); Lymphocytes % 12.5 %; Mean Corpuscular HGB Conc 32.8 g/dL (30.0-36.0); Mean Corpuscular Hemoglobin 29.4 pg (28.0-34.0); Mean Corpuscular Volume 89.5 fL (80-94); Mean Platelet Volume 9.4 fL (7.4-10.4); Monocytes # 0.9 10^3/uL (0.2-0.9); Monocytes % 7.1 %; Neutrophils # 9.53 10^3/uL (1.8-7.7); Neutrophils % 76.1 %; Nucleated Red Blood Cells % 0 %; Platelet Count 238 10^3/cmm (130-400); Red Blood Count 3.71 10^6/uL (4.1-5.3); Red Cell Distribution Width 16.8 % (12.1-15.1); White Blood Count 12.5 10^3/uL (4.0-10.0)
[2020-08-28 06:11] LABS: Alanine Aminotransferase 13 U/L (0-41); Albumin Level 4.1 g/dL (3.5-5.2); Alkaline Phosphatase 93 IU/L (40-130); Anion Gap 18.7 (5-19); Aspartate Amino Transferase 19 U/L (0-40); Blood Urea Nitrogen 44 mg/dL (8-23); Calcium 9.3 mg/dL (8.5-10.5); Carbon Dioxide 29 mmol/L (22-29); Chloride 86 mmol/L (98-107); Globulin 2.8 g/dL (1.3-4.6); Glomerular Filtration Rate 43.3 mL/min (90-130); Glucose 171 mg/dL (65-115); Osmolality Calculated 287 mOsm/kg (285-295); Sodium 131 mmol/L (136-145); Total Bilirubin 0.7 mg/dL (0.15-1.2); Total Protein 6.9 g/dL (6.6-8.7)
--- NOTE | 2020-08-28 06:20 | PM.CONSULT ---
Providers/Reason For Consult Consulting Physican/Specialty*: Malinda Rushingrikarin/Infectious Disease Reason for Consult*: Right leg cellulitis Attending Physician: Mark Javier MD Primary Care Provider: Melinda Mccullough DO History of Present Illness History of Present Illness Ramy Lawler is a 69 year old male with a past medical history of myocardial infarct with PCI, bilateral carotid artery stenosis, peripheral arterial disease status post angioplasty, dyslipidemia, diastolic heart failure, insulin-dependent type 2 diabetes mellitus, COPD 6 L oxygen dependent, chronic smoker, hypertension, prolonged admission in December which required transfer to [facility] for Impella and ECMO, and has since remained on dobutaine infusion chronically. He presented to the emergency room on 08/26 with worsening lower extremity swelling and pain. He has aretrial insufficiency over RLE, admitetd in May but not deemed to be a candidate for vascular intervnetions due to comorbidities. He has posterior calf ulceration on the right leg with black eschar on top, concerning for arterial insufficiency ulceration. Patient cannot tell me how long this has been present. Over the past 2 weeks he has noticed increased swelling, redness of B/L legs, R>L and discharge from the ulcer. Streaking extends up to lower anterior abdomen. Family has declined surgical debridement. He is currently on treatment with Zosyn and Linezolid empirically. Denies any fever or chills. WBC on admission ~11 which appears to be his baseline. Venous duplex without DVT. NORMA 0.6 right leg, 0.8 left leg. He has remained afberile since admission. Treated as outpatient with cephalexin and bactrim without significant change. Review of Systems General: Reports: 10 or more systems reviewed and unremarkable except in HPI and below Const: Denies: fever(s), chills or body aches Eyes: Denies: change in vision, blurry vision or photophobia ENMT: Reports: hoarseness; Denies: throat pain, enlarged tonsils, odynophagia or nasal congestion Card: Denies: chest pain, palpitations, irregular heart rhythm, edema, swelling of feet/ankles, lightheadedness, pre-syncope, dyspnea on exertion or orthopnea Resp: Denies: dyspnea, productive cough, non-productive cough, wheezing, stridor, pain on inspiration, change in phlegm color, hemoptysis or chest congestion GI: Denies: abdominal pain, nausea, vomiting, hematemesis, coffee ground emesis, dysphagia, heartburn, diarrhea, constipation, GI cramping, change in stool character, hematochezia or melena : Denies: flank pain, dysuria, urinary frequency, urinary urgency, urinary hesitancy or hematuria Musc: Denies: neck pain, back pain, extremity pain, joint swelling, joint warmth or deformity Neuro: Denies: headache(s), numbness in extremities, weakness in extremities, sensory changes, difficulty walking, frequent falls, dizziness, vertigo, behavioral changes, Slurred speech present or seizure-like activity Psych: Denies: anxiety, depression, suicidal ideation or homicidal ideation Endo: Denies: polyuria, polydipsia, tired all the time, cold intolerance or hot flashes Joao/Lymph: Denies: easy bruising or easy bleeding Meds/Allergies Home Medications and Allergies Home Medications Medication Instructions Recorded Confirmed Last Taken Type clopidogrel 75 mg tablet 75 mg PO DAILY@0830 01/08/20 08/26/20 08/26/20 History tamsulosin 0.4 mg capsule 0.4 mg PO DAILY@82901/08/20 08/26/20 08/26/20 History nitroglycerin 0.4 mg SUBLINGUAL PRN PRN 01/10/20 08/26/20 08/26/20 History tiotropium-olodaterol [Stiolto See Rx Instructions .ROUTE .COMPLEX 01/10/20 08/26/20 Unknown History Respimat] aspirin 81 mg tablet,delayed 81 mg PO DAILY@0830 05/28/20 08/26/20 08/26/20 History release atorvastatin 40 mg tablet 80 mg PO DAILY@0830 tab 05/28/20 08/26/20 08/26/20 History dobutamine 250 mg/20 mL (12.5 700 mg IV DIRECTED ml 05/28/20 08/26/20 08/26/20 History mg/mL) intravenous solution docusate sodium 100 mg capsule 100 mg PO DAILY PRN #90 cap 05/28/20 08/26/20 08/26/20 Rx escitalopram oxalate 10 mg tablet 10 mg PO DAILY@0830 05/28/20 08/26/20 06/28/20 History guaifenesin 600 mg tablet, 600 mg PO BID PRN 05/28/20 08/26/20 Unknown History extended release 12 hr ivabradine 5 mg tablet 5 mg PO BID@0830,199905/28/20 08/26/20 08/26/20 History metolazone 5 mg tablet 5 mg PO DAILY PRN 05/28/20 08/26/20 08/26/20 History potassium chloride 20 mEq 60 meq PO TID@0830,14,20 tab 05/28/20 08/26/20 08/26/20 History tablet,extended release spironolactone 25 mg tablet 25 mg PO BID@0830,199905/28/20 08/26/20 08/26/20 History isosorbide mononitrate 30 mg PO DAILY@0830 06/28/20 08/26/20 08/26/20 History oxycodone-acetaminophen 1 tab PO TID PRN 06/28/20 08/26/20 08/26/20 History acetaminophen 325 - 650 mg PO Q4H PRN 08/26/20 08/26/20 08/26/20 History cephalexin 500 mg PO BID@0830,199908/26/20 08/26/20 08/26/20 History semaglutide [Ozempic] 50 mg SUBCUT Q7D 08/26/20 08/26/20 08/23/20 History sulfamethoxazole-trimethoprim 1 tab PO BID@0830,159908/26/20 08/26/20 08/26/20 History torsemide 100 mg PO BID@0830,199908/26/20 08/26/20 08/26/20 History tramadol See Rx Instructions .ROUTE .COMPLEX 08/26/20 08/26/20 Unknown History Allergies Allergy/AdvReac Type Severity Reaction Status Date / Time No Known Allergies Allergy Verified 08/26/20 22:49 Current Medications Current Medications Generic Name Dose Route Start Last Admin Trade Name Freq PRN Reason Stop Dose Admin Aspirin 81 mg 08/27/20 08:30 08/27/20 08:44 Aspirin 81 Mg Ec Tablet PO 81 mg DAILY@0830 AMBERLY Administration Atorvastatin Calcium 80 mg 08/27/20 21:00 08/27/20 20:54 Atorvastatin 40 Mg Tablet PO 80 mg BEDTIME AMBERLY Administration Clopidogrel Bisulfate 75 mg 08/27/20 08:30 08/27/20 08:45 Clopidogrel 75 Mg Tablet PO 75 mg DAILY@0830 [facility] Administration Heparin Sodium (Beef Lung) 5,000 unit 08/26/20 21:54 08/28/20 05:03 Heparin 5,000 Unit/Ml Inj 1 Ml SUBCUT Not Given Q8H AMBERLY Hydromorphone HCl 0.5 mg 08/27/20 11:35 08/27/20 23:04 Hydromorphone 1 Mg/Ml Inj 1 Ml IVP 0.5 mg Q4H PRN Administration pain scale 5-10 Linezolid 600 mg in 300 mls @ 300 mls/hr 08/26/20 23:00 08/28/20 00:00 Zyvox Premix IV Infused Q12H [facility] Infusion Protocol Piperacillin Sod/Tazobactam 50 mls @ 12.5 mls/hr 08/26/20 03:00 08/28/20 03:39 Sod 3.375 gm/ Sodium Chloride IV 12.5 mls/hr Q8H [facility] Administration Protocol As Directed Insulin Aspart 0 unit 08/27/20 08:00 08/27/20 21:13 Insulin Aspart 100 Unit/1 Ml SUBCUT 6 unit WM&BEDTIME [facility] Administration Protocol Isosorbide Mononitrate 30 mg 08/27/20 08:30 08/27/20 08:46 Isosorbide Mononitrate Er 30 Mg Tablet PO 30 mg DAILY@0830 [facility] Administration Metolazone 5 mg 08/27/20 09:00 08/27/20 08:46 Metolazone 5 Mg Tablet PO 5 mg DAILY AMBERLY Administration Non-Formulary Medication 5 mg 08/27/20 20:00 08/27/20 20:54 Ivabradine [Corlanor] PO 5 mg BID@08,1999 [facility] Administration Potassium Chloride 60 meq 08/27/20 09:00 08/27/20 08:45 Potassium Chloride Er 20 Meq Tablet PO 60 meq DAILY AMBERLY Administration Tamsulosin HCl 0.4 mg 08/27/20 08:30 08/27/20 08:45 Tamsulosin 0.4 Mg Capsule PO 0.4 mg DAILY@0830 AMBERLY Administration Torsemide 100 mg 08/27/20 09:00 08/27/20 08:44 Torsemide 20 Mg Tablet PO 100 mg DAILY AMBERLY Administration PFSH Acute PFSH: Medical History ASHD (arteriosclerotic heart disease) Atherosclerotic heart disease [place] coronary artery w/angina pectoris Carotid stenosis, bilateral COPD (chronic obstructive pulmonary disease) Cor pulmonale Diabetes Diastolic heart failure Dyslipidemia Haemophilus influenzae pneumonia Treated with Levaquin in 2017 Ischemic cardiomyopathy Myocardial infarction Obesity PAD (peripheral artery disease) Sleep apnea Systolic heart failure LVEF 40%, echocardiogram 01/11/2020 Tobacco abuse Surgical History H/O heart artery stent PCI to ostial 99% LCx on July 11, 2012;12/15/2016 he had another angiogram showing patent circumflex stent, 10-20% ostial left main, 20-30% ostial RCA stenosis and LV gram showed left ventricular ejection fraction of 50-55% with mild apical hypokinesis. S/P peripheral artery angioplasty with stent placement S/P shoulder surgery Family History Mother Psychiatric illness Other Cancer Social History Smoking and tobacco status: current some day smoker smokeless tobacco Alcohol intake: former Household members: family Housing: House Vitals/I&O/Wt Last Vital Signs Temp 97.8 F 08/28/20 04:00 Pulse 100 08/28/20 05:47 Resp 20 H 08/28/20 04:00 BP 111/76 08/28/20 04:00 Pulse Ox 97 08/28/20 04:00 08/27/20 08/27/20 08/28/20 14:59 22:59 06:59 Intake Total 1680 / 1680 712 / 2392 700 / 3092 Output Total 800 / 800 2150 / 2950 651 / 3601 Balance 880 / 880 -1438 / -558 49 / -509 Weight last 48 hrs Weight 98.883 kg Physical Exam Narrative: EXAM NARRATIVE: GEN: Awake, alert and oriented, no acute distress, sitting in bedside chair CVS: S1S2 N RS: CTA B/L Abd: Soft, nt/nd , bs+, extnesion of streaking upto lower anterior abdomen COMPENSATION AND BENEFITS MANAGER: no focal neuro deficits EXt: RLE ulceration approx 5x3 cm with black eschar over posterior calf, areas of excoriation and discharge over lower end Urinary Catheter Management^: Reyes Latex: Cath Placed During This Visit: yes Reason for Continuing Indwelling Catheter: Accurate Measurement of Urinary Output in Critically Ill Patients Urinary Catheter Date of Insertion: 08/27/20 Urinary Catheter Time of Insertion: 13:00 Data Micro: Micro: Microbiology 08/27/20 12:30 MRSA Culture - Fin al Nose 08/26/20 18:05 Blood Culture - Pr eliminary Blood NEGATIVE TO LOY E 08/26/20 18:05 Blood Culture - Pr eliminary Blood NEGATIVE TO LOY E A&P Assessment and plan (1) Cellulitis: Status: Acute Qualifiers: Site of cellulitis: extremity Site of cellulitis of extremity: lower extremity Laterality: right Qualified Code(s): L03.115 - Cellulitis of right lower limb (2) Peripheral vascular disease: Status: Acute (3) Ischemic cardiomyopathy: Status: Acute (4) Chronic hypoxemic respiratory failure: Status: Acute (5) PAD (peripheral artery disease): Status: Acute Additional A&P Information Patient with mtuliple comorbidities as noted above in HPI, significantly ICMP with EF 20% and peripheral aretry disease with RLE ulceration, now admitted with RLE cellulitis # RLE cellulitis Currenlty on empiric abx with Pip/Tazo and Linezolid empirically, continue same for now and monitor for response. Wound swab cx taken today from discharge and areas of sloughing over the calf ulceration. Cx likely to show multiple skin sunil, however looking to evaluate presence of resistant colonizers so alter abx regimen. Patient remains at risk for recurrent cellulitis and abx failure due to poor peripheral perfusion, inability to debride as needed, persistence of skin breach from ulcer and friable skin # ICMP EF 20% on continuous dobutamine infusion # management of other medical comorbidities per hospitalist team Malinda Ruiz Infectious Disease Coding Level of Care Code Acute Equal Opportunity Representative for [facility] Fwd Diagnoses Cellulitis L03.115 Site of cellulitis: extremity Site of cellulitis of extremity: lower extremity Laterality: right Peripheral vascular disease I73.9 Ischemic cardiomyopathy I25.5 Chronic hypoxemic respiratory failure J96.11 PAD (peripheral artery disease) I73.9
[2020-08-28 06:22] LABS: Potassium 2.7 mmol/L (3.5-5.1)
[2020-08-28] MEDS: HYDROmorphone 1 mg/mL INJ 1 mL 0.5 MG IVP ×2 (06:27→20:57)
[2020-08-28 06:28] LABS: Glucose Point of Care 208 mg/dL (70-110)
[2020-08-28] MEDS: tamsulosin 0.4 mg Capsule PO (08:05)
[2020-08-28] MEDS: isosorbide mononitrate ER 30 mg Tablet PO (08:05)
[2020-08-28] MEDS: TORSEmide 20 mg Tablet 100 MG PO (08:05)
[2020-08-28] MEDS: potassium chloride ER 20 mEq Tablet 60 MEQ PO ×2 (08:05→18:16)
[2020-08-28] MEDS: metOLazone 5 MG Tablet PO (08:05)
[2020-08-28] MEDS: clopidogrel 75 mg Tablet PO (08:05)
[2020-08-28] MEDS: aspirin 81 mg EC Tablet PO (08:05)
[2020-08-28] MEDS: potassium chloride ER 20 mEq Tablet 80 MEQ PO (11:15)
[2020-08-28] MEDS: linezolid premix 600 MG/300 ML PREMIX 300 MG IV (11:23)
[2020-08-28 11:37] LABS: Glucose Point of Care 127 mg/dL (70-110)
--- NOTE | 2020-08-28 11:41 | P.PN_ITS ---
Subjective Subjective: Interval history: No acute events overnight. Patient has remained hemodynamically at baseline, afebrile last 24 hours. Saturating 98% on 4 L. Comfortably sitting in chair. Leg swelling appears mildly better than yesterday. Documented urine output in last 24 hours almost 3 L. I was told by case management that home health services will not be able to provide dobutamine for dobutamine pump while patient is admitted. We will confirm with pharmacy to mix dobutamine at his home dose so that it could be continued. Vitals/I&O/Wt Last Vital Signs Temp 97.6 F 08/28/20 11:03 Pulse 94 08/28/20 11:03 Resp 21 H 08/28/20 11:03 BP 96/53 08/28/20 11:03 Pulse Ox 94 08/28/20 11:03 08/27/20 08/28/20 08/28/20 22:59 06:59 14:59 Intake Total 712 / 2392 700 / 3092 50 / 50 Output Total 2150 / 2950 1001 / 3951 Balance -1438 / -558 -301 / -859 50 / 50 Weight last 48 hrs Weight 98.883 kg Physical Exam Narrative: EXAM NARRATIVE: This is a male who appears more than stated age He seemed to be in distress due to right leg pain Obese male, Awake alert oriented x3 GCS 15 Right lower extremity black eschar extending from his right calf muscle up to lower border of patella fossa, serosanguineous discharge, feeble pulse dorsalis pedis 1+, hyperemia, tender to palpation, right leg swelling greater than left, sensations intact, no critical limb ischemic gangrenous toes, Left lower extremity has abrasion and laceration Hyperemia lower abdominal wall with macular rash No swelling of lips no stridor or wheezing He has pursed lip breathing which seem to be chronic no acute exacerbation No active chest pain Variable S1-S2, clinically looks fluid overloaded Distended abdomen nontender bowel sounds present Bilateral breath sounds with crackles diffuse, no rhonchi or stridor Awake alert oriented x3 Appropriate mood and affect Multiple skin lacerations petechia purpura noted all over his extremities Urinary Catheter Management^: Reyes Latex: Cath Placed During This Visit: yes Reason for Continuing Indwelling Catheter: Accurate Measurement of Urinary Output in Critically Ill Patients Urinary Catheter Date of Insertion: 08/27/20 Urinary Catheter Time of Insertion: 13:00 Data : 08/28/20 03:45 08/28/20 03:45 Micro: Microbiology 08/27/20 12:45 Urine Culture - Preliminary Urine Catheterized 08/27/20 12:30 MRSA Culture - Final Nose 08/26/20 18:05 Blood Culture - Preliminary Blood NEGATIVE TO DATE 08/26/20 18:05 Blood Culture - Preliminary Blood NEGATIVE TO DATE A&P Assessment and plan (1) Cellulitis: Status: Acute Qualifiers: Laterality: right Site of cellulitis: extremity Site of cellulitis of extremity: lower extremity Qualified Code(s): L03.115 - Cellulitis of right lower limb (2) Sepsis: Status: Acute (3) Peripheral vascular disease: Status: Acute (4) Drug reaction: Status: Acute (5) JOANA (acute kidney injury): Status: Acute (6) Ischemic cardiomyopathy: Status: Acute (7) Acute on chronic systolic heart failure: Status: Acute (8) COPD (chronic obstructive pulmonary disease): Status: Acute Qualifiers: COPD type: unspecified COPD Qualified Code(s): J44.9 - Chronic obstructive pulmonary disease, unspecified (9) Nocturnal hypoxia: Status: Acute Additional A&P Information Sepsis secondary to purulent cellulitis of right lower extremity: Failed outpatient therapy(Keflex, Bactrim), symptoms started 2 weeks ago, hyperemia has extending from right calf muscle up to his right thigh also some hyperemia of lower abdominal wall noticed, no fever however he meets sepsis criteria with tachycardia and leukocytosis. Pro-Flavio negative, MRSA negative. Blood cultures have remained negative. Wound culture sent by ID. Will await culture results. For now continue with linezolid and Zosyn at current dose. NORMA consistent with moderate peripheral disease on the right side and mild peripheral disease on the right and left side, venous Doppler negative for DVT but consistent with fluid retention/edema bilaterally below knees. Patient is a poor surgical candidate for any endovascular surgeries because of severe COPD, severe cardiomyopathy on dobutamine drip. We will consult ID for antibiotic recommendations, surgery for wound care recommendations versus possible debridement. For pain Dilaudid 1 mg every 6 hours as needed, tramadol 50 every 8 hours as needed. Continue with dobutamine drip. Maintain systolic blood pressures at baseline of around 90-100 mmHg. Dressing change as per surgical recommendations. CAD/ischemic cardiomyopathy: End-stage heart failure on dobutamine pump as an outpatient. Follows up with faa certified powerplant mechanic service at [facility]. Continue with aspirin, statin, Plavix, ivabradine, Imdur at home dose. Cardiology recommendations appreciated. Continue with torsemide 100 mg daily. Stop metolazone. Start patient on spironolactone 25 mg twice daily at home dose from today evening. Continue Reyes catheterization for 24 more hours for strict input output charting. Start patient on finasteride for BPH. Echocardiogram done shows an EF of around 20% with severe diffuse hypokinesia of septum, anterior septum and LV apex, mildly dilated RV, mild MR, mild TR. Acute kidney injury: This most likely is multifactorial secondary to Bactrim use, aggressive diuresis with torsemide 200 mg dose which was recently readjusted to 100 mg daily, as per the family he has lost 20 pounds in last 2 weeks. Creatinine stable for now. We will continue to monitor. Replete potassium. Monitor for cardiorenal etiology for JOANA with correlation with daily output and creatinine and volume status Will monitor urine output if on the lower side will consult nephrology. Nocturnal hypoxemia: Noncompliant with CPAP Patient only wants to use 6 L of nasal cannula during his hospitalization He was also using Vasquez-Synephrine for nasal congestion which I have discontinued because of his end-stage heart failure condition Continue other chronic oral medications. CODE STATUS: Discussed with daughter on phone and with and patient at bedside. Patient states he has had multiple cardiac arrest and chest compressions in the past and if needed is okay with all of the same again. But is not okay with any surgical interventions as he has been told in the past that he is not a good surgical/anesthetic candidate. Patient is full code. DVT prophylaxis Heparin Cardiac diet Out of bed to chair. Attestations Medical Necessity Statement*: Patient requires further hospitalization for management of sepsis secondary to purulent cellulitis of right lower extremity in setting of severe ischemic cardiomyopathy on dobutamine drip, moderate peripheral vascular disease and acute kidney injury. Time Spent in Patient Care: Greater than 35 minutes Coding Level of Care Code Acute Financing Analyst for [facility] Fwd Diagnoses Cellulitis L03.115 Laterality: right Site of cellulitis: extremity Site of cellulitis of extremity: lower extremity Sepsis A41.9 Peripheral vascular disease I73.9 Drug reaction [id number] JOANA (acute kidney injury) N17.9 Ischemic cardiomyopathy I25.5 Acute on chronic systolic heart failure I50.23 COPD (chronic obstructive pulmonary disease) J44.9 COPD type: unspecified COPD Nocturnal hypoxia G47.34
[2020-08-28] MEDS: TRAMadol 50 mg Tablet PO ×2 (11:45→18:16)
[2020-08-28] MEDS: DOBUTamine drip 500 MG/250 ML PREMIX 14.6 MG IV (16:02)
[2020-08-28 16:04] LABS: Glucose Point of Care 202 mg/dL (70-110)
--- NOTE | 2020-08-28 19:26 | PC.NURSE ---
Dr. Hopkins notified of patient being drowsy and a little bit hard to awaken. Patient was eventually able to awaken to take PO medications and swallowed well. Oxygen saturation currently maintaining at or above 92 percent on nasal cannula. Other VSS. Patient states that he does not feel good, describing it as faint. He is oriented x4.
--- NOTE | 2020-08-28 19:59 | P.PN_ITS ---
Subjective Subjective: Interval history: Patient seems to be feeling little better. The diuretic response seems to be appropriate. Remains afebrile. No chest pain or chest tightness. Medications: Reviewed: Yes Medication Review Details: Current Medications Acetaminophen (Acetaminophen 325 Mg Tablet) 325 mg PO Q4H PRN PRN Reason: Pain Aspirin (Aspirin 81 Mg Ec Tablet) 81 mg PO DAILY@0830 [facility] Last Admin: 08/28/20 08:05 Dose: 81 mg Documented by: Atorvastatin Calcium (Atorvastatin 40 Mg Tablet) 80 mg PO BEDTIME [facility] Last Admin: 08/27/20 20:54 Dose: 80 mg Documented by: Clopidogrel Bisulfate (Clopidogrel 75 Mg Tablet) 75 mg PO DAILY@0830 [facility] Last Admin: 08/28/20 08:05 Dose: 75 mg Documented by: Collagenase (Collagenase Oint 30 Gm) 1 applic TOPICAL DAILY [facility] Last Admin: 08/28/20 08:19 Dose: Not Given Documented by: Dextrose (Dextrose 50% Syringe 50 Ml) 25 ml IVP ONCE PRN; Protocol PRN Reason: hypoglycemia protocol Dextrose (Dextrose 50% Syringe 50 Ml) 50 ml IVP PRN PRN; Protocol PRN Reason: hypoglycemia protocol Docusate Sodium (Docusate Sodium 100 Mg Capsule) 100 mg PO DAILY PRN PRN Reason: constipation Glucagon (Glucagon 1 Mg/Ml Inj 1 Ml) 1 mg IM ONCE PRN; Protocol PRN Reason: Adult Acute Hypoglycemia Prot. Guaifenesin (Guaifenesin 600 Mg Tablet) 600 mg PO BID PRN PRN Reason: Congestion Heparin Sodium (Beef Lung) (Heparin 5,000 Unit/Ml Inj 1 Ml) 5,000 unit SUBCUT Q8H [facility] Last Admin: 08/28/20 15:01 Dose: Not Given Documented by: Hydromorphone HCl (Hydromorphone 1 Mg/Ml Inj 1 Ml) 0.5 mg IVP Q4H PRN PRN Reason: pain scale 5-10 Last Admin: 08/28/20 06:27 Dose: 0.5 mg Documented by: Linezolid (Zyvox Premix) 600 mg in 300 mls @ 300 mls/hr IV Q12H [facility]; Protocol Last Infusion: 08/28/20 13:15 Dose: Infused Documented by: Piperacillin Sod/Tazobactam (Sod 3.375 gm/ Sodium Chloride) 50 mls @ 12.5 mls/hr IV Q8H [facility]; Protocol Last Admin: 08/28/20 18:17 Dose: 12.5 mls/hr Documented by: Dextrose (D5w) 500 mls @ 100 mls/hr IV ONCE PRN; Protocol PRN Reason: Adult Acute Hypoglycemia Prot Dobutamine HCl/Dextrose (Dobutamine Drip) 500 mg in 250 mls @ 14.6 mls/hr IV CONT [facility] Last Admin: 08/28/20 16:02 Dose: 14.6 mls/hr Documented by: Insulin Aspart (Insulin Aspart 100 Unit/1 Ml) 0 unit SUBCUT WM&BEDTIME [facility]; Protocol Last Admin: 08/28/20 18:17 Dose: 6 unit Documented by: Ipratropium [place] (Ipratropium 12.9 Gm Mdi) 2 puff INHALATION Q4H.RESPIRATORY PRN PRN Reason: AIR HUNGER Isosorbide Mononitrate (Isosorbide Mononitrate Er 30 Mg Tablet) 30 mg PO DAILY@829 [facility] Last Admin: 08/28/20 08:05 Dose: 30 mg Documented by: Levalbuterol HCl (Levalbuterol 0.63 Mg/3 Ml Neb) 0.63 mg INHALATION Q4H.RESPIRATORY PRN PRN Reason: SHORTNESS OF BREATH Nitroglycerin (Nitroglycerin 0.4 Mg Sublingual Tablet) 0.4 mg SUBLINGUAL PRN PRN PRN Reason: CHEST PAINS Non-Formulary Medication (Dobutamine [Dobutamine]) 700 mg IVP DIRECTED [facility] Non-Formulary Medication (Oxycodone-Acetaminophen) 1 tab PO TID PRN PRN Reason: Pain Non-Formulary Medication (Ivabradine [Corlanor]) 5 mg PO BID@ [facility] Last Admin: 08/28/20 19:13 Dose: 5 mg Documented by: Potassium Chloride (Potassium Chloride Er 20 Meq Tablet) 60 meq PO BID [facility] Last Admin: 08/28/20 18:16 Dose: 60 meq Documented by: Sodium Chloride (Saline Nasal [place] 44ml Btl) 1 spray NASAL PRN PRN PRN Reason: DRYNESS Spironolactone (Spironolactone 25 Mg Tablet) 25 mg PO DAILY [facility] Tamsulosin HCl (Tamsulosin 0.4 Mg Capsule) 0.4 mg PO DAILY@829 [facility] Last Admin: 08/28/20 08:05 Dose: 0.4 mg Documented by: Torsemide (Torsemide 20 Mg Tablet) 100 mg PO DAILY [facility] Last Admin: 08/28/20 08:05 Dose: 100 mg Documented by: Tramadol HCl (Tramadol 50 Mg Tablet) 50 mg PO Q6H PRN PRN Reason: MODERATE PAIN Last Admin: 08/28/20 18:16 Dose: 50 mg Documented by: Vitals/I&O/Wt Last Vital Signs Temp 97.0 F L 08/28/20 15:12 Pulse 88 08/28/20 19:12 Resp 18 08/28/20 19:12 BP 108/70 08/28/20 19:12 Pulse Ox 99 08/28/20 19:12 08/28/20 08/28/20 08/28/20 06:59 14:59 22:59 Intake Total 700 / 3092 710 / 710 290 / 1000 Output Total 1001 / 3951 1000 / 1000 Balance -301 / -859 710 / 710 -710 / 0 Physical Exam Narrative: EXAM NARRATIVE: GENERAL: The patient is alert and oriented times three. Not in any acute distress. HEENT: Moderate pallor, icterus or lymphadenopathy. The pupils are symmetrical oral cavity: There are no mucous membrane lesions. Funduscopic examination: Fundus is not visualized NECK: Trachea appears to be central. No masses noted. JVD just above the angle of Omar. No thyromegaly appreciated. No carotid bruit. RESPIRATORY: Chest is symmetrical. No intercostals muscle retraction or any accessory muscle activation. There is no chest wall tenderness. Breath sounds are heard bilaterally. No rales or rhonchi heard. No evidence of any consolidation. Diminished intensity of breath sounds in the bases BREASTS: Deferred. HEART: The PMI could not be palpated. First and second heart sounds are normal. Soft S3. Systolic murmur grade 2/6 the mitral area and in the tricuspid area. No diastolic murmurs. No pericardial rub ABDOMEN: Abdomen is distended. Bowel sounds are heard, somewhat sluggish. No abdominal bruit. Diffuse erythema of the lower abdominal wall. : Deferred. RECTAL: Deferred. LYMPHATIC: No lymphadenopathy noted in the neck or groin. EXTREMITIES: 2-3+ edema both lower extremities. Superficial ulceration bilaterally in the below-knee area mostly in the calf region. The ulcerations are covered with necrotic tissue MUSCULOSKELETAL: No acute joint deformities swelling SKIN: Diffuse erythematous skin in the lower extremities NEUROPSYCHIATRIC: The patient is alert and oriented x3. Appears to be in a good mood. The higher functions are grossly within normal limits. No tremors or rigidity noted. Urinary Catheter Management^: Reyes Latex: Cath Placed During This Visit: yes Reason for Continuing Indwelling Catheter: Accurate Measurement of Urinary Output in Critically Ill Patients Urinary Catheter Date of Insertion: 08/27/20 Urinary Catheter Time of Insertion: 13:00 Data : 08/28/20 03:45 08/28/20 03:45 Micro: Microbiology 08/27/20 12:45 Urine Culture - Preliminary Urine Catheterized 08/27/20 12:30 MRSA Culture - Final Nose 08/26/20 18:05 Blood Culture - Preliminary Blood NEGATIVE TO DATE 08/26/20 18:05 Blood Culture - Preliminary Blood NEGATIVE TO DATE A&P Assessment and plan (1) Acute on chronic systolic heart failure: May continue on the current dose of the diuretics. We will supplement the potassium. I may add a small dose of ARB namely losartan 25 mg daily Status: Acute (2) ASHD (arteriosclerotic heart disease): Since the patient has no specific symptoms of coronary insufficiency, may not require any further investigations at this time. Advised to continue on the current medications. Importance of compliance to diet and exercise were discussed which the patient seems to understand well. Status: Acute (3) PAD (peripheral artery disease): Patient has bilateral peripheral arterial disease. The nonhealing ulcers, etiology is unclear. The peripheral edema, diabetes, dependency, etc. are cardiorenal factors. Status: Acute (4) Chronic hypoxemic respiratory failure: Currently respiratory status seems to be stable. Status: Acute (5) Ischemic cardiomyopathy: Repeat echocardiogram revealed ejection fraction around 20% . Severe diffuse hypokinesis left ventricle. Status: Acute (6) JOANA (acute kidney injury): Will be closely monitor the kidney function. Supplemental potassium Status: Acute (7) Cellulitis: IV antibiotics as per the primary. Status: Acute Qualifiers: Site of cellulitis: extremity Site of cellulitis of extremity: lower extremity Laterality: right Qualified Code(s): L03.115 - Cellulitis of right lower limb Additional A&P Information Other problems are Hypokalemia, supplement potassium Generalized debilitation COPD Carotid artery disease Attestations Medical Necessity Statement*: Patient requires continued hospital stay for close monitoring and further management Coding Level of Care Code Acute Receptionist Doctor'S Office for [facility] Fwd Diagnoses Acute on chronic systolic heart failure I50.23 ASHD (arteriosclerotic heart disease) I25.10 PAD (peripheral artery disease) I73.9 Chronic hypoxemic respiratory failure J96.11 Ischemic cardiomyopathy I25.5 JOANA (acute kidney injury) N17.9 Cellulitis L03.115 Site of cellulitis: extremity Site of cellulitis of extremity: lower extremity Laterality: right
--- NOTE | 2020-08-28 20:16 | PM.EVENT ---
Event Note Event Note: Patient was evaluated for drowsiness When I entered the room patient was awake, he responded well to my questions she did not complain of active chest pain leg pain shortness of breath He was awake alert x3 No neurological deficit Bilateral symmetrical pupils reactive to light He is responding well to commands Systolic blood pressure 105 210 Urine bag has blood-tinged urine No acute respiratory distress Distended abdomen, nontender Assessment and plan Blood sugar check 175 mg/dL I would cut down his opioids overnight monitor his neurological status closely, right now he does not need a stat CT scan head, hemodynamically seems stable, NIH 0 Requested ammonia level and ABG Nurse updated
[2020-08-28 20:26] LABS: Ammonia 51 umol/L (16-60)
[2020-08-28 20:44] LABS: Glucose Point of Care 175 mg/dL (70-110)
[2020-08-28 20:47] LABS: ABG PH Result 7.48 (7.35-7.45); Arterial Blood Gas Hematocrit 35.1 % (42-52); Base Excess ABG 8.7 mmol/L (-2.0-2.0); Blood Gas Operator Identificat HARKR; Blood Gas Sample Site Brachial, right; Blood Gas Sample Type Arterial; HCO3 ABG 33.3 mmol/L (22-26); Oxygen Device NC
[2020-08-28] MEDS: atorvastatin 40 mg Tablet 80 MG PO (20:48)
--- NOTE | 2020-08-28 20:54 | PC.NURSE ---
Dr. Hopkins notified of patient refusing his Heparin SQ. Patient has been educated on risks associated with refusal and verbalized understanding.
[2020-08-29] VITALS (45 sets, daily range): BP systolic 67–171; BP diastolic 39–89; PULSE 68–102; RESP 13–32; TEMP 35.9–37.1; O2SAT 81–100
[2020-08-29] MEDS: linezolid premix 600 MG/300 ML PREMIX 300 MG IV ×3 (00:09→23:30)
[2020-08-29] MEDS: piperacillin-tazobactam 3.375 GM in sodium chloride 0.9% (plus) 50 ML IV ×3 (03:38→18:23)
--- NOTE | 2020-08-29 03:48 | PC.NURSE ---
Patient has not had anymore drowsy episodes. Patient has been awake and alert. Patient was assisted from bed to chair.
[2020-08-29 04:27] LABS: Alanine Aminotransferase 14 U/L (0-41); Albumin Level 4.1 g/dL (3.5-5.2); Alkaline Phosphatase 91 IU/L (40-130); Anion Gap 14.4 (5-19); Aspartate Amino Transferase 18 U/L (0-40); Blood Urea Nitrogen 44 mg/dL (8-23); Calcium 9.6 mg/dL (8.5-10.5); Carbon Dioxide 29 mmol/L (22-29); Chloride 93 mmol/L (98-107); Globulin 3.4 g/dL (1.3-4.6); Glomerular Filtration Rate 46.7 mL/min (90-130); Glucose 154 mg/dL (65-115); Osmolality Calculated 288 mOsm/kg (285-295); Potassium 4.4 mmol/L (3.5-5.1); Sodium 132 mmol/L (136-145); Total Bilirubin 0.7 mg/dL (0.15-1.2); Total Protein 7.5 g/dL (6.6-8.7)
[2020-08-29] MEDS: TRAMadol 50 mg Tablet PO ×2 (05:43→20:56)
--- NOTE | 2020-08-29 05:49 | PC.NURSE ---
Patient asked that dressing to right lower leg be removed. Patient refuses to have another dressing put on at this time.
[2020-08-29 06:31] LABS: Glucose Point of Care 148 mg/dL (70-110)
[2020-08-29] MEDS: aspirin 81 mg EC Tablet PO (09:42)
[2020-08-29] MEDS: losartan 50 mg Tablet 25 MG PO (09:43)
[2020-08-29] MEDS: clopidogrel 75 mg Tablet PO (09:43)
[2020-08-29] MEDS: tamsulosin 0.4 mg Capsule PO (09:43)
[2020-08-29] MEDS: TORSEmide 20 mg Tablet 100 MG PO (09:43)
[2020-08-29] MEDS: isosorbide mononitrate ER 30 mg Tablet PO (09:44)
[2020-08-29] MEDS: potassium chloride ER 20 mEq Tablet 60 MEQ PO (09:59)
--- NOTE | 2020-08-29 10:00 | PM.PN ---
Subjective Subjective: Interval history: Infectious disease progress note No new complaints today, states that his leg feels slightly better today. Medications: Reviewed: Yes Vitals/I&O/Wt Last Vital Signs Temp 98.3 F 08/29/20 10:50 Pulse 80 08/29/20 10:50 Resp 32 H 08/29/20 10:50 BP 96/60 08/29/20 10:50 Pulse Ox 96 08/29/20 10:50 08/28/20 08/29/20 08/29/20 22:59 06:59 14:59 Intake Total 440 / 1150 500 / 1650 595.208 / 595.208 Output Total 1000 / 1000 800 / 1800 Balance -560 / 150 -300 / -150 595.208 / 595.208 Weight last 48 hrs Weight 99.79 kg Physical Exam Narrative: EXAM NARRATIVE: GEN: Awake, alert and oriented, sitting in bed at the edge. CVS: S1S2 N RS: Bilateral basilar crackles to auscultation Abd: Soft, mildly distended, lower abdominal cellulitis appears to be improving INDUSTRIAL SERVICES WORKER: no focal neuro deficits Extremities right lower extremity cellulitis appears to be improving today Urinary Catheter Management^: Reyes Latex: Cath Placed During This Visit: yes, but has since been removed by the nurse Reason for Continuing Indwelling Catheter: Accurate Measurement of Urinary Output in Critically Ill Patients Urinary Catheter Date of Insertion: 08/27/20 Urinary Catheter Time of Insertion: 13:00 Date Urinary Catheter Removed: 08/29/20 Time Urinary Catheter Discontinued: 13:19 Data : 08/28/20 03:45 08/29/20 03:30 Micro: Microbiology 08/28/20 13:15 Wound Culture - Preliminary Leg - #1 Enterococcus species 08/27/20 12:45 Urine Culture - Final Urine Catheterized A&P Assessment and plan (1) Cellulitis: Status: Acute Qualifiers: Site of cellulitis: extremity Site of cellulitis of extremity: lower extremity Laterality: right Qualified Code(s): L03.115 - Cellulitis of right lower limb (2) Peripheral vascular disease: Status: Acute (3) Ischemic cardiomyopathy: Status: Acute (4) Chronic hypoxemic respiratory failure: Status: Acute (5) PAD (peripheral artery disease): Status: Acute Additional A&P Information Patient with mtuliple comorbidities as noted above in HPI, significantly ICMP with EF 20% and peripheral aretry disease with RLE ulceration, now admitted with RLE cellulitis # RLE cellulitis Currenlty on empiric abx with Pip/Tazo and Linezolid , continue same for now, leg is improving today, less erythematous and less intense today compared to yesterday's exam. Wound swab cx with Enterococcus species identified, currently appropriately covered with above therapy. Cx likely to show multiple skin sunil, however looking to evaluate presence of resistant colonizers to alter abx regimen if needed Patient remains at risk for recurrent cellulitis and abx failure due to poor peripheral perfusion, inability to debride as needed, persistence of skin breach from ulcer and friable skin # ICMP EF 20% on continuous dobutamine infusion # management of other medical comorbidities per hospitalist team Malinda Ruiz Infectious Disease Attestations Medical Necessity Statement*: Please see admitting team's annotation Coding Level of Care Code Acute Rehabilitation Aide for [employer] [facility] Diagnoses Cellulitis L03.115 Site of cellulitis: extremity Site of cellulitis of extremity: lower extremity Laterality: right Peripheral vascular disease I73.9 Ischemic cardiomyopathy I25.5 Chronic hypoxemic respiratory failure J96.11 PAD (peripheral artery disease) I73.9
[2020-08-29 11:22] LABS: Glucose Point of Care 184 mg/dL (70-110)
--- NOTE | 2020-08-29 11:52 | PM.PN ---
Subjective Subjective: Interval history: Patient seen multiple times during the day. When seen early in the morning patient was having breakfast and had just gotten off the commode. He states he has been having diarrhea on and off. He is at his baseline of his blood pressure with 92 systolic while dobutamine drip is running. He states he is feeling okay denies any nausea, vomiting, headache, difficulty breathing. He is saturating 92% at 5.5 L/min. During the day patient was comfortable and Reyes catheter was removed. He had 350 cc of urine during the whole day. Around 1:30 PM he got a call from RN taking care of patient that he is complaining of chest pain at that time I was informed his blood pressures were 68 systolics and somehow dobutamine drip was stopped at 9:30 AM. At that time dobutamine drip was started immediately and nurse was instructed not to stop or decrease the dobutamine drip below 14.3 at no cost. Post this patient's blood pressure improved to 70 systolic but patient continued to remain drowsy but was responding on and off. Patient was given a bolus of 500 cc and given albumin and was asked to be transferred to the ICU after increasing the dobutamine at 20 cc/h. Cheetah was performed with the ICU where the value was -3.6 and patient was not fluid responsive. Bladder scan was done with 80 cc of urine. All the above were explained to patient, patient's and daughter Tamera and discussed in detail. Vitals/I&O/Wt Last Vital Signs Temp 98.3 F 08/29/20 10:50 Pulse 80 08/29/20 10:50 Resp 32 H 08/29/20 10:50 BP 96/60 08/29/20 10:50 Pulse Ox 96 08/29/20 10:50 08/28/20 08/29/20 08/29/20 22:59 06:59 14:59 Intake Total 440 / 1150 500 / 1650 45.208 / 45.208 Output Total 1000 / 1000 800 / 1800 Balance -560 / 150 -300 / -150 45.208 / 45.208 Weight last 48 hrs Weight 99.79 kg Physical Exam Narrative: EXAM NARRATIVE: This is a male who appears more than stated age He seemed to be in distress due to right leg pain Obese male, Awake alert oriented x3 GCS 15 Right lower extremity black eschar extending from his right calf muscle up to lower border of patella fossa, serosanguineous discharge, feeble pulse dorsalis pedis 1+, hyperemia, tender to palpation, right leg swelling greater than left, sensations intact, no critical limb ischemic gangrenous toes, Left lower extremity has abrasion and laceration Hyperemia lower abdominal wall with macular rash No swelling of lips no stridor or wheezing He has pursed lip breathing which seem to be chronic no acute exacerbation No active chest pain Variable S1-S2, clinically looks fluid overloaded Distended abdomen nontender bowel sounds present Bilateral breath sounds with crackles diffuse, no rhonchi or stridor Awake alert oriented x3 Appropriate mood and affect Multiple skin lacerations petechia purpura noted all over his extremities Urinary Catheter Management^: Reyes Latex: Cath Placed During This Visit: yes Reason for Continuing Indwelling Catheter: Accurate Measurement of Urinary Output in Critically Ill Patients Urinary Catheter Date of Insertion: 08/27/20 Urinary Catheter Time of Insertion: 13:00 Data : 08/28/20 03:45 08/29/20 03:30 Micro: Microbiology 08/28/20 13:15 Wound Culture - Preliminary Leg - #1 Enterococcus species 08/27/20 12:45 Urine Culture - Final Urine Catheterized A&P Assessment and plan (1) Cardiogenic shock: Status: Acute (2) Cellulitis: Status: Acute Qualifiers: Laterality: right Site of cellulitis: extremity Site of cellulitis of extremity: lower extremity Qualified Code(s): L03.115 - Cellulitis of right lower limb (3) Peripheral vascular disease: Status: Acute (4) Ischemic cardiomyopathy: Status: Acute (5) Chronic hypoxemic respiratory failure: Status: Acute (6) PAD (peripheral artery disease): Status: Acute (7) Acute on chronic systolic heart failure: Status: Acute (8) COPD (chronic obstructive pulmonary disease): Status: Acute Qualifiers: COPD type: unspecified COPD Qualified Code(s): J44.9 - Chronic obstructive pulmonary disease, unspecified Additional A&P Information Cardiogenic shock: Most likely because dobutamine drip was stopped in between for couple of hours. Antihypertensives were given. Increase the dobutamine drip and continue 20 mics per hour for now. As per [facility] evaluation patient is not fluid responsive. We will repeat albumin as needed. Can add Levophed we will try to avoid as that can be arrhythmogenic especially with EF of 20% but if needed will add trying to keep mean arterial pressure between 55 mmHg to 60 mmHg. Continue to monitor urine output. CAD/ischemic cardiomyopathy: End-stage heart failure on dobutamine pump as an outpatient. Follows up with geography teacher service at [facility]. Continue with aspirin, statin, Plavix, ivabradine. For now hold off on antihypertensives including home dose of Imdur and losartan which was started today as per cardiology recommendations., For now hold off on diuretics. Will dose diuretics daily as per the fluid status. Echocardiogram done shows an EF of around 20% with severe diffuse hypokinesia of septum, anterior septum and LV apex, mildly dilated RV, mild MR, mild TR. Sepsis secondary to purulent cellulitis of right lower extremity: Failed outpatient therapy(Keflex, Bactrim), symptoms started 2 weeks ago, hyperemia has extending from right calf muscle up to his right thigh also some hyperemia of lower abdominal wall noticed, no fever however he meets sepsis criteria with tachycardia and leukocytosis. Pro-Flavio negative, MRSA negative. Blood cultures, and urine culture have remained negative so far. Wound culture for now growing Enterococcus. Sensitivities awaited. For now continue with linezolid and Zosyn at current dose. NORMA consistent with moderate peripheral disease on the right side and mild peripheral disease on the right and left side, venous Doppler negative for DVT but consistent with fluid retention/edema bilaterally below knees. Patient is a poor surgical candidate for any endovascular surgeries because of severe COPD, severe cardiomyopathy on dobutamine drip. We will consult ID for antibiotic recommendations, surgery for wound care recommendations versus possible debridement. Decrease Dilaudid to 0.5 every 6 hours as needed. Dressing change as per surgical recommendations. Appreciate cardiology, ID, surgical recommendations. Acute kidney injury: Mildly better today. This most likely is multifactorial secondary to Bactrim use, aggressive diuresis with torsemide 200 mg dose which was recently readjusted to 100 mg daily, as per the family he has lost 20 pounds in last 2 weeks. Creatinine stable for now. We will continue to monitor. Replete potassium. For now dose diuretic daily as per the fluid status. Monitor for cardiorenal etiology for JOANA with correlation with daily output and creatinine and volume status Will monitor urine output if on the lower side will consult nephrology. Nocturnal hypoxemia: Noncompliant with CPAP Patient only wants to use 6 L of nasal cannula during his hospitalization He was also using Vasquez-Synephrine for nasal congestion which I have discontinued because of his end-stage heart failure condition Continue other chronic oral medications. CODE STATUS: Discussed with daughter on phone and with and patient at bedside. Patient states he has had multiple cardiac arrest and chest compressions in the past and if needed is okay with all of the same again. But is not okay with any surgical interventions as he has been told in the past that he is not a good surgical/anesthetic candidate. Patient is full code. DVT prophylaxis Heparin N.p.o. for now. Out of bed to chair. Severely guarded prognosis. Continue ICU care for now. Attestations Medical Necessity Statement*: Needs controlled hospitalization for management of cardiogenic shock, JOANA, cellulitis in setting of end-stage COPD, end-stage heart failure on dobutamine drip Critical Care Time: Critical Care Time (min): 120 Coding Level of Care Code Acute It Solutions Architect for [facility] Diagnoses Cardiogenic shock R57.0 Cellulitis L03.115 Laterality: right Site of cellulitis: extremity Site of cellulitis of extremity: lower extremity Peripheral vascular disease I73.9 Ischemic cardiomyopathy I25.5 Chronic hypoxemic respiratory failure J96.11 PAD (peripheral artery disease) I73.9 Acute on chronic systolic heart failure I50.23 COPD (chronic obstructive pulmonary disease) J44.9 COPD type: unspecified COPD
[2020-08-29] MEDS: HYDROmorphone 1 mg/mL INJ 1 mL 0.5 MG IVP ×2 (13:32→23:43)
[2020-08-29] MEDS: spironolactone 25 mg Tablet PO (13:33)
--- NOTE | 2020-08-29 13:36 | ECG_ITS ---
[facility] Test Date: 2020-08-29 Pat Name: Ramy Lawler Department: Room: 104 Gender: Male Smasher: : 1950 Requested By: Mark Javier Order Number: [id number] Aristeo MD: Ai Faustin M.D. Measurements Intervals Nada Rate: 72 P: 52 ND: 160 QRS: 31 QRSD: 89 T: 94 QT: 395 QTc: 433 Interpretive Statements SINUS RHYTHM INDETERMINATE AXIS LOW QRS VOLTAGE IN EXTREMITY LEADS [QRS DEFLECTION < 0.5 mV IN LIMB LEADS] POSSIBLE ANTERIOR MYOCARDIAL INFARCTION , PROBABLY OLD [30 ms Q WAVE IN V3/V4, OR R < 0.2 mV IN V4] Compared to ECG 08/27/2020 00:30:54 Indeterminate axis now present Myocardial infarct finding now present Electronically Signed On 08-29-2020 21:21:35 BONE CRUSHER by Ai Faustin M.D. [id number]
[2020-08-29] MEDS: DOBUTamine drip 500 MG/250 ML PREMIX 14.6 MG IV (14:03)
[2020-08-29 14:24] LABS: Troponin(5th) Baseline 128 ng/L (0-15)
[2020-08-29] MEDS: sodium chloride 0.9% 500 ML 999 ML IV (14:40)
--- NOTE | 2020-08-29 15:18 | P.PN_ITS ---
Subjective Subjective: Interval history: The erythema has improved significantly over the last 48 hours, patient OptiForm dressings does not stay in place and he has finally agreed to have his legs wrapped Vitals/I&O/Wt Last Vital Signs Temp 98.8 F 08/29/20 15:04 Pulse 102 H 08/29/20 15:04 Resp 15 08/29/20 15:04 BP 171/89 08/29/20 15:04 Pulse Ox 94 08/29/20 15:04 08/29/20 08/29/20 08/29/20 06:59 14:59 22:59 Intake Total 500 / 1650 595.208 / 595.208 Output Total 800 / 1800 Balance -300 / -150 595.208 / 595.208 Weight last 48 hrs Weight 220 lb Physical Exam Narrative: EXAM NARRATIVE: Bilateral lower extremity: Multiple small wounds in the posterior aspect of the right leg and a few on the left leg erythema significantly improved, bilateral pedal edema Urinary Catheter Management^: Reyes Latex: Cath Placed During This Visit: yes, but has since been removed by the nurse Reason for Continuing Indwelling Catheter: Accurate Measurement of Urinary O utput in Critically Ill Patients Urinary Catheter Date of Insertion: 08/27/20 Urinary Catheter Time of Insertion: 13:00 Date Urinary Catheter Removed: 08/29/20 Time Urinary Catheter Discontinued: 13:19 Data : 08/28/20 03:45 08/29/20 03:30 Micro: Microbiology 08/28/20 13:15 Wound Culture - Preliminary Leg - #1 Enterococcus species 08/27/20 12:45 Urine Culture - Final Urine Catheterized A&P Assessment and plan (1) Cellulitis: 69-year-old male with bilateral lower extremity wounds right greater than the left with associated cellulitis improved significantly with IV antibiotics Continue with daily dressing change using Santyl, ABDs and Kerlix gauze to wrap the lower extremities. Status: Acute Qualifiers: Site of cellulitis: extremity Site of cellulitis of extremity: lower extremity Laterality: right Qualified Code(s): L03.115 - Cellulitis of right lower limb Attestations Medical Necessity Statement*: Cellulitis bilateral lower extremity Coding Level of Care Code Acute Real Estate Officer for [facility] Diagnoses Cellulitis L03.115 Site of cellulitis: extremity Site of cellulitis of extremity: lower extremity Laterality: right
--- NOTE | 2020-08-29 15:19 | PC.NURSE ---
Addendum entered by Teresa Neal RN 08/29/20 17:56: 1519 Dr pisano notified of in ability to reach spouse no further instructions at this time however verbalized he would be speaking with the spouse. Original Note: 1330 patient reports chest pain and back pain 06/29 patient asking for the one that goes under my tongue Blood pressure assessed and found to 65/43 Dr. Javier notified of events, instructions to ensure dobutamine drip is running explained to Dr javier the drip had not been running, instructions to restart drip immediately, Drip started right then. patient began to stablaize and stated Im feeling better now patient laid back in bed. patient blood pressure remaining low with systolic of 67 Dr javier called to bedside immediately. patient transferred to ICU for titration on medications. attempts made to notify of transfer no answer at number provided on EMR
[2020-08-29] MEDS: albumin 12.5 GM/50 ML VIAL IV ×2 (15:33→20:56)
--- NOTE | 2020-08-29 15:56 | PC.NURSE ---
received patient from CSU nurse danica. Per report patient's dobutamine continuous drip was stopped for unknown amount of time and restarted around 1330 per RN. MD wants pressures 90-100 systolic and map 55-60. Patient also has not urinated yet so stated I could place stovall catheter.
[2020-08-29] MEDS: heparin 5,000 unit/mL INJ 1 mL 5000 UNIT SUBCUT ×2 (16:08→20:57)
[2020-08-29 16:45] LABS: Troponin 5 2HR 144.8 ng/L (0-15); Troponin 5 2HR Delta 16.8 ABS# (0-10)
--- NOTE | 2020-08-29 17:35 | PM.PN ---
Subjective Subjective: Interval history: The patient is feeling okay. Denies any chest pain or chest tightness. He looks more allergic and tired. He apparently was found to be hypotensive, this afternoon in the telemetry floor. He was off the Dobutrex for 3 hours. His blood pressure dropped to the upper 60s and low 70s. He was moved to the ICU. Denies any chest pain or chest tightness. No fever or chills. No cough. Currently he is on a Dobutrex of 20 mics per KG per minute. Blood pressure seems to be improving slowly. He had some hematuria. The Reyes's catheter was removed. Medications: Reviewed: Yes Medication Review Details: Current Medications Acetaminophen (Acetaminophen 325 Mg Tablet) 325 mg PO Q4H PRN PRN Reason: Pain Aspirin (Aspirin 81 Mg Ec Tablet) 81 mg PO DAILY@0830 [facility] Last Admin: 08/29/20 09:42 Dose: 81 mg Documented by: Atorvastatin Calcium (Atorvastatin 40 Mg Tablet) 80 mg PO BEDTIME [facility] Last Admin: 08/28/20 20:48 Dose: 80 mg Documented by: Clopidogrel Bisulfate (Clopidogrel 75 Mg Tablet) 75 mg PO DAILY@0830 [facility] Last Admin: 08/29/20 09:43 Dose: 75 mg Documented by: Collagenase (Collagenase Oint 30 Gm) 1 applic TOPICAL DAILY [facility] Last Admin: 08/29/20 15:10 Dose: Not Given Documented by: Dextrose (Dextrose 50% Syringe 50 Ml) 25 ml IVP ONCE PRN; Protocol PRN Reason: hypoglycemia protocol Dextrose (Dextrose 50% Syringe 50 Ml) 50 ml IVP PRN PRN; Protocol PRN Reason: hypoglycemia protocol Docusate Sodium (Docusate Sodium 100 Mg Capsule) 100 mg PO DAILY PRN PRN Reason: constipation Finasteride (Finasteride 5 Mg Tablet) 5 mg PO BEDTIME [facility] Glucagon (Glucagon 1 Mg/Ml Inj 1 Ml) 1 mg IM ONCE PRN; Protocol PRN Reason: Adult Acute Hypoglycemia Prot. Guaifenesin (Guaifenesin 600 Mg Tablet) 600 mg PO BID PRN PRN Reason: Congestion Heparin Sodium (Beef Lung) (Heparin 5,000 Unit/Ml Inj 1 Ml) 5,000 unit SUBCUT Q8H [facility] Last Admin: 08/29/20 16:08 Dose: 5,000 unit Documented by: Hydromorphone HCl (Hydromorphone 1 Mg/Ml Inj 1 Ml) 0.5 mg IVP Q6H PRN PRN Reason: pain scale 5-10 Last Admin: 08/29/20 13:32 Dose: 0.5 mg Documented by: Linezolid (Zyvox Premix) 600 mg in 300 mls @ 300 mls/hr IV Q12H [facility]; Protocol Last Infusion: 08/29/20 14:06 Dose: Infused Documented by: Piperacillin Sod/Tazobactam (Sod 3.375 gm/ Sodium Chloride) 50 mls @ 12.5 mls/hr IV Q8H [facility]; Protocol Last Admin: 08/29/20 12:20 Dose: 12.5 mls/hr Documented by: Dextrose (D5w) 500 mls @ 100 mls/hr IV ONCE PRN; Protocol PRN Reason: Adult Acute Hypoglycemia Prot Dobutamine HCl/Dextrose (Dobutamine Drip) 500 mg in 250 mls @ 20 mls/hr IV CONT [facility] Last Infusion: 08/29/20 15:00 Dose: 20 mls/hr Documented by: Norepinephrine Bitartrate 4 mg (/ Dextrose) 254 mls @ 0 mls/hr IV .Q0M [facility]; Protocol Last Admin: 08/29/20 16:56 Dose: 2 mcg/min, 7.6 mls/hr Documented by: Insulin Aspart (Insulin Aspart 100 Unit/1 Ml) 0 unit SUBCUT WM&BEDTIME [facility]; Protocol Last Admin: 08/29/20 12:21 Dose: 6 unit Documented by: Ipratropium [place] (Ipratropium 12.9 Gm Mdi) 2 puff INHALATION Q4H.RESPIRATORY PRN PRN Reason: AIR HUNGER Isosorbide Mononitrate (Isosorbide Mononitrate Er 30 Mg Tablet) 30 mg PO DAILY@0830 [facility] Last Admin: 08/29/20 09:44 Dose: 30 mg Documented by: Levalbuterol HCl (Levalbuterol 0.63 Mg/3 Ml Neb) 0.63 mg INHALATION Q4H.RESPIRATORY PRN PRN Reason: SHORTNESS OF BREATH Losartan Potassium (Losartan 50 Mg Tablet) 25 mg PO DAILY [facility] Last Admin: 08/29/20 09:43 Dose: 25 mg Documented by: Nitroglycerin (Nitroglycerin 0.4 Mg Sublingual Tablet) 0.4 mg SUBLINGUAL PRN PRN PRN Reason: CHEST PAINS Non-Formulary Medication (Dobutamine [Dobutamine]) 700 mg IVP DIRECTED [facility] Non-Formulary Medication (Oxycodone-Acetaminophen) 1 tab PO TID PRN PRN Reason: Pain Non-Formulary Medication (Ivabradine [Corlanor]) 5 mg PO BID@0830,1999 [facility] Last Admin: 08/29/20 09:58 Dose: 5 mg Documented by: Potassium Chloride (Potassium Chloride Er 20 Meq Tablet) 60 meq PO BID [facility] Last Admin: 08/29/20 09:59 Dose: 60 meq Documented by: Sodium Chloride (Saline Nasal [place] 44ml Btl) 1 spray NASAL PRN PRN PRN Reason: DRYNESS Spironolactone (Spironolactone 25 Mg Tablet) 25 mg PO DAILY [facility] Last Admin: 08/29/20 13:33 Dose: 25 mg Documented by: Tamsulosin HCl (Tamsulosin 0.4 Mg Capsule) 0.4 mg PO DAILY@08 [facility] Last Admin: 08/29/20 09:43 Dose: 0.4 mg Documented by: Torsemide (Torsemide 20 Mg Tablet) 100 mg PO DAILY [facility] Last Admin: 08/29/20 09:43 Dose: 100 mg Documented by: Tramadol HCl (Tramadol 50 Mg Tablet) 50 mg PO Q8H PRN PRN Reason: MODERATE PAIN Vitals/I&O/Wt Last Vital Signs Temp 98.8 F 08/29/20 15:04 Pulse 68 08/29/20 17:00 Resp 21 H 08/29/20 17:00 BP 74/49 08/29/20 17:00 Pulse Ox 94 08/29/20 16:45 08/29/20 08/29/20 08/29/20 06:59 14:59 22:59 Intake Total 500 / 1650 595.208 / 595.208 563.87 / 1159.078 Output Total 800 / 1800 Balance -300 / -150 595.208 / 595.208 563.87 / 1159.078 Weight last 48 hrs Weight 220 lb Physical Exam Narrative: EXAM NARRATIVE: GENERAL: The patient is alert and oriented times three. Not in any acute distress. Lethargic. HEENT: Moderate pallor, icterus or lymphadenopathy. The pupils are symmetrical oral cavity: There are no mucous membrane lesions. NECK: Trachea appears to be central. No masses noted. JVD just above the angle of Omar. No thyromegaly appreciated. No carotid bruit. RESPIRATORY: Chest is symmetrical. No intercostals muscle retraction or any accessory muscle activation. There is no chest wall tenderness. Breath sounds are heard bilaterally. No rales or rhonchi heard. No evidence of any consolidation. Diminished intensity of breath sounds in the bases BREASTS: Deferred. HEART: The PMI could not be palpated. First and second heart sounds are normal. Soft S3. Systolic murmur grade 2/6 the mitral area and in the tricuspid area. No diastolic murmurs. No pericardial rub ABDOMEN: Abdomen is distended, some improvement since yesterday. Bowel sounds are heard. No abdominal bruit. Diffuse erythema of the lower abdominal wall. : Deferred. RECTAL: Deferred. LYMPHATIC: No lymphadenopathy noted in the neck or groin. EXTREMITIES: 2-3+ edema both lower extremities. Superficial ulceration bilaterally in the below-knee area mostly in the calf region. The ulcerations are covered with necrotic tissue. The redness is improving MUSCULOSKELETAL: No acute joint deformities swelling SKIN: Diffuse erythematous skin in the lower extremities NEUROPSYCHIATRIC: The patient is alert and oriented x3. The higher functions are grossly within normal limits. No tremors or rigidity noted. Urinary Catheter Management^: Reyes Latex: Cath Placed During This Visit: yes, but has since been removed by the nurse Reason for Continuing Indwelling Catheter: Accurate Measurement of Urinary Output in Critically Ill Patients Urinary Catheter Date of Insertion: 08/27/20 Urinary Catheter Time of Insertion: 13:00 Date Urinary Catheter Removed: 08/29/20 Time Urinary Catheter Discontinued: 13:19 Data : 08/28/20 03:45 08/29/20 03:30 Micro: Microbiology 08/28/20 13:15 Wound Culture - Preliminary Leg - #1 Enterococcus species 08/27/20 12:45 Urine Culture - Final Urine Catheterized A&P Assessment and plan (1) Hypotension arterial: This is multifactorial. Seems to be slowly improving with the Dobutrex. Status: Acute Qualifiers: Hypotension type: other hypotension type Qualified Code(s): I95.89 - Other hypotension (2) Acute on chronic systolic heart failure: Continue careful IV diuresis. Status: Acute (3) ASHD (arteriosclerotic heart disease): Since the patient has no specific symptoms of coronary insufficiency, may not require any further investigations at this time. We will continue the current medications. Status: Acute (4) PAD (peripheral artery disease): Patient has bilateral peripheral arterial disease. We will continue on the current treatment. The ulcer seems to be slowly healing Status: Acute (5) Ischemic cardiomyopathy: Repeat echocardiogram revealed ejection fraction around 20% . Severe diffuse hypokinesis left ventricle. Medication options are limited. Patient and the family understands this. Status: Acute (6) JOANA (acute kidney injury): Will be closely monitor the kidney function. Potassium is in the normal range. Status: Acute (7) Cellulitis: IV antibiotics as per the primary. Status: Acute Qualifiers: Laterality: right Site of cellulitis: extremity Site of cellulitis of extremity: lower extremity Qualified Code(s): L03.115 - Cellulitis of right lower limb Additional A&P Information Other problems are Hypokalemia, currently corrected. Generalized debilitation COPD Carotid artery disease Losartan is discontinued. Patient is being closely monitored in the ICU. Discussed with the family() his current condition. The family is well aware of the prognosis. Attestations Medical Necessity Statement*: Patient requires continued hospital stay for close monitoring and further management Coding Level of Care Code Acute Cash Checker for [facility] Fwd Diagnoses Hypotension arterial I95.89 Hypotension type: other hypotension type Acute on chronic systolic heart failure I50.23 ASHD (arteriosclerotic heart disease) I25.10 PAD (peripheral artery disease) I73.9 Ischemic cardiomyopathy I25.5 JOANA (acute kidney injury) N17.9 Cellulitis L03.115 Laterality: right Site of cellulitis: extremity Site of cellulitis of extremity: lower extremity
[2020-08-29 17:56] LABS: Glucose Point of Care 107 mg/dL (70-110)
--- NOTE | 2020-08-29 18:07 | PC.NURSE ---
Notified MD of patient unable to place stovall. Patient screaming in pain. Hematuria coming out of stovall. Bladder scanned patient and only had 79ml on scan. Contacted MD and notified of this and he came to bedside explaining to that we will continue to bladder scan patients bladder until need for stovall and if patient doesnt pee he will need stovall. Also, Md ordered patient to be NPO.
--- NOTE | 2020-08-29 18:24 | PC.NURSE ---
aware of troponins. see lab results.
--- NOTE | 2020-08-29 18:44 | PC.NURSE ---
Performed cheetah per Dr Mcguire. aware that numbers svi was -3.6 thus patient does not respond to fluid. also ordered x1 albumin repeat.
[2020-08-29 20:49] LABS: Glucose Point of Care 110 mg/dL (70-110)
[2020-08-29] MEDS: finasteride 5 mg Tablet PO (20:56)
[2020-08-29] MEDS: atorvastatin 40 mg Tablet 80 MG PO (20:57)
[2020-08-29 21:24] LABS: Troponin 5 6HR 154.8 ng/L (0-15); Troponin 5 6HR Delta 26.8 ng/L (0-12)
[2020-08-29] MEDS: lidocaine 2% Urojet 20 mL TOPICAL (23:30)
[2020-08-30] VITALS (78 sets, daily range): BP systolic 64–115; BP diastolic 41–64; PULSE 69–98; RESP 10–26; TEMP 36.2–37.2; O2SAT 77–99
[2020-08-30] MEDS: DOBUTamine drip 500 MG/250 ML PREMIX 20 MG IV ×2 (01:52→15:15)
--- NOTE | 2020-08-30 03:53 | PC.NURSE ---
ASSUMING CARE Patient on 6L nasal cannula, dobutamine drip at 20 mL/hour (6.67 mcg/kg/min). Patient did not have stovall in and reported that he had to pee. Patient only dribbling bright red urine and was expressing that it burned and hurt. Patient is alert and oriented x 4, in the room, and appears slightly anxious. Upon assessment, lab came to draw 6 hr troponin. Patient refused and was educated on importance of these values in order to treat him appropriately. Patient then agreed as long as needle was small. Per day shift nurse, it was reported that patient was refusing heparin injections, blood work, wound care dressings, and his stovall. Patient educated on importance of interventions to prevent blood clots, wound care to prevent worsening of wound and infection and educated on bladder scanning in order to see if patient retaining urine and indwelling catheter needed. Patient was agreeable to these things with education and reassurance. Per day shift nurse, Dr. Javier gave verbal order for stovall if patient had not peed significant amount by 2200.
[2020-08-30] MEDS: piperacillin-tazobactam 3.375 GM in sodium chloride 0.9% (plus) 50 ML IV ×3 (04:05→18:16)
[2020-08-30 04:20] LABS: Basophils # 0.1 10^3/uL (0.0-0.1); Basophils % 0.4 %; Eosinophils # 0.4 10^3/uL (0.0-0.8); Hematocrit 33.2 % (42.0-52.0); Hemoglobin 10.7 g/dL (11.7-16.6); Lymphocytes # 1.7 10^3/uL (0.8-4.8); Lymphocytes % 13.7 %; Mean Corpuscular HGB Conc 32.2 g/dL (30.0-36.0); Mean Corpuscular Hemoglobin 29.6 pg (28.0-34.0); Mean Corpuscular Volume 91.7 fL (80-94); Mean Platelet Volume 9.4 fL (7.4-10.4); Neutrophils # 9.14 10^3/uL (1.8-7.7); Neutrophils % 74.3 %; Nucleated Red Blood Cells % 0 %; Platelet Count 213 10^3/cmm (130-400); Red Blood Count 3.62 10^6/uL (4.1-5.3); White Blood Count 12.3 10^3/uL (4.0-10.0)
--- NOTE | 2020-08-30 04:49 | PC.NURSE ---
BLADDER SCAN Patient bladder scanned around 2100 and had approximately 70 mL. Patient only able to dribble bright red urine and expressed that it burned/hurt. Bladder scanned again around 0100 and had greater than 150 mL but continued expressing need to urinate, so per Dr. Javier verbal order to day shift to insert stovall around 2200 if patient couldnt urinate a significant amount, stovall placed. Patient had large clot upon irrigation of stovall when it would not drain. Stovall is now draining little bright red urine. Bladder scan performed again to ensure that stovall was flowing and patent and bladder scanner displayed about 90 mL in bladder. Bright red urine continues, but no more clots. Stovall irrigated again to ensure no obstruction in catheter tip.
[2020-08-30 04:50] LABS: Alanine Aminotransferase 20 U/L (0-41); Albumin Level 3.6 g/dL (3.5-5.2); Alkaline Phosphatase 74 IU/L (40-130); Anion Gap 17.8 (5-19); Aspartate Amino Transferase 24 U/L (0-40); Blood Urea Nitrogen 55 mg/dL (8-23); Calcium 8.7 mg/dL (8.5-10.5); Carbon Dioxide 24 mmol/L (22-29); Chloride 91 mmol/L (98-107); Globulin 2.8 g/dL (1.3-4.6); Glomerular Filtration Rate 22.7 mL/min (90-130); Glucose 128 mg/dL (65-115); Osmolality Calculated 283 mOsm/kg (285-295); Potassium 4.8 mmol/L (3.5-5.1); Sodium 128 mmol/L (136-145); Total Protein 6.4 g/dL (6.6-8.7)
--- NOTE | 2020-08-30 05:20 | PC.NURSE ---
WOUND CARE Patient agreed to wound care of right stasis ulcer. Santyl placed on wound, nonadherent dressings over santyl, and kerlex wrapped around leg to hold in place.
--- NOTE | 2020-08-30 05:22 | PC.NURSE ---
BLOOD PRESSURE Levophed drip paused upon change of shift at 1900. Levophed resumed at 0145 for MAP below goal of 55-[address] Javier after manual auscultation. Manual auscultation BP was 60/42.
--- NOTE | 2020-08-30 06:34 | PC.NURSE ---
URINE OUTPUT Dr. Hopkins notified via phone of 50 mL of bright red urine output, increased creatinine and BUN. Dr. Hopkins stated that he would pass on to Dr. Javier and also notified of bladder scan x 3 and irrigation of stovall with continued bright red urine.
[2020-08-30] MEDS: HYDROmorphone 1 mg/mL INJ 1 mL 0.5 MG IVP ×2 (07:41→19:34)
[2020-08-30 08:02] LABS: Glucose Point of Care 169 mg/dL (70-110)
--- NOTE | 2020-08-30 08:03 | PC.NURSE ---
pt c/o pain in right leg requesting pain med at this time diludid given and repositioned water given po
[2020-08-30] MEDS: guaiFENesin 600 mg Tablet PO (08:44)
[2020-08-30] MEDS: docusate sodium 100 mg Capsule PO (08:44)
[2020-08-30] MEDS: tamsulosin 0.4 mg Capsule PO (08:44)
[2020-08-30] MEDS: potassium chloride ER 20 mEq Tablet 60 MEQ PO (08:44)
[2020-08-30] MEDS: clopidogrel 75 mg Tablet PO (08:44)
[2020-08-30] MEDS: sodium chloride 0.9% 500 ML 999 ML IV (08:45)
[2020-08-30] MEDS: aspirin 81 mg EC Tablet PO (08:48)
[2020-08-30] MEDS: collagenase oint 30 gm 1 APPLIC TOPICAL (08:57)
--- NOTE | 2020-08-30 10:29 | PC.NURSE ---
weaning off levaphed gtt at this time monitor blood pressure more comfortable after pain medication this am ...
[2020-08-30] MEDS: linezolid premix 600 MG/300 ML PREMIX 300 MG IV ×2 (10:39→23:11)
[2020-08-30 11:17] LABS: Glucose Point of Care 153 mg/dL (70-110)
[2020-08-30 17:06] LABS: Glucose Point of Care 146 mg/dL (70-110)
[2020-08-30] MEDS: ondansetron 2 mg/ML SDV 2 mL 4 MG IVP (17:42)
--- NOTE | 2020-08-30 17:46 | P.PN_ITS ---
Subjective Subjective: Interval history: Patient seen multiple times during the day. No acute events overnight. Overnight patient was catheterized and since then has had 120 cc of urine output. On examination today morning patient is on 20 cc/h of dobutamine, 2 of Levophed with mean arterial pressures of 66, heart rate of 86 with saturation of 96% on 5 L while lying down comfortably in bed. Patient is sleeping but wakes up to verbal stimulus and is able to answer questions appropriately. During the day patient was given 500 cc of IV fluids slowly over 3 hours with which his blood pressures improved and Levophed was able to be weaned off. When again seen in the evening patient was lying comfortably in bed with family at bedside with blood pressure of 96/60 with dobutamine of 20 saturating 96%. He denies of having any pain, nausea, vomiting, headache. Eating appropriately at present. Medications: Reviewed: Yes Vitals/I&O/Wt Last Vital Signs Temp 97.2 F L 08/30/20 15:00 Pulse 88 08/30/20 17:00 Resp 21 H 08/30/20 17:00 BP 96/60 08/30/20 17:00 Pulse Ox 96 08/30/20 17:00 08/30/20 08/30/20 08/30/20 06:59 14:59 22:59 Intake Total 517.333 / 1990.978 500 / 500 200 / 700 Output Total 50 / 50 Balance 467.333 / 1940.978 500 / 500 200 / 700 Weight last 48 hrs Weight 103.238 kg Weight 99.79 kg Physical Exam Narrative: EXAM NARRATIVE: This is a male who appears more than stated age He seemed to be in distress due to right leg pain Obese male, Awake alert oriented x3 GCS 15 Right lower extremity black eschar extending from his right calf muscle up to lower border of patella fossa, serosanguineous discharge, feeble pulse dorsalis pedis 1+, hyperemia, tender to palpation, right leg swelling greater than left, sensations intact, no critical limb ischemic gangrenous toes, Left lower extremity has abrasion and laceration Hyperemia lower abdominal wall with macular rash No swelling of lips no stridor or wheezing He has pursed lip breathing which seem to be chronic no acute exacerbation No active chest pain Variable S1-S2, clinically looks fluid overloaded Distended abdomen nontender bowel sounds present Bilateral breath sounds with crackles diffuse, no rhonchi or stridor Awake alert oriented x3 Appropriate mood and affect Multiple skin lacerations petechia purpura noted all over his extremities Urinary Catheter Management^: Reyes Latex: Cath Placed During This Visit: yes, but has since been removed by the nurse Reason for Continuing Indwelling Catheter: Accurate Measurement of Urinary Output in Critically Ill Patients Urinary Catheter Date of Insertion: 08/27/20 Urinary Catheter Time of Insertion: 13:00 Date Urinary Catheter Removed: 08/29/20 Time Urinary Catheter Discontinued: 13:19 Data : 08/30/20 03:47 08/30/20 03:47 Micro: Microbiology 08/28/20 13:15 Wound Culture - Preliminary Leg - #1 Enterococcus faecalis A&P Assessment and plan (1) Cardiogenic shock: Status: Acute (2) Cellulitis: Status: Acute Qualifiers: Site of cellulitis: extremity Site of cellulitis of extremity: lower extremity Laterality: right Qualified Code(s): L03.115 - Cellulitis of right lower limb (3) Peripheral vascular disease: Status: Acute (4) Ischemic cardiomyopathy: Status: Acute (5) Chronic hypoxemic respiratory failure: Status: Acute (6) PAD (peripheral artery disease): Status: Acute (7) Acute on chronic systolic heart failure: Status: Acute (8) COPD (chronic obstructive pulmonary disease): Status: Acute Qualifiers: COPD type: unspecified COPD Qualified Code(s): J44.9 - Chronic obstructive pulmonary disease, unspecified Additional A&P Information Cardiogenic shock: Most likely because dobutamine drip was stopped in between for couple of hours. Antihypertensives were given. Keep mean arterial pressures between 55 to 60 mmHg. Continue with dobutamine at 20 mils per hour for now. We will try to avoid Levophed as much as we can because of arrhythmogenic properties but if not able to obtain means with dobutamine will add. Continue to monitor urine output. Patient maintaining saturations on baseline oxygen supplementation. CAD/ischemic cardiomyopathy: End-stage heart failure on dobutamine pump as an outpatient. 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 Continue with aspirin, statin, Plavix, ivabradine. For now hold off on antihypertensives including home dose of Imdur and losartan which was started today as per cardiology recommendations., For now hold off on diuretics. Will dose diuretics daily as per the fluid status. Echocardiogram done shows an EF of around 20% with severe diffuse hypokinesia of septum, anterior septum and LV apex, mildly dilated RV, mild MR, mild TR. Sepsis secondary to purulent cellulitis of right lower extremity: Failed outpatient therapy(Keflex, Bactrim), symptoms started 2 weeks ago, hyperemia has extending from right calf muscle up to his right thigh also some hyperemia of lower abdominal wall noticed, no fever however he meets sepsis criteria with tachycardia and leukocytosis. Pro-Flavio negative, MRSA negative. Blood cultures, and urine culture have rem ained negative so far. Wound culture for now growing Enterococcus. Sensitivities appreciated. For now continue with linezolid and Zosyn at current dose. NORMA consistent with moderate peripheral disease on the right side and mild peripheral disease on the right and left side, venous Doppler negative for DVT but consistent with fluid retention/edema bilaterally below knees. Patient is a poor surgical candidate for any endovascular surgeries because of severe COPD, severe cardiomyopathy on dobutamine drip. We will consult ID for antibiotic recommendations, surgery for wound care recommendations versus possible debridement. Dilaudid to 0.5 every 6 hours as needed. Dressing change as per surgical recommendations. Appreciate cardiology, ID, surgical recommendations. Acute kidney injury: Worsening today most likely because of hypotension yesterday. We will continue to monitor. If it continues to worsen will resolve nephrology tomorrow. JOANA on admission most likely is multifactorial secondary to Bactrim use, aggressive diuresis with torsemide 200 mg dose which was recently readjusted to 100 mg daily, as per the family he has lost 20 pounds in last 2 weeks. No electrode abnormality at present other than hyponatremia. Stop potassium supplementation. Continue to monitor electrolytes and BMP daily for now. For now dose diuretic daily as per the fluid status. Monitor for cardiorenal etiology for JOANA with correlation with daily output and creatinine and volume status Will monitor urine output if on the lower side will consult nephrology. Nocturnal hypoxemia: Noncompliant with CPAP Patient only wants to use 6 L of nasal cannula during his hospitalization He was also using Vasquez-Synephrine for nasal congestion which I have discontinued because of his end-stage heart failure condition Continue other chronic oral medications. CODE STATUS: Discussed with daughter on phone and with and patient at bedside. Patient states he has had multiple cardiac arrest and chest comp ressions in the past and if needed is okay with all of the same again. But is not okay with any surgical interventions as he has been told in the past that he is not a good surgical/anesthetic candidate. Patient is full code. DVT prophylaxis Heparin Cardiac diet. Ensure supplementation with meals. Out of bed to chair. Severely guarded prognosis. Patient's care discussed in detail with his daughter Ms. Tamera Young. We discussed that given the multiple severe comorbidities patient's care need to be really delicate and we need to take small baby steps every day while trying to improve his blood pressures and monitoring his kidney functions. We also discussed at this point the expectation is that kidney functions might worsen over the next 24 to 48 hours given the episode of hypotension yesterday. Also discussed that for now we will continue to monitor the urine output. Daughter states for now family does not want any kind of surgical intervention and would want to get her father a little better medically so that he can go back to his baseline and can be discharged hopefully before [place]. All the questions were answered in detail. Attestations Medical Necessity Statement*: Patient requires further hospitalization for management of cardiogenic shock in setting of end-stage COPD, end-stage heart failure on dobutamine drip, resolving sepsis from purulent cellulitis of right lower extremity. Critical Care Time: Critical Care Time (min): 90 Coding Level of Care Code Acute Cloth Colorer for Michi Escobar Diagnoses Cardiogenic shock R57.0 Cellulitis L03.115 Site of cellulitis: extremity Site of cellulitis of extremity: lower extremity Laterality: right Peripheral vascular disease I73.9 Ischemic cardiomyopathy I25.5 Chronic hypoxemic respiratory failure J96.11 PAD (peripheral artery disease) I73.9 Acute on chronic systolic heart failure I50.23 COPD (chronic obstructive pulmonary disease) J44.9 COPD type: unspecified COPD
--- NOTE | 2020-08-30 19:13 | PM.PN ---
Subjective Subjective: Interval history: Patient says he is feeling better lower extremity edema has improved but not settle down to the normal level. He is able to breathe better. Creatinine and BUN has worsened. Vitals/I&O/Wt Last Vital Signs Temp 97.2 F L 08/30/20 15:00 Pulse 88 08/30/20 17:00 Resp 21 H 08/30/20 17:00 BP 96/60 08/30/20 17:00 Pulse Ox 96 08/30/20 17:00 08/30/20 08/30/20 08/30/20 06:59 14:59 22:59 Intake Total 517.333 / 1990.978 550 / 550 200 / 750 Output Total 50 / 50 Balance 467.333 / 1940.978 550 / 550 200 / 750 Weight last 48 hrs Weight 227 lb 9.6 oz Weight 220 lb Physical Exam Narrative: EXAM NARRATIVE: GENERAL: Patient is alert, awake and oriented x3. NECK: No jugular vein distension. HEENT: No cyanosis. No icterus. No pallor. HEART: Regular S1 and S2. No murmur, rub or gallop. LUNGS: Decreased breath sound bilaterally. ABDOMEN: Soft, nontender and nondistended. Positive bowel sounds. No guarding, rebound or tenderness. CENTRAL NERVOUS SYSTEM: Grossly nonfocal. EXTREMITIES: Lower extremities with 2+ edema bilaterally. Bilateral lower extremities venous ulcer Urinary Catheter Management^: Reyes Latex: Cath Placed During This Visit: yes, but has since been removed by the nurse Reason for Continuing Indwelling Catheter: Accurate Measurement of Urinary Output in Critically Ill Patients Urinary Catheter Date of Insertion: 08/27/20 Urinary Catheter Time of Insertion: 13:00 Date Urinary Catheter Removed: 08/29/20 Time Urinary Catheter Discontinued: 13:19 Data : 08/30/20 03:47 08/30/20 03:47 Micro: Microbiology 08/28/20 13:15 Wound Culture - Preliminary Leg - #1 Enterococcus faecalis A&P Assessment and plan (1) Cardiogenic shock: Continue dobutamine if requires may will start norepinephrine Status: Acute (2) Cellulitis: Continue IV antibiotics Status: Acute Qualifiers: Site of cellulitis: extremity Site of cellulitis of extremity: lower extremity Laterality: right Qualified Code(s): L03.115 - Cellulitis of right lower limb (3) Sepsis: Continue IV antibiotics Status: Acute (4) Ascites: Secondary to congestive heart failure of systolic type. Will start back on Demadex and metolazone. Due to high creatinine and potassium I would not start Aldactone Status: Acute Qualifiers: Ascites type: other type Qualified Code(s): R18.8 - Other ascites (5) Ischemic cardiomyopathy: Continue Plavix aspirin and anticoagulation. Status: Acute (6) Acute on chronic systolic heart failure: Patient continues to be in systolic heart failure due to severely depressed LV function at this point I will start back on medium dose of loop diuretic along with metolazone. Further plan will be advised as per progress of the patient. I have detailed discussion with the patient and his family he is full code and would like to do everything for himself. I will also take up his case with [facility] heart failure department to discuss regarding his candidacy for mechanical support such as LVAD Status: Acute Attestations Medical Necessity Statement*: Patient require continuation hospitalization for above defined care. Coding Level of Care Code Established Pt Acute Bookmobile Clerk for Michi Escobar Patient Type Established History Comprehensive Exam Comprehensive Medical Decision Making High Complexity Diagnoses Cardiogenic shock R57.0 Cellulitis L03.115 Site of cellulitis: extremity Site of cellulitis of extremity: lower extremity Laterality: right Sepsis A41.9 Ascites R18.8 Ascites type: other type Ischemic cardiomyopathy I25.5 Acute on chronic systolic heart failure I50.23
[2020-08-30] MEDS: metOLazone 5 MG Tablet 2.5 MG PO (19:35)
[2020-08-30] MEDS: TORSEmide 20 mg Tablet 30 MG PO (19:36)
[2020-08-30] MEDS: atorvastatin 40 mg Tablet 80 MG PO (19:39)
[2020-08-30] MEDS: finasteride 5 mg Tablet 10 MG PO (19:41)
[2020-08-30 19:56] LABS: Potassium, Radom Urine 76 mmol/L; Urine Creatinine 96 mg/dL (39-259)
[2020-08-30 19:58] LABS: Urine Random Chloride 19 mmol/L; Urine Random Sodium 18 mmol/L
[2020-08-30 20:09] LABS: Urine Protein Random 383 mg/dL
[2020-08-30] MEDS: TRAMadol 50 mg Tablet PO (20:22)
[2020-08-30 20:45] LABS: Glucose Point of Care 154 mg/dL (70-110)
[2020-08-30 22:40] LABS: Eosinophil Urine No Eosinophils Seen; Urine Eosinophil Count 0 (0-0)
[2020-08-31] VITALS (59 sets, daily range): BP systolic 83–133; BP diastolic 35–90; PULSE 73–106; RESP 8–28; TEMP 36.2–37.2; O2SAT 86–99
[2020-08-31] MEDS: piperacillin-tazobactam 3.375 GM in sodium chloride 0.9% (plus) 50 ML IV ×3 (02:29→18:02)
[2020-08-31] MEDS: ondansetron 2 mg/ML SDV 2 mL 4 MG IVP ×3 (05:00→15:34)
[2020-08-31] MEDS: DOBUTamine drip 500 MG/250 ML PREMIX 20 MG IV (05:02)
[2020-08-31 07:48] LABS: Glucose Point of Care 148 mg/dL (70-110)
[2020-08-31] MEDS: atorvastatin 40 mg Tablet 80 MG PO (07:52)
[2020-08-31] MEDS: TORSEmide 20 mg Tablet 30 MG PO (07:53)
[2020-08-31] MEDS: aspirin 81 mg EC Tablet PO (07:53)
[2020-08-31] MEDS: clopidogrel 75 mg Tablet PO (07:53)
[2020-08-31] MEDS: metOLazone 5 MG Tablet 2.5 MG PO ×2 (07:54→17:43)
[2020-08-31] MEDS: collagenase oint 30 gm 1 APPLIC TOPICAL (08:07)
--- NOTE | 2020-08-31 08:08 | PC.NURSE ---
c/o shortness of breath repositioned up in bed and am meds given early to help with diureses rt here treatment given
--- NOTE | 2020-08-31 09:13 | P.PN_ITS ---
Subjective Subjective: Interval history: Patient seen multiple times during the day. Overnight patient had no acute events. During morning when patient was seen his mean blood pressure was 84 mmHg with a heart rate of 70 bpm saturating 96% on 6 L nasal cannula while being on dobutamine off 20 cc/h. He was given torsemide 60 and metolazone 2.5 after which he put out 900 cc of urine during the day. During the day dobutamine was turned down to 15 and he was started on nitro drip running at 6 4 symptoms consistent with mild congestive heart failure leading to angina. Patient during the day continue to have nausea for which he was given Zofran along with simethicone and Carafate which seemed to have improved the symptoms. When again seen in the evening he was on nitro and dobutamine as above with mean pressures of 70, awake alert with family at bedside complaining of mild nausea. His legs are looking better. Patient still does not have much appetite. Medications: Reviewed: Yes Vitals/I&O/Wt Last Vital Signs Temp 98.9 F 08/31/20 07:00 Pulse 91 08/31/20 08:00 Resp 22 H 08/31/20 08:00 BP 119/90 08/31/20 08:00 Pulse Ox 96 08/31/20 08:00 08/30/20 08/31/20 08/31/20 22:59 06:59 14:59 Intake Total 400 / 1250 550 / 1800 100 / 100 Output Total 175 / 175 Balance 400 / 1250 375 / 1625 100 / 100 Weight last 48 hrs Weight 102.557 kg Weight 103.238 kg Physical Exam Narrative: EXAM NARRATIVE: General: Diaphoretic, acute distress because of nausea , AO x3 HEENT: PERRLA, pupils bilaterally equal and reactive Chest: Normal vesicular breath sounds, fine crackles at the base bases good air entry bilaterally CVS: S1-S2 regular, pansystolic murmur at apex 2 x 6, S3 gallop, no tachycardia, no rubs Abdomen: Soft, obese, distended, sluggish bowel sound nontender, no organomegaly, Neuro: No focal deficits, no facial deformity, AO x3, power 5/5 in all limbs Extremities: Bilateral lower limbs swelling, improving, erythema present on the right leg improving from before, open superficial ulcer without purulence present in right calf improving from before. Urinary Catheter Management^: Reyes Latex: Cath Placed During This Visit: yes, but has since been removed by the nurse Reason for Continuing Indwelling Catheter: Accurate Measurement of Urinary Output in Critically Ill Patients Urinary Catheter Date of Insertion: 08/27/20 Urinary Catheter Time of Insertion: 13:00 Date Urinary Catheter Removed: 08/29/20 Time Urinary Catheter Discontinued: 13:19 Data : 08/31/20 09:29 08/31/20 09:29 Micro: Microbiology 08/28/20 13:15 Wound Culture - Preliminary Leg - #1 Enterococcus faecalis A&P Assessment and plan (1) Cardiogenic shock: Status: Acute (2) Cellulitis: Status: Acute Qualifiers: Laterality: right Site of cellulitis: extremity Site of cellulitis of extremity: lower extremity Qualified Code(s): L03.115 - Cellulitis of right lower limb (3) Peripheral vascular disease: Status: Acute (4) Ischemic cardiomyopathy: Status: Acute (5) Chronic hypoxemic respiratory failure: Status: Acute (6) PAD (peripheral artery disease): Status: Acute (7) Acute on chronic systolic heart failure: Status: Acute (8) COPD (chronic obstructive pulmonary disease): Status: Acute Qualifiers: COPD type: unspecified COPD Qualified Code(s): J44.9 - Chronic obstructive pulmonary disease, unspecified Additional A&P Information Cardiogenic shock: Resolving. Most likely because dobutamine drip was stopped in between for couple of hours. Antihypertensives were given. Keep mean arterial pressures between 55 to 60 mmHg. Dobutamine decreased to 15. Continue at the current dose. Do not decrease less than 14.6 for now. Continue to monitor urine output. Patient maintaining saturations on baseline oxygen supplementation. CAD/ischemic cardiomyopathy: End-stage heart failure on dobutamine pump as an outpatient. 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 Continue with aspirin, statin, Plavix, ivabradine. We will try to add Imdur slowly. For now continue with IV nitro drip. We will switch off if mean pressures are decreasing. Start torsemide 60 twice daily, metolazone 2.5 twice daily. Will uptitrate gradually. Monitor urine output. Echocardiogram done shows an EF of around 20% with severe diffuse hypokinesia of septum, anterior septum and LV apex, mildly dilated RV, mild MR, mild TR. Sepsis secondary to purulent cellulitis of right lower extremity: Failed outpatient therapy(Keflex, Bactrim), symptoms started 2 weeks ago, hyperemia has extending from right calf muscle up to his right thigh also some hyperemia of lower abdominal wall noticed, no fever however he meets sepsis criteria with tachycardia and leukocytosis. Pro-Flavio negative, MRSA negative. Blood cultures, and urine culture have remained negative so far. Wound culture for now growing Enterococcus. Sensitivities appreciated. We will discuss with ID. Plan to discontinue linezolid and continue Zosyn for now. NORMA consistent with moderate peripheral disease on the right side and mild peripheral disease on the right and left side, venous Doppler negative for DVT but consistent with fluid retention/edema bilaterally below knees. Patient is a poor surgical candidate for any endovascular surgeries because of severe COPD, severe cardiomyopathy on dobutamine drip. We will consult ID for antibiotic recommendations, surgery for wound care recommendations versus possible debridement. Dilaudid to 0.5 every 6 hours as needed. Dressing change as per surgical recommendations. Appreciate cardiology, ID, surgical recommendations. Acute kidney injury: Worsening today most likely because of hypotension yesterday with component of possible ATN and cardiorenal syndrome. We will continue to monitor. If it continues to worsen will resolve nephrology tomorrow. JOANA on admission most likely is multifactorial secondary to Bactrim use, aggressive diuresis with torsemide 200 mg dose which was recently readjusted to 100 mg daily, as per the family he has lost 20 pounds in last 2 weeks. No electrode abnormality at present other than hyponatremia. Stop potassium supplementation. Continue to monitor electrolytes and BMP daily for now. Continue torsemide 60 twice daily and metolazone 2.5 twice daily. Will uptitrate dose as possible. Continue to monitor urine output. Nocturnal hypoxemia: Noncompliant with CPAP Patient only wants to use 6 L of nasal cannula during his hospitalization He was also using Vasquez-Synephrine for nasal congestion which I have discontinued because of his end-stage heart failure condition Continue other chronic oral medications. CODE STATUS: Discussed with daughter on phone and with and patient at bedside. Patient states he has had multiple cardiac arrest and chest compressions in the past and if needed is okay with all of the same again. But is not okay with any surgical interventions as he has been told in the past that he is not a good surgical/anesthetic candidate. Patient is full code. DVT prophylaxis Heparin Cardiac diet. Ensure supplementation with meals. Out of bed to chair. Severely guarded prognosis. Patient's care discussed in detail with his daughter Ms. Tamera Young. We discussed that given the multiple severe comorbidities patient's care need to be really delicate and we need to take small baby steps every day while trying to improve his blood pressures and monitoring his kidney functions. We also discussed at this point the expectation is that kidney functions might worsen over the next 24 to 48 hours given the episode of hypotension yesterday. Also discussed that for now we will continue to monitor the urine output. Daughter states for now family does not want any kind of surgical intervention and would want to get her father a little better medically so that he can go back to his baseline and can be discharged hopefully before Andrzej. All the questions were answered in detail. Attestations Medical Necessity Statement*: Patient is further hospitalization for management of cardiogenic shock, cardiorenal syndrome in setting of end-stage COPD, end-stage heart failure, severely guarded prognosis. Critical Care Time: Critical Care Time (min): 120 Coding Level of Care Code Acute Carton Making Machine Operator for Michi Thompsond Diagnoses Cardiogenic shock R57.0 Cellulitis L03.115 Laterality: right Site of cellulitis: extremity Site of cellulitis of extremity: lower extremity Peripheral vascular disease I73.9 Ischemic cardiomyopathy I25.5 Chronic hypoxemic respiratory failure J96.11 PAD (peripheral artery disease) I73.9 Acute on chronic systolic heart failure I50.23 COPD (chronic obstructive pulmonary disease) J44.9 COPD type: unspecified COPD
[2020-08-31] MEDS: TORSEmide 20 mg Tablet PO (09:19)
[2020-08-31] MEDS: TORSEmide 20 mg Tablet 10 MG PO (09:19)
[2020-08-31 09:43] LABS: Basophils % 0.3 %; Eosinophils # 0.2 10^3/uL (0.0-0.8); Eosinophils % 1.5 %; Hematocrit 34.5 % (42.0-52.0); Lymphocytes # 0.8 10^3/uL (0.8-4.8); Lymphocytes % 6.5 %; Mean Corpuscular HGB Conc 31.9 g/dL (30.0-36.0); Mean Corpuscular Hemoglobin 29.6 pg (28.0-34.0); Mean Corpuscular Volume 92.7 fL (80-94); Mean Platelet Volume 9.3 fL (7.4-10.4); Monocytes # 0.6 10^3/uL (0.2-0.9); Monocytes % 4.9 %; Neutrophils # 10.32 10^3/uL (1.8-7.7); Neutrophils % 86.4 %; Nucleated Red Blood Cells % 0 %; Platelet Count 217 10^3/cmm (130-400); Red Blood Count 3.72 10^6/uL (4.1-5.3); Red Cell Distribution Width 17.2 % (12.1-15.1); White Blood Count 11.9 10^3/uL (4.0-10.0)
[2020-08-31 10:05] LABS: Alanine Aminotransferase 20 U/L (0-41); Albumin Level 3.9 g/dL (3.5-5.2); Alkaline Phosphatase 79 IU/L (40-130); Aspartate Amino Transferase 20 U/L (0-40); Blood Urea Nitrogen 65 mg/dL (8-23); Calcium 8.8 mg/dL (8.5-10.5); Carbon Dioxide 26 mmol/L (22-29); Chloride 88 mmol/L (98-107); Globulin 3.1 g/dL (1.3-4.6); Glomerular Filtration Rate 14.2 mL/min (90-130); Glucose 146 mg/dL (65-115); Osmolality Calculated 291 mOsm/kg (285-295); Sodium 130 mmol/L (136-145); Total Bilirubin 0.9 mg/dL (0.15-1.2)
[2020-08-31] MEDS: linezolid premix 600 MG/300 ML PREMIX 300 MG IV ×2 (10:44→22:46)
--- NOTE | 2020-08-31 11:25 | PC.NURSE ---
notilfied of continues nausea and pain upper abd pain
[2020-08-31] MEDS: isosorbide mononitrate ER 30 mg Tablet 15 MG PO (11:30)
--- NOTE | 2020-08-31 11:46 | USR_ITS ---
PROCEDURE INFORMATION: Exam: US Abdomen Complete Exam date and time: 08/31/2020 12:05 PM Age: 69 years old Clinical indication: Abdominal pain; Additional info: Abdomen distention TECHNIQUE: Imaging protocol: Real-time ultrasound of the abdomen with image documentation. COMPARISON: No relevant prior studies available. FINDINGS: Liver: Normal. No mass. Gallbladder: Normal. No gallstones. There is no gallbladder wall thickening. Common bile duct: Normal. No stones. 3.6 mm Pancreas: Not visible because of bowel gas. Right kidney: Normal. No mass. No hydronephrosis. 10.5 cm x 5.3 cm x 5 cm. Left kidney: Normal. No mass. No hydronephrosis. 12.7 cm x 6.8 cm x 4.4 cm. Spleen: Normal. No splenomegaly. 10 cm Aorta: Normal. No aneurysm. Inferior vena cava: Prominent size ( 2.9 cm) Moderate volume bilateral lower quadrant ascites, a small volume of Luisa hepatic ascites US/US abdomen complete* [id number] IMPRESSION: 1. There is ascites in the bilateral lower quadrants and perihepatic area. 2. Otherwise negative examination
--- NOTE | 2020-08-31 12:00 | PC.SOCIAL ---
IMM Update Pg.2 of IMM updated and reviewed with patient, who verbalized understanding. Copy provided.
[2020-08-31] MEDS: HYDROmorphone 1 mg/mL INJ 1 mL 0.5 MG IVP (12:27)
[2020-08-31] MEDS: TRAMadol 50 mg Tablet PO (12:36)
--- NOTE | 2020-08-31 13:11 | XRR_ITS ---
PROCEDURE INFORMATION: Exam: XR Chest, 1 View Exam date and time: 08/31/2020 1:12 PM Age: 69 years old Clinical indication: Shortness of breath; Additional info: Shortness of breath, chf TECHNIQUE: Imaging protocol: XR of the chest Views: 1 view. COMPARISON: CR XR chest 1V portable [id number] 06/28/2020 2:31 PM FINDINGS: Tubes, catheters and devices: A right central line is present extending into the SVC.. Lungs: Low lung volumes seen. No consolidation. Metallic surgical clips are present in the right upper lung Pleural space: Unremarkable. No pleural effusion. No pneumothorax. Heart/Mediastinum: Unremarkable. No cardiomegaly. Bones/joints: Unremarkable. XR/XR chest 1V portable [id number] IMPRESSION: 1. No acute findings. 2. Low lung volumes are seen. 3. Right central line is in good position 4. Surgical clips right upper lung
--- NOTE | 2020-08-31 13:31 | PC.NURSE ---
continues to be diophoretic and pain in upper abdomen and chest ... nitro at 20 mcg and dobutrex at t5 mcg
--- NOTE | 2020-08-31 13:32 | P.PN_ITS ---
Subjective Subjective: Interval history: Patient was feeling jittery nauseated this morning. His blood pressure has improved. His urine output is reasonable. Medications: Reviewed: Yes Medication Review Details: Current Medications Acetaminophen (Acetaminophen 325 Mg Tablet) 325 mg PO Q4H PRN PRN Reason: Pain Aspirin (Aspirin 81 Mg Ec Tablet) 81 mg PO DAILY@0830 [facility] Last Admin: 08/29/20 09:42 Dose: 81 mg Documented by: Atorvastatin Calcium (Atorvastatin 40 Mg Tablet) 80 mg PO BEDTIME [facility] Last Admin: 08/28/20 20:48 Dose: 80 mg Documented by: Clopidogrel Bisulfate (Clopidogrel 75 Mg Tablet) 75 mg PO DAILY@0830 [facility] Last Admin: 08/29/20 09:43 Dose: 75 mg Documented by: Collagenase (Collagenase Oint 30 Gm) 1 applic TOPICAL DAILY [facility] Last Admin: 08/29/20 15:10 Dose: Not Given Documented by: Dextrose (Dextrose 50% Syringe 50 Ml) 25 ml IVP ONCE PRN; Protocol PRN Reason: hypoglycemia protocol Dextrose (Dextrose 50% Syringe 50 Ml) 50 ml IVP PRN PRN; Protocol PRN Reason: hypoglycemia protocol Docusate Sodium (Docusate Sodium 100 Mg Capsule) 100 mg PO DAILY PRN PRN Reason: constipation Finasteride (Finasteride 5 Mg Tablet) 5 mg PO BEDTIME [facility] Glucagon (Glucagon 1 Mg/Ml Inj 1 Ml) 1 mg IM ONCE PRN; Protocol PRN Reason: Adult Acute Hypoglycemia Prot. Guaifenesin (Guaifenesin 600 Mg Tablet) 600 mg PO BID PRN PRN Reason: Congestion Heparin Sodium (Beef Lung) (Heparin 5,000 Unit/Ml Inj 1 Ml) 5,000 unit SUBCUT Q8H [facility] Last Admin: 08/29/20 16:08 Dose: 5,000 unit Documented by: Hydromorphone HCl (Hydromorphone 1 Mg/Ml Inj 1 Ml) 0.5 mg IVP Q6H PRN PRN Reason: pain scale 5-10 Last Admin: 08/29/20 13:32 Dose: 0.5 mg Documented by: Linezolid (Zyvox Premix) 600 mg in 300 mls @ 300 mls/hr IV Q12H [facility]; Protocol Last Infusion: 08/29/20 14:06 Dose: Infused Documented by: Piperacillin Sod/Tazobactam (Sod 3.375 gm/ Sodium Chloride) 50 mls @ 12.5 mls/hr IV Q8H [facility]; Protocol Last Admin: 08/29/20 12:20 Dose: 12.5 mls/hr Documented by: Dextrose (D5w) 500 mls @ 100 mls/hr IV ONCE PRN; Protocol PRN Reason: Adult Acute Hypoglycemia Prot Dobutamine HCl/Dextrose (Dobutamine Drip) 500 mg in 250 mls @ 20 mls/hr IV CONT [facility] Last Infusion: 08/29/20 15:00 Dose: 20 mls/hr Documented by: Norepinephrine Bitartrate 4 mg (/ Dextrose) 254 mls @ 0 mls/hr IV .Q0M [facility]; Protocol Last Admin: 08/29/20 16:56 Dose: 2 mcg/min, 7.6 mls/hr Documented by: Insulin Aspart (Insulin Aspart 100 Unit/1 Ml) 0 unit SUBCUT WM&BEDTIME [facility]; Protocol Last Admin: 08/29/20 12:21 Dose: 6 unit Documented by: Ipratropium Vilas (Ipratropium 12.9 Gm Mdi) 2 puff INHALATION Q4H.RESPIRATORY PRN PRN Reason: AIR HUNGER Isosorbide Mononitrate (Isosorbide Mononitrate Er 30 Mg Tablet) 30 mg PO DAILY@0830 [facility] Last Admin: 08/29/20 09:44 Dose: 30 mg Documented by: Levalbuterol HCl (Levalbuterol 0.63 Mg/3 Ml Neb) 0.63 mg INHALATION Q4H.RESPIRATORY PRN PRN Reason: SHORTNESS OF BREATH Losartan Potassium (Losartan 50 Mg Tablet) 25 mg PO DAILY [facility] Last Admin: 08/29/20 09:43 Dose: 25 mg Documented by: Nitroglycerin (Nitroglycerin 0.4 Mg Sublingual Tablet) 0.4 mg SUBLINGUAL PRN PRN PRN Reason: CHEST PAINS Non-Formulary Medication (Dobutamine [Dobutamine]) 700 mg IVP DIRECTED [facility] Non-Formulary Medication (Oxycodone-Acetaminophen) 1 tab PO TID PRN PRN Reason: Pain Non-Formulary Medication (Ivabradine [Corlanor]) 5 mg PO BID@0830,1999 [facility] Last Admin: 08/29/20 09:58 Dose: 5 mg Documented by: Potassium Chloride (Potassium Chloride Er 20 Meq Tablet) 60 meq PO BID [facility] Last Admin: 08/29/20 09:59 Dose: 60 meq Documented by: Sodium Chloride (Saline Nasal [place] 44ml Btl) 1 spray NASAL PRN PRN PRN Reason: DRYNESS Spironolactone (Spironolactone 25 Mg Tablet) 25 mg PO DAILY [facility] Last Admin: 08/29/20 13:33 Dose: 25 mg Documented by: Tamsulosin HCl (Tamsulosin 0.4 Mg Capsule) 0.4 mg PO DAILY@0830 [facility] Last Admin: 08/29/20 09:43 Dose: 0.4 mg Documented by: Torsemide (Torsemide 20 Mg Tablet) 100 mg PO DAILY [facility] Last Admin: 08/29/20 09:43 Dose: 100 mg Documented by: Tramadol HCl (Tramadol 50 Mg Tablet) 50 mg PO Q8H PRN PRN Reason: MODERATE PAIN Vitals/I&O/Wt Last Vital Signs Temp 98.9 F 08/31/20 07:00 Pulse 95 08/31/20 11:00 Resp 18 08/31/20 11:00 BP 119/66 08/31/20 11:00 Pulse Ox 91 08/31/20 11:00 08/30/20 08/31/20 08/31/20 22:59 06:59 14:59 Intake Total 400 / 1250 600 / 1850 100 / 100 Output Total 175 / 175 300 / 300 Balance 400 / 1250 425 / 1675 -200 / -200 Weight last 48 hrs Weight 226 lb 1.6 oz Weight 227 lb 9.6 oz Physical Exam Narrative: EXAM NARRATIVE: GENERAL: Patient is awake oriented feeling little bit nauseous NECK: No jugular vein distension. HEENT: No cyanosis. No icterus. No pallor. HEART: Regular S1 and S2. No murmur, rub or gallop. LUNGS: Decreased breath sound bilaterally. ABDOMEN: Soft, nontender and nondistended. Positive bowel sounds. No guarding, rebound or tenderness. CENTRAL NERVOUS SYSTEM: Grossly nonfocal. EXTREMITIES: Lower extremities with 2+ edema bilaterally. Bilateral lower extremities venous ulcer Urinary Catheter Management^: Reyes Latex: Cath Placed During This Visit: yes, but has since been removed by the nurse Reason for Continuing Indwelling Catheter: Accurate Measurement of Urinary Outpu t in Critically Ill Patients Urinary Catheter Date of Insertion: 08/27/20 Urinary Catheter Time of Insertion: 13:00 Date Urinary Catheter Removed: 08/29/20 Time Urinary Catheter Discontinued: 13:19 Data : 08/31/20 09:29 08/31/20 09:29 Micro: Microbiology 08/28/20 13:15 Wound Culture - Final Leg - #1 Enterococcus faecalis A&P Assessment and plan (1) Cardiogenic shock: Continues to be on dobutamine blood pressure is 120 systolic with MAP more than 70. Patient appeared to be jittery we will reduce it to 5 mics. I will see how he tolerates. Status: Acute (2) Cellulitis: Continue IV antibiotics Status: Acute Qualifiers: Site of cellulitis: extremity Site of cellulitis of extremity: lower extremity Laterality: right Qualified Code(s): L03.115 - Cellulitis of right lower limb (3) Sepsis: Continue IV antibiotics Status: Acute (4) Ascites: Abdominal ultrasound was obtained which did not show much fluid. Status: Acute Qualifiers: Ascites type: other type Qualified Code(s): R18.8 - Other ascites (5) Ischemic cardiomyopathy: Continue Plavix aspirin and anticoagulation. Status: Acute (6) Acute on chronic systolic heart failure: Demadex has been increased to 60 twice daily continue metolazone. Continue to monitor electrolytes. Patient had urine output of 100 mL/h. Status: Acute (7) Cardiorenal syndrome with renal failure: Continue diuresis and will keep map above 65, recheck BMP in 12 hours. X- ray chest was also ordered. Status: Acute Additional A&P Information Other problems are Hypokalemia, currently corrected. Generalized debilitation COPD Carotid artery disease Losartan is discontinued. Patient is being closely monitored in the ICU. Discussed with the family() his current condition. The family is well aware of the prognosis. Attestations Medical Necessity Statement*: Patient is in critical condition. He requires continuation hospitalization in the ICU. Coding Level of Care Code Established Pt Acute Experimental Machinist for Michi Escobar Patient Type Established History Detailed Exam Detailed Medical Decision Making Moderate Complexity Diagnoses Cardiogenic shock R57.0 Cellulitis L03.115 Site of cellulitis: extremity Site of cellulitis of extremity: lower extremity Laterality: right Sepsis A41.9 Ascites R18.8 Ascites type: other type Ischemic cardiomyopathy I25.5 Acute on chronic systolic heart failure I50.23 Cardiorenal syndrome with renal failure I13.10
[2020-08-31] MEDS: sucralfate 1 gm/10 mL Oral Liq UDC PO ×3 (13:40→20:24)
--- NOTE | 2020-08-31 14:22 | PC.NURSE ---
now resting with eyes closed no distress at this time .
--- NOTE | 2020-08-31 14:52 | PC.NURSE ---
large liquid bm noted at this time lost of flatus passed . linen change done and geovanni care
--- NOTE | 2020-08-31 16:58 | PM.PN ---
Subjective Subjective: Interval history: Infectious disease progress note Interval events noted since last being seen. He has been moved to the ICU for cardiogenic shock. His right leg cellulitis continues to improve at this present time. Medications: Reviewed: Yes Vitals/I&O/Wt Last Vital Signs Temp 98 F 08/31/20 16:00 Pulse 84 08/31/20 16:15 Resp 17 08/31/20 16:15 BP 84/54 08/31/20 16:15 Pulse Ox 88 L 08/31/20 16:15 08/31/20 08/31/20 08/31/20 06:59 14:59 22:59 Intake Total 600 / 1850 100 / 100 150 / 250 Output Total 175 / 175 300 / 300 350 / 650 Balance 425 / 1675 -200 / -200 -200 / -400 Weight last 48 hrs Weight 102.557 kg Weight 103.238 kg Physical Exam Narrative: EXAM NARRATIVE: GEN: Awake, alert and oriented, chronically ill man laying in bed in no apparent acute distress at this present time. 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 Extremity right lower extremity cellulitis appears to be significantly improving since the last exam. Urinary Catheter Management^: Reyes Latex: Cath Placed During This Visit: yes, but has since been removed by the nurse Reason for Continuing Indwelling Catheter: Accurate Measurement of Urinary Output in Critically Ill Patients Urinary Catheter Date of Insertion: 08/27/20 Urinary Catheter Time of Insertion: 13:00 Date Urinary Catheter Removed: 08/29/20 Time Urinary Catheter Discontinued: 13:19 Data : 08/31/20 09:29 08/31/20 09:29 Micro: Microbiology 08/28/20 13:15 Wound Culture - Final Leg - #1 Enterococcus faecalis A&P Assessment and plan (1) Cellulitis: Status: Acute Qualifiers: Site of cellulitis: extremity Site of cellulitis of extremity: lower extremity Laterality: right Qualified Code(s): L03.115 - Cellulitis of right lower limb (2) Peripheral vascular disease: Status: Acute (3) Ischemic cardiomyopathy: Status: Acute (4) Chronic hypoxemic respiratory failure: Status: Acute (5) PAD (peripheral artery disease): Status: Acute Additional A&P Information Patient with mtuliple comorbidities, significantly ICMP with EF 20% and peripheral aretry disease with RLE ulceration, now admitted with RLE cellulitis # RLE cellulitis Currenlty on empiric abx with Pip/Tazo and Linezolid, overall cellulitis is significantly improved over the last exam. Wound swab cx with Enterococcus faecalis which is waller susceptible. No evidence of MRSA or other resistant colonizers on the wound swab culture. Can discontinue linezolid today. However would not de-escalate from piperacillin tazobactam at this time given that gram-negative's especially Pseudomonas may be a significant pathogen and in a limb with poor peripheral blood supply. Monitor leg closely with discontinuation of linezolid. Recommend total 2 weeks of treatment, continue IV piperacillin tazobactam while remains admitted, if discharged prior to completion of 2 weeks of treatment, recommend switching to oral treatment with levofloxacin and Augmentin to complete course Patient remains at risk for recurrent cellulitis and abx failure due to poor peripheral perfusion, inability to debride as needed, persistence of skin breach from ulcer and friable skin # ICMP EF 20% on continuous dobutamine infusion # management of other medical comorbidities per hospitalist team Malinda Ruiz Infectious Disease Attestations Medical Necessity Statement*: Please see admitting team's note Coding Level of Care Code Acute Specialty Person for g Fwd Diagnoses Cellulitis L03.115 Site of cellulitis: extremity Site of cellulitis of extremity: lower extremity Laterality: right Peripheral vascular disease I73.9 Ischemic cardiomyopathy I25.5 Chronic hypoxemic respiratory failure J96.11 PAD (peripheral artery disease) I73.9
[2020-08-31] MEDS: TORSEmide 20 mg Tablet 60 MG PO (17:44)
[2020-08-31 18:08] LABS: Glucose Point of Care 202 mg/dL (70-110)
[2020-08-31 19:10] LABS: Anion Gap 18.6 (5-19); Blood Urea Nitrogen 70 mg/dL (8-23); Calcium 9.1 mg/dL (8.5-10.5); Carbon Dioxide 25 mmol/L (22-29); Chloride 91 mmol/L (98-107); Glomerular Filtration Rate 16.5 mL/min (90-130); Glucose 212 mg/dL (65-115); Osmolality Calculated 297 mOsm/kg (285-295); Potassium 4.6 mmol/L (3.5-5.1); Sodium 130 mmol/L (136-145)
[2020-08-31] MEDS: finasteride 5 mg Tablet 10 MG PO (20:24)
[2020-08-31] MEDS: simethicone 80 mg Chew PO (20:24)
[2020-08-31] MEDS: DOBUTamine drip 500 MG/250 ML PREMIX 15 MG IV (20:46)
[2020-08-31 21:03] LABS: Glucose Point of Care 177 mg/dL (70-110)
[2020-09-01] VITALS (41 sets, daily range): BP systolic 81–122; BP diastolic 42–74; PULSE 75–93; RESP 14–26; TEMP 36.4–37; O2SAT 91–99
[2020-09-01] MEDS: piperacillin-tazobactam 3.375 GM in sodium chloride 0.9% (plus) 50 ML IV ×3 (02:46→18:11)
[2020-09-01] MEDS: simethicone 80 mg Chew PO ×3 (02:46→20:11)
[2020-09-01 02:56] LABS: Glucose Point of Care 167 mg/dL (70-110)
[2020-09-01 04:33] LABS: Basophils % 0.2 %; Eosinophils % 0.3 %; Hematocrit 32.6 % (42.0-52.0); Hemoglobin 10.2 g/dL (11.7-16.6); Lymphocytes # 0.9 10^3/uL (0.8-4.8); Lymphocytes % 7.6 %; Mean Corpuscular HGB Conc 31.3 g/dL (30.0-36.0); Mean Corpuscular Hemoglobin 29.1 pg (28.0-34.0); Mean Corpuscular Volume 93.1 fL (80-94); Mean Platelet Volume 9.3 fL (7.4-10.4); Monocytes # 0.7 10^3/uL (0.2-0.9); Monocytes % 5.5 %; Neutrophils # 10.71 10^3/uL (1.8-7.7); Nucleated Red Blood Cells % 0 %; Platelet Count 203 10^3/cmm (130-400); White Blood Count 12.4 10^3/uL (4.0-10.0)
[2020-09-01 05:16] LABS: Alanine Aminotransferase 19 U/L (0-41); Albumin Level 3.6 g/dL (3.5-5.2); Alkaline Phosphatase 70 IU/L (40-130); Anion Gap 18.2 (5-19); Aspartate Amino Transferase 21 U/L (0-40); Blood Urea Nitrogen 68 mg/dL (8-23); Calcium 8.8 mg/dL (8.5-10.5); Carbon Dioxide 24 mmol/L (22-29); Chloride 90 mmol/L (98-107); Glomerular Filtration Rate 17.6 mL/min (90-130); Glucose 145 mg/dL (65-115); Osmolality Calculated 288 mOsm/kg (285-295); Potassium 4.2 mmol/L (3.5-5.1); Sodium 128 mmol/L (136-145); Total Bilirubin 0.7 mg/dL (0.15-1.2); Total Protein 6.6 g/dL (6.6-8.7)
[2020-09-01] MEDS: sucralfate 1 gm/10 mL Oral Liq UDC PO ×4 (06:25→20:10)
[2020-09-01] MEDS: heparin 5,000 unit/mL INJ 1 mL 5000 UNIT SUBCUT ×2 (08:02→20:09)
[2020-09-01 08:03] LABS: Glucose Point of Care 169 mg/dL (70-110)
[2020-09-01] MEDS: aspirin 81 mg EC Tablet PO (08:03)
[2020-09-01] MEDS: clopidogrel 75 mg Tablet PO (08:03)
[2020-09-01] MEDS: TRAMadol 50 mg Tablet PO ×2 (08:03→22:50)
[2020-09-01] MEDS: TORSEmide 20 mg Tablet 60 MG PO (08:03)
[2020-09-01] MEDS: metOLazone 5 MG Tablet 2.5 MG PO ×2 (08:04→17:11)
--- NOTE | 2020-09-01 08:34 | PC.NURSE ---
pt awake now c/o chest burning and uncomfortable tramadol and simethocone given head of bed elevated at this time only small amt of glycernea taken
[2020-09-01] MEDS: HYDROmorphone 1 mg/mL INJ 1 mL 0.5 MG IVP (08:40)
--- NOTE | 2020-09-01 08:43 | PC.NURSE ---
anxious continues to c/o pain requesting morphine.. dilaudid given and repositioned urine output remains good at bedside with client to calm him at this time
[2020-09-01] MEDS: collagenase oint 30 gm 1 APPLIC TOPICAL (09:02)
--- NOTE | 2020-09-01 09:03 | PC.NURSE ---
drs change done to leg pt remains anxious
--- NOTE | 2020-09-01 10:07 | PM.PN ---
Subjective Subjective: Interval history: No complaints overnight. Seen multiple times during the day. During morning rounds patient's mean arterial pressures were around 70 on dobutamine of 15 and nitro drip which was increased overnight to 30. Patient was made to sit in the chair. He has been refusing heparin shots on and off. Discussed in detail with him regarding need of heparin and he agreed. After sitting up in chair patient's abdominal distention, nausea and epigastric discomfort has improved. He has had overall 2 loose bowel movements. Documented urine output in last 24 hours 1900 cc. During the day nitro drip was weaned down to 5 and dobutamine drip was continued at 15. Patient has remained afebrile with mean arterial pressure persistently over 65 and saturating more than 95% on baseline oxygen supplementation. Medications: Reviewed: Yes Vitals/I&O/Wt Last Vital Signs Temp 98 F 09/01/20 09:00 Pulse 85 09/01/20 09:00 Resp 19 H 09/01/20 09:00 BP 99/61 09/01/20 09:00 Pulse Ox 95 09/01/20 09:00 08/31/20 09/01/20 09/01/20 22:59 06:59 14:59 Intake Total 850 / 1250 650 / 1900 100 / 100 Output Total 600 / 900 1000 / 1900 Balance 250 / 350 -350 / 0 100 / 100 Weight last 48 hrs Weight 102.875 kg Weight 102.557 kg Physical Exam Narrative: EXAM NARRATIVE: General: No acute distress, AO x3, anxious HEENT: PERRLA, pupils bilaterally equal and reactive Chest: Normal vesicular breath sounds, fine crackles at the base bases good air entry bilaterally CVS: S1-S2 regular, pansystolic murmur at apex 2 x 6, S3 gallop, no tachycardia, no rubs Abdomen: Soft, obese, distended, sluggish bowel sound nontender, no organomegaly, Neuro: No focal deficits, no facial deformity, AO x3, power 5/5 in all limbs Extremities: Bilateral lower limbs swelling, improving, erythema present on the right leg improving from before, open superficial ulcer without purulence present in right calf improving from before. Urinary Catheter Management^: Reyes Latex: Cath Placed During This Visit: yes, but has since been removed by the nurse Reason for Continuing Indwelling Catheter: Accurate Measurement of Urinary Output in Critically Ill Patients Urinary Catheter Date of Insertion: 08/27/20 Urinary Catheter Time of Insertion: 13:00 Date Urinary Catheter Removed: 08/29/20 Time Urinary Catheter Discontinued: 13:19 Data : 09/01/20 03:39 09/01/20 03:39 Micro: Microbiology 08/26/20 18:05 Blood Culture - Final Blood NO GROWTH AFTER 5 DAYS 08/26/20 18:05 Blood Culture - Final Blood NO GROWTH AFTER 5 DAYS 08/28/20 13:15 Wound Culture - Final Leg - #1 Enterococcus faecalis A&P Assessment and plan (1) Cardiogenic shock: Status: Acute (2) Cellulitis: Status: Acute Qualifiers: Laterality: right Site of cellulitis: extremity Site of cellulitis of extremity: lower extremity Qualified Code(s): L03.115 - Cellulitis of right lower limb (3) Peripheral vascular disease: Status: Acute (4) Ischemic cardiomyopathy: Status: Acute (5) Chronic hypoxemic respiratory failure: Status: Acute (6) PAD (peripheral artery disease): Status: Acute (7) Acute on chronic systolic heart failure: Status: Acute (8) COPD (chronic obstructive pulmonary disease): Status: Acute Qualifiers: COPD type: unspecified COPD Qualified Code(s): J44.9 - Chronic obstructive pulmonary disease, unspecified Additional A&P Information Cardiogenic shock: Resolving. Most likely because dobutamine drip was stopped in between for couple of hours. Antihypertensives were given. Keep mean arterial pressures between 55 to 60 mmHg. Dobutamine decreased to 15. Continue at the current dose. Do not decrease less than 14.6 for now. Continue to monitor urine output. Patient maintaining saturations on baseline oxygen supplementation. CAD/ischemic cardiomyopathy: End-stage heart failure on dobutamine pump as an outpatient. Follows up with correctional maintenance technician service at [facility]. Continue with aspirin, statin, Plavix, ivabradine. We will try to add Imdur slowly. For now continue with IV nitro drip. We will switch off if mean pressures are decreasing. Increase torsemide to 80 mg twice daily, metolazone 2.5 mg daily. Monitor urine output. S Echocardiogram done shows an EF of around 20% with severe diffuse hypokinesia of septum, anterior septum and LV apex, mildly dilated RV, mild MR, mild TR. Sepsis secondary to purulent cellulitis of right lower extremity: Failed outpatient treatment. Improving now. Pro-Flavio negative, MRSA negative. Blood cultures, and urine culture have remained negative so far. Wound culture for now growing Enterococcus. Sensitivities appreciated. We will discuss with ID. Plan to discontinue linezolid and continue Zosyn for now. NORMA consistent with moderate peripheral disease on the right side and mild peripheral disease on the right and left side, venous Doppler negative for DVT but consistent with fluid retention/edema bilaterally below knees. Patient is a poor surgical candidate for any endovascular surgeries because of severe COPD, severe cardiomyopathy on dobutamine drip. We will consult ID for antibiotic recommendations, surgery for wound care recommendations versus possible debridement. Dilaudid to 0.5 every 6 hours as needed. Dressing change as per surgical recommendations. Appreciate cardiology, ID, surgical recommendations. Acute kidney injury: Improving today. Most likely a combination of cardiorenal syndrome and ATN due to hypotension few days ago. We will continue to monitor. Stop potassium supplementation for now. Continue to monitor electrolytes and BMP daily for now. Diuretics as above. Nocturnal hypoxemia: Noncompliant with CPAP Patient only wants to use 6 L of nasal cannula during his hospitalization He was also using Vasquez-Synephrine for nasal congestion which I have discontinued because of his end-stage heart failure condition Continue other chronic oral medications. CODE STATUS: Full code. Discussed multiple times with , patient. DVT prophylaxis Heparin Cardiac diet. Ensure supplementation with meals. Out of bed to chair. Severely guarded prognosis. Patient's care discussed in detail with his daughter Ms. Tamera Young. We discussed that given the multiple severe comorbidities patient's care need to be really delicate and we need to take small baby steps every day while trying to improve his blood pressures and monitoring his kidney functions. We also discussed at this point the expectation is that kidney functions might worsen over the next 24 to 48 hours given the episode of hypotension yesterday. Also discussed that for now we will continue to monitor the urine output. Daughter states for now family does not want any kind of surgical intervention and would want to get her father a little better medically so that he can go back to his baseline and can be discharged hopefully before Andrzej. All the questions were answered in detail. Plan for the day: Wean nitro drip and then continue for better renal peripheral perfusion. Continue with dobutamine drip maintaining more than 15. Continue to monitor mean arterial pressures maintaining around 65. Continue with torsemide and increased to 80 mg twice daily, continue with metolazone 2.5 mg daily while monitoring urine output. Repeat BMP in afternoon and replete electrolytes accordingly. Restart home dose of Celexa as linezolid has been stopped. Continue Zosyn. Get patient out of bed to chair. Start patient on physical therapy. Attestations Medical Necessity Statement*: Patient requires further hospitalization for management of cardiogenic shock in setting of end-stage COPD, end-stage heart failure on dobutamine drip, JOANA. Critical Care Time: Critical Care Time (min): 90 Coding Level of Care Code Acute Mold Setter for [facility] Fwd Diagnoses Cardiogenic shock R57.0 Cellulitis L03.115 Laterality: right Site of cellulitis: extremity Site of cellulitis of extremity: lower extremity Peripheral vascular disease I73.9 Ischemic cardiomyopathy I25.5 Chronic hypoxemic respiratory failure J96.11 PAD (peripheral artery disease) I73.9 Acute on chronic systolic heart failure I50.23 COPD (chronic obstructive pulmonary disease) J44.9 COPD type: unspecified COPD
[2020-09-01] MEDS: linezolid premix 600 MG/300 ML PREMIX 300 MG IV (10:54)
--- NOTE | 2020-09-01 10:58 | PC.NURSE ---
up in chair with assist of pt legs elevated in recliner
[2020-09-01 11:42] LABS: Glucose Point of Care 195 mg/dL (70-110)
--- NOTE | 2020-09-01 12:45 | PC.NURSE ---
up in chair and bsc had large soft bm noted geovanni care done back to chair c/o of pain in chest has had dilaudid and tramadol and requesting more Dr called with no new orders at this time
--- NOTE | 2020-09-01 15:15 | P.PN_ITS ---
Subjective Subjective: Interval history: Feeling better today sitting in the chair creatinine has improved blood pressure is also reasonably stable. He has a reasonable good output, abdominal distention has improved he has episodes of diarrhea Medications: Reviewed: Yes Vitals/I&O/Wt Last Vital Signs Temp 98 F 09/01/20 12:00 Pulse 78 09/01/20 15:00 Resp 20 H 09/01/20 15:00 BP 108/62 09/01/20 15:00 Pulse Ox 97 09/01/20 15:00 09/01/20 09/01/20 09/01/20 06:59 14:59 22:59 Intake Total 700 / 1950 500 / 500 Output Total 1000 / 1900 1001 / 1001 Balance -300 / 50 -501 / -501 Weight last 48 hrs Weight 226 lb 12.8 oz Weight 226 lb 1.6 oz Physical Exam Narrative: EXAM NARRATIVE: GENERAL: Patient is alert, awake and oriented x3. NECK: No jugular vein distension. HEENT: No cyanosis. No icterus. No pallor. HEART: Regular S1 and S2. No murmur, rub or gallop. LUNGS: Clear to auscultate bilaterally. ABDOMEN: Soft, nontender and mildly distended. Positive bowel sounds. No gua rding, rebound or tenderness. CENTRAL NERVOUS SYSTEM: Grossly nonfocal. EXTREMITIES: Lower extremities with trace edema bilaterally. Bilateral wound and cellulitis improving Urinary Catheter Management^: Reyes Latex: Cath Placed During This Visit: yes, but has since been removed by the nurse Reason for Continuing Indwelling Catheter: Accurate Measurement of Urinary Output in Critically Ill Patients Urinary Catheter Date of Insertion: 08/27/20 Urinary Catheter Time of Insertion: 13:00 Date Urinary Catheter Removed: 08/29/20 Time Urinary Catheter Discontinued: 13:19 Data : 09/01/20 03:39 09/01/20 03:39 Micro: Microbiology 08/26/20 18:05 Blood Culture - Final Blood NO GROWTH AFTER 5 DAYS 08/26/20 18:05 Blood Culture - Final Blood NO GROWTH AFTER 5 DAYS 08/28/20 13:15 Wound Culture - Final Leg - #1 Enterococcus faecalis A&P Assessment and plan (1) Acute on chronic systolic heart failure: Continues to improve still in decompensated heart failure continue diuretics and metolazone same dose Status: Acute (2) Cardiogenic shock: Continues treatment dobutamine and MAP is stable Status: Acute (3) Cardiorenal syndrome with renal failure: Has improved after diuresis Status: Acute (4) Sepsis: Continue IV antibiotic Status: Acute Qualifiers: Severe sepsis shock status: unspecified (5) Atherosclerotic heart disease [place] coronary artery w/angina pectoris: Continue current regimen stable angina arredondo on nitroglycerin. Status: Acute Qualifiers: [place] vs. transplanted heart: [place] heart Qualified Code(s): I25.119 - Atherosclerotic heart disease of [place] coronary artery with unspecified angina pectoris (6) Peripheral vascular disease: Patient has severe peripheral vascular disease. Bilateral lower extremity ulcer most likely due to venous stasis which is improving. Continue medical management Status: Acute Attestations Medical Necessity Statement*: Patient require continuation hospitalization for above defined care Coding Level of Care Code Established Pt Acute Licensed Psychologist Manager for Michi Escobar Patient Type Established History Detailed Exam Detailed Medical Decision Making Moderate Complexity Diagnoses Acute on chronic systolic heart failure I50.23 Cardiogenic shock R57.0 Cardiorenal syndrome with renal failure I13.10 Sepsis A41.9 Severe sepsis shock status: unspecified Atherosclerotic heart disease [place] coronary artery w/angina pectoris I25.119 [place] vs. transplanted heart: [place] heart Peripheral vascular disease I73.9
[2020-09-01] MEDS: escitalopram 10 mg Tablet PO (16:22)
[2020-09-01 16:52] LABS: Glucose Point of Care 160 mg/dL (70-110)
[2020-09-01 17:09] LABS: Blood Urea Nitrogen 71 mg/dL (8-23); Calcium 8.8 mg/dL (8.5-10.5); Carbon Dioxide 26 mmol/L (22-29); Chloride 92 mmol/L (98-107); Glucose 166 mg/dL (65-115); Osmolality Calculated 295 mOsm/kg (285-295); Sodium 130 mmol/L (136-145)
[2020-09-01] MEDS: TORSEmide 20 mg Tablet 80 MG PO (17:11)
[2020-09-01 17:14] LABS: Anion Gap 16.1 (5-19); Potassium 4.1 mmol/L (3.5-5.1)
[2020-09-01 20:10] LABS: Glucose Point of Care 134 mg/dL (70-110)
[2020-09-01] MEDS: atorvastatin 40 mg Tablet 80 MG PO (20:10)
[2020-09-01] MEDS: finasteride 5 mg Tablet 10 MG PO (20:11)
[2020-09-02] VITALS (31 sets, daily range): BP systolic 87–117; BP diastolic 49–78; PULSE 74–93; RESP 12–29; TEMP 35.9–36.9; O2SAT 84–100
[2020-09-02] MEDS: piperacillin-tazobactam 3.375 GM in sodium chloride 0.9% (plus) 50 ML IV ×3 (03:25→18:12)
[2020-09-02] MEDS: simethicone 80 mg Chew PO (06:31)
[2020-09-02] MEDS: sucralfate 1 gm/10 mL Oral Liq UDC PO ×2 (06:31→11:59)
[2020-09-02 07:16] LABS: Basophils # 0.1 10^3/uL (0.0-0.1); Basophils % 0.4 %; Eosinophils # 0.4 10^3/uL (0.0-0.8); Eosinophils % 2.7 %; Hematocrit 31.5 % (42.0-52.0); Lymphocytes # 1.4 10^3/uL (0.8-4.8); Lymphocytes % 10.7 %; Mean Corpuscular HGB Conc 31.7 g/dL (30.0-36.0); Mean Corpuscular Hemoglobin 29.5 pg (28.0-34.0); Mean Corpuscular Volume 92.9 fL (80-94); Mean Platelet Volume 8.9 fL (7.4-10.4); Monocytes # 0.7 10^3/uL (0.2-0.9); Monocytes % 5.6 %; Neutrophils # 10.38 10^3/uL (1.8-7.7); Neutrophils % 80.2 %; Nucleated Red Blood Cells % 0 %; Platelet Count 198 10^3/cmm (130-400); Red Blood Count 3.39 10^6/uL (4.1-5.3); Red Cell Distribution Width 17.1 % (12.1-15.1)
[2020-09-02 07:42] LABS: Alanine Aminotransferase 16 U/L (0-41); Albumin Level 3.8 g/dL (3.5-5.2); Alkaline Phosphatase 69 IU/L (40-130); Anion Gap 16.1 (5-19); Aspartate Amino Transferase 16 U/L (0-40); Blood Urea Nitrogen 67 mg/dL (8-23); Calcium 8.8 mg/dL (8.5-10.5); Carbon Dioxide 28 mmol/L (22-29); Chloride 91 mmol/L (98-107); Glomerular Filtration Rate 24.7 mL/min (90-130); Glucose 133 mg/dL (65-115); Osmolality Calculated 295 mOsm/kg (285-295); Potassium 3.1 mmol/L (3.5-5.1); Sodium 132 mmol/L (136-145); Total Bilirubin 0.6 mg/dL (0.15-1.2); Total Protein 6.8 g/dL (6.6-8.7)
[2020-09-02 07:57] LABS: Glucose Point of Care 162 mg/dL (70-110)
--- NOTE | 2020-09-02 08:12 | PC.NURSE ---
Pt sitting up in chair eating breakfast. Complains of pain in leg and burning in the penis area. No visual issue around the meatus of the penis. Dr. Malin aware. Will continue to monitor.
[2020-09-02] MEDS: HYDROmorphone 1 mg/mL INJ 1 mL 0.5 MG IVP ×2 (08:30→16:15)
[2020-09-02] MEDS: aspirin 81 mg EC Tablet PO (08:32)
[2020-09-02] MEDS: clopidogrel 75 mg Tablet PO (08:32)
[2020-09-02] MEDS: escitalopram 10 mg Tablet PO (08:32)
[2020-09-02] MEDS: metOLazone 5 MG Tablet 2.5 MG PO ×2 (08:33→18:12)
[2020-09-02] MEDS: TORSEmide 20 mg Tablet 80 MG PO ×2 (08:34→18:08)
[2020-09-02] MEDS: heparin 5,000 unit/mL INJ 1 mL 5000 UNIT SUBCUT ×2 (08:35→20:35)
[2020-09-02] MEDS: collagenase oint 30 gm 1 APPLIC TOPICAL (08:36)
--- NOTE | 2020-09-02 09:24 | PC.CHAP ---
Pastoral Care Encounter/Spiritual Assessment Type of Contact [] Declined budget specialist visit [] Patient/Family/Request visit [] Outpatient visit [] Follow-up visit [] Physician referral [] Code/Alert [] Routine visit [] Staff referral [] Actively dying [] Patient sleeping [] Family support [] [] Out of room [] Palliative care [] [] Receiving care in room [] Pre-surgical visit [] Trauma [] Long length of stay [x] ICU visit [] Other: Relational/Emotional Strength [] Patient feels connected with others/family/visitors/staff [] Distress [] Loneliness/isolation [] Abandonment Spirituality of Patient [] Person of Rhiannon [] Attends Anabaptist of their Rhiannon [] Believes in Prayer [] Reads Bible or Taoist materials [] There are Spiritual issues to be addressed Rip Saw Operator Interventions [x] Prayer [] Active listening [] Non-anxious presence [] Spiritual/emotional support [] Crisis/trauma care [] Spiritual counseling [] Bereavement support [] Provided bereavement packet [] Provided Bible/devotional materials [] Provided toy/stuffed animal, coloring book to patient or family member [] Provided Communion [] Anointing/[place] [] Salvation [x] Completed spiritual assessment [] Other: Impact on Illness or Injury [] Angry [] Fearful [] Anxious [] Often cries [] Exhaustion [] Unable to work [] Unable to attend uatsdin [] Unable to walk/stand [] Unable to read [] Unable to drive [] Unable to eat/drink [] Unable to sleep [] Unable to be with family [] Patient intubated [] Other: Summary Time spent with patient
--- NOTE | 2020-09-02 10:42 | PC.NURSE ---
Pt was stood up and let him stretch and move a bit. becomes SOB with excessive movement. Walker used and marine underwriter stood at side of pt and assisted. Pt tolerated well.
[2020-09-02 11:06] LABS: Glucose Point of Care 181 mg/dL (70-110)
--- NOTE | 2020-09-02 11:22 | P.PN_ITS ---
Subjective Subjective: Interval history: This morning patient was examined, he sitting up in the chair, complaining that the Reyes catheter is bothering him, he has a burning sensation, no penile discharge, no history of latex allergy, no blood in his urine. In addition he is complaining of severe abdominal distention, abdominal pain, denies a history of paracentesis in the past. In addition he is telling me that the cellulitis particularly in the right lower extremity is quite painful this morning, he was in significant pain during manipulation this morning He tells me that his plan is to go home to his , he tells me that he wants to go back to his [id number] home, tells me that it is a civil era home, it is a historical site, as he went into detail telling me how once he tried to do repairs on it, but the feds showed up in 5 black limos, he advised that he could not make any changes to the home, ever since then he gets a letter for him every 5 years or so Vitals/I&O/Wt Last Vital Signs Temp 98.4 F 09/02/20 00:00 Pulse 89 09/02/20 10:30 Resp 17 09/02/20 10:30 BP 89/56 09/02/20 10:30 Pulse Ox 98 09/02/20 10:30 09/01/20 09/02/20 09/02/20 22:59 06:59 14:59 Intake Total 350 / 850 250 / 1100 220 / 220 Output Total 1000 / 2001 1500 / 3501 Balance -650 / -1151 -1250 / -2401 220 / 220 Weight last 48 hrs Weight 102.875 kg Physical Exam Const: COMMON NORMALS: no acute distress and patient oriented x3 HENMT: COMMON NORMALS: normocephalic HEAD & SCALP: normocephalic Neck/C-Spine: COMMON NORMALS: no JVD Resp: COMMON NORMALS: normal respiratory effort, No retractions, No use of accessory muscles and clear to auscultation bilaterally AUSCULTATION: clear to auscultation bilaterally Cardio: COMMON NORMALS: no JVD, regular rate, regular rhythm, S1 normal heart sound present and S2 normal heart sound present RATE: regular rate RHYTHM: regular rhythm HEART SOUNDS: S1 normal heart sound present and S2 normal heart sound present GI: COMMON NORMALS: Normal to inspection, nondistended, normoactive bowel sounds present and Soft to palpation INSPECTION: Yes abdominal distension PALPATION: Yes Soft to palpation Extremity: COMMON NORMALS: capillary refill normal, no clubbing, cyanosis or edema, no calf tenderness and no pedal edema Neuro: COMMON NORMALS: patient oriented x3 Psych: COMMON NORMALS: mental status grossly normal Skin: NARRATIVE SKIN EXAM: Left lower extremity, erythema, extending from mid melgar, to distal tibia, with scaling of the skin Right lower extremity, wrapped in bandage: Under the bandage, has extensive erythema, cellulitis extending from the mid melgar to the distal tibia, on the c isaac region, has a 4 x 5 cm superficial wound Urinary Catheter Management^: Reyes Latex: Cath Placed During This Visit: yes, but has since been removed by the nurse Reason for Continuing Indwelling Catheter: Accurate Measurement of Urinary Output in Critically Ill Patients Urinary Catheter Date of Insertion: 08/27/20 Urinary Catheter Time of Insertion: 13:00 Date Urinary Catheter Removed: 08/29/20 Time Urinary Catheter Discontinued: 13:19 Data : 09/02/20 06:58 09/02/20 06:58 A&P Assessment and plan (1) Cardiogenic shock: Status: Acute (2) Cellulitis: Status: Acute Qualifiers: Site of cellulitis: extremity Site of cellulitis of extremity: lower extremity Laterality: right Qualified Code(s): L03.115 - Cellulitis of right lower limb (3) Peripheral vascular disease: Status: Acute (4) Ischemic cardiomyopathy: Status: Acute (5) Chronic hypoxemic respiratory failure: Status: Acute (6) PAD (peripheral artery disease): Status: Acute (7) Acute on chronic systolic heart failure: Status: Acute (8) COPD (chronic obstructive pulmonary disease): Status: Acute Qualifiers: COPD type: unspecified COPD Qualified Code(s): J44.9 - Chronic obstructive pulmonary disease, unspecified Additional A&P Information Cardiogenic shock: Resolving. Most likely because dobutamine drip was stopped in between for couple of hours. Antihypertensives were given. Abdominal distention, likely secondary to cardiac ascites, will discuss with cardiology about doing a paracentesis for symptomatic relief, does run significant risk of hypotension Keep mean arterial pressures between 55 to 60 mmHg. Dobutamine at 15 15. Continue at the current dose. Do not decrease until cardiology recommendations Continue to monitor urine output. Urine output 3500 cc Patient maintaining saturations on baseline oxygen supplementation. CAD/ischemic cardiomyopathy: End-stage heart failure on dobutamine pump as an outpatient. Follows up with corporate learning consultant service at [facility]. Continue with aspirin, statin, Plavix, ivabradine. Plan is to wean nitro drip, and start Imdur, will await cardiology's lead. W Torsemide 80 mg twice daily, metolazone 2.5 mg daily. Monitor urine output. Echocardiogram done shows an EF of around 20% with severe diffuse hypokinesia of septum, anterior septum and LV apex, mildly dilated RV, mild MR, mild TR. Sepsis secondary to purulent cellulitis of right lower extremity: Failed outpatient treatment. Improving now. Pro-Flavio negative, MRSA negative. Blood cultures, and urine culture have remained negative so far. Wound culture for now growing Enterococcus. Sensiti vities appreciated. We will discuss with ID. Zyvox was discontinued, continue Zosyn for now NORMA consistent with moderate peripheral disease on the right side and mild peripheral disease on the right and left side, venous Doppler negative for DVT but consistent with fluid retention/edema bilaterally below knees. Needs wound care, of right lower extremity open wound Patient is a poor surgical candidate for any endovascular surgeries because of severe COPD, severe cardiomyopathy on dobutamine drip. We will consult ID for antibiotic recommendations, likely needs to follow-up with wound care as outpatient Dilaudid to 0.5 every 6 hours as needed. Dressing change as per surgical recommendations. Appreciate cardiology, ID, surgical recommendations. Acute kidney injury: Improving today. Most likely a combination of cardiorenal syndrome and ATN due to hypotension few days ago. We will continue to monitor. Stop potassium supplementation for now. Continue to monitor electrolytes and BMP daily for now. Diuretics as above. Nocturnal hypoxemia: Noncompliant with CPAP Patient only wants to use 6 L of nasal cannula during his hospitalization He was also using Vasquez-Synephrine for nasal congestion which I have discontinued because of his end-stage heart failure condition Continue other chronic oral medications. CODE STATUS: Full code. Discussed multiple times with , patient. DVT prophylaxis Heparin Cardiac diet. Ensure supplementation with meals. Out of bed to chair. Severely guarded prognosis. Patient's care discussed in detail with his daughter Ms. Tamera Young. We disc ussed that given the multiple severe comorbidities patient's care need to be really delicate and we need to take small baby steps every day while trying to improve his blood pressures and monitoring his kidney functions. We also discussed at this point the expectation is that kidney functions might worsen over the next 24 to 48 hours given the episode of hypotension yesterday. Also discussed that for now we will continue to monitor the urine output. Daughter states for now family does not want any kind of surgical intervention and would want to get her father a little better medically so that he can go back to his baseline and can be discharged hopefully before Andrzej. All the questions were answered in detail. Plan for the day: Wean nitro drip, to Imdur, await cardiology's lead, maintain MAP greater than 55-60, monitor urine output, change Reyes catheter for possible latex allergy, will speak to cardiology about possible paracentesis Attestations Medical Necessity Statement*: Patient requires hospitalization for acute on chronic systolic heart failure, cardiogenic shock, cardiorenal syndrome, sepsis, cellulitis, peripheral vascular disease Time Spent in Patient Care: Greater than 35 minutes (>than 50% of time s pent in counselling and/or direct pt care on unit) . Critical Care Time: Critical Care Time (min): 35 Coding Level of Care Code Acute Compensation Expert for Michi Fwd Diagnoses Cardiogenic shock R57.0 Cellulitis L03.115 Site of cellulitis: extremity Site of cellulitis of extremity: lower extremity Laterality: right Peripheral vascular disease I73.9 Ischemic cardiomyopathy I25.5 Chronic hypoxemic respiratory failure J96.11 PAD (peripheral artery disease) I73.9 Acute on chronic systolic heart failure I50.23 COPD (chronic obstructive pulmonary disease) J44.9 COPD type: unspecified COPD
--- NOTE | 2020-09-02 12:32 | PC.PT ---
PT note; patient has achieved primary PT goals of standby assistance with transfers from bed to chair and back to bed, now performing as frequently as nursing; gait goal was withdrawn due to severity of patient's heart failure; discharge physical therapy, as primary goals are achieved.
[2020-09-02] MEDS: TRAMadol 50 mg Tablet PO ×2 (12:48→20:32)
[2020-09-02] MEDS: DOBUTamine drip 500 MG/250 ML PREMIX 15 MG IV (12:49)
[2020-09-02] MEDS: potassium chloride ER 20 mEq Tablet 40 MEQ PO (12:49)
--- NOTE | 2020-09-02 16:11 | PC.SOCIAL ---
IMM Updated Updated pt on Pg 2 IMM. No questions voiced. Provided pt a copy & left on pt's bedside table. Signed, dated, & timed copy in chart.
[2020-09-02 17:34] LABS: Glucose Point of Care 128 mg/dL (70-110)
--- NOTE | 2020-09-02 17:42 | PM.PN ---
Subjective Subjective: Interval history: Patient is feeling sleepy overall he is feeling better. Urine output is good creatinine has improved. Potassium is on the lower side which will be replenished Medications: Reviewed: Yes Medication Review Details: Current Medications Acetaminophen (Acetaminophen 325 Mg Tablet) 325 mg PO Q4H PRN PRN Reason: Pain Aspirin (Aspirin 81 Mg Ec Tablet) 81 mg PO DAILY@0830 [facility] Last Admin: 08/29/20 09:42 Dose: 81 mg Documented by: Atorvastatin Calcium (Atorvastatin 40 Mg Tablet) 80 mg PO BEDTIME [facility] Last Admin: 08/28/20 20:48 Dose: 80 mg Documented by: Clopidogrel Bisulfate (Clopidogrel 75 Mg Tablet) 75 mg PO DAILY@0830 [facility] Last Admin: 08/29/20 09:43 Dose: 75 mg Documented by: Collagenase (Collagenase Oint 30 Gm) 1 applic TOPICAL DAILY [facility] Last Admin: 08/29/20 15:10 Dose: Not Given Documented by: Dextrose (Dextrose 50% Syringe 50 Ml) 25 ml IVP ONCE PRN; Protocol PRN Reason: hypoglycemia protocol Dextrose (Dextrose 50% Syringe 50 Ml) 50 ml IVP PRN PRN; Protocol PRN Reason: hypoglycemia protocol Docusate Sodium (Docusate Sodium 100 Mg Capsule) 100 mg PO DAILY PRN PRN Reason: constipation Finasteride (Finasteride 5 Mg Tablet) 5 mg PO BEDTIME [facility] Glucagon (Glucagon 1 Mg/Ml Inj 1 Ml) 1 mg IM ONCE PRN; Protocol PRN Reason: Adult Acute Hypoglycemia Prot. Guaifenesin (Guaifenesin 600 Mg Tablet) 600 mg PO BID PRN PRN Reason: Congestion Heparin Sodium (Beef Lung) (Heparin 5,000 Unit/Ml Inj 1 Ml) 5,000 unit SUBCUT Q8H [facility] Last Admin: 08/29/20 16:08 Dose: 5,000 unit Documented by: Hydromorphone HCl (Hydromorphone 1 Mg/Ml Inj 1 Ml) 0.5 mg IVP Q6H PRN PRN Reason: pain scale 5-10 Last Admin: 08/29/20 13:32 Dose: 0.5 mg Documented by: Linezolid (Zyvox Premix) 600 mg in 300 mls @ 300 mls/hr IV Q12H [facility]; Protocol Last Infusion: 08/29/20 14:06 Dose: Infused Documented by: Piperacillin Sod/Tazobactam (Sod 3.375 gm/ Sodium Chloride) 50 mls @ 12.5 mls/hr IV Q8H [facility]; Protocol Last Admin: 08/29/20 12:20 Dose: 12.5 mls/hr Documented by: Dextrose (D5w) 500 mls @ 100 mls/hr IV ONCE PRN; Protocol PRN Reason: Adult Acute Hypoglycemia Prot Dobutamine HCl/Dextrose (Dobutamine Drip) 500 mg in 250 mls @ 20 mls/hr IV CONT [facility] Last Infusion: 08/29/20 15:00 Dose: 20 mls/hr Documented by: Norepinephrine Bitartrate 4 mg (/ Dextrose) 254 mls @ 0 mls/hr IV .Q0M [facility]; Protocol Last Admin: 08/29/20 16:56 Dose: 2 mcg/min, 7.6 mls/hr Documented by: Insulin Aspart (Insulin Aspart 100 Unit/1 Ml) 0 unit SUBCUT WM&BEDTIME [facility]; Protocol Last Admin: 08/29/20 12:21 Dose: 6 unit Documented by: Ipratropium [place] (Ipratropium 12.9 Gm Mdi) 2 puff INHALATION Q4H.RESPIRATORY PRN PRN Reason: AIR HUNGER Isosorbide Mononitrate (Isosorbide Mononitrate Er 30 Mg Tablet) 30 mg PO DAILY@0830 [facility] Last Admin: 08/29/20 09:44 Dose: 30 mg Documented by: Levalbuterol HCl (Levalbuterol 0.63 Mg/3 Ml Neb) 0.63 mg INHALATION Q4H.RESPIRATORY PRN PRN Reason: SHORTNESS OF BREATH Losartan Potassium (Losartan 50 Mg Tablet) 25 mg PO DAILY [facility] Last Admin: 08/29/20 09:43 Dose: 25 mg Documented by: Nitroglycerin (Nitroglycerin 0.4 Mg Sublingual Tablet) 0.4 mg SUBLINGUAL PRN PRN PRN Reason: CHEST PAINS Non-Formulary Medication (Dobutamine [Dobutamine]) 700 mg IVP DIRECTED [facility] Non-Formulary Medication (Oxycodone-Acetaminophen) 1 tab PO TID PRN PRN Reason: Pain Non-Formulary Medication (Ivabradine [Corlanor]) 5 mg PO BID@0830,1999 [facility] Last Admin: 08/29/20 09:58 Dose: 5 mg Documented by: Potassium Chloride (Potassium Chloride Er 20 Meq Tablet) 60 meq PO BID [facility] Last Admin: 08/29/20 09:59 Dose: 60 meq Documented by: Sodium Chloride (Saline Nasal [place] 44ml Btl) 1 spray NASAL PRN PRN PRN Reason: DRYNESS Spironolactone (Spironolactone 25 Mg Tablet) 25 mg PO DAILY [facility] Last Admin: 08/29/20 13:33 Dose: 25 mg Documented by: Tamsulosin HCl (Tamsulosin 0.4 Mg Capsule) 0.4 mg PO DAILY@0830 [facility] Last Admin: 08/29/20 09:43 Dose: 0.4 mg Documented by: Torsemide (Torsemide 20 Mg Tablet) 100 mg PO DAILY [facility] Last Admin: 08/29/20 09:43 Dose: 100 mg Documented by: Tramadol HCl (Tramadol 50 Mg Tablet) 50 mg PO Q8H PRN PRN Reason: MODERATE PAIN Vitals/I&O/Wt Last Vital Signs Temp 96.7 F L 09/02/20 17:00 Pulse 85 09/02/20 17:00 Resp 16 09/02/20 17:00 BP 97/61 09/02/20 17:00 Pulse Ox 84 L 09/02/20 17:00 09/02/20 09/02/20 09/02/20 06:59 14:59 22:59 Intake Total 250 / 1350 270 / 270 220 / 490 Output Total 1500 / 3501 1999 Balance -1250 / -2151 270 / 270 -1780 / -1510 Weight last 48 hrs Weight 226 lb 12.8 oz Physical Exam Narrative: EXAM NARRATIVE: GENERAL: Patient is sleepy. NECK: No jugular vein distension. HEENT: No cyanosis. No icterus. No pallor. HEART: Regular S1 and S2. No murmur, rub or gallop. LUNGS: Clear to auscultate bilaterally. ABDOMEN: Soft, nontender and mildly distended. Positive bowel sounds. No guarding, rebound or tenderness. CENTRAL NERVOUS SYSTEM: Grossly nonfocal. EXTREMITIES: Lower extremities with trace edema bilaterally. Bilateral wound and cellulitis improving Urinary Catheter Management^: Reyes Latex: Cath Placed During This Visit: yes, but has since been removed by the nurse Reason for Continuing Indwelling Catheter: Accurate Measurement of Urinary Output in Critically Ill Patients Urinary Catheter Date of Insertion: 12/08/20 Urinary Catheter Time of Insertion: 13:00 Date Urinary Catheter Removed: 08/29/20 Time Urinary Catheter Discontinued: 13:19 Data : 09/02/20 06:58 09/02/20 06:58 A&P Assessment and plan (1) Acute on chronic systolic heart failure: Continues to improve continue current regimen Status: Acute (2) Cardiogenic shock: Continues treatment dobutamine and MAP is stable Status: Acute (3) Cardiorenal syndrome with renal failure: Improving steadily creatinine today's less than 3 Status: Acute (4) Sepsis: Continue IV antibiotic Status: Acute Qualifiers: Severe sepsis shock status: unspecified (5) Atherosclerotic heart disease [place] coronary artery w/angina pectoris: Continue current regimen stable angina arredondo on nitroglycerin. Status: Acute Qualifiers: [place] vs. transplanted heart: [place] heart Qualified Code(s): I25.119 - Atherosclerotic heart disease of [place] coronary artery with unspecified angina pectoris (6) Peripheral vascular disease: Patient has severe peripheral vascular disease. Bilateral lower extremity ulcer most likely due to venous stasis which is improving. Continue medical management Status: Acute Additional A&P Information Other problems are Hypokalemia, currently corrected. Generalized debilitation COPD Carotid artery disease Losartan is discontinued. Patient is being closely monitored in the ICU. Discussed with the family() his current condition. The family is well aware of the prognosis. Attestations Medical Necessity Statement*: Require continuation hospitalization for above defined care. 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 transplanted heart: [place] heart Peripheral vascular disease I73.9
[2020-09-02] MEDS: finasteride 5 mg Tablet 10 MG PO (20:32)
[2020-09-02] MEDS: atorvastatin 40 mg Tablet 80 MG PO (20:33)
[2020-09-02] MEDS: lidocaine 2% viscous 15 ML, aluminum-mag hydrox-simethicon 30 ML, sucralfate oral liq 1 GM PO (20:52)
[2020-09-02 20:58] LABS: Glucose Point of Care 186 mg/dL (70-110)
[2020-09-03] VITALS (29 sets, daily range): BP systolic 89–125; BP diastolic 56–77; PULSE 73–101; RESP 0–29; TEMP 35.9–37; O2SAT 87–99
[2020-09-03] MEDS: HYDROmorphone 1 mg/mL INJ 1 mL 0.5 MG IVP ×3 (02:47→18:08)
[2020-09-03] MEDS: piperacillin-tazobactam 3.375 GM in sodium chloride 0.9% (plus) 50 ML IV ×3 (02:48→18:08)
--- NOTE | 2020-09-03 03:12 | PC.NURSE ---
Black Stool Patient has had 2 loose black stools this shift. Stool sample sent to evaluate for occult blood. Pt has small amount of blood when blowing nose. Humidity placed on oxygen.
[2020-09-03 04:07] LABS: Basophils # 0.1 10^3/uL (0.0-0.1); Basophils % 0.5 %; Eosinophils # 0.4 10^3/uL (0.0-0.8); Eosinophils % 3.5 %; Hematocrit 32.6 % (42.0-52.0); Hemoglobin 10.4 g/dL (11.7-16.6); Lymphocytes # 1.9 10^3/uL (0.8-4.8); Lymphocytes % 17.4 %; Mean Corpuscular HGB Conc 31.9 g/dL (30.0-36.0); Mean Corpuscular Hemoglobin 29.1 pg (28.0-34.0); Mean Corpuscular Volume 91.1 fL (80-94); Mean Platelet Volume 9.1 fL (7.4-10.4); Monocytes # 0.9 10^3/uL (0.2-0.9); Monocytes % 7.9 %; Neutrophils # 7.72 10^3/uL (1.8-7.7); Neutrophils % 70.2 %; Nucleated Red Blood Cells % 0 %; Platelet Count 199 10^3/cmm (130-400); Red Blood Count 3.58 10^6/uL (4.1-5.3)
[2020-09-03 04:26] LABS: Alanine Aminotransferase 16 U/L (0-41); Albumin Level 3.9 g/dL (3.5-5.2); Alkaline Phosphatase 80 IU/L (40-130); Anion Gap 15.8 (5-19); Aspartate Amino Transferase 17 U/L (0-40); Blood Urea Nitrogen 70 mg/dL (8-23); Calcium 9.1 mg/dL (8.5-10.5); Carbon Dioxide 31 mmol/L (22-29); Chloride 88 mmol/L (98-107); Globulin 3.1 g/dL (1.3-4.6); Glomerular Filtration Rate 33.5 mL/min (90-130); Glucose 142 mg/dL (65-115); Osmolality Calculated 297 mOsm/kg (285-295); Sodium 132 mmol/L (136-145); Total Bilirubin 0.5 mg/dL (0.15-1.2)
[2020-09-03 04:27] LABS: Magnesium 1.8 mg/dL (1.7-2.3)
[2020-09-03 04:35] LABS: NT Pro B Type Natriuretic Pept 13977 pg/mL (0-125)
[2020-09-03 04:47] LABS: Potassium 2.8 mmol/L (3.5-5.1)
[2020-09-03] MEDS: potassium chloride premix 100 ML 25 MEQ IV ×2 (05:06→09:30)
--- NOTE | 2020-09-03 07:21 | PC.NURSE ---
Pt assisted up to chair. Tolerated well.
[2020-09-03 07:37] LABS: Glucose Point of Care 136 mg/dL (70-110)
--- NOTE | 2020-09-03 08:46 | PC.CHAP ---
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 [] Patient/Family/Request visit [] Outpatient visit [] Follow-up visit [] Physician referral [] Code/Alert [] Routine visit [] Staff referral [] Actively dying [] Patient sleeping [] Family support [] [] Out of room [] Palliative care [] [] Receiving care in room [] Pre-surgical visit [] Trauma [] Long length of stay [x] ICU visit [] Other: Relational/Emotional Strength [] Patient feels connected with others/family/visitors/staff [] Distress [] Loneliness/isolation [] Abandonment Spirituality of Patient [] Person of Rhiannon [] Attends Nondenominational of their Rhiannon [] Believes in Prayer [] Reads Bible or Yazidi materials [] There are Spiritual issues to be addressed Engineering Technician Interventions [x] Prayer [] Active listening [] Non-anxious presence [] Spiritual/emotional support [] Crisis/trauma care [] Spiritual counseling [] Bereavement support [] Provided bereavement packet [] Provided Bible/devotional materials [] Provided toy/stuffed animal, coloring book to patient or family member [] Provided Communion [] Anointing/[place] [] Salvation [x] Completed spiritual assessment [] Other: Impact on Illness or Injury [] Angry [] Fearful [] Anxious [] Often cries [] Exhaustion [] Unable to work [] Unable to attend uatsdin [] Unable to walk/stand [] Unable to read [] Unable to drive [] Unable to eat/drink [] Unable to sleep [] Unable to be with family [] Patient intubated [] Other: Summary Time spent with patient
--- NOTE | 2020-09-03 09:19 | PM.PN ---
Subjective Subjective: Interval history: This morning patient was examined, sitting up into a chair, and a bit better spirits, tells me last night he was able to get a good night sleep, has no particular complaints this morning, is just wondering when he will be discharged, his abdomen is distended, it is just slightly bothering him Vitals/I&O/Wt Last Vital Signs Temp 98.6 F 09/03/20 05:00 Pulse 93 09/03/20 07:00 Resp 22 H 09/03/20 07:00 BP 91/58 09/03/20 07:00 Pulse Ox 97 09/03/20 07:00 09/02/20 09/03/20 09/03/20 22:59 06:59 14:59 Intake Total 560 / 830 720 / 1550 Output Total 3200 / 3200 1500 / 4700 Balance -2640 / -2370 -780 / -3150 Weight last 48 hrs Weight 96.615 kg Physical Exam Const: COMMON NORMALS: no acute distress and patient oriented x3 HENMT: COMMON NORMALS: normocephalic HEAD & SCALP: normocephalic Neck/C-Spine: COMMON NORMALS: no JVD Resp: COMMON NORMALS: normal respiratory effort, No retractions, No use of accessory muscles and clear to auscultation bilaterally AUSCULTATION: clear to auscultation bilaterally Cardio: COMMON NORMALS: no JVD, regular rate, regular rhythm, S1 normal heart sound present and S2 normal heart sound present RATE: regular rate RHYTHM: regular rhythm HEART SOUNDS: S1 normal heart sound present and S2 normal heart sound present GI: COMMON NORMALS: Normal to inspection, nondistended, normoactive bowel sounds present, Soft to palpation, non-tender, no masses and no bruits INSPECTION: Yes abdominal distension PALPATION: Yes Soft to palpation Extremity: COMMON NORMALS: capillary refill normal, no clubbing, cyanosis or edema, no calf tenderness and no pedal edema Neuro: COMMON NORMALS: patient oriented x3 Psych: COMMON NORMALS: mental status grossly normal Skin: NARRATIVE SKIN EXAM: Left lower extremity, erythema, extending from mid melgar, to distal tibia, with scaling of the skin Right lower extremity, wrapped in bandage: Under the bandage, has extensive erythema, cellulitis extending from the mid melgar to the distal tibia, on the calf region, has a 4 x 5 cm superficial wound Urinary Catheter Management^: Reyes Latex: Cath Placed During This Visit: yes, but has since been removed by the nurse Reason for Continuing Indwelling Catheter: Accurate Measurement of Urinary Output in Critically Ill Patients Urinary Catheter Date of Insertion: 08/27/20 Urinary Catheter Time of Insertion: 13:00 Date Urinary Catheter Removed: 08/29/20 Time Urinary Catheter Discontinued: 13:19 Data : 09/03/20 03:07 09/03/20 03:07 Micro: Microbiology 09/03/20 03:00 Occult Blood (FIT) - Final Stool Routine Collection A&P Assessment and plan (1) Cardiogenic shock: Status: Acute (2) Cellulitis: Status: Acute Qualifiers: Site of cellulitis: extremity Site of cellulitis of extremity: lower extremity Laterality: right Qualified Code(s): L03.115 - Cellulitis of right lower limb (3) Peripheral vascular disease: Status: Acute (4) Ischemic cardiomyopathy: Status: Acute (5) Chronic hypoxemic respiratory failure: Status: Acute (6) PAD (peripheral artery disease): Status: Acute (7) Acute on chronic systolic heart failure: Status: Acute (8) COPD (chronic obstructive pulmonary disease): Status: Acute Qualifiers: COPD type: unspecified COPD Qualified Code(s): J44.9 - Chronic obstructive pulmonary disease, unspecified Additional A&P Information Cardiogenic shock: Resolving. Most likely because dobutamine drip was stopped in between for couple of hours. Antihypertensives were given. Abdominal distention, likely secondary to cardiac ascites, still slightly distended today, not particularly bothersome to the patient this morning, will discuss with cardiology about doing a paracentesis for symptomatic relief if required, does run significant risk of hypotension Keep mean arterial pressures between 55 to 60 mmHg. Dobutamine at 15. Continue at the current dose. Do not decrease until cardiology recommendations Continue to monitor urine output. Urine output 4700 cc Patient maintaining saturations on baseline oxygen supplementation. Is currently on 6 L CAD/ischemic cardiomyopathy: End-stage heart failure on dobutamine pump as an outpatient. Follows up with warp hanger service at [facility]. Continue with aspirin, statin, Plavix, ivabradine. Plan is to wean nitro drip, and start Imdur, will await cardiology's lead. W Torsemide 80 mg twice daily, metolazone 2.5 mg daily. Good urine output Hypokalemia, receiving 80 mEq of potassium today Echocardiogram done shows an EF of around 20% with severe diffuse hypokinesia of septum, anterior septum and LV apex, mildly dilated RV, mild MR, mild TR. Sepsis secondary to purulent cellulitis of right lower extremity: Failed outpatient treatment. Improving now. Pro-Flavio negative, MRSA negative. Blood cultures, and urine culture have remained negative so far. Wound culture for now growing Enterococcus. Sensitivities appreciated. We will discuss with ID. Zyvox was discontinued, continue Zosyn for now [place] consistent with moderate peripheral disease on the right side and mild peripheral disease on the right and left side, venous Doppler negative for DVT but consistent with fluid retention/edema bilaterally below knees. Needs wound care, of right lower extremity open wound Patient is a poor surgical candidate for any endovascular surgeries because of severe COPD, severe cardiomyopathy on dobutamine drip. Continue Zosyn for now, likely switch to doxycycline Augmentin on discharge, needs to follow-up with wound care Stop Dilaudid continue Ultram. Dressing change as per surgical recommendations. Acute kidney injury: Improving today. 2.0 today. Most likely a combination of cardiorenal syndrome and ATN due to hypotension few days ago. We will continue to monitor. Losartan was stopped yesterday by cardiology service Continue to monitor electrolytes and BMP daily for now. Nocturnal hypoxemia: Noncompliant with CPAP Patient only wants to use 6 L of nasal cannula during his hospitalization He was also using Vasquez-Synephrine for nasal congestion which I have discontinued because of his end-stage heart failure condition Continue other chronic oral medications. CODE STATUS: Full code. Discussed multiple times with , patient. DVT prophylaxis Heparin Cardiac diet. Ensure supplementation with meals. Out of bed to chair. Severely guarded prognosis. Patient's care discussed in detail with his daughter Ms. Tamera Young. We discussed that given the multiple severe comorbidities patient's care need to be really delicate and we need to take small baby steps every day while trying to improve his blood pressures and monitoring his kidney functions. We also discussed at this point the expectation is that kidney functions might worsen over the next 24 to 48 hours given the episode of hypotension yesterday. Also discussed that for now we will continue to monitor the urine output. Daughter states for now family does not want any kind of surgical intervention and would want to get her father a little better medically so that he can go back to his baseline and can be discharged hopefully before [place]. All the questions were answered in detail. Plan for the day: Wean nitro drip, await cardiology's lead, maintain MAP greater than 55-60, monitor urine output, encourage up out of bed, Attestations Medical Necessity Statement*: Patient requires hospitalization, for cardiogenic shock, ICU admission, dobutamine drip, nitro drip Time Spent in Patient Care: Greater than 35 minutes (>than 50% of time spent in counselling and/or direct pt care on unit). 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
[2020-09-03] MEDS: heparin 5,000 unit/mL INJ 1 mL 5000 UNIT SUBCUT ×2 (09:24→21:01)
[2020-09-03] MEDS: metOLazone 5 MG Tablet 2.5 MG PO ×2 (09:26→18:06)
[2020-09-03] MEDS: acetaminophen 325 mg Tablet PO (09:26)
[2020-09-03] MEDS: TORSEmide 20 mg Tablet 80 MG PO ×2 (09:27→18:36)
[2020-09-03] MEDS: simethicone 80 mg Chew PO (09:27)
[2020-09-03] MEDS: saline nasal spray 44mL Btl 1 SPRAY NASAL (09:28)
[2020-09-03] MEDS: guaiFENesin 600 mg Tablet PO (09:29)
[2020-09-03] MEDS: collagenase oint 30 gm 1 APPLIC TOPICAL (09:31)
[2020-09-03] MEDS: escitalopram 10 mg Tablet PO (09:33)
[2020-09-03] MEDS: aspirin 81 mg EC Tablet PO (09:33)
[2020-09-03] MEDS: clopidogrel 75 mg Tablet PO (09:33)
[2020-09-03 13:04] LABS: Glucose Point of Care 194 mg/dL (70-110)
--- NOTE | 2020-09-03 16:38 | PC.NURSE ---
Spoke to Dr. Malin regarding pt receiving TPA via port. Pt family states that they flush it occasionally with the Dobutamine at home. He states to hold off on the now.
[2020-09-03 17:25] LABS: Glucose Point of Care 189 mg/dL (70-110)
[2020-09-03] MEDS: potassium chloride ER 20 mEq Tablet 40 MEQ PO (18:07)
--- NOTE | 2020-09-03 18:23 | P.PN_ITS ---
Subjective Subjective: Interval history: Output of urine last night. Creatinine continues to improve. Hypokalemia today is getting replenished with K riders Medications: Reviewed: Yes Medication Review Details: Current Medications Acetaminophen (Acetaminophen 325 Mg Tablet) 325 mg PO Q4H PRN PRN Reason: Pain Aspirin (Aspirin 81 Mg Ec Tablet) 81 mg PO DAILY@0830 [facility] Last Admin: 08/29/20 09:42 Dose: 81 mg Documented by: Atorvastatin Calcium (Atorvastatin 40 Mg Tablet) 80 mg PO BEDTIME [facility] Last Admin: 08/28/20 20:48 Dose: 80 mg Documented by: Clopidogrel Bisulfate (Clopidogrel 75 Mg Tablet) 75 mg PO DAILY@0830 [facility] Last Admin: 08/29/20 09:43 Dose: 75 mg Documented by: Collagenase (Collagenase Oint 30 Gm) 1 applic TOPICAL DAILY [facility] Last Admin: 08/29/20 15:10 Dose: Not Given Documented by: Dextrose (Dextrose 50% Syringe 50 Ml) 25 ml IVP ONCE PRN; Protocol PRN Reason: hypoglycemia protocol Dextrose (Dextrose 50% Syringe 50 Ml) 50 ml IVP PRN PRN; Protocol PRN Reason: hypoglycemia protocol Docusate Sodium (Docusate Sodium 100 Mg Capsule) 100 mg PO DAILY PRN PRN Reason: constipation Finasteride (Finasteride 5 Mg Tablet) 5 mg PO BEDTIME [facility] Glucagon (Glucagon 1 Mg/Ml Inj 1 Ml) 1 mg IM ONCE PRN; Protocol PRN Reason: Adult Acute Hypoglycemia Prot. Guaifenesin (Guaifenesin 600 Mg Tablet) 600 mg PO BID PRN PRN Reason: Congestion Heparin Sodium (Beef Lung) (Heparin 5,000 Unit/Ml Inj 1 Ml) 5,000 unit SUBCUT Q8H [facility] Last Admin: 08/29/20 16:08 Dose: 5,000 unit Documented by: Hydromorphone HCl (Hydromorphone 1 Mg/Ml Inj 1 Ml) 0.5 mg IVP Q6H PRN PRN Reason: pain scale 5-10 Last Admin: 08/29/20 13:32 Dose: 0.5 mg Documented by: Linezolid (Zyvox Premix) 600 mg in 300 mls @ 300 mls/hr IV Q12H [facility]; Protocol Last Infusion: 08/29/20 14:06 Dose: Infused Documented by: Piperacillin Sod/Tazobactam (Sod 3.375 gm/ Sodium Chloride) 50 mls @ 12.5 mls/hr IV Q8H [facility]; Protocol Last Admin: 08/29/20 12:20 Dose: 12.5 mls/hr Documented by: Dextrose (D5w) 500 mls @ 100 mls/hr IV ONCE PRN; Protocol PRN Reason: Adult Acute Hypoglycemia Prot Dobutamine HCl/Dextrose (Dobutamine Drip) 500 mg in 250 mls @ 20 mls/hr IV CONT [facility] Last Infusion: 08/29/20 15:00 Dose: 20 mls/hr Documented by: Norepinephrine Bitartrate 4 mg (/ Dextrose) 254 mls @ 0 mls/hr IV .Q0M [facility]; Protocol Last Admin: 08/29/20 16:56 Dose: 2 mcg/min, 7.6 mls/hr Documented by: Insulin Aspart (Insulin Aspart 100 Unit/1 Ml) 0 unit SUBCUT WM&BEDTIME [facility]; Protocol Last Admin: 08/29/20 12:21 Dose: 6 unit Documented by: Ipratropium [place] (Ipratropium 12.9 Gm Mdi) 2 puff INHALATION Q4H.RESPIRATORY PRN PRN Reason: AIR 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 Isosorbide Mononitrate (Isosorbide Mononitrate Er 30 Mg Tablet) 30 mg PO DAILY@0830 [facility] Last Admin: 08/29/20 09:44 Dose: 30 mg Documented by: Levalbuterol HCl (Levalbuterol 0.63 Mg/3 Ml Neb) 0.63 mg INHALATION Q4H.RESPIRATORY PRN PRN Reason: SHORTNESS OF BREATH Losartan Potassium (Losartan 50 Mg Tablet) 25 mg PO DAILY [facility] Last Admin: 08/29/20 09:43 Dose: 25 mg Documented by: Nitroglycerin (Nitroglycerin 0.4 Mg Sublingual Tablet) 0.4 mg SUBLINGUAL PRN PRN PRN Reason: CHEST PAINS Non-Formulary Medication (Dobutamine [Dobutamine]) 700 mg IVP DIRECTED [facility] Non-Formulary Medication (Oxycodone-Acetaminophen) 1 tab PO TID PRN PRN Reason: Pain Non-Formulary Medication (Ivabradine [Corlanor]) 5 mg PO BID@0830,1999 [facility] Last Admin: 08/29/20 09:58 Dose: 5 mg Documented by: Potassium Chloride (Potassium Chloride Er 20 Meq Tablet) 60 meq PO BID [facility] Last Admin: 08/29/20 09:59 Dose: 60 meq Documented by: Sodium Chloride (Saline Nasal [place] 44ml Btl) 1 spray NASAL PRN PRN PRN Reason: DRYNESS Spironolactone (Spironolactone 25 Mg Tablet) 25 mg PO DAILY [facility] Last Admin: 08/29/20 13:33 Dose: 25 mg Documented by: Tamsulosin HCl (Tamsulosin 0.4 Mg Capsule) 0.4 mg PO DAILY@0830 [facility] Last Admin: 08/29/20 09:43 Dose: 0.4 mg Documented by: Torsemide (Torsemide 20 Mg Tablet) 100 mg PO DAILY [facility] Last Admin: 08/29/20 09:43 Dose: 100 mg Documented by: Tramadol HCl (Tramadol 50 Mg Tablet) 50 mg PO Q8H PRN PRN Reason: MODERATE PAIN Vitals/I&O/Wt Last Vital Signs Temp 96.7 F L 09/03/20 17:00 Pulse 80 09/03/20 17:00 Resp 22 H 09/03/20 18:08 BP 122/73 09/03/20 17:00 Pulse Ox 97 09/03/20 17:00 09/03/20 09/03/20 09/03/20 06:59 14:59 22:59 Intake Total 770 / 1600 320 / 320 50 / 370 Output Total 1500 / 4700 1000 / 1000 Balance -730 / -3100 -680 / -680 50 / -630 Weight last 48 hrs Weight 213 lb Physical Exam Narrative: EXAM NARRATIVE: GENERAL: Patient is sleeping NECK: No jugular vein distension. HEENT: No cyanosis. No icterus. No pallor. HEART: Regular S1 and S2. No murmur, rub or gallop. LUNGS: Clear to auscultate bilaterally. ABDOMEN: Soft, nontender and mildly distended. Positive bowel sounds. No guarding, rebound or tenderness. CENTRAL NERVOUS SYSTEM: Grossly nonfocal. EXTREMITIES: Lower extremities with trace edema bilaterally. Bilateral wound and cellulitis improving Urinary Catheter Management^: Reyes Latex: Cath Placed During This Visit: yes, but has since been removed by the nurse Reason for Continuing Indwelling Catheter: Accurate Measurement of Urinary Output in Critically Ill Patients Urinary Catheter Date of Insertion: 08/27/20 Urinary Catheter Time of Insertion: 13:00 Date Urinary Catheter Removed: 08/29/20 Time Urinary Catheter Discontinued: 13:19 Data : 09/03/20 03:07 09/03/20 03:07 Micro: Microbiology 09/03/20 03:00 Occult Blood (FIT) - Final Stool Routine Collection A&P Assessment and plan (1) Acute on chronic systolic heart failure: Continue to improve continue current regimen Status: Acute (2) Cardiogenic shock: Continues treatment dobutamine and MAP is stable Status: Acute (3) Cardiorenal syndrome with renal failure: Continues to improve continue diuresis Status: Acute (4) Sepsis: Continue IV antibiotic Status: Acute Qualifiers: Severe sepsis shock status: unspecified (5) 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 Status: Acute Qualifiers: [place] vs. transplanted heart: barrow heart Qualified Code(s): I25.119 - Atherosclerotic heart disease of [place] coronary artery with unspecified angina pectoris (6) Peripheral vascular disease: Patient has severe peripheral vascular disease. Bilateral lower extremity ulcer most likely due to venous stasis which is improving. Continue medical management Status: Acute Additional A&P Information Other problems are Hypokalemia, currently corrected. Generalized debilitation COPD Carotid artery disease Losartan is discontinued. Patient is being closely monitored in the ICU. Discussed with the family() his current condition. The family is well aware of the prognosis. Attestations Medical Necessity Statement*: Require continuation hospitalization for above defined care. 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 transplanted heart: [place]arrow heart Peripheral vascular disease I73.9
[2020-09-03] MEDS: finasteride 5 mg Tablet 10 MG PO (21:02)
[2020-09-03] MEDS: atorvastatin 40 mg Tablet 80 MG PO (21:02)
[2020-09-03] MEDS: sucralfate 1 gm/10 mL Oral Liq UDC PO (21:03)
[2020-09-03 21:41] LABS: Glucose Point of Care 177 mg/dL (70-110)
[2020-09-03] MEDS: TRAMadol 50 mg Tablet PO (23:19)
[2020-09-04] VITALS (30 sets, daily range): BP systolic 94–130; BP diastolic 49–79; PULSE 78–98; RESP 9–22; TEMP 36–36.6; O2SAT 91–100; BMI 37.7
[2020-09-04] MEDS: piperacillin-tazobactam 3.375 GM in sodium chloride 0.9% (plus) 50 ML IV ×3 (02:51→19:28)
[2020-09-04] MEDS: DOBUTamine drip 500 MG/250 ML PREMIX 15 MG IV ×2 (04:13→21:29)
[2020-09-04 04:22] LABS: Basophils % 0.4 %; Eosinophils # 0.4 10^3/uL (0.0-0.8); Eosinophils % 3.2 %; Hematocrit 31.5 % (42.0-52.0); Hemoglobin 10.1 g/dL (11.7-16.6); Lymphocytes # 1.8 10^3/uL (0.8-4.8); Lymphocytes % 16.7 %; Mean Corpuscular HGB Conc 32.1 g/dL (30.0-36.0); Mean Corpuscular Hemoglobin 29.1 pg (28.0-34.0); Mean Corpuscular Volume 90.8 fL (80-94); Monocytes # 0.8 10^3/uL (0.2-0.9); Monocytes % 7.6 %; Neutrophils # 7.94 10^3/uL (1.8-7.7); Neutrophils % 71.8 %; Nucleated Red Blood Cells % 0.2 %; Platelet Count 183 10^3/cmm (130-400); Red Blood Count 3.47 10^6/uL (4.1-5.3); Red Cell Distribution Width 16.6 % (12.1-15.1)
[2020-09-04 04:40] LABS: INR 1.19 (0.8-1.2)
[2020-09-04 04:49] LABS: Alanine Aminotransferase 17 U/L (0-41); Alkaline Phosphatase 81 IU/L (40-130); Anion Gap 13.7 (5-19); Aspartate Amino Transferase 16 U/L (0-40); Blood Urea Nitrogen 70 mg/dL (8-23); Calcium 9.6 mg/dL (8.5-10.5); Carbon Dioxide 37 mmol/L (22-29); Chloride 86 mmol/L (98-107); Glomerular Filtration Rate 46.7 mL/min (90-130); Glucose 153 mg/dL (65-115); Magnesium 1.7 mg/dL (1.7-2.3); Osmolality Calculated 302 mOsm/kg (285-295); Phosphorus 3.2 mg/dL (2.5-4.5); Sodium 134 mmol/L (136-145); Total Bilirubin 0.4 mg/dL (0.15-1.2)
[2020-09-04 04:54] LABS: NT Pro B Type Natriuretic Pept 13666 pg/mL (0-125)
[2020-09-04 05:07] LABS: Potassium 2.7 mmol/L (3.5-5.1)
[2020-09-04] MEDS: potassium chloride premix 100 ML 25 MEQ IV ×3 (05:39→23:27)
[2020-09-04] MEDS: HYDROmorphone 1 mg/mL INJ 1 mL 0.5 MG IVP ×2 (05:55→20:56)
[2020-09-04 07:45] LABS: Glucose Point of Care 164 mg/dL (70-110)
[2020-09-04] MEDS: oxyCODONE-APAP 5-325 mg Tablet 1 TAB PO ×2 (09:42→20:17)
[2020-09-04] MEDS: clopidogrel 75 mg Tablet PO (09:42)
[2020-09-04] MEDS: potassium chloride ER 20 mEq Tablet 40 MEQ PO ×2 (09:43→19:28)
[2020-09-04] MEDS: escitalopram 10 mg Tablet PO (09:43)
[2020-09-04] MEDS: aspirin 81 mg EC Tablet PO (09:43)
[2020-09-04] MEDS: TORSEmide 20 mg Tablet 80 MG PO ×2 (09:44→19:55)
[2020-09-04] MEDS: heparin 5,000 unit/mL INJ 1 mL 5000 UNIT SUBCUT ×2 (09:45→19:56)
[2020-09-04] MEDS: collagenase oint 30 gm 1 APPLIC TOPICAL (09:47)
--- NOTE | 2020-09-04 09:56 | P.PN_ITS ---
Subjective Subjective: Interval history: This morning patient was examined he tells me that he is feeling much better, feels less short of breath, abdomen feels less tight, no nausea, no vomiting, no lightheadedness, no dizziness, no chest pain Vitals/I&O/Wt Last Vital Signs Temp 97.8 F 09/04/20 03:00 Pulse 96 09/04/20 08:11 Resp 16 09/04/20 08:11 BP 103/49 09/04/20 06:00 Pulse Ox 97 09/04/20 08:11 09/03/20 09/04/20 09/04/20 22:59 06:59 14:59 Intake Total 1140 / 1460 1100 / 2560 Output Total 2100 / 3100 2801 / 5901 Balance -960 / -1640 -1701 / -3341 Weight last 48 hrs Weight 96.615 kg Weight 96.615 kg Physical Exam Const: COMMON NORMALS: no acute distress and patient oriented x3 HENMT: COMMON NORMALS: normocephalic HEAD & SCALP: normocephalic Neck/C-Spine: COMMON NORMALS: no JVD Resp: COMMON NORMALS: normal respiratory effort, No retractions, No use of accessory muscles and clear to auscultation bilaterally AUSCULTATION: clear to auscultation bilaterally Cardio: COMMON NORMALS: no JVD, regular rate, regular rhythm, S1 normal heart sound present and S2 normal heart sound present RATE: regular rate RHYTHM: regular rhythm HEART SOUNDS: S1 normal heart sound present and S2 normal heart sound present GI: COMMON NORMALS: Normal to inspection, nondistended, normoactive bowel sounds present, non-tender, no masses and no bruits INSPECTION: Yes abdominal distension Extremity: COMMON NORMALS: capillary refill normal, no clubbing, cyanosis or edema, no calf tenderness and no pedal edema Neuro: COMMON NORMALS: patient oriented x3 Psych: COMMON NORMALS: mental status grossly normal Skin: NARRATIVE SKIN EXAM: Left lower extremity, erythema, extending from mid melgar, to distal tibia, with scaling of the skin, but improving Right lower extremity, wrapped in bandage: Under the bandage, has extensive erythema, cellulitis extending from the mid melgar to the distal tibia, on the calf region, has a 4 x 5 cm superficial wound, but improving Urinary Catheter Management^: Reyes Latex: Cath Placed During This Visit: yes, but has since been removed by the nurse Reason for Continuing Indwelling Catheter: Accurate Measurement of Urinary Output in Critically Ill Patients Urinary Catheter Date of Insertion: 08/27/20 Urinary Catheter Time of Insertion: 13:00 Date Urinary Catheter Removed: 08/29/20 Time Urinary Catheter Discontinued: 13:19 Data : 09/04/20 04:05 09/04/20 04:05 Micro: Microbiology 09/03/20 03:00 Occult Blood (FIT) - Final Stool Routine Collection A&P Assessment and plan (1) Cardiogenic shock: Status: Acute (2) Cellulitis: Status: Acute Qualifiers: Site of cellulitis: extremity Site of cellulitis of extremity: lower extremity Laterality: right Qualified Code(s): L03.115 - Cellulitis of right lower limb (3) Peripheral vascular disease: Status: Acute (4) Ischemic cardiomyopathy: Status: Acute (5) Chronic hypoxemic respiratory failure: Status: Acute (6) PAD (peripheral artery disease): Status: Acute (7) Acute on chronic systolic heart failure: Status: Acute (8) COPD (chronic obstructive pulmonary disease): Status: Acute Qualifiers: COPD type: unspecified COPD Qualified Code(s): J44.9 - Chronic obstructive pulmonary disease, unspecified Additional A&P Information Cardiogenic shock: Resolving. Most likely because dobutamine drip was stopped in between for couple of hours. Antihypertensives were given. Abdominal distention, likely secondary to cardiac ascites slightly distended today, not particularly bothersome to the patient this morning, hold off on paracentesis, would only perform for symptomatic relief, does run significant risk of hypotension Keep mean arterial pressures between 55 to 60 mmHg. Dobutamine at 15. Continue at the current dose. Do not decrease until cardiology recommendations Continue to monitor urine output. Urine output 5901 cc, creatinine 1.5, potassium 2.7 Patient maintaining saturations on baseline oxygen supplementation. Is currently on 6 L CAD/ischemic cardiomyopathy: End-stage heart failure on dobutamine pump as an outpatient. 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 Continue with aspirin, statin, Plavix, ivabradine. Plan is to wean nitro drip, and start Imdur, will await cardiology's lead. Torsemide 80 mg twice daily, metolazone 2.5 mg daily. Good urine output Hypokalemia, 2.7, receiving 80 mEq of potassium today Echocardiogram done shows an EF of around 20% with severe diffuse hypokinesia of septum, anterior septum and LV apex, mildly dilated RV, mild MR, mild TR. Sepsis secondary to purulent cellulitis of right lower extremity: Failed outpa tient treatment. Improving now. Pro-Flavio negative, MRSA negative. Blood cultures, and urine culture have remained negative so far. Wound culture for now growing Enterococcus. Sensitivities appreciated. We will discuss with ID. Zyvox was discontinued, continue Zosyn for now NORMA consistent with moderate peripheral disease on the right side and mild peripheral disease on the right and left side, venous Doppler negative for DVT but consistent with fluid retention/edema bilaterally below knees. Needs wound care, of right lower extremity open wound Patient is a poor surgical candidate for any endovascular surgeries because of severe COPD, severe cardiomyopathy on dobutamine drip. Continue Zosyn for now, likely switch to doxycycline Augmentin on discharge, needs to follow-up with wound care Stop Dilaudid, continue Ultram, continue oxycodone Dressing change as per surgical recommendations. Acute kidney injury: Improving today. 1.5 today. Most likely a combination of cardiorenal syndrome and ATN due to hypotension few days ago. We will continue to monitor. Losartan was stopped Continue to monitor electrolytes and BMP daily for now. Nocturnal hypoxemia: Noncompliant with CPAP Patient only wants to use 6 L of nasal cannula during his hospitalization He was also using Vasquez-Synephrine for nasal congestion which I have discontinued because of his end-stage heart failure condition Continue other chronic oral medications. CODE STATUS: Full code. Discussed multiple times with , patient. DVT prophylaxis Heparin Cardiac diet. Ensure supplementation with meals. Out of bed to chair. Severely guarded prognosis. Patient's care discussed in detail with his daughter Ms. Tamera Young. We discussed that given the multiple severe comorbidities patient's care need to be really delicate and we need to take small baby steps every day while trying to improve his blood pressures and monitoring his kidney functions. We also discussed at this point the expectation is that kidney functions might worsen over the next 24 to 48 hours given the episode of hypotension yesterday. Also discussed that for now we will continue to monitor the urine output. Daughter states for now family does not want any kind of surgical intervention and would want to get her father a little better medically so that he can go back to his baseline and can be discharged hopefully before Andrzej. All the questions were answered in detail. Plan for the day: Wean nitro drip, await cardiology's lead, maintain MAP greater than 55-60, monitor urine output, encourage up out of bed, plan on weaning antibiotic regimen, hopefully can be discharged in the next 24-48 hrs. Attestations Medical Necessity Statement*: Patient requires hospitalization for cardiogenic shock, dobutamine drip, nitro drip, sepsis with left lower extremity cellulitis improving, on Zosyn Coding Level of Care Code Acute Disposal Worker for [facility] Diagnoses Cardiogenic shock R57.0 Cellulitis L03.115 Site of cellulitis: extremity Site of cellulitis of extremity: lower extremity Laterality: right Peripheral vascular disease I73.9 Ischemic cardiomyopathy I25.5 Chronic hypoxemic respiratory failure J96.11 PAD (peripheral artery disease) I73.9 Acute on chronic systolic heart failure I50.23 COPD (chronic obstructive pulmonary disease) J44.9 COPD type: unspecified COPD
--- NOTE | 2020-09-04 10:33 | P.PN_ITS ---
Subjective Subjective: Interval history: Patient is feeling much better he is sitting. He has a good urine output of negative for thousand in the last 48 hours. Creatinine has improved to 1.5 potassium remain around 2.7 Vitals/I&O/Wt Last Vital Signs Temp 97.8 F 09/04/20 03:00 Pulse 96 09/04/20 08:11 Resp 18 09/04/20 09:42 BP 103/49 09/04/20 06:00 Pulse Ox 97 09/04/20 08:11 09/03/20 09/04/20 09/04/20 22:59 06:59 14:59 Intake Total 1140 / 1460 1100 / 2560 100 / 100 Output Total 2100 / 3100 2801 / 5901 Balance -960 / -1640 -1701 / -3341 100 / 100 Weight last 48 hrs Weight 213 lb Weight 213 lb Physical Exam Urinary Catheter Management^: Reyes Latex: Cath Placed During This Visit: yes, but has since been removed by the nurse Reason for Continuing Indwelling Catheter: Accurate Measurement of Urinary Output in Critically Ill Patients Urinary Catheter Date of Insertion: 08/27/20 Urinary Catheter Time of Insertion: 13:00 Date Urinary Catheter Removed: 08/29/20 Time Urinary Catheter Discontinued: 13:19 Data : 09/04/20 04:05 09/04/20 04:05 Micro: Microbiology 09/03/20 03:00 Occult Blood (FIT) - Final Stool Routine Collection A&P Assessment and plan (1) Cardiorenal syndrome with renal failure: Improving. I will stop metolazone now. Continue Demadex 80 mg twice a day. Status: Acute (2) Cardiogenic shock: Continue dobutamine. Status: Acute (3) Peripheral vascular disease: Stable. Status: Acute (4) Sepsis: Continue IV antibiotic as per medicine Status: Acute Qualifiers: Severe sepsis shock status: unspecified (5) Acute on chronic systolic heart failure: As above I will stop metolazone I will continue Demadex. Status: Acute (6) Ischemic cardiomyopathy: Stable we will stop nitro. Status: Acute (7) Hypokalemia: Secondary to diuresis, stop metolazone now check magnesium replenish potassium with 40 mEq K rider x2 and 40 mg p.o. recheck potassium in the night. Status: Acute Attestations Medical Necessity Statement*: Require continuation hospitalization for above defined care. 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
[2020-09-04 11:52] LABS: Glucose Point of Care 232 mg/dL (70-110)
--- NOTE | 2020-09-04 11:55 | PC.SOCIAL ---
IMM Updated Page 2 of IMM updated and given to patient. Initialed, dated, and timed and placed back in chart.
[2020-09-04 16:28] LABS: Magnesium 1.6 mg/dL (1.7-2.3)
[2020-09-04 18:10] LABS: Glucose Point of Care 113 mg/dL (70-110)
[2020-09-04] MEDS: metOLazone 5 MG Tablet 2.5 MG PO (19:27)
[2020-09-04 19:52] LABS: Glucose Point of Care 197 mg/dL (70-110)
[2020-09-04] MEDS: magnesium sulfate premix 2 GM/50 ML PIGGYBACK IV (19:58)
[2020-09-04] MEDS: sucralfate 1 gm/10 mL Oral Liq UDC PO (20:04)
[2020-09-04] MEDS: atorvastatin 40 mg Tablet 80 MG PO (20:04)
[2020-09-04] MEDS: finasteride 5 mg Tablet 10 MG PO (20:04)
--- NOTE | 2020-09-04 20:38 | PC.NURSE ---
Pain Patient yelling at nurses. Multiple needs at this time. Nurse assisted patient to side of bed per request. Started becoming anxious and pulling off telemetry wires in aggressive way. Pt complaining of pain to RLL 10/10. Oxycodone given at this time for pain. Pt verbalizes he is very agitated and needs to get out of the hospital . Pt complaining of burning pain at catheter site. Also expressed need to get up to the bsc. Nurse attempted to get patient up to commode and changed his mind, now wanting to sit in the chair. Allowed nurse to cleanse wound to RLL and apply santyl ointment, telfa, and kerlex. Applied 2% lidocaine jelly to catheter insertion site and tip of penis. Pt shaking arms extended on bedside table and verbalizes he needs relief from the pain in his leg. notified about even and pain. Notified pain pill just administered. Received verbal orders for 0.5mg Dilaudid X 1 dose.
[2020-09-04] MEDS: TRAMadol 50 mg Tablet PO (22:26)
[2020-09-04 22:34] LABS: Magnesium 2.1 mg/dL (1.7-2.3)
[2020-09-04 22:42] LABS: Potassium 2.7 mmol/L (3.5-5.1)
--- NOTE | 2020-09-04 23:56 | PC.NURSE ---
Patient up in chair beside bed, eating snacks. Patient is alert and did voice complaints of pain earlier and PRN pain medication was given per orders. Patient is now more relaxed and pain level decreased. Call light within reach. Continue care.
[2020-09-05] VITALS (29 sets, daily range): BP systolic 92–131; BP diastolic 59–90; PULSE 76–100; RESP 10–23; TEMP 36.4–37.2; O2SAT 91–100
[2020-09-05] MEDS: oxyCODONE-APAP 5-325 mg Tablet 1 TAB PO ×3 (02:09→20:46)
[2020-09-05] MEDS: piperacillin-tazobactam 3.375 GM in sodium chloride 0.9% (plus) 50 ML IV ×3 (03:17→17:52)
[2020-09-05 05:32] LABS: Basophils % 0.4 %; Eosinophils # 0.3 10^3/uL (0.0-0.8); Eosinophils % 3.1 %; Hematocrit 32.6 % (42.0-52.0); Hemoglobin 10.3 g/dL (11.7-16.6); Lymphocytes # 1.7 10^3/uL (0.8-4.8); Mean Corpuscular HGB Conc 31.6 g/dL (30.0-36.0); Mean Corpuscular Hemoglobin 29.4 pg (28.0-34.0); Mean Corpuscular Volume 93.1 fL (80-94); Mean Platelet Volume 9.1 fL (7.4-10.4); Monocytes # 0.8 10^3/uL (0.2-0.9); Monocytes % 8.8 %; Neutrophils # 6.56 10^3/uL (1.8-7.7); Neutrophils % 69.3 %; Nucleated Red Blood Cells % 0.2 %; Platelet Count 170 10^3/cmm (130-400); Red Cell Distribution Width 16.9 % (12.1-15.1); White Blood Count 9.5 10^3/uL (4.0-10.0)
[2020-09-05 05:52] LABS: Alanine Aminotransferase 20 U/L (0-41); Albumin Level 3.8 g/dL (3.5-5.2); Alkaline Phosphatase 84 IU/L (40-130); Anion Gap 10.9 (5-19); Aspartate Amino Transferase 20 U/L (0-40); Blood Urea Nitrogen 68 mg/dL (8-23); Calcium 9.6 mg/dL (8.5-10.5); Carbon Dioxide 39 mmol/L (22-29); Chloride 86 mmol/L (98-107); Globulin 3.1 g/dL (1.3-4.6); Glomerular Filtration Rate 55.1 mL/min (90-130); Glucose 206 mg/dL (65-115); Magnesium 1.9 mg/dL (1.7-2.3); Osmolality Calculated 302 mOsm/kg (285-295); Phosphorus 3.3 mg/dL (2.5-4.5); Sodium 133 mmol/L (136-145); Total Bilirubin 0.5 mg/dL (0.15-1.2); Total Protein 6.9 g/dL (6.6-8.7)
[2020-09-05 06:06] LABS: Potassium 2.9 mmol/L (3.5-5.1)
[2020-09-05] MEDS: sucralfate 1 gm/10 mL Oral Liq UDC PO ×4 (06:10→20:48)
[2020-09-05] MEDS: TRAMadol 50 mg Tablet PO (06:11)
--- NOTE | 2020-09-05 06:17 | PC.NURSE ---
Shift Summary: Uneventful shift. Patient up most of the night in bedside chair. Did voice several complaints of pain and PRN pain medication given per orders and MAR. Call light within reach. Continue care.
[2020-09-05] MEDS: lidocaine 1% 5 ML in potassium chloride premix 100 ML 25 ML IV ×2 (06:29→13:18)
[2020-09-05 07:16] LABS: NT Pro B Type Natriuretic Pept 12946 pg/mL (0-125)
[2020-09-05 07:53] LABS: Glucose Point of Care 151 mg/dL (70-110)
--- NOTE | 2020-09-05 07:57 | PC.NURSE ---
Jim Received report from HUBER Martino. Patient currently sitting in chair drinking coffee. No complaints at this time. patient alert and oriented X4. stated by patient that after breakfast he would like to get in bed and take a nap .
[2020-09-05] MEDS: heparin 5,000 unit/mL INJ 1 mL 5000 UNIT SUBCUT ×2 (08:48→20:45)
[2020-09-05] MEDS: aspirin 81 mg EC Tablet PO (08:48)
[2020-09-05] MEDS: clopidogrel 75 mg Tablet PO (08:48)
[2020-09-05] MEDS: escitalopram 10 mg Tablet PO (08:49)
[2020-09-05] MEDS: metOLazone 5 MG Tablet 2.5 MG PO (08:49)
[2020-09-05] MEDS: potassium chloride ER 20 mEq Tablet 40 MEQ PO ×2 (08:50→17:50)
[2020-09-05] MEDS: TORSEmide 20 mg Tablet 80 MG PO ×2 (10:38→17:52)
[2020-09-05] MEDS: collagenase oint 30 gm 1 APPLIC TOPICAL (10:38)
--- NOTE | 2020-09-05 10:41 | P.PN_ITS ---
Subjective Subjective: Interval history: Patient was seen this morning, he sitting up in the chair, tells me that he feels the best she is ever felt, reports he did not get a lot of sleep last night, but is feeling much better Vitals/I&O/Wt Last Vital Signs Temp 97.8 F 09/05/20 04:04 Pulse 95 09/05/20 09:00 Resp 16 09/05/20 09:00 BP 108/67 09/05/20 09:00 Pulse Ox 91 09/05/20 09:00 09/04/20 09/05/20 09/05/20 22:59 06:59 14:59 Intake Total 860 / 1600 700 / 2300 650 / 650 Output Total 3750 / 3750 1825 / 5575 950 / 950 Balance -2890 / -2150 -1125 / -3275 -300 / -300 Weight last 48 hrs Weight 92.249 kg Weight 96.615 kg Physical Exam Const: COMMON NORMALS: no acute distress and patient oriented x3 HENMT: COMMON NORMALS: normocephalic HEAD & SCALP: normocephalic Neck/C-Spine: COMMON NORMALS: no JVD Resp: COMMON NORMALS: normal respiratory effort, No retractions, No use of accessory muscles and clear to auscultation bilaterally AUSCULTATION: clear to auscultation bilaterally Cardio: COMMON NORMALS: no JVD, regular rate, regular rhythm, S1 normal heart sound present and S2 normal heart sound present RATE: regular rate RHYTHM: regular rhythm HEART SOUNDS: S1 normal heart sound present and S2 normal heart sound present GI: COMMON NORMALS: Normal to inspection, nondistended, normoactive bowel sounds present, non-tender, no masses and no bruits INSPECTION: Yes abdominal distension Extremity: COMMON NORMALS: capillary refill normal, no clubbing, cyanosis or edema, no calf tenderness and no pedal edema Neuro: COMMON NORMALS: patient oriented x3 Psych: COMMON NORMALS: mental status grossly normal Urinary Catheter Management^: Reyes Latex: Cath Placed During This Visit: yes, but has since been removed by the nurse Reason for Continuing Indwelling Catheter: Accurate Measurement of Urinary Output in Critically Ill Patients Urinary Catheter Date of Insertion: 08/27/20 Urinary Catheter Time of Insertion: 13:00 Date Urinary Catheter Removed: 08/29/20 Time Urinary Catheter Discontinued: 13:19 Data : 09/05/20 05:05 09/05/20 05:05 A&P Assessment and plan (1) Cardiogenic shock: Status: Acute (2) Cellulitis: Status: Acute Qualifiers: Site of cellulitis: extremity Site of cellulitis of extremity: lower extremity Laterality: right Qualified Code(s): L03.115 - Cellulitis of right lower limb (3) Peripheral vascular disease: Status: Acute (4) Ischemic cardiomyopathy: Status: Acute (5) Chronic hypoxemic respiratory failure: Status: Acute (6) PAD (peripheral artery disease): Status: Acute (7) Acute on chronic systolic heart failure: Status: Acute (8) COPD (chronic obstructive pulmonary disease): Status: Acute Qualifiers: COPD type: unspecified COPD Qualified Code(s): J44.9 - Chronic obstructive pulmonary disease, unspecified Additional A&P Information Cardiogenic shock: Resolving. Most likely because dobutamine drip was stopped in between for couple of hours. Antihypertensives were given. Abdominal distention, likely secondary to cardiac ascites slightly distended today, not particularly bothersome to the patient this morning, hold off on paracentesis, would only perform for symptomatic relief, does run significant risk of hypotension Keep mean arterial pressures between 55 to 60 mmHg. Dobutamine at 15. Continue at the current dose. Do not decrease until cardiology recommendations Continue to monitor urine output. Urine output 5575 cc, creatinine 1.3, potassium 2.9 Patient maintaining saturations on baseline oxygen supplementation. Is currently on 5 L CAD/ischemic cardiomyopathy: End-stage heart failure on dobutamine pump as an outpatient. 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. Continue with aspirin, statin, Plavix, ivabradine. Nitro drip off, will await cardiology's lead. Torsemide 80 mg twice daily, metolazone 2.5 mg daily stopped yesterday. Good urine output Hypokalemia, 2.9, receiving 80 mEq of potassium, will repeat CMP this morning Echocardiogram done shows an EF of around 20% with severe diffuse hypokinesia of septum, anterior septum and LV apex, mildly dilated RV, mild MR, mild TR. Sepsis secondary to purulent cellulitis of right lower extremity: Failed outpatient treatment. Improving now. Pro-Flavio negative, MRSA negative. Blood cultures, and urine culture have remained negative so far. Wound culture for now growing Enterococcus. Sensitivities appreciated. Zyvox was discontinued, continue Zosyn for now NORMA consistent with moderate peripheral disease on the right side and mild peripheral disease on the right and left side, venous Doppler negative for DVT but consistent with fluid retention/edema bilaterally below knees. Needs wound care, of right lower extremity open wound Patient is a poor surgical candidate for any endovascular surgeries because of severe COPD, severe cardiomyopathy on dobutamine drip. Continue Zosyn for now, likely switch to doxycycline Augmentin on discharge, needs to follow-up with wound care Stop Dilaudid, continue Ultram, continue oxycodone Dressing change as per surgical recommendations. Acute kidney injury: Improving today. 1.3 today. Most likely a combination of cardiorenal syndrome and ATN due to hypotension few days ago. We will continue to monitor. Losartan was stopped Continue to monitor electrolytes and BMP daily for now. Nocturnal hypoxemia: Noncompliant with CPAP Patient only wants to use 6 L of nasal cannula during his hospitalization He was also using Vasquez-Synephrine for nasal congestion which I have discontinued because of his end-stage heart failure condition Continue other chronic oral medications. CODE STATUS: Full code. Discussed multiple times with , patient. DVT prophylaxis Heparin Cardiac diet. Ensure supplementation with meals. Out of bed to chair. Severely guarded prognosis. Patient's care discussed in detail with his daughter Ms. Tamera Young. We discussed that given the multiple severe comorbidities patient's care need to be really delicate and we need to take small baby steps every day while trying to improve his blood pressures and monitoring his kidney functions. We also discussed at this point the expectation is that kidney functions might worsen over the next 24 to 48 hours given the episode of hypotension yesterday. Also discussed that for now we will continue to monitor the urine output. Daughter states for now family does not want any kind of surgical intervention and would want to get her father a little better medically so that he can go back to his baseline and can be discharged hopefully before Gay. All the questions were answered in detail. Plan for the day: await cardiology's lead, maintain MAP greater than 55-60, monitor urine output, encourage up out of bed, plan on weaning antibiotic regimen, encouraged to get up out of bed hopefully can be discharged in the next 24-48 hrs. Attestations Medical Necessity Statement*: Patient, clinically improving, hopefully discharge the next 24 to 48 hoursPatient requires hospitalization for cardiogenic shock, Coding Level of Care Code Acute Communication Clerk for g Fwd Diagnoses Cardiogenic shock R57.0 Cellulitis L03.115 Site of cellulitis: extremity Site of cellulitis of extremity: lower extremity Laterality: right Peripheral vascular disease I73.9 Ischemic cardiomyopathy I25.5 Chronic hypoxemic respiratory failure J96.11 PAD (peripheral artery disease) I73.9 Acute on chronic systolic heart failure I50.23 COPD (chronic obstructive pulmonary disease) J44.9 COPD type: unspecified COPD
[2020-09-05 11:38] LABS: Glucose Point of Care 201 mg/dL (70-110)
[2020-09-05 12:20] LABS: Potassium 3.1 mmol/L (3.5-5.1)
--- NOTE | 2020-09-05 12:48 | PC.CHAP ---
Pastoral Care Encounter/Spiritual Assessment Type of Contact [] Declined hole digger operator visit [] Patient/Family/Request visit [] Outpatient visit [] Follow-up visit [] Physician referral [] Code/Alert [] Routine visit [] Staff referral [] Actively dying [] Patient sleeping [] Family support [] [] Out of room [] Palliative care [] [] Receiving care in room [] Pre-surgical visit [] Trauma [] Long length of stay [x] ICU visit [] Other: Relational/Emotional Strength [] Patient feels connected with others/family/visitors/staff [] Distress [] Loneliness/isolation [] Abandonment Spirituality of Patient [] Person of Rhiannon [] Attends Gnosticist of their Rhiannon [] Believes in Prayer [] Reads Bible or Nondenominational materials [] There are Spiritual issues to be addressed Primer Expeditor And Drier Interventions [x] Prayer [] Active listening [] Non-anxious presence [] Spiritual/emotional support [] Crisis/trauma care [] Spiritual counseling [] Bereavement support [] Provided bereavement packet [] Provided Bible/devotional materials [] Provided toy/stuffed animal, coloring book to patient or family member [] Provided Communion [] Anointing/[place] [] Salvation [x] Completed spiritual assessment [] Other: Impact on Illness or Injury [] Angry [] Fearful [] Anxious [] Often cries [] Exhaustion [] Unable to work [] Unable to attend islam [] Unable to walk/stand [] Unable to read [] Unable to drive [] Unable to eat/drink [] Unable to sleep [] Unable to be with family [] Patient intubated [] Other: Summary Time spent with patient
[2020-09-05] MEDS: DOBUTamine drip 500 MG/250 ML PREMIX 15 MG IV (13:18)
[2020-09-05] MEDS: spironolactone 25 mg Tablet 12.5 MG PO (16:11)
--- NOTE | 2020-09-05 16:46 | PC.NURSE ---
O2 sats at 86%. Pt offered IS pt refused. IS. Pt stated she always breaths shallow and is ok with her sats in 80'S. Discussed with pt that the IS helps the air movement in her lungs, and will help her get rid of the mucus and other junk. Pt still declines to use IS.
[2020-09-05 17:30] LABS: Glucose Point of Care 172 mg/dL (70-110)
[2020-09-05] MEDS: lidocaine 2% viscous 15 ML, aluminum-mag hydrox-simethicon 30 ML, sucralfate oral liq 1 GM PO (17:48)
--- NOTE | 2020-09-05 18:58 | PM.PN ---
Subjective Subjective: Interval history: Continues to do well creatinine is 1.3 Medications: Reviewed: Yes Medication Review Details: Current Medications Acetaminophen (Acetaminophen 325 Mg Tablet) 325 mg PO Q4H PRN PRN Reason: Pain Aspirin (Aspirin 81 Mg Ec Tablet) 81 mg PO DAILY@0830 COUNT INCLUDES THE [facility] Last Admin: 08/29/20 09:42 Dose: 81 mg Documented by: Atorvastatin Calcium (Atorvastatin 40 Mg Tablet) 80 mg PO BEDTIME COUNT INCLUDES THE [facility] Last Admin: 08/28/20 20:48 Dose: 80 mg Documented by: Clopidogrel Bisulfate (Clopidogrel 75 Mg Tablet) 75 mg PO DAILY@0830 COUNT INCLUDES THE [facility] Last Admin: 08/29/20 09:43 Dose: 75 mg Documented by: Collagenase (Collagenase Oint 30 Gm) 1 applic TOPICAL DAILY COUNT INCLUDES THE [facility] Last Admin: 08/29/20 15:10 Dose: Not Given Documented by: Dextrose (Dextrose 50% Syringe 50 Ml) 25 ml IVP ONCE PRN; Protocol PRN Reason: hypoglycemia protocol Dextrose (Dextrose 50% Syringe 50 Ml) 50 ml IVP PRN PRN; Protocol PRN Reason: hypoglycemia protocol Docusate Sodium (Docusate Sodium 100 Mg Capsule) 100 mg PO DAILY PRN PRN Reason: constipation Finasteride (Finasteride 5 Mg Tablet) 5 mg PO BEDTIME AMBERLY Glucagon (Glucagon 1 Mg/Ml Inj 1 Ml) 1 mg IM ONCE PRN; Protocol PRN Reason: Adult Acute Hypoglycemia Prot. Guaifenesin (Guaifenesin 600 Mg Tablet) 600 mg PO BID PRN PRN Reason: Congestion Heparin Sodium (Beef Lung) (Heparin 5,000 Unit/Ml Inj 1 Ml) 5,000 unit SUBCUT Q8H COUNT INCLUDES THE [facility] Last Admin: 08/29/20 16:08 Dose: 5,000 unit Documented by: Hydromorphone HCl (Hydromorphone 1 Mg/Ml Inj 1 Ml) 0.5 mg IVP Q6H PRN PRN Reason: pain scale 5-10 Last Admin: 08/29/20 13:32 Dose: 0.5 mg Documented by: Linezolid (Zyvox Premix) 600 mg in 300 mls @ 300 mls/hr IV Q12H COUNT INCLUDES THE [facility]; Protocol Last Infusion: 08/29/20 14:06 Dose: Infused Documented by: Piperacillin Sod/Tazobactam (Sod 3.375 gm/ Sodium Chloride) 50 mls @ 12.5 mls/hr IV Q8H COUNT INCLUDES THE [facility]; Protocol Last Admin: 08/29/20 12:20 Dose: 12.5 mls/hr Documented by: Dextrose (D5w) 500 mls @ 100 mls/hr IV ONCE PRN; Protocol PRN Reason: Adult Acute Hypoglycemia Prot Dobutamine HCl/Dextrose (Dobutamine Drip) 500 mg in 250 mls @ 20 mls/hr IV CONT COUNT INCLUDES THE [facility] Last Infusion: 08/29/20 15:00 Dose: 20 mls/hr Documented by: Norepinephrine Bitartrate 4 mg (/ Dextrose) 254 mls @ 0 mls/hr IV .Q0M COUNT INCLUDES THE [facility]; Protocol Last Admin: 08/29/20 16:56 Dose: 2 mcg/min, 7.6 mls/hr Documented by: Insulin Aspart (Insulin Aspart 100 Unit/1 Ml) 0 unit SUBCUT WM&BEDTIME COUNT INCLUDES THE [facility]; Protocol Last Admin: 08/29/20 12:21 Dose: 6 unit Documented by: Ipratropium [place] (Ipratropium 12.9 Gm Mdi) 2 puff INHALATION Q4H.RESPIRATORY PRN PRN Reason: AIR HUNGER Isosorbide Mononitrate (Isosorbide Mononitrate Er 30 Mg Tablet) 30 mg PO DAILY@0830 COUNT INCLUDES THE [facility] Last Admin: 08/29/20 09:44 Dose: 30 mg Documented by: Levalbuterol HCl (Levalbuterol 0.63 Mg/3 Ml Neb) 0.63 mg INHALATION Q4H.RESPIRATORY PRN PRN Reason: SHORTNESS OF BREATH Losartan Potassium (Losartan 50 Mg Tablet) 25 mg PO DAILY COUNT INCLUDES THE [facility] Last Admin: 08/29/20 09:43 Dose: 25 mg Documented by: Nitroglycerin (Nitroglycerin 0.4 Mg Sublingual Tablet) 0.4 mg SUBLINGUAL PRN PRN PRN Reason: CHEST PAINS Non-Formulary Medication (Dobutamine [Dobutamine]) 700 mg IVP DIRECTED COUNT INCLUDES THE [facility] Non-Formulary Medication (Oxycodone-Acetaminophen) 1 tab PO TID PRN PRN Reason: Pain Non-Formulary Medication (Ivabradine [Corlanor]) 5 mg PO BID@0830,1999 COUNT INCLUDES THE [facility] Last Admin: 08/29/20 09:58 Dose: 5 mg Documented by: Potassium Chloride (Potassium Chloride Er 20 Meq Tablet) 60 meq PO BID COUNT INCLUDES THE [facility] Last Admin: 08/29/20 09:59 Dose: 60 meq Documented by: Sodium Chloride (Saline Nasal [place] 44ml Btl) 1 spray NASAL PRN PRN PRN Reason: DRYNESS Spironolactone (Spironolactone 25 Mg Tablet) 25 mg PO DAILY COUNT INCLUDES THE [facility] Last Admin: 08/29/20 13:33 Dose: 25 mg Documented by: Tamsulosin HCl (Tamsulosin 0.4 Mg Capsule) 0.4 mg PO DAILY@0830 COUNT INCLUDES THE [facility] Last Admin: 08/29/20 09:43 Dose: 0.4 mg Documented by: Torsemide (Torsemide 20 Mg Tablet) 100 mg PO DAILY COUNT INCLUDES THE [facility] Last Admin: 08/29/20 09:43 Dose: 100 mg Documented by: Tramadol HCl (Tramadol 50 Mg Tablet) 50 mg PO Q8H PRN PRN Reason: MODERATE PAIN Vitals/I&O/Wt Last Vital Signs Temp 98.6 F 09/05/20 16:00 Pulse 99 09/05/20 18:00 Resp 23 H 09/05/20 18:00 BP 105/66 09/05/20 18:00 Pulse Ox 100 09/05/20 18:00 09/05/20 09/05/20 09/05/20 06:59 14:59 22:59 Intake Total 700 / 2300 1187.25 / 1187.25 350 / 1537.25 Output Total 1825 / 5575 950 / 950 2000 / 2950 Balance -1125 / -3275 237.25 / 237.25 -1650 / -1412.75 Weight last 48 hrs Weight 203 lb 6 oz Weight 213 lb Physical Exam Narrative: EXAM NARRATIVE: GENERAL: Patient is alert, awake and oriented x3. NECK: No jugular vein distension. HEENT: No cyanosis. No icterus. No pallor. HEART: Regular S1 and S2. No murmur, rub or gallop. LUNGS: Clear to auscultate bilaterally. ABDOMEN: Soft, nontender and mildly distended. Positive bowel sounds. No guarding, rebound or tenderness. CENTRAL NERVOUS SYSTEM: Grossly nonfocal. EXTREMITIES: Lower extremities with 1+ edema bilaterally. Lower extremity bandage cellulitis improved Urinary Catheter Management^: Reyes Latex: Cath Placed During This Visit: yes, but has since been removed by the nurse Reason for Continuing Indwelling Catheter: Accurate Measurement of Urinary Output in Critically Ill Patients Urinary Catheter Date of Insertion: 08/27/20 Urinary Catheter Time of Insertion: 13:00 Date Urinary Catheter Removed: 08/29/20 Time Urinary Catheter Discontinued: 13:19 Data : 09/05/20 05:05 09/05/20 11:26 A&P Assessment and plan (1) Cardiorenal syndrome with renal failure: Continues to improve today is 1.3 Will back off on metolazone now Status: Acute (2) Cardiogenic shock: Improved. Continue current regimen. Status: Acute (3) Peripheral vascular disease: Stable. Status: Acute (4) Sepsis: Continue antibiotic as per ID Status: Acute Qualifiers: Severe sepsis shock status: unspecified (5) Acute on chronic systolic heart failure: Continues to improve. Will discontinue metolazone add Aldactone continue Demadex. Status: Acute (6) Ischemic cardiomyopathy: Stable we will stop nitro. Status: Acute (7) Hypokalemia: K rider will be given add Aldactone and discontinue metolazone Status: Acute Additional A&P Information Other problems are Hypokalemia, currently corrected. Generalized debilitation COPD Carotid artery disease Losartan is discontinued. Patient is being closely monitored in the ICU. Discussed with the family() his current condition. The family is well aware of the prognosis. Attestations Medical Necessity Statement*: Patient require continuation hospitalization for above defined care. Coding Level of Care Code Established Pt Acute Hourly Shift for Michi Escobar Patient Type Established History Expanded Problem Focused Exam Expanded Problem Focused Medical Decision Making Moderate Complexity Diagnoses Cardiorenal syndrome with renal failure I13.10 Cardiogenic shock R57.0 Peripheral vascular disease I73.9 Sepsis A41.9 Severe sepsis shock status: unspecified Acute on chronic systolic heart failure I50.23 Ischemic cardiomyopathy I25.5 Hypokalemia E87.6
[2020-09-05 20:33] LABS: Glucose Point of Care 186 mg/dL (70-110)
[2020-09-05] MEDS: atorvastatin 40 mg Tablet 80 MG PO (20:45)
[2020-09-05] MEDS: finasteride 5 mg Tablet 10 MG PO (20:47)
[2020-09-05] MEDS: simethicone 80 mg Chew PO (21:51)
[2020-09-06] VITALS (32 sets, daily range): BP systolic 85–124; BP diastolic 45–89; PULSE 83–102; RESP 9–25; TEMP 36.4–37.1; O2SAT 90–99
[2020-09-06] MEDS: piperacillin-tazobactam 3.375 GM in sodium chloride 0.9% (plus) 50 ML IV ×3 (02:34→18:23)
[2020-09-06] MEDS: acetaminophen 325 mg Tablet PO ×2 (04:10→23:54)
[2020-09-06] MEDS: oxyCODONE-APAP 5-325 mg Tablet 1 TAB PO ×3 (04:10→20:50)
[2020-09-06 04:43] LABS: Basophils # 0.1 10^3/uL (0.0-0.1); Basophils % 0.4 %; Eosinophils # 0.3 10^3/uL (0.0-0.8); Eosinophils % 2.3 %; Hemoglobin 10.4 g/dL (11.7-16.6); Lymphocytes # 1.9 10^3/uL (0.8-4.8); Lymphocytes % 16.1 %; Mean Corpuscular HGB Conc 31.5 g/dL (30.0-36.0); Mean Corpuscular Hemoglobin 29.2 pg (28.0-34.0); Mean Corpuscular Volume 92.7 fL (80-94); Mean Platelet Volume 9.8 fL (7.4-10.4); Monocytes # 0.9 10^3/uL (0.2-0.9); Monocytes % 7.4 %; Neutrophils # 8.79 10^3/uL (1.8-7.7); Neutrophils % 73.5 %; Nucleated Red Blood Cells % 0.2 %; Platelet Count 182 10^3/cmm (130-400); Red Blood Count 3.56 10^6/uL (4.1-5.3); Red Cell Distribution Width 16.6 % (12.1-15.1)
[2020-09-06 05:03] LABS: Alanine Aminotransferase 20 U/L (0-41); Albumin Level 4.1 g/dL (3.5-5.2); Alkaline Phosphatase 93 IU/L (40-130); Anion Gap 12.2 (5-19); Aspartate Amino Transferase 19 U/L (0-40); Blood Urea Nitrogen 59 mg/dL (8-23); Calcium 10.1 mg/dL (8.5-10.5); Chloride 84 mmol/L (98-107); Globulin 3.4 g/dL (1.3-4.6); Glomerular Filtration Rate 60.4 mL/min (90-130); Glucose 221 mg/dL (65-115); Magnesium 1.8 mg/dL (1.7-2.3); Osmolality Calculated 303 mOsm/kg (285-295); Phosphorus 2.6 mg/dL (2.5-4.5); Potassium 3.2 mmol/L (3.5-5.1); Sodium 135 mmol/L (136-145); Total Bilirubin 0.6 mg/dL (0.15-1.2); Total Protein 7.5 g/dL (6.6-8.7)
[2020-09-06 05:19] LABS: Carbon Dioxide 42 mmol/L (22-29)
[2020-09-06 07:50] LABS: Glucose Point of Care 154 mg/dL (70-110)
[2020-09-06] MEDS: sucralfate 1 gm/10 mL Oral Liq UDC PO ×3 (09:00→20:44)
[2020-09-06] MEDS: escitalopram 10 mg Tablet PO (09:00)
[2020-09-06] MEDS: heparin 5,000 unit/mL INJ 1 mL 5000 UNIT SUBCUT ×2 (09:01→20:42)
[2020-09-06] MEDS: spironolactone 25 mg Tablet 12.5 MG PO (09:01)
[2020-09-06] MEDS: aspirin 81 mg EC Tablet PO (09:01)
[2020-09-06] MEDS: TORSEmide 20 mg Tablet 80 MG PO ×2 (09:01→17:21)
[2020-09-06] MEDS: clopidogrel 75 mg Tablet PO (09:01)
[2020-09-06] MEDS: potassium chloride ER 20 mEq Tablet 40 MEQ PO ×3 (09:02→17:21)
--- NOTE | 2020-09-06 09:14 | PC.CHAP ---
Pastoral Care Encounter/Spiritual Assessment Type of Contact [] Declined sanitary landfill supervisor visit [] Patient/Family/Request visit [] Outpatient visit [] Follow-up visit [] Physician referral [] Code/Alert [] Routine visit [] Staff referral [] Actively dying [] Patient sleeping [] Family support [] [] Out of room [] Palliative care [] [] Receiving care in room [] Pre-surgical visit [] Trauma [] Long length of stay [x] ICU visit [] Other: Relational/Emotional Strength [] Patient feels connected with others/family/visitors/staff [] Distress [] Loneliness/isolation [] Abandonment Spirituality of Patient [] Person of Rhiannon [] Attends Buddhism of their [place] [] Believes in Prayer [] Reads Bible or Baptist materials [] There are Spiritual issues to be addressed Bss Solution Architect Interventions [x] Prayer [] Active listening [] Non-anxious presence [] Spiritual/emotional support [] Crisis/trauma care [] Spiritual counseling [] Bereavement support [] Provided bereavement packet [] Provided Bible/devotional materials [] Provided toy/stuffed animal, coloring book to patient or family member [] Provided Communion [] Anointing/[place] [] Salvation [x] Completed spiritual assessment [] Other: Impact on Illness or Injury [] Angry [] Fearful [] Anxious [] Often cries [] Exhaustion [] Unable to work [] Unable to attend methodist [] Unable to walk/stand [] Unable to read [] Unable to drive [] Unable to eat/drink [] Unable to sleep [] Unable to be with family [] Patient intubated [] Other: Summary Time spent with patient
[2020-09-06] MEDS: TRAMadol 50 mg Tablet PO ×2 (09:21→23:53)
[2020-09-06] MEDS: collagenase oint 30 gm 1 APPLIC TOPICAL (09:21)
[2020-09-06] MEDS: DOBUTamine drip 500 MG/250 ML PREMIX 15 MG IV (10:16)
--- NOTE | 2020-09-06 11:30 | PM.PN ---
Subjective Subjective: Interval history: This morning patient was examined, his daughter is at bedside, tells me that he has difficulty sleeping, but this is nothing new for him, he feels a lot better, his swelling has significantly improved, he feels a lot better, he wishes he could ambulate a bit better, has severe peripheral neuropathy pain, but he really does not want to take medications for it, is able to tolerate the pain Vitals/I&O/Wt Last Vital Signs Temp 98.7 F 09/06/20 09:00 Pulse 94 09/06/20 11:00 Resp 18 09/06/20 11:00 BP 85/54 09/06/20 11:00 Pulse Ox 96 09/06/20 11:00 09/05/20 09/06/20 09/06/20 22:59 06:59 14:59 Intake Total 400 / 1587.25 250 / 1837.25 350 / 350 Output Total 3500 / 4450 1400 / 5850 Balance -3100 / -2862.75 -1150 / -4012.75 350 / 350 Weight last 48 hrs Weight 95.254 kg Weight 92.249 kg Physical Exam Const: COMMON NORMALS: no acute distress and patient oriented x3 HENMT: COMMON NORMALS: normocephalic HEAD & SCALP: normocephalic Neck/C-Spine: COMMON NORMALS: no JVD Resp: COMMON NORMALS: normal respiratory effort, No retractions, No use of accessory muscles and clear to auscultation bilaterally AUSCULTATION: clear to auscultation bilaterally Cardio: COMMON NORMALS: no JVD, regular rate, regular rhythm, S1 normal heart sound present and S2 normal heart sound present RATE: regular rate RHYTHM: regular rhythm HEART SOUNDS: S1 normal heart sound present and S2 normal heart sound present GI: COMMON NORMALS: Normal to inspection, nondistended, normoactive bowel sounds present, Soft to palpation, non-tender, No hepatosplenomegaly present, no masses and no bruits INSPECTION: Yes abdominal distension PALPATION: Yes Soft to palpation and Yes No hepatosplenomegaly present Extremity: COMMON NORMALS: capillary refill normal, no clubbing, cyanosis or edema, no calf tenderness and no pedal edema Neuro: COMMON NORMALS: patient oriented x3 Psych: COMMON NORMALS: mental status grossly normal Skin: NARRATIVE SKIN EXAM: Left lower extremity, erythema, extending from mid melgar, to distal tibia, with scaling of the skin, but improving Right lower extremity, wrapped in bandage: Under the bandage, has extensive erythema, cellulitis extending from the mid melgar to the distal tibia, on the calf region, has a 4 x 5 cm superficial wound, but improving Urinary Catheter Management^: Reyes Latex: Cath Placed During This Visit: yes, but has since been removed by the nurse Reason for Continuing Indwelling Catheter: Accurate Measurement of Urinary Output in Critically Ill Patients Urinary Catheter Date of Insertion: 08/27/20 Urinary Catheter Time of Insertion: 13:00 Date Urinary Catheter Removed: 08/29/20 Time Urinary Catheter Discontinued: 13:19 Data : 09/06/20 04:00 09/06/20 04:00 A&P Assessment and plan (1) Cardiogenic shock: Status: Acute (2) Cellulitis: Status: Acute Qualifiers: Site of cellulitis: extremity Site of cellulitis of extremity: lower extremity Laterality: right Qualified Code(s): L03.115 - Cellulitis of right lower limb (3) Peripheral vascular disease: Status: Acute (4) Ischemic cardiomyopathy: Status: Acute (5) Chronic hypoxemic respiratory failure: Status: Acute (6) PAD (peripheral artery disease): Status: Acute (7) Acute on chronic systolic heart failure: Status: Acute (8) COPD (chronic obstructive pulmonary disease): Status: Acute Qualifiers: COPD type: unspecified COPD Qualified Code(s): J44.9 - Chronic obstructive pulmonary disease, unspecified Additional A&P Information Yesterday I try to move the patient to the cardiac stepdown unit, however there was a glitch in the electronic system that would let me know the patient, the electronic which persists today, IT is working on it Cardiogenic shock: Resolving. Continue dobutamine drip Most likely because dobutamine drip was stopped in between for couple of hours. Antihypertensives were given. Abdominal distention, likely secondary to cardiac ascites slightly distended today, not particularly bothersome to the patient this morning, hold off on paracentesis, would only perform for symptomatic relief, does run significant risk of hypotension Keep mean arterial pressures between 55 to 60 mmHg. Dobutamine at 15. Continue at the current dose. Do not decrease until cardiology recommendations Continue to monitor urine output. Urine output 4900 cc, creatinine 1.2, potassium 3.2 Patient maintaining saturations on baseline oxygen supplementation. Is currently on 2 L CAD/ischemic cardiomyopathy: End-stage heart failure on dobutamine pump as an outpatient. Follows up with general dentist service at [facility]. Continue with aspirin, statin, Plavix, ivabradine. Nitro drip off, will await cardiology's lead. Plan is for possibly starting Entresto, Aldactone added yesterday Torsemide 80 mg twice daily, metolazone 2.5 mg daily stopped , Good urine output Hypokalemia, 3.2, receiving 40 mEq of potassium p.o. in addition to 40 twice daily Echocardiogram done shows an EF of around 20% with severe diffuse hypokinesia of septum, anterior septum and LV apex, mildly dilated RV, mild MR, mild TR. Sepsis secondary to purulent cellulitis of right lower extremity: Failed outpatient treatment. Improving now. Pro-Flavio negative, MRSA negative. Blood cultures, and urine culture have remained negative so far. Wound culture for now growing Enterococcus. Sensitivities appreciated. Zyvox was discontinued, continue Zosyn for now NORMA consistent with moderate peripheral disease on the right side and mild peripheral disease on the right and left side, venous Doppler negative for DVT but consistent with fluid retention/edema bilaterally below knees. Needs wound care, of right lower extremity open wound Patient is a poor surgical candidate for any endovascular surgeries because of severe COPD, severe cardiomyopathy on dobutamine drip. Continue Zosyn for now, likely switch to doxycycline Augmentin on discharge, needs to follow-up with wound care Stop Dilaudid, continue Ultram, continue oxycodone Dressing change as per surgical recommendations. Acute kidney injury: Improving today. 1.2 today. Most likely a combination of cardiorenal syndrome and ATN due to hypotension few days ago. We will continue to monitor. Continue losartan Continue to monitor electrolytes and BMP daily for now. Nocturnal hypoxemia: Noncompliant with CPAP Currently on 2 L He was also using Vasquez-Synephrine for nasal congestion which I have discontinued because of his end-stage heart failure condition Continue other chronic oral medications. CODE STATUS: Full code. Discussed multiple times with , patient. DVT prophylaxis Heparin Cardiac diet. Ensure supplementation with meals. Out of bed to chair. Severely guarded prognosis. Patient's care discussed in detail with his daughter Ms. Tamera Yonug. We discussed that given the multiple severe comorbidities patient's care need to be really delicate and we need to take small baby steps every day while trying to improve his blood pressures and monitoring his kidney functions. We also discussed at this point the expectation is that kidney functions might worsen over the next 24 to 48 hours given the episode of hypotension yesterday. Also discussed that for now we will continue to monitor the urine output. Daughter states for now family does not want any kind of surgical intervention and would want to get her father a little better medically so that he can go back to his baseline and can be discharged hopefully before [place]. All the questions were answered in detail. Plan for the day: Hopefully move out of CSU if the electronic medical system allows it, continue dobutamine drip, hopefully try Entresto this evening, continue to diuresis, possible discharge in the next 24 hours Attestations Medical Necessity Statement*: Patient requires hospitalization for CHF exacerbation, cardiogenic shock Coding Level of Care Code Acute Engine Buildup Mechanic for Linnette Donnad Diagnoses Cardiogenic shock R57.0 Cellulitis L03.115 Site of cellulitis: extremity Site of cellulitis of extremity: lower extremity Laterality: right Peripheral vascular disease I73.9 Ischemic cardiomyopathy I25.5 Chronic hypoxemic respiratory failure J96.11 PAD (peripheral artery disease) I73.9 Acute on chronic systolic heart failure I50.23 COPD (chronic obstructive pulmonary disease) J44.9 COPD type: unspecified COPD
[2020-09-06 12:58] LABS: Glucose Point of Care 191 mg/dL (70-110)
--- NOTE | 2020-09-06 15:50 | PC.SOCIAL ---
IMM Updated Page 2 of IMM updated and given to patient. Initialed, dated, and timed and placed back in chart.
[2020-09-06 17:10] LABS: Glucose Point of Care 224 mg/dL (70-110)
--- NOTE | 2020-09-06 20:09 | PM.PN ---
Subjective Subjective: Interval history: Continues to improve steadily, creatinine is normal. Denies any major complaint. Medications: Reviewed: Yes Medication Review Details: Current Medications Acetaminophen (Acetaminophen 325 Mg Tablet) 325 mg PO Q4H PRN PRN Reason: Pain Aspirin (Aspirin 81 Mg Ec Tablet) 81 mg PO DAILY@0830 [facility] Last Admin: 08/29/20 09:42 Dose: 81 mg Documented by: Atorvastatin Calcium (Atorvastatin 40 Mg Tablet) 80 mg PO BEDTIME [facility] Last Admin: 08/28/20 20:48 Dose: 80 mg Documented by: Clopidogrel Bisulfate (Clopidogrel 75 Mg Tablet) 75 mg PO DAILY@0830 [facility] Last Admin: 08/29/20 09:43 Dose: 75 mg Documented by: Collagenase (Collagenase Oint 30 Gm) 1 applic TOPICAL DAILY [facility] Last Admin: 08/29/20 15:10 Dose: Not Given Documented by: Dextrose (Dextrose 50% Syringe 50 Ml) 25 ml IVP ONCE PRN; Protocol PRN Reason: hypoglycemia protocol Dextrose (Dextrose 50% Syringe 50 Ml) 50 ml IVP PRN PRN; Protocol PRN Reason: hypoglycemia protocol Docusate Sodium (Docusate Sodium 100 Mg Capsule) 100 mg PO DAILY PRN PRN Reason: constipation Finasteride (Finasteride 5 Mg Tablet) 5 mg PO BEDTIME [facility] Glucagon (Glucagon 1 Mg/Ml Inj 1 Ml) 1 mg IM ONCE PRN; Protocol PRN Reason: Adult Acute Hypoglycemia Prot. Guaifenesin (Guaifenesin 600 Mg Tablet) 600 mg PO BID PRN PRN Reason: Congestion Heparin Sodium (Beef Lung) (Heparin 5,000 Unit/Ml Inj 1 Ml) 5,000 unit SUBCUT Q8H [facility] Last Admin: 08/29/20 16:08 Dose: 5,000 unit Documented by: Hydromorphone HCl (Hydromorphone 1 Mg/Ml Inj 1 Ml) 0.5 mg IVP Q6H PRN PRN Reason: pain scale 5-10 Last Admin: 08/29/20 13:32 Dose: 0.5 mg Documented by: Linezolid (Zyvox Premix) 600 mg in 300 mls @ 300 mls/hr IV Q12H [facility]; Protocol Last Infusion: 08/29/20 14:06 Dose: Infused Documented by: Piperacillin Sod/Tazobactam (Sod 3.375 gm/ Sodium Chloride) 50 mls @ 12.5 mls/hr IV Q8H [facility]; Protocol Last Admin: 08/29/20 12:20 Dose: 12.5 mls/hr Documented by: Dextrose (D5w) 500 mls @ 100 mls/hr IV ONCE PRN; Protocol PRN Reason: Adult Acute Hypoglycemia Prot Dobutamine HCl/Dextrose (Dobutamine Drip) 500 mg in 250 mls @ 20 mls/hr IV CONT [facility] Last Infusion: 08/29/20 15:00 Dose: 20 mls/hr Documented by: Norepinephrine Bitartrate 4 mg (/ Dextrose) 254 mls @ 0 mls/hr IV .Q0M [facility]; Protocol Last Admin: 08/29/20 16:56 Dose: 2 mcg/min, 7.6 mls/hr Documented by: Insulin Aspart (Insulin Aspart 100 Unit/1 Ml) 0 unit SUBCUT WM&BEDTIME [facility]; Protocol Last Admin: 08/29/20 12:21 Dose: 6 unit Documented by: Ipratropium [place] (Ipratropium 12.9 Gm Mdi) 2 puff INHALATION Q4H.RESPIRATORY PRN PRN Reason: AIR HUNGER Isosorbide Mononitrate (Isosorbide Mononitrate Er 30 Mg Tablet) 30 mg PO DAILY@0830 [facility] Last Admin: 08/29/20 09:44 Dose: 30 mg Documented by: Levalbuterol HCl (Levalbuterol 0.63 Mg/3 Ml Neb) 0.63 mg INHALATION Q4H.RESPIRATORY PRN PRN Reason: SHORTNESS OF BREATH Losartan Potassium (Losartan 50 Mg Tablet) 25 mg PO DAILY [facility] Last Admin: 08/29/20 09:43 Dose: 25 mg Documented by: Nitroglycerin (Nitroglycerin 0.4 Mg Sublingual Tablet) 0.4 mg SUBLINGUAL PRN PRN PRN Reason: CHEST PAINS Non-Formulary Medication (Dobutamine [Dobutamine]) 700 mg IVP DIRECTED [facility] Non-Formulary Medication (Oxycodone-Acetaminophen) 1 tab PO TID PRN PRN Reason: Pain Non-Formulary Medication (Ivabradine [Corlanor]) 5 mg PO BID@0830,2000 [facility] Last Admin: 08/29/20 09:58 Dose: 5 mg Documented by: Potassium Chloride (Potassium Chloride Er 20 Meq Tablet) 60 meq PO BID [facility] Last Admin: 08/29/20 09:59 Dose: 60 meq Documented by: Sodium Chloride (Saline Nasal [place] 44ml Btl) 1 spray NASAL PRN PRN PRN Reason: DRYNESS Spironolactone (Spironolactone 25 Mg Tablet) 25 mg PO DAILY [facility] Last Admin: 08/29/20 13:33 Dose: 25 mg Documented by: Tamsulosin HCl (Tamsulosin 0.4 Mg Capsule) 0.4 mg PO DAILY@0830 [facility] Last Admin: 08/29/20 09:43 Dose: 0.4 mg Documented by: Torsemide (Torsemide 20 Mg Tablet) 100 mg PO DAILY [facility] Last Admin: 08/29/20 09:43 Dose: 100 mg Documented by: Tramadol HCl (Tramadol 50 Mg Tablet) 50 mg PO Q8H PRN PRN Reason: MODERATE PAIN Vitals/I&O/Wt Last Vital Signs Temp 98.2 F 09/06/20 16:00 Pulse 99 09/06/20 18:00 Resp 20 H 09/06/20 18:00 BP 103/62 09/06/20 18:00 Pulse Ox 94 09/06/20 18:00 09/06/20 09/06/20 09/06/20 06:59 14:59 22:59 Intake Total 300 / 1887.25 400 / 400 650 / 1050 Output Total 1400 / 5850 1550 / 1550 1000 / 2550 Balance -1100 / -3962.75 -1150 / -1150 -350 / -1500 Weight last 48 hrs Weight 210 lb Weight 203 lb 6 oz Physical Exam Narrative: EXAM NARRATIVE: GENERAL: Patient is alert, awake and oriented x3. NECK: No jugular vein distension. HEENT: No cyanosis. No icterus. No pallor. HEART: Regular S1 and S2. No murmur, rub or gallop. LUNGS: Clear to auscultate bilaterally. ABDOMEN: Soft, nontender and mildly distended. Positive bowel sounds. No guarding, rebound or tenderness. CENTRAL NERVOUS SYSTEM: Grossly nonfocal. EXTREMITIES: Lower extremities without edema bilaterally. Lower extremity bandage cellulitis improved Urinary Catheter Management^: Reyes Latex: Cath Placed During This Visit: yes, but has since been removed by the nurse Reason for Continuing Indwelling Catheter: Accurate Measurement of Urinary Output in Critically Ill Patients Urinary Catheter Date of Insertion: 08/27/20 Urinary Catheter Time of Insertion: 13:00 Date Urinary Catheter Removed: 08/29/20 Time Urinary Catheter Discontinued: 13:19 Data : 09/06/20 04:00 09/06/20 04:00 A&P Assessment and plan (1) Cardiorenal syndrome with renal failure: Improved to normal now creatinine today is 1.2 Status: Acute (2) Cardiogenic shock: Continues to be on dobutamine, will switch to pump for home dose Status: Acute (3) Peripheral vascular disease: Stable. Status: Acute (4) Sepsis: Continue antibiotic as per ID Status: Acute Qualifiers: Severe sepsis shock status: unspecified (5) Acute on chronic systolic heart failure: Well compensated now. Reduce Demadex to 60 twice daily add Entresto, use metolazone as needed for more than 3 pound increase from the current weight Status: Acute (6) Ischemic cardiomyopathy: Stable we will stop nitro. Status: Acute (7) Hypokalemia: Continue to monitor continue to replenish Status: Acute Additional A&P Information Other problems are Hypokalemia, currently corrected. Generalized debilitation COPD Carotid artery disease Losartan is discontinued. Patient is being closely monitored in the ICU. Discussed with the family() his current condition. The family is well aware of the prognosis. Attestations Medical Necessity Statement*: Requires continuation hospitalization for above defined care. Coding Level of Care Code Established Pt Acute Registered Client Associate for Michi Escobar Patient Type Established History Detailed Exam Detailed Medical Decision Making Moderate Complexity Diagnoses Cardiorenal syndrome with renal failure I13.10 Cardiogenic shock R57.0 Peripheral vascular disease I73.9 Sepsis A41.9 Severe sepsis shock status: unspecified Acute on chronic systolic heart failure I50.23 Ischemic cardiomyopathy I25.5 Hypokalemia E87.6
[2020-09-06] MEDS: levalbuterol 0.63 mg/3 mL Neb INHALATION (20:12)
[2020-09-06] MEDS: simethicone 80 mg Chew PO (20:42)
[2020-09-06] MEDS: finasteride 5 mg Tablet 10 MG PO (20:42)
[2020-09-06] MEDS: atorvastatin 40 mg Tablet 80 MG PO (20:42)
[2020-09-06 20:49] LABS: Glucose Point of Care 237 mg/dL (70-110)
--- NOTE | 2020-09-06 23:41 | PC.NURSE ---
Addendum entered by Bella Moore RN 09/06/20 23:46: Walker provided for stability. Original Note: Patient up to chair listening to radio program. Denies any discomforts at this time. Patient has Dobutamine running at 15ml/hr. Patient requesting to stand up for a few minutes to reposition. Patient assisted x2.
[2020-09-07] VITALS (72 sets, daily range): BP systolic 84–110; BP diastolic 54–75; PULSE 76–100; RESP 9–28; TEMP 36.3–36.4; O2SAT 64–98
[2020-09-07] MEDS: ondansetron 2 mg/ML SDV 2 mL 4 MG IVP (01:42)
[2020-09-07] MEDS: lidocaine 2% viscous 15 ML, aluminum-mag hydrox-simethicon 30 ML, sucralfate oral liq 1 GM PO (02:25)
[2020-09-07] MEDS: alteplase 1 mg/mL SDV 2 mL 4 MG INTRACATH (02:37)
[2020-09-07] MEDS: piperacillin-tazobactam 3.375 GM in sodium chloride 0.9% (plus) 50 ML IV ×2 (04:30→12:52)
[2020-09-07 05:06] LABS: Basophils # 0.1 10^3/uL (0.0-0.1); Basophils % 0.5 %; Eosinophils # 0.4 10^3/uL (0.0-0.8); Eosinophils % 2.9 %; Hematocrit 28.9 % (42.0-52.0); Hemoglobin 9.2 g/dL (11.7-16.6); Lymphocytes # 2.6 10^3/uL (0.8-4.8); Lymphocytes % 21.3 %; Mean Corpuscular HGB Conc 31.8 g/dL (30.0-36.0); Mean Corpuscular Hemoglobin 29.4 pg (28.0-34.0); Mean Corpuscular Volume 92.3 fL (80-94); Mean Platelet Volume 10.5 fL (7.4-10.4); Monocytes # 1.2 10^3/uL (0.2-0.9); Monocytes % 9.6 %; Neutrophils # 7.78 10^3/uL (1.8-7.7); Neutrophils % 64.7 %; Nucleated Red Blood Cells % 0.3 %; Platelet Count 149 10^3/cmm (130-400); Red Blood Count 3.13 10^6/uL (4.1-5.3); Red Cell Distribution Width 16.8 % (12.1-15.1)
[2020-09-07] MEDS: DOBUTamine drip 500 MG/250 ML PREMIX 15 MG IV (05:10)
[2020-09-07] MEDS: sucralfate 1 gm/10 mL Oral Liq UDC PO (06:00)
[2020-09-07 06:14] LABS: Alanine Aminotransferase 22 U/L (0-41); Albumin Level 4.1 g/dL (3.5-5.2); Alkaline Phosphatase 83 IU/L (40-130); Anion Gap 16.2 (5-19); Aspartate Amino Transferase 21 U/L (0-40); Blood Urea Nitrogen 54 mg/dL (8-23); Calcium 9.3 mg/dL (8.5-10.5); Carbon Dioxide 36 mmol/L (22-29); Chloride 82 mmol/L (98-107); Globulin 2.6 g/dL (1.3-4.6); Glomerular Filtration Rate 66.8 mL/min (90-130); Glucose 178 mg/dL (65-115); Magnesium 1.6 mg/dL (1.7-2.3); Osmolality Calculated 291 mOsm/kg (285-295); Phosphorus 3.3 mg/dL (2.5-4.5); Potassium 3.2 mmol/L (3.5-5.1); Sodium 131 mmol/L (136-145); Total Bilirubin 0.5 mg/dL (0.15-1.2); Total Protein 6.7 g/dL (6.6-8.7)
[2020-09-07 06:53] LABS: Glucose Point of Care 181 mg/dL (70-110)
[2020-09-07] MEDS: oxyCODONE-APAP 5-325 mg Tablet 1 TAB PO ×2 (06:55→15:42)
[2020-09-07] MEDS: TORSEmide 20 mg Tablet 80 MG PO (09:16)
[2020-09-07] MEDS: escitalopram 10 mg Tablet PO (09:17)
[2020-09-07] MEDS: potassium chloride ER 20 mEq Tablet 40 MEQ PO ×3 (09:17→17:49)
[2020-09-07] MEDS: heparin 5,000 unit/mL INJ 1 mL 5000 UNIT SUBCUT (09:17)
[2020-09-07] MEDS: aspirin 81 mg EC Tablet PO (09:17)
[2020-09-07] MEDS: spironolactone 25 mg Tablet 12.5 MG PO (09:17)
[2020-09-07] MEDS: clopidogrel 75 mg Tablet PO (09:17)
[2020-09-07 11:34] LABS: Glucose Point of Care 173 mg/dL (70-110)
--- NOTE | 2020-09-07 15:32 | P.PN_ITS ---
Subjective Subjective: Interval history: Continues to feel better denies any chest pain or shortness of breath. Creatinine is normal. Urine output is good. Potassium is 3.2 will give him extra potassium. He would like to go home and I think so that this is time to discharge him. Medications: Reviewed: Yes Medication Review Details: Current Medications Acetaminophen (Acetaminophen 325 Mg Tablet) 325 mg PO Q4H PRN PRN Reason: Pain Aspirin (Aspirin 81 Mg Ec Tablet) 81 mg PO DAILY@0830 [facility] Last Admin: 08/29/20 09:42 Dose: 81 mg Documented by: Atorvastatin Calcium (Atorvastatin 40 Mg Tablet) 80 mg PO BEDTIME [facility] Last Admin: 08/28/20 20:48 Dose: 80 mg Documented by: Clopidogrel Bisulfate (Clopidogrel 75 Mg Tablet) 75 mg PO DAILY@0830 [facility] Last Admin: 08/29/20 09:43 Dose: 75 mg Documented by: Collagenase (Collagenase Oint 30 Gm) 1 applic TOPICAL DAILY [facility] Last Admin: 08/29/20 15:10 Dose: Not Given Documented by: Dextrose (Dextrose 50% Syringe 50 Ml) 25 ml IVP ONCE PRN; Protocol PRN Reason: hypoglycemia protocol Dextrose (Dextrose 50% Syringe 50 Ml) 50 ml IVP PRN PRN; Protocol PRN Reason: hypoglycemia protocol Docusate Sodium (Docusate Sodium 100 Mg Capsule) 100 mg PO DAILY PRN PRN Reason: constipation Finasteride (Finasteride 5 Mg Tablet) 5 mg PO BEDTIME [facility] Glucagon (Glucagon 1 Mg/Ml Inj 1 Ml) 1 mg IM ONCE PRN; Protocol PRN Reason: Adult Acute Hypoglycemia Prot. Guaifenesin (Guaifenesin 600 Mg Tablet) 600 mg PO BID PRN PRN Reason: Congestion Heparin Sodium (Beef Lung) (Heparin 5,000 Unit/Ml Inj 1 Ml) 5,000 unit SUBCUT Q8H [facility] Last Admin: 08/29/20 16:08 Dose: 5,000 unit Documented by: Hydromorphone HCl (Hydromorphone 1 Mg/Ml Inj 1 Ml) 0.5 mg IVP Q6H PRN PRN Reason: pain scale 5-10 Last Admin: 08/29/20 13:32 Dose: 0.5 mg Documented by: Linezolid (Zyvox Premix) 600 mg in 300 mls @ 300 mls/hr IV Q12H [facility]; Protocol Last Infusion: 08/29/20 14:06 Dose: Infused Documented by: Piperacillin Sod/Tazobactam (Sod 3.375 gm/ Sodium Chloride) 50 mls @ 12.5 mls/hr IV Q8H [facility]; Protocol Last Admin: 08/29/20 12:20 Dose: 12.5 mls/hr Documented by: Dextrose (D5w) 500 mls @ 100 mls/hr IV ONCE PRN; Protocol PRN Reason: Adult Acute Hypoglycemia Prot Dobutamine HCl/Dextrose (Dobutamine Drip) 500 mg in 250 mls @ 20 mls/hr IV CONT [facility] Last Infusion: 08/29/20 15:00 Dose: 20 mls/hr Documented by: Norepinephrine Bitartrate 4 mg (/ Dextrose) 254 mls @ 0 mls/hr IV .Q0M [facility]; Protocol Last Admin: 08/29/20 16:56 Dose: 2 mcg/min, 7.6 mls/hr Documented by: Insulin Aspart (Insulin Aspart 100 Unit/1 Ml) 0 unit SUBCUT WM&BEDTIME [facility]; Protocol Last Admin: 08/29/20 12:21 Dose: 6 unit Documented by: Ipratropium [place] (Ipratropium 12.9 Gm Mdi) 2 puff INHALATION Q4H.RESPIRATORY PRN PRN Reason: AIR HUNGER Isosorbide Mononitrate (Isosorbide Mononitrate Er 30 Mg Tablet) 30 mg PO DAILY@08 [facility] Last Admin: 08/29/20 09:44 Dose: 30 mg Documented by: Levalbuterol HCl (Levalbuterol 0.63 Mg/3 Ml Neb) 0.63 mg INHALATION Q4H.RESPIRATORY PRN PRN Reason: SHORTNESS OF BREATH Losartan Potassium (Losartan 50 Mg Tablet) 25 mg PO DAILY [facility] Last Admin: 08/29/20 09:43 Dose: 25 mg Documented by: Nitroglycerin (Nitroglycerin 0.4 Mg Sublingual Tablet) 0.4 mg SUBLINGUAL PRN PRN PRN Reason: CHEST PAINS Non-Formulary Medication (Dobutamine [Dobutamine]) 700 mg IVP DIRECTED [facility] Non-Formulary Medication (Oxycodone-Acetaminophen) 1 tab PO TID PRN PRN Reason: Pain Non-Formulary Medication (Ivabradine [Corlanor]) 5 mg PO BID@08,1999 [facility] Last Admin: 08/29/20 09:58 Dose: 5 mg Documented by: Potassium Chloride (Potassium Chloride Er 20 Meq Tablet) 60 meq PO BID [facility] Last Admin: 08/29/20 09:59 Dose: 60 meq Documented by: Sodium Chloride (Saline Nasal [place] 44ml Btl) 1 spray NASAL PRN PRN PRN Reason: DRYNESS Spironolactone (Spironolactone 25 Mg Tablet) 25 mg PO DAILY [facility] Last Admin: 08/29/20 13:33 Dose: 25 mg Documented by: Tamsulosin HCl (Tamsulosin 0.4 Mg Capsule) 0.4 mg PO DAILY@829 [facility] Last Admin: 08/29/20 09:43 Dose: 0.4 mg Documented by: Torsemide (Torsemide 20 Mg Tablet) 100 mg PO DAILY [facility] Last Admin: 08/29/20 09:43 Dose: 100 mg Documented by: Tramadol HCl (Tramadol 50 Mg Tablet) 50 mg PO Q8H PRN PRN Reason: MODERATE PAIN Vitals/I&O/Wt Last Vital Signs Temp 97.4 F L 09/07/20 09:00 Pulse 86 09/07/20 15:17 Resp 16 09/07/20 15:17 BP 97/66 09/07/20 11:00 Pulse Ox 95 09/07/20 15:17 09/07/20 09/07/20 09/07/20 06:59 14:59 22:59 Intake Total 200 / 1300 530 / 530 Output Total 1425 / 3975 720 / 720 Balance -1225 / -2675 530 / 530 -720 / -190 Weight last 48 hrs Weight 210 lb Weight 210 lb Physical Exam Narrative: EXAM NARRATIVE: GENERAL: Patient is alert, awake and oriented x3. NECK: No jugular vein distension. HEENT: No cyanosis. No icterus. No pallor. HEART: Regular S1 and S2. No murmur, rub or gallop. LUNGS: Clear to auscultate bilaterally. ABDOMEN: Soft, nontender and mildly distended. Positive bowel sounds. No guarding, rebound or tenderness. CENTRAL NERVOUS SYSTEM: Grossly nonfocal. EXTREMITIES: Lower extremities without edema bilaterally. Lower extremity bandage cellulitis improved Urinary Catheter Management^: Reyes Latex: Cath Placed During This Visit: yes, but has since been removed by the nurse Reason for Continuing Indwelling Catheter: Accurate Measurement of Urinary Output in Critically Ill Patients Urinary Catheter Date of Insertion: 08/27/20 Urinary Catheter Time of Insertion: 13:00 Date Urinary Catheter Removed: 08/29/20 Time Urinary Catheter Discontinued: 13:19 Data : 09/07/20 03:55 09/07/20 03:55 A&P Assessment and plan (1) Cardiorenal syndrome with renal failure: normalized, continue same medicine Status: Acute (2) Cardiogenic shock: Continues to be on dobutamine, will switch to pump for home dose Status: Acute (3) Peripheral vascular disease: Stable. Status: Acute (4) Sepsis: Continue antibiotic as per medicine. Status: Acute Qualifiers: Severe sepsis shock status: unspecified (5) Acute on chronic systolic heart failure: Patient is in compensated state of heart failure. Demadex 60 twice daily, will try Entresto, use metolazone as needed for more than 3 pound increase from the current weight Status: Acute (6) Ischemic cardiomyopathy: Stable Status: Acute (7) Hypokalemia: Will replace Status: Acute Additional A&P Information Other problems are Hypokalemia, currently corrected. Generalized debilitation COPD Carotid artery disease Losartan is discontinued. Patient is being closely monitored in the ICU. Discussed with the family() his current condition. The family is well aware of the prognosis. Attestations Medical Necessity Statement*: From a cardiovascular perspective patient can be discharged home on dobutamine pump Coding Level of Care Code Established Pt Acute Fitness Director for Michi Fwiglesia Patient Type Established History Detailed Exam Detailed Medical Decision Making Moderate Complexity Diagnoses Cardiorenal syndrome with renal failure I13.10 Cardiogenic shock R57.0 Peripheral vascular disease I73.9 Sepsis A41.9 Severe sepsis shock status: unspecified Acute on chronic systolic heart failure I50.23 Ischemic cardiomyopathy I25.5 Hypokalemia E87.6
[2020-09-07 16:59] LABS: Glucose Point of Care 176 mg/dL (70-110)
--- NOTE | 2020-09-07 17:09 | PM.DCS ---
Discharge Providers Date of Admission: 08/26/20 20:44 Date of Discharge: September 07, 2020 Attending Provider at Admission: Simran Hopkins MD Attending Provider at Discharge: Huey Malin MD Primary Care Provider: Melinda Mccullough DO Diagnoses at Discharge Discharge Diagnosis (1) Cardiorenal syndrome with renal failure: Status: Acute (2) Cardiogenic shock: Status: Acute (3) Peripheral vascular disease: Status: Acute (4) Sepsis: Status: Acute Qualifiers: Severe sepsis shock status: unspecified (5) Acute on chronic systolic heart failure: Status: Acute (6) Ischemic cardiomyopathy: Status: Acute (7) Hypokalemia: Status: Acute Reason for Visit Reason for Visit: RLE WOUND CARE, SENT FROM WOUND CARE SERVICES Hospital Course Hospital Course This is a new 69-year-old male with a past medical history of multivessel CAD, not amenable to stenting, ischemic cardiomyopathy, end-stage heart failure on dobutamine drip as outpatient, hypertension, diabetes, hyperlipidemia managed to [facility], bilateral carotid artery stenosis, peripheral arterial disease, COPD uses 6 L, chronic smoker, who presented to [facility] due to complaints of bilateral lower extremity swelling, and cellulitis of right lower extremity Patient was admitted to [facility] for right lower extremity cellulitis, with severe peripheral vascular disease not amenable to surgical intervention, started on broad-spectrum antibiotic therapy, general surgery was consulted, recommended daily dressing changes, antibiotic therapy, as patient was not keen on surgical intervention. Patient cellulitis significantly improved, blood cultures remain unremarkable, wound culture showed Enterococcus waller susceptible, antibiotic therapy was deescalated. I have discharged the patient on 14 days of doxycycline and Augmentin, follow-up with wound care Wednesday, daily dressing changes. Patient developed cardiogenic shock and CHF exacerbation during his hospital admission, cardiology team was consulted, patient was managed in the ICU, received diuretic therapy, dobutamine therapy, nitro therapy and clinically monitored. Eventually his nitro therapy was weaned off. He is chronically on dobutamine. Patient is -15 L since admission, clinically doing well, moved to cardiac stepdown unit, ambulating without significant symptomatology. Patient will be discharged on dobutamine drip at 5 mcg/kg/min. Entresto 24-26 1 tablet daily. Torsemide 60 mg twice daily. Metolazone 5 mg daily as needed if he gains more than 3 pounds. Advised to continue his ivabradine. Patient is to follow-up with cardiology in 1 week. Patient also developed cardiorenal syndrome throughout his hospital admission, likely secondary to cardiogenic shock, CHF, clinically improved with diuresis, creatinine on discharge was 1.1. Physical Exam Const: COMMON NORMALS: no acute distress and patient oriented x3 HENMT: COMMON NORMALS: normocephalic HEAD & SCALP: normocephalic Neck/C-Spine: COMMON NORMALS: no JVD Resp: COMMON NORMALS: normal respiratory effort, No retractions, No use of accessory muscles and clear to auscultation bilaterally AUSCULTATION: clear to auscultation bilaterally Cardio: COMMON NORMALS: no JVD, regular rate, regular rhythm, S1 normal heart sound present and S2 normal heart sound present RATE: regular rate RHYTHM: regular rhythm HEART SOUNDS: S1 normal heart sound present and S2 normal heart sound present GI: COMMON NORMALS: Normal to inspection, nondistended, normoactive bowel sounds present, Soft to palpation, non-tender, No hepatosplenomegaly present, no masses and no bruits INSPECTION: Yes abdominal distension PALPATION: Yes Soft to palpation and Yes No hepatosplenomegaly present Extremity: COMMON NORMALS: capillary refill normal, no clubbing, cyanosis or edema, no calf tenderness and no pedal edema Neuro: COMMON NORMALS: patient oriented x3 Psych: COMMON NORMALS: mental status grossly normal Skin: NARRATIVE SKIN EXAM: Left lower extremity, erythema, extending from mid melgar, to distal tibia, with scaling of the skin, but improving Right lower extremity, wrapped in bandage: Under the bandage, has extensive erythema, cellulitis extending from the mid melgar to the distal tibia, on the calf region, has a 4 x 5 cm superficial wound, but improving Urinary Catheter Management^: Reyes Latex: Cath Placed During This Visit: yes, but has since been removed by the nurse Reason for Continuing Indwelling Catheter: Accurate Measurement of Urinary Output in Critically Ill Patients Urinary Catheter Date of Insertion: 08/27/20 Urinary Catheter Time of Insertion: 13:00 Date Urinary Catheter Removed: 08/29/20 Time Urinary Catheter Discontinued: 13:19 Discharge Data Data Completed and Pending: Completed Studies During Hospitalization Category Date Time Status XR chest 1V sheeba ble [id number] Routine Exams 08/31/20 13:11 Completed CV ankle brachial index [id number] Stat Ultrasound 08/26/20 17:31 Completed CV echo complete* [id number] Routine Ultrasound 08/27/20 11:36 [place] [id number] Stat Ultrasound 08/26/20 17:51 Completed US abdomen comple te* [id number] Routine Ultrasound 08/31/20 11:46 Completed Pending at discharge Category Date Time Status CDIFF [Clostridio ides Difficile PCR ] Routine Lab 08/29/20 12:20 Received Complete Blood Co unt w/Auto AM LABS Lab 09/08/20 04:00 Ordered Comprehensive Met abolic Panel AM LA BS Lab 09/08/20 04:00 Ordered Magnesium AM LABS Lab 09/08/20 04:00 Ordered Phosphorus AM LAB S Lab 09/08/20 04:00 Ordered Labs from last 24 hours 09/07/20 09/07/20 09/07/20 16:46 11:31 06:43 WBC RBC Hgb Hct MCV MCH MCHC RDW Plt Count MPV Neut % (Auto) Lymph % (Auto) [place] % (Auto) Eos % (Auto) Baso % (Auto) Neut # (Auto) Lymph # (Auto) [place] # (Auto) Eos # (Auto) Baso # (Auto) Nucleated RBC % (a uto) Nucleated RBCs # Sodium Potassium Chloride Carbon Dioxide Anion Gap BUN Creatinine GFR Calculation Glucose POC Glucose 176 H 173 H 181 H Calculated Osmolal ity Calcium Phosphorus Magnesium Total Bilirubin AST ALT Alkaline Phosphata se Total Protein Albumin Globulin 09/07/20 09/07/20 09/06/20 03:55 03:55 20:47 WBC 12.0 H RBC 3.13 L Hgb 9.2 L Hct 28.9 L MCV 92.3 MCH 29.4 MCHC 31.8 RDW 16.8 H Plt Count 149 MPV 10.5 H Neut % (Auto) 64.7 Lymph % (Auto) 21.3 [place] % (Auto) 9.6 Eos % (Auto) 2.9 Baso % (Auto) 0.5 Neut # (Auto) 7.78 H Lymph # (Auto) 2.6 [place] # (Auto) 1.2 H Eos # (Auto) 0.4 Baso # (Auto) 0.1 Nucleated RBC % (a uto) 0.3 Nucleated RBCs # 0.0 Sodium 131 L Potassium 3.2 L Chloride 82 L Carbon Dioxide 36 H Anion Gap 16.2 BUN 54 H Creatinine 1.1 GFR Calculation 66.8 L Glucose 178 H POC Glucose 237 H Calculated Osmolal ity 291 Calcium 9.3 Phosphorus 3.3 Magnesium 1.6 L Total Bilirubin 0.5 AST 21 ALT 22 Alkaline Phosphata se 83 Total Protein 6.7 Albumin 4.1 Globulin 2.6 09/06/20 17:07 WBC RBC Hgb Hct MCV MCH MCHC RDW Plt Count MPV Neut % (Auto) Lymph % (Auto) [place] % (Auto) Eos % (Auto) Baso % (Auto) Neut # (Auto) Lymph # (Auto) [place] # (Auto) Eos # (Auto) Baso # (Auto) Nucleated RBC % (a uto) Nucleated RBCs # Sodium Potassium Chloride Carbon Dioxide Anion Gap BUN Creatinine GFR Calculation Glucose POC Glucose 224 H Calculated Osmolal ity Calcium Phosphorus Magnesium Total Bilirubin AST ALT Alkaline Phosphata se Total Protein Albumin Globulin Vitals: Last Vital Signs Temp 97.4 F L 09/07/20 09:00 Pulse 86 09/07/20 15:17 Resp 24 H 09/07/20 15:42 BP 97/66 09/07/20 11:00 Pulse Ox 95 09/07/20 15:17 Discharge Plan Discharge Patient Disposition: Home Health Service Condition: Stable Prescriptions: New torsemide 20 mg Tablet 60 mg PO BID 30 Days Qty: 180 RF: 0 dobutamine in D5W 500 mg/250 mL (2,000 mcg/mL) Parenteral Solution See Rx Instructions .ROUTE .COMPLEX Qty: 4500 RF: 0 sucralfate 100 mg/mL Suspension 1 g PO AC&BEDTIME 30 Days Qty: 200 RF: 0 simethicone 80 mg Tablet,Chewable 80 mg PO QID PRN (Reason: Flatulence) 30 Days Qty: 60 RF: 0 Entresto 24-26 mg tablet 1 tab PO DAILY 30 Days Qty: 30 RF: 0 doxycycline monohydrate 100 mg capsule 100 mg PO BID 14 Days Qty: 28 RF: 0 pantoprazole [Protonix] 40 mg tablet,delayed release (DR/EC) 40 mg PO BID 30 Days Qty: 60 RF: 0 amoxicillin-pot clavulanate [Augmentin] 875-125 mg tablet 1 tab PO BID 14 Days Qty: 28 RF: 0 Continued clopidogrel 75 mg tablet 75 mg PO DAILY@0830 RF: 0 tamsulosin [Flomax] 0.4 mg capsule 0.4 mg PO DAILY@829 RF: 0 atorvastatin 40 mg tablet 80 mg PO DAILY@829 RF: 0 Corlanor 5 mg tablet 5 mg PO BID@ RF: 0 escitalopram oxalate 10 mg tablet 10 mg PO DAILY@829 RF: 0 aspirin [Adult Low Dose Aspirin] 81 mg tablet,delayed release (DR/EC) 81 mg PO DAILY@829 RF: 0 guaifenesin [Mucinex] 600 mg tablet extended release 12hr 600 mg PO BID PRN (Reason: Congestion) RF: 0 docusate sodium [Colace] 100 mg capsule 100 mg PO DAILY PRN (Reason: constipation) Qty: 90 RF: 3 nitroglycerin 0.4 mg tablet, sublingual 0.4 mg sublingual PRN PRN (Reason: CHEST PAINS) RF: 0 Stiolto Respimat 2.5-2.5 mcg/actuation mist See Rx Instructions .ROUTE .COMPLEX RF: 0 oxycodone-acetaminophen 7.5-325 mg Tablet 1 tab PO TID PRN (Reason: Pain) RF: 0 acetaminophen 325 mg Tablet 325 - 650 mg PO Q4H PRN (Reason: Pain) RF: 0 tramadol 50 mg tablet See Rx Instructions .ROUTE .COMPLEX RF: 0 Ozempic 0.25 mg or 0.5 mg(2 mg/1.5 mL) pen injector 50 mg SUBCUT Q7D RF: 0 metolazone 5 mg tablet 5 mg PO DAILY PRN (Reason: Edema) Qty: 0 RF: 0 Changed potassium chloride 20 mEq tablet extended release 40 meq PO TID@829,,20 Qty: 0 RF: 0 Discontinued dobutamine 250 mg/20 mL (12.5 mg/mL) solution 700 mg IV DIRECTED RF: 0 spironolactone 25 mg tablet 25 mg PO BID@ RF: 0 isosorbide mononitrate 30 mg Tablet Extended Release 24 Hr 30 mg PO DAILY@829 RF: 0 sulfamethoxazole-trimethoprim 800-160 mg tablet 1 tab PO BID@829,1599 RF: 0 torsemide 100 mg tablet 100 mg PO BID@ RF: 0 cephalexin 500 mg capsule 500 mg PO BID@ RF: 0 Discharge Orders: Discharge Order (Routine); Ordered 09/07/20 Ordered By: Huey Malin Referrals: [facility] [Outside] Simran Kwong MD [Physician] - 1 week Discharge Diet: Cardiac, Diabetic, Low Salt and Low Fat Discharge Activity: Increase activity as tolerated Activity Restrictions/Additional Instructions: Please maintain a chart of daily weight, heart rate and blood pressure. Please weigh yourself without clothes today when you get home and that would be your baseline weight, weight yourself every day without clothes before stepping into the shower after you are done with urine and stool, if you gain more than 3 pounds in 2 consecutive days you can take metolazone 2.5 mg twice a day until you lose that 3 pound and then stop the metolazone and use it as needed. Do not take more than 2 g of salt per day. Follow-up with [facility] cardiology nurse practitioner in 7 to 10 days. Follow-up with Dr. Kwong in 1 month. 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
[2020-09-07] MEDS: sacubitril/valsartan 24-26 mg Tablet 1 EACH PO (17:49)
--- NOTE | 2020-10-14 15:08 | PC.SOCIAL ---
C Diff called today 10/14/2020 from this hospitalization by Castillo in [facility]. Evdiently machine was down so specimen was frozen and now resulted positive. Patient is currently in the hospital therefore this nurse went to speak with him and he is having some loose stools still per his report and indicates more foul smelling in nature. Discussed with Dr Olivas and given the order to enter C Diff test. Updated nurse Laila that specimen needs collected as well.
== END 2020-09-07 18:10 | disposition home health service (06) | DRG 871 ==
LOC: ER 18:16 → CSU 21:01 → ICU 08-29 14:48 → CSU 09-06 22:11
PROVIDERS: Emergency Medicine; Family Medicine; Internal Medicine Cardiovascular Disease; Student in an Organized Health Care Education/Training Program; Admitting Provider Internal Medicine; Emergency Provider Emergency Medicine; PCP Family Medicine; Visit Provider Family Medicine
DX: A41.9 Sepsis, unspecified organism (principal); I50.23 Acute on chronic systolic (congestive) heart failure; R57.0 Cardiogenic shock; L03.115 Cellulitis of right lower limb; N17.9 Acute kidney failure, unspecified; R18.8 Other ascites; J96.11 Chronic respiratory failure with hypoxia; I25.2 Old myocardial infarction; I25.10 Atherosclerotic heart disease of native coronary artery without angina pectoris; Z95.5 Presence of coronary angioplasty implant and graft; I65.23 Occlusion and stenosis of bilateral carotid arteries; E11.51 Type 2 diabetes mellitus with diabetic peripheral angiopathy without gangrene; Z95.820 Peripheral vascular angioplasty status with implants and grafts; E78.5 Hyperlipidemia, unspecified; I13.10 Hypertensive heart and chronic kidney disease without heart failure, with stage 1 through stage 4 chronic kidney disease, or unspecified chronic kidney disease; N18.9 Chronic kidney disease, unspecified; E11.22 Type 2 diabetes mellitus with diabetic chronic kidney disease; E11.42 Type 2 diabetes mellitus with diabetic polyneuropathy; J44.9 Chronic obstructive pulmonary disease, unspecified; Z99.81 Dependence on supplemental oxygen; F17.210 Nicotine dependence, cigarettes, uncomplicated; Z87.01 Personal history of pneumonia (recurrent); I25.5 Ischemic cardiomyopathy; E66.9 Obesity, unspecified; Z68.37 Body mass index [BMI] 37.0-37.9, adult; G47.30 Sleep apnea, unspecified; Z79.891 Long term (current) use of opiate analgesic; Z79.82 Long term (current) use of aspirin; Z79.02 Long term (current) use of antithrombotics/antiplatelets; B95.2 Enterococcus as the cause of diseases classified elsewhere; I50.84 End stage heart failure; E87.6 Hypokalemia; Z86.718 Personal history of other venous thrombosis and embolism; L27.1 Localized skin eruption due to drugs and medicaments taken internally; T36.8X5A Adverse effect of other systemic antibiotics, initial encounter
CPT/HCPCS: 12345; 36415; 36416; 36592; 36600; 51702; 71045; 76700; 80048; 80053; 80069; 81003; 82140; 82274; 82436; 82550; 82570; 82803; 82962; 83540; 83550; 83605; 83735; 83880; 84100; 84132; 84133; 84145; 84156; 84300; 84443; 84484; 85025; 85610; 85999; 87040; 87070; 87077; 87086; 87186; 87493; 87641; 93005; 93306; 93922; 93970; 94640; 96372; 96375; 97162; 97530; 99282; J1170; J1250; J1644; J1815; J2020; J2270; J2405; J2543; J2997; J3370; J3475; J3480; J3535; J7040; J7050; J7614; P9047

== ENCOUNTER 2020-09-09 13:33 | Outpatient (CLI) | payer MEDICARE, SELFPAY | END 2020-09-09 13:34 | disposition home or self-care (01) | LOC: WOUND 13:35 | PROVIDERS: PCP Family Medicine; Visit Provider Nurse Practitioner Family | DX: E11.622 Type 2 diabetes mellitus with other skin ulcer (principal); L97.822 Non-pressure chronic ulcer of other part of left lower leg with fat layer exposed | CPT/HCPCS: 11042; 11045 ==

== ENCOUNTER 2020-09-10 15:51 | Outpatient (CLI) | payer MEDICARE, SELFPAY ==
[2020-09-10 16:28] LABS: Hematocrit 29.2 % (42.0-52.0); Hemoglobin 9.3 g/dL (11.7-16.6); Mean Corpuscular HGB Conc 31.8 g/dL (30.0-36.0); Mean Corpuscular Hemoglobin 29.5 pg (28.0-34.0); Mean Corpuscular Volume 92.7 fL (80-94); Mean Platelet Volume 9.9 fL (7.4-10.4); Platelet Count 258 10^3/cmm (130-400); Red Blood Count 3.15 10^6/uL (4.1-5.3); Red Cell Distribution Width 16.9 % (12.1-15.1)
[2020-09-10 17:23] LABS: Absolute Eosinophils 0.3 10^3/cmm (0.0-0.7); Absolute Segmented Neutrophil 7.8 10/cmm (1.6-7.1); Basophils Absolute 0.1 10^3/cmm (0.0-0.2); Eosinophils 3 %; Lymphocytes 10 %; Monocytes Absolute 1.4 10^3/cmm (0.1-0.6); Segmented Neutrophils 65 %; Total Cells Counted 100 (0-100)
[2020-09-10 17:24] LABS: Absolute Neutrophil 8.8 10^3/cmm (1.4-6.5); Platelet Estimate Normal (Normal)
[2020-09-10 17:25] LABS: Burr Cells 1+; Polychromasia 1+; Stomatocytes 1+
[2020-09-10 17:26] LABS: Anisocytosis 1+; Poikilocytosis 2+
[2020-09-10 17:42] LABS: Albumin Level 3.9 g/dL (3.5-5.2); Anion Gap 16.2 (5-19); Blood Urea Nitrogen 73 mg/dL (8-23); Calcium 9.3 mg/dL (8.5-10.5); Carbon Dioxide 28 mmol/L (22-29); Chloride 89 mmol/L (98-107); Glomerular Filtration Rate 46.7 mL/min (90-130); Glucose 152 mg/dL (65-115); NT Pro B Type Natriuretic Pept 5599 pg/mL (0-125); Osmolality Calculated 293 mOsm/kg (285-295); Phosphorus 4.3 mg/dL (2.5-4.5); Potassium 4.2 mmol/L (3.5-5.1); Sodium 129 mmol/L (136-145)
== END 2020-09-10 15:52 | disposition home or self-care (01) ==
LOC: LAB 15:54
PROVIDERS: PCP Family Medicine; Visit Provider Family Medicine
DX: I25.5 Ischemic cardiomyopathy (principal)
CPT/HCPCS: 80048; 80069; 83880; 85007; 85027

== ENCOUNTER 2020-09-16 11:56 | Outpatient (CLI) | payer MEDICARE, SELFPAY ==
[2020-09-16 12:39] LABS: Basophils # 0.1 10^3/uL (0.0-0.1); Basophils % 0.5 %; Eosinophils # 0.3 10^3/uL (0.0-0.8); Eosinophils % 2.2 %; Hematocrit 29.4 % (42.0-52.0); Hemoglobin 9.4 g/dL (11.7-16.6); Lymphocytes % 15.7 %; Mean Corpuscular Hemoglobin 29.9 pg (28.0-34.0); Mean Corpuscular Volume 93.6 fL (80-94); Mean Platelet Volume 9.4 fL (7.4-10.4); Monocytes # 0.8 10^3/uL (0.2-0.9); Monocytes % 6.3 %; Neutrophils # 9.63 10^3/uL (1.8-7.7); Neutrophils % 74.3 %; Nucleated Red Blood Cells % 0 %; Platelet Count 261 10^3/cmm (130-400); Red Blood Count 3.14 10^6/uL (4.1-5.3); Red Cell Distribution Width 18.4 % (12.1-15.1)
[2020-09-16 13:05] LABS: Albumin Level 4.2 g/dL (3.5-5.2); Anion Gap 17.2 (5-19); Blood Urea Nitrogen 41 mg/dL (8-23); Calcium 8.8 mg/dL (8.5-10.5); Carbon Dioxide 24 mmol/L (22-29); Chloride 93 mmol/L (98-107); Glomerular Filtration Rate 50.5 mL/min (90-130); Glucose 162 mg/dL (65-115); NT Pro B Type Natriuretic Pept 5540 pg/mL (0-125); Osmolality Calculated 284 mOsm/kg (285-295); Phosphorus 3.4 mg/dL (2.5-4.5); Potassium 4.2 mmol/L (3.5-5.1); Sodium 130 mmol/L (136-145)
== END 2020-09-16 11:57 | disposition home or self-care (01) ==
PROVIDERS: PCP Family Medicine; Visit Provider Family Medicine
DX: I25.5 Ischemic cardiomyopathy (principal)
CPT/HCPCS: 80048; 80069; 83880; 85025

== ENCOUNTER 2020-09-17 09:32 | Outpatient (CLI) | payer MEDICARE, SELFPAY | END 2020-09-17 09:33 | disposition home or self-care (01) | LOC: WOUND 09:33 | PROVIDERS: PCP Family Medicine; Visit Provider Nurse Practitioner Family | DX: L89.892 Pressure ulcer of other site, stage 2 (principal) | CPT/HCPCS: 11042; 11045 ==

== ENCOUNTER 2020-09-23 13:51 | Outpatient (CLI) | payer MEDICARE, SELFPAY | END 2020-09-23 13:52 | disposition home or self-care (01) | LOC: WOUND 13:52 | PROVIDERS: PCP Family Medicine; Visit Provider Thoracic Surgery (Cardiothoracic Vascular Surgery) | DX: L89.892 Pressure ulcer of other site, stage 2 (principal); E11.622 Type 2 diabetes mellitus with other skin ulcer; L98.491 Non-pressure chronic ulcer of skin of other sites limited to breakdown of skin | CPT/HCPCS: 11042; 11045 ==

== ENCOUNTER 2020-09-24 13:44 | Outpatient (CLI) | payer MEDICARE, SELFPAY ==
[2020-09-24 14:20] LABS: Hematocrit 29.1 % (42.0-52.0); Hemoglobin 9.3 g/dL (11.7-16.6); Mean Corpuscular Hemoglobin 29.5 pg (28.0-34.0); Mean Corpuscular Volume 92.4 fL (80-94); Mean Platelet Volume 9.4 fL (7.4-10.4); Platelet Count 276 10^3/cmm (130-400); Red Blood Count 3.15 10^6/uL (4.1-5.3); Red Cell Distribution Width 18.2 % (12.1-15.1)
[2020-09-24 14:55] LABS: Absolute Eosinophils 0.2 10^3/cmm (0.0-0.7); Absolute Neutrophil 9.5 10^3/cmm (1.4-6.5); Absolute Segmented Neutrophil 9.1 10/cmm (1.6-7.1); Band Neutrophils Absolute 0.4 10^3/cmm (0.0-1.2); Burr Cells 1+; Eosinophils 2 %; Lymphocytes 16 %; Monocytes Absolute 0.4 10^3/cmm (0.1-0.6); Platelet Estimate Increased (Normal); Segmented Neutrophils 76 %; Total Cells Counted 100 (0-100)
[2020-09-24 15:05] LABS: Albumin Level 3.5 g/dL (3.5-5.2); Anion Gap 13.2 (5-19); Blood Urea Nitrogen 51 mg/dL (8-23); Carbon Dioxide 31 mmol/L (22-29); Chloride 86 mmol/L (98-107); Glomerular Filtration Rate 60.4 mL/min (90-130); Glucose 237 mg/dL (65-115); NT Pro B Type Natriuretic Pept 8448 pg/mL (0-125); Osmolality Calculated 285 mOsm/kg (285-295); Phosphorus 3.1 mg/dL (2.5-4.5); Potassium 3.2 mmol/L (3.5-5.1); Sodium 127 mmol/L (136-145)
== END 2020-09-24 13:45 | disposition home or self-care (01) ==
LOC: LAB 13:46
PROVIDERS: PCP Family Medicine; Visit Provider Family Medicine
DX: I25.5 Ischemic cardiomyopathy (principal)
CPT/HCPCS: 80048; 80069; 83880; 85007; 85027

== ENCOUNTER 2020-09-27 14:35 | Outpatient (CLI) | payer MEDICARE, SELFPAY ==
[2020-09-27 15:31] LABS: Hematocrit 30.7 % (42.0-52.0); Hemoglobin 9.7 g/dL (11.7-16.6); Mean Corpuscular HGB Conc 31.6 g/dL (30.0-36.0); Mean Corpuscular Hemoglobin 29.8 pg (28.0-34.0); Mean Corpuscular Volume 94.5 fL (80-94); Mean Platelet Volume 9.6 fL (7.4-10.4); Platelet Count 274 10^3/cmm (130-400); Red Blood Count 3.25 10^6/uL (4.1-5.3); Red Cell Distribution Width 17.9 % (12.1-15.1); White Blood Count 15.7 10^3/uL (4.0-10.0)
[2020-09-27 15:59] LABS: Alanine Aminotransferase 14 U/L (0-41); Albumin Level 3.8 g/dL (3.5-5.2); Alkaline Phosphatase 101 IU/L (40-130); Anion Gap 16.7 (5-19); Aspartate Amino Transferase 18 U/L (0-40); Blood Urea Nitrogen 63 mg/dL (8-23); Calcium 9.1 mg/dL (8.5-10.5); Carbon Dioxide 27 mmol/L (22-29); Chloride 87 mmol/L (98-107); Globulin 3.2 g/dL (1.3-4.6); Glomerular Filtration Rate 33.4 mL/min (90-130); Glucose 298 mg/dL (65-115); NT Pro B Type Natriuretic Pept 11880 pg/mL (0-125); Osmolality Calculated 291 mOsm/kg (285-295); Potassium 4.7 mmol/L (3.5-5.1); Sodium 126 mmol/L (136-145); Total Bilirubin 0.5 mg/dL (0.15-1.2)
[2020-09-27 17:17] LABS: Segmented Neutrophils 83 %; Total Cells Counted 100 (0-100)
[2020-09-27 17:18] LABS: Absolute Eosinophils 0.3 10^3/cmm (0.0-0.7); Eosinophils 2 %; Lymphocytes 9 %; Platelet Estimate Normal (Normal)
[2020-09-27 17:19] LABS: Anisocytosis 1+; Poikilocytosis Trace
[2020-09-27 17:20] LABS: Acanthocytes 1+
== END 2020-09-27 14:36 | disposition home or self-care (01) ==
PROVIDERS: PCP Family Medicine; Visit Provider Family Medicine
DX: I25.5 Ischemic cardiomyopathy (principal)
CPT/HCPCS: 80053; 83880; 85007; 85027

== ENCOUNTER 2020-10-03 10:58 | Outpatient (CLI) | payer MEDICARE, SELFPAY ==
[2020-10-03 11:32] LABS: Hemoglobin 9.7 g/dL (11.7-16.6); Mean Corpuscular HGB Conc 32.3 g/dL (30.0-36.0); Mean Corpuscular Hemoglobin 29.4 pg (28.0-34.0); Mean Corpuscular Volume 90.9 fL (80-94); Mean Platelet Volume 9.6 fL (7.4-10.4); Platelet Count 299 10^3/cmm (130-400); Red Cell Distribution Width 17.4 % (12.1-15.1); White Blood Count 12.4 10^3/uL (4.0-10.0)
[2020-10-03 12:02] LABS: Alanine Aminotransferase 20 U/L (0-41); Albumin Level 3.8 g/dL (3.5-5.2); Alkaline Phosphatase 126 IU/L (40-130); Aspartate Amino Transferase 21 U/L (0-40); Blood Urea Nitrogen 55 mg/dL (8-23); Calcium 8.9 mg/dL (8.5-10.5); Carbon Dioxide 30 mmol/L (22-29); Chloride 81 mmol/L (98-107); Globulin 3.2 g/dL (1.3-4.6); Glomerular Filtration Rate 54.9 mL/min (90-130); Glucose 271 mg/dL (65-115); NT Pro B Type Natriuretic Pept 9576 pg/mL (0-125); Osmolality Calculated 281 mOsm/kg (285-295); Sodium 123 mmol/L (136-145); Total Bilirubin 0.5 mg/dL (0.15-1.2)
[2020-10-03 13:43] LABS: Absolute Eosinophils 0.2 10^3/cmm (0.0-0.7); Absolute Segmented Neutrophil 9.4 10/cmm (1.6-7.1); Band Neutrophils Absolute 0.2 10^3/cmm (0.0-1.2); Eosinophils 2 %; Lymphocytes 9 %; Monocytes Absolute 0.6 10^3/cmm (0.1-0.6); Segmented Neutrophils 76 %; Total Cells Counted 100 (0-100)
[2020-10-03 13:44] LABS: Absolute Neutrophil 9.7 10^3/cmm (1.4-6.5); Acanthocytes 2+; Platelet Estimate Normal (Normal); Poikilocytosis 2+
== END 2020-10-03 10:59 | disposition home or self-care (01) ==
PROVIDERS: PCP Family Medicine; Visit Provider Family Medicine
DX: I25.5 Ischemic cardiomyopathy (principal)
CPT/HCPCS: 80053; 83880; 85007; 85027

== ENCOUNTER 2020-10-03 14:02 | Outpatient (CLI) | payer MEDICARE, SELFPAY | END 2020-10-03 14:03 | disposition home or self-care (01) | LOC: WOUND 14:02 | PROVIDERS: PCP Family Medicine; Visit Provider Thoracic Surgery (Cardiothoracic Vascular Surgery) | DX: L89.892 Pressure ulcer of other site, stage 2 (principal); E11.622 Type 2 diabetes mellitus with other skin ulcer; L97.822 Non-pressure chronic ulcer of other part of left lower leg with fat layer exposed | CPT/HCPCS: 11042; 11045 ==

== ENCOUNTER 2020-10-06 16:11 | Inpatient (IN) | payer MEDICARE, SELFPAY ==
[2020-10-06] VITALS (23 sets, daily range): BP systolic 95–116; BP diastolic 63–80; PULSE 82–103; RESP 12–26; TEMP 35.6–36.4; O2SAT 79–99; BMI 39.4
[2020-10-06] MEDS: ondansetron 2 mg/ML SDV 2 mL 4 MG IVP (19:12)
[2020-10-06] MEDS: morphine 4 mg/mL SDV 1 mL IVP ×3 (19:12→23:48)
[2020-10-06] MEDS: diphenhydrAMINE 50 mg/mL SDV 1mL 25 MG IVP (19:39)
[2020-10-06 19:40] LABS: Basophils # 0.1 10^3/uL (0.0-0.1); Basophils % 0.5 %; Eosinophils # 0.4 10^3/uL (0.0-0.8); Eosinophils % 2.5 %; Hematocrit 33.3 % (42.0-52.0); Hemoglobin 10.8 g/dL (11.7-16.6); Lymphocytes # 1.5 10^3/uL (0.8-4.8); Lymphocytes % 9.7 %; Mean Corpuscular HGB Conc 32.4 g/dL (30.0-36.0); Mean Corpuscular Hemoglobin 29.4 pg (28.0-34.0); Mean Corpuscular Volume 90.7 fL (80-94); Mean Platelet Volume 9.8 fL (7.4-10.4); Monocytes # 0.9 10^3/uL (0.2-0.9); Monocytes % 5.8 %; Neutrophils # 11.89 10^3/uL (1.8-7.7); Neutrophils % 79.8 %; Nucleated Red Blood Cells % 0 %; Platelet Count 340 10^3/cmm (130-400); Red Blood Count 3.67 10^6/uL (4.1-5.3); Red Cell Distribution Width 16.9 % (12.1-15.1); White Blood Count 14.9 10^3/uL (4.0-10.0)
--- NOTE | 2020-10-06 19:47 | PC.NURSE ---
ESPERANZA Lower ext with redness/scales/pain
[2020-10-06 20:04] LABS: Lactate (Lactic Acid level) 2.3 mmol/L (0.5-2.2)
--- NOTE | 2020-10-06 20:26 | PC.NURSE ---
Pt screaming out in pain. Provider aware. at bedside. Pt wanted water and food.
[2020-10-06 20:29] LABS: Alanine Aminotransferase 18 U/L (0-41); Albumin Level 3.8 g/dL (3.5-5.2); Alkaline Phosphatase 119 IU/L (40-130); Anion Gap 17.3 (5-19); Aspartate Amino Transferase 18 U/L (0-40); Blood Urea Nitrogen 70 mg/dL (8-23); C Reactive Protein 20.6 mg/L (0.0-4.9); Calcium 9.3 mg/dL (8.5-10.5); Carbon Dioxide 27 mmol/L (22-29); Chloride 82 mmol/L (98-107); Creatine Phosphokinase 81 U/L (39-308); Globulin 3.6 g/dL (1.3-4.6); Glomerular Filtration Rate 50.4 mL/min (90-130); Glucose 356 mg/dL (65-115); NT Pro B Type Natriuretic Pept 8244 pg/mL (0-125); Osmolality Calculated 289 mOsm/kg (285-295); Potassium 4.3 mmol/L (3.5-5.1); Sodium 122 mmol/L (136-145); Total Bilirubin 0.6 mg/dL (0.15-1.2); Total Protein 7.4 g/dL (6.6-8.7)
--- NOTE | 2020-10-06 21:20 | W.ED.EXTPRO ---
HPI - Extremity Problem General: Chief complaint: Extremity Problem,Nontraumatic Stated complaint: BI-LATERAL LEG, PAIN/WOUNDS Time Seen by Provider: 10/06/20 18:45 History of Present Illness: HPI Narrative: 70-year-old gentleman with extensive cardiac history. He has heart failure and is currently on a continuous dobutamine infusion. He has chronic leg swelling with cellulitis for which he has been cared for at wound care. Although his swelling has improved on diuretics, he has experienced increasing pain and redness to the bilateral lower extremities. He has been seeing wound care, and using collagenase on the legs, followed by bacitracin. He has experienced an increase in pain and significant redness. He also is experiencing itching. He has drainage/weepage from the extremities. Associated symptoms: Reports rash; Deny chest pain or fever(s) Review of Systems Const: Reports: chills and body aches; Denies: fever(s) Eyes: Denies: change in vision Card: Denies: chest pain Resp: Reports: dyspnea; Denies: productive cough or non-productive cough GI: Reports: nausea; Denies: abdominal pain Skin/Breast: Reports: rash, pruritus, erythema, skin pain and skin tenderness Neuro: Reports: weakness in extremities and difficulty walking; Denies: headache(s) PFS ED PFSH: Medical History (Updated 10/07/20 @ 04:18 by Adria Alvarez DO) Atherosclerotic heart disease nondalton coronary artery w/angina pectoris Carotid stenosis, bilateral COPD (chronic obstructive pulmonary disease) Cor pulmonale Diabetes Diastolic heart failure Dyslipidemia Haemophilus influenzae pneumonia Treated with Levaquin in 2017 Ischemic cardiomyopathy Obesity PAD (peripheral artery disease) Sleep apnea Systolic heart failure LVEF 40%, echocardiogram 01/11/2020 Tobacco abuse Surgical History (Updated 10/06/20 @ 22:20 by Kassandra Wall MD) H/O heart artery stent PCI to ostial 99% LCx on July 11, 2012;12/15/2016 he had another angiogram showing patent circumflex stent, 10-20% ostial left main, 20-30% ostial RCA stenosis and LV gram showed left ventricular ejection fraction of 50-55% with mild apical hypokinesis. S/P peripheral artery angioplasty with stent placement S/P shoulder surgery Family History Mother Psychiatric illness Other Cancer Social History Smoking and tobacco status: current some day smoker smokeless tobacco Alcohol intake: former Household members: family Housing: House Physical Exam Const: GENERAL APPEARANCE: in distress, ill appearing and frail appearing HENMT: COMMON NORMALS: normocephalic HEAD & SCALP: normocephalic FACE & SINUS: normal facial exam Chest: CHEST: Yes Symmetrical chest wall rise Resp: COMMON NORMALS: clear to auscultation bilaterally EFFORT & INSPECTION: Yes tachypneic AUSCULTATION: clear to auscultation bilaterally and diminished lung sounds Cardio: COMMON NORMALS: regular rate and regular rhythm RATE: regular rate RHYTHM: regular rhythm Extremity: NARRATIVE EXTREMITY EXAM: Exam of the bilateral lower extremities reveals beefy red cellulitis with mild streaking up to the knee. There is weeping from the skin. Course Vital Signs: Vital signs: Vital Signs Temperature 97.0 F L 10/07/20 04:04 Pulse Rate 96 10/07/20 01:15 Respiratory Rate 18 10/07/20 03:54 Blood Pressure 107/67 10/07/20 01:15 Pulse Oximetry 97 10/07/20 01:15 MDM - Extremity (Nontraumatic) MDM Narrative: Medical decision making narrative: 70-year-old gentleman with bilateral lower extremity cellulitis with worsening pain and redness. His white blood cell count is 16.2. Hemoglobin 10. Sodium 122. Creatinine 1.4. Some of the beefy redness may be due to allergic reaction from the bacitracin but considering the discomfort, and the increase in white blood cell count, will cover for cellulitis. He is on a continuous dobutamine drip, and therefore will have to be admitted to ICU. Lab Data: Labs: Lab Results 10/06/20 10/06/20 10/06/20 Range/Units 01:05 19:05 19:05 WBC 14.9 H (4.0-10.0) 10^3/ uL RBC 3.67 L (4.1-5.3) 10^6/u L Hgb 10.8 L (11.7-16.6) g/dL Hct 33.3 L (42.0-52.0) % MCV 90.7 (80-94) fL MCH 29.4 (28.0-34.0) pg MCHC 32.4 (30.0-36.0) g/dL RDW 16.9 H (12.1-15.1) % Plt Count 340 (130-400) 10^3/c mm MPV 9.8 (7.4-10.4) fL Neut % (Auto) 79.8 % Lymph % (Auto) 9.7 % [place] % (Auto) 5.8 % Eos % (Auto) 2.5 % Baso % (Auto) 0.5 % Neut # (Auto) 11.89 H (1.8-7.7) 10^3/u L Lymph # (Auto) 1.5 (0.8-4.8) 10^3/u L [place] # (Auto) 0.9 (0.2-0.9) 10^3/u L Eos # (Auto) 0.4 (0.0-0.8) 10^3/u L Baso # (Auto) 0.1 (0.0-0.1) 10^3/u L Nucleated RBC % (a uto) 0 % Nucleated RBCs # 0.0 /100WBC Sodium 122 L (136-145) mmol/L Potassium 4.3 (3.5-5.1) mmol/L Chloride 82 L (98-107) mmol/L Carbon Dioxide 27 (22-29) mmol/L Anion Gap 17.3 (5-19) BUN 70 H (8-23) mg/dL Creatinine 1.4 H (0.7-1.2) mg/dL GFR Calculation 50.4 L (90-130) mL/min Glucose 356 H (65-115) mg/dL Calculated Osmolal ity 289 (285-295) mOsm/k g Lactate (0.5-2.2) mmol/L Calcium 9.3 (8.5-10.5) mg/dL Total Bilirubin 0.6 (0.15-1.2) mg/dL AST 18 (0-40) U/L ALT 18 (0-41) U/L Alkaline Phosphata se 119 (40-130) IU/L Creatine Kinase 81 (39-308) U/L C-Reactive Protein 20.6 H (0.0-4.9) mg/L NT-Pro-B Natriuret Pep 8244 H (0-125) pg/mL Total Protein 7.4 (6.6-8.7) g/dL Albumin 3.8 (3.5-5.2) g/dL Globulin 3.6 (1.3-4.6) g/dL Urine Color Yellow (Yellow) Urine Appearance Clear (CLEAR) Urine pH 5 (5-7) Ur Specific Gravit y 1.010 (1.005-1.030) Urine Protein Neg (Negative) Urine Glucose (UA) Trace H (Normal) Urine Ketones Negative (Negative) Urine Blood Neg (Negative) Urine Nitrate Negative (Negative) Urine Bilirubin Neg (Negative) Urine Urobilinogen Norm (Negative) mg/dL Ur Leukocyte Yoly ase Negative (Negative) 10/06/20 Range/Units 19:05 WBC (4.0-10.0) 10^3/ uL RBC (4.1-5.3) 10^6/u L Hgb (11.7-16.6) g/dL Hct (42.0-52.0) % MCV (80-94) fL MCH (28.0-34.0) pg MCHC (30.0-36.0) g/dL RDW (12.1-15.1) % Plt Count (130-400) 10^3/c mm MPV (7.4-10.4) fL Neut % (Auto) % Lymph % (Auto) % [place] % (Auto) % Eos % (Auto) % Baso % (Auto) % Neut # (Auto) (1.8-7.7) 10^3/u L Lymph # (Auto) (0.8-4.8) 10^3/u L [place] # (Auto) (0.2-0.9) 10^3/u L Eos # (Auto) (0.0-0.8) 10^3/u L Baso # (Auto) (0.0-0.1) 10^3/u L Nucleated RBC % (a uto) % Nucleated RBCs # /100WBC Sodium (136-145) mmol/L Potassium (3.5-5.1) mmol/L Chloride (98-107) mmol/L Carbon Dioxide (22-29) mmol/L Anion Gap (5-19) BUN (8-23) mg/dL Creatinine (0.7-1.2) mg/dL GFR Calculation (90-130) mL/min Glucose (65-115) mg/dL Calculated Osmolal ity (285-295) mOsm/k g Lactate 2.3 H (0.5-2.2) mmol/L Calcium (8.5-10.5) mg/dL Total Bilirubin (0.15-1.2) mg/dL AST (0-40) U/L ALT (0-41) U/L Alkaline Phosphata se (40-130) IU/L Creatine Kinase (39-308) U/L C-Reactive Protein (0.0-4.9) mg/L NT-Pro-B Natriuret Pep (0-125) pg/mL Total Protein (6.6-8.7) g/dL Albumin (3.5-5.2) g/dL Globulin (1.3-4.6) g/dL Urine Color (Yellow) Urine Appearance (CLEAR) Urine pH (5-7) Ur Specific Gravit y (1.005-1.030) Urine Protein (Negative) Urine Glucose (UA) (Normal) Urine Ketones (Negative) Urine Blood (Negative) Urine Nitrate (Negative) Urine Bilirubin (Negative) Urine Urobilinogen (Negative) mg/dL Ur Leukocyte Yoly ase (Negative) Discharge Plan Discharge Patient Disposition: Admitted As Inpatient Admit Provider: Kassandra Wall Clinical Impression: Cellulitis Qualifiers: Site of cellulitis of extremity: lower extremity Laterality: unspecified laterality Condition: Stable Coding Level of Care Code ED Market Survey Representative for g Fwd Exam Detailed
--- NOTE | 2020-10-06 21:21 | PM.HP ---
Providers/Chief Complaint Admitting Physician: Kassandra Wall MD Primary Care Provider: Melinda Mccullough DO Chief Complaint: BI-LATERAL LEG, PAIN/WOUNDS History of Present Illness Ramy Lawler is a 70 year old male with history of systolic and diastolic heart failure secondary to ischemic cardiomyopathy. Late last year he required Impella device and ECMO which were done up at [facility]. He is currently on a home dobutamine drip and high-dose diuretic therapy. He has had significant issues with lower extremity stasis cellulitis of late. He has been followed at wound care clinic as well as with his primary care provider. Despite all of this his wounds have progressively worsened. Over the last few days he has had significantly increased sloughing as well as serous drainage from the lower extremities. With delineation below the knee. Adjustments have been made to his diuretic therapy. He has been on 80 mg of oral Lasix twice a day plus spironolactone 50 mg twice a day and metolazone 20 mg twice a day. He has been having some urine output but continues to have significant edema. He does spend most of his day with his legs hanging down. He is a person with known COPD on 6 L of oxygen by nasal cannula. He has been on multiple different courses of antibiotics including doxycycline, amoxicillin, and clindamycin. Clindamycin is the most recent and is completing today. He does have associated diarrhea with this. Between the diarrhea and the discomfort in his lower extremities he has not been able to get any sleep. Because of the worsening wounds he came to the emergency room for evaluation. Work-up in the ER showed elevated white count, CRP and elevated BNP. Clinically patient was quite volume overloaded. He is being admitted for further treatment with IV antibiotics. History is obtained from a combination of the patient, his and his daughter. He had been tried on Entresto but his blood pressures dropped quite low and that was discontinued. He has been on as much as 200 mg of torsemide. For the last few weeks he has had bacitracin spray to both of his lower extremities. Prior to that he was using collagenase all over the lower extremities rather than just on the wounds. Recently prescribed was Medihoney. No reported fevers. Review of Systems Const: Reports: change in appetite; Denies: fever(s) or chills Eyes: Denies: change in vision ENMT: Reports: dry mouth; Denies: throat pain or nasal congestion Card: Reports: edema; Denies: chest pain or palpitations Resp: Reports: dyspnea and productive cough; Denies: non-productive cough GI: Reports: nausea and diarrhea; Denies: abdominal pain, vomiting or constipation : Denies: difficulty urinating Musc: Reports: extremity pain Skin/Breast: Reports: rash, erythema, skin tenderness, skin swelling and sores; Denies: pruritus Neuro: Reports: weakness in extremities; Denies: headache(s), numbness in extremities or dizziness Psych: Denies: anxiety or depression Joao/Lymph: Denies: easy bruising or easy bleeding Medications/Allergies Home Medications Medication Instructions Recorded Confirmed Last Taken Type clopidogrel 75 mg tablet 75 mg PO DAILY@0830 01/08/20 10/06/20 10/06/20 History tamsulosin 0.4 mg capsule 0.4 mg PO BEDTIME 01/08/20 10/06/20 10/05/20 History Stiolto Respimat See Rx Instructions .ROUTE 01/10/20 10/06/20 10/06/20 History .COMPLEX PRN nitroglycerin 0.4 mg SUBLINGUAL PRN PRN 01/10/20 10/06/20 08/26/20 History atorvastatin 40 mg tablet 80 mg PO BEDTIME tab 05/28/20 10/06/20 10/05/20 History guaifenesin 600 mg tablet, 600 mg PO BID PRN 05/28/20 10/06/20 Unknown History extended release 12 hr ivabradine 5 mg tablet 5 mg PO BID@0830,199905/28/20 10/06/20 10/06/20 History oxycodone-acetaminophen 1 tab PO TID PRN 06/28/20 10/06/20 10/06/20 History Ozempic 50 mg SUBCUT Q7D 08/26/20 10/06/20 10/06/20 History acetaminophen 325 - 650 mg PO Q4H PRN 08/26/20 10/06/20 10/06/20 History pantoprazole [Protonix] 40 mg PO BID 30 Days #60 tab 09/07/20 10/06/20 10/06/20 Rx simethicone 80 mg PO QID PRN 30 Days #60 tab 09/07/20 10/06/20 Unknown Rx dobutamine [dobutamine] See Rx Instructions .ROUTE .COMPLEX 10/06/20 10/06/20 10/06/20 History furosemide 80 mg PO BID@08,12 10/06/20 10/06/20 10/06/20 History isosorbide mononitrate 60 mg PO DAILY 10/06/20 10/06/20 10/06/20 History metolazone 20 mg PO BID@08,12 10/06/20 10/06/20 10/06/20 History potassium chloride 60 meq PO TID@0830,14,20 10/06/20 10/06/20 10/06/20 History spironolactone 25 mg PO BID@08,12 10/06/20 10/06/20 10/06/20 History Allergies Allergy/AdvReac Type Severity Reaction Status Date / Time No Known Allergies Allergy Verified 09/18/20 14:11 PFSH Acute PFSH: Medical History 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 Carotid stenosis, bilateral COPD (chronic obstructive pulmonary disease) Cor pulmonale Diabetes Diastolic heart failure Dyslipidemia Haemophilus influenzae pneumonia Treated with Levaquin in 2017 Ischemic cardiomyopathy Obesity PAD (peripheral artery disease) Sleep apnea Systolic heart failure LVEF 40%, echocardiogram 01/11/2020 Tobacco abuse Surgical History (Updated 10/06/20 @ 22:20 by Kassandra Wall MD) H/O heart artery stent PCI to ostial 99% LCx on July 11, 2012;12/15/2016 he had another angiogram showing patent circumflex stent, 10-20% ostial left main, 20-30% ostial RCA stenosis and LV gram showed left ventricular ejection fraction of 50-55% with mild apical hypokinesis. S/P peripheral artery angioplasty with stent placement S/P shoulder surgery Family History Mother Psychiatric illness Other Cancer Social History Smoking and tobacco status: current some day smoker smokeless tobacco Alcohol intake: former Household members: family Housing: House Vitals/I&O/Wt Last Vital Signs Temp 97.5 F L 10/06/20 16:18 Pulse 87 10/06/20 21:00 Resp 21 H 10/06/20 21:00 BP 109/79 10/06/20 21:00 Pulse Ox 86 L 10/06/20 21:00 Weight last 48 hrs Weight 104.326 kg Physical Exam Const: OTHER: Sleepy but easily awakens, alert, oriented x3, , chronic ill appearance HENMT: OTHER: Normocephalic atraumatic, moist mucus membranes Eye: OTHER: Pupils equally round and reactive to light, muddy sclera, mild proptosis Neck/C-Spine: OTHER: Supple, large Resp: OTHER: Bibasilar crackles, no wheezes noted, chest expansion equal bilaterally Cardio: OTHER: Regular, distant heart sounds GI: OTHER: Abdomen soft, rotund, normal bowel sounds : OTHER: Deferred Extremity: OTHER: Patient with pitting edema 3 approaching 4+ both lower extremities. Neuro: OTHER: Face symmetric, speech clear, moves all extremities Psych: OTHER: Normal affect, though very quick to fall back asleep Skin: OTHER: Not able to visualize intertriginous areas in the groin currently due to patient sitting up on the side of the bed. Both lower extremities with extensive erythema below the knee to the feet. Distal toes mildly cyanotic but capillary refill is around 3 seconds. Both legs with weeping skin serous in color. There is whitish-yellow slough covering the majority of both calves circumferentially. Posterior to the right leg are several wounds with eschar that are similar in description to last wound care note. No specific odor is noted to the lower extremities. Data : 10/07/20 03:15 10/07/20 03:15 A&P Assessment and plan (1) Cellulitis: Extensive stasis cellulitis both lower extremities in a patient with known peripheral artery disease. He has chronic ulcer with eschar formation to the right lower extremity posteriorly as well. Status: Acute Qualifiers: Laterality: right Site of cellulitis: extremity Site of cellulitis of extremity: lower extremity Qualified Code(s): L03.115 - Cellulitis of right lower limb (2) Acute on chronic systolic heart failure: Status: Acute (3) Ischemic cardiomyopathy: Status: Chronic (4) PAD (peripheral artery disease): Status: Chronic (5) COPD (chronic obstructive pulmonary disease): Chronically on oxygen Status: Chronic Qualifiers: COPD type: unspecified COPD Qualified Code(s): J44.9 - Chronic obstructive pulmonary disease, unspecified (6) Diabetes: On Ozempic Status: Chronic Additional A&P Information Hyponatremia and hypochloremia, could be from volume overload but more likely also secondary to diuresis Inpatient admission Elevate lower extremities Will resume linezolid and Zosyn which she was on previously when he had the best response to his skin wounds Consider consultation with wound care provider in the morning, he has been seen by Dr. Pedroza in clinic IV Lasix, with a decreased dose of metolazone and continued Aldactone Fluid restriction Continue usual potassium replacement Continue home dobutamine at 5 mcg Continue home Plavix, statin, isosorbide and Corlanor Continue Flomax Stool for C. difficile Add lactobacillus Sliding scale insulin for diabetes Lovenox for DVT prophylaxis Supportive care otherwise He indicates need to be careful with any new medications as he can be sensitive particularly in terms of renal function Full code as per discussion with patient and his family Attestations Medical Necessity Statement*: Anticipated stay greater than 2 midnights in this patient with significant cardiac issues and cellulitis. Plans are as noted. Coding Level of Care Code Acute Steel Engraver for [facility] Diagnoses Cellulitis L03.115 Laterality: right Site of cellulitis: extremity Site of cellulitis of extremity: lower extremity Acute on chronic systolic heart failure I50.23 Ischemic cardiomyopathy I25.5 PAD (peripheral artery disease) I73.9 COPD (chronic obstructive pulmonary disease) J44.9 COPD type: unspecified COPD Diabetes E11.9
--- NOTE | 2020-10-06 22:01 | PC.NURSE ---
Pt appears to be resting with eyes closed. Pt attempt to void, per 2x, unable to void. Pt had void x2 on admission to ED.
[2020-10-06] MEDS: piperacillin-tazobactam 3.375 GM in sodium chloride 0.9% (plus) 50 ML IV (22:25)
[2020-10-06] MEDS: FUROsemide 10 mg/mL SDV 4mL 40 MG IVP (23:48)
[2020-10-06] MEDS: atorvastatin 40 mg Tablet 80 MG PO (23:48)
[2020-10-06] MEDS: enoxaparin 40 mg/0.4 mL Syringe SUBCUT (23:49)
[2020-10-07] VITALS (68 sets, daily range): BP systolic 79–118; BP diastolic 56–79; PULSE 0–105; RESP 12–30; TEMP 36.1–37.2; O2SAT 78–100
[2020-10-07] MEDS: vancomycin 1,000 MG in sodium chloride 0.9% 250 ML 250 MG IV (00:29)
[2020-10-07] MEDS: linezolid premix 600 MG/300 ML PREMIX 300 MG IV ×3 (00:51→23:25)
[2020-10-07 01:11] LABS: Add Urine Microscopic? NO
[2020-10-07 01:46] LABS: Bilirubin Urine Neg (Negative); Blood Urine Neg (Negative); Glucose Urine UA Trace (Normal); Ketones Urine Negative (Negative); Leukocyte Esterase Urine Negative (Negative); Nitrate Urine Negative (Negative); Protein Urine Neg (Negative); Urine Appearance Clear (CLEAR); Urine Color Yellow (Yellow); Urobilinogen Urine Norm (Negative); pH Urine 5 (5-7)
[2020-10-07] MEDS: ondansetron 2 mg/ML SDV 2 mL 4 MG IVP (03:04)
[2020-10-07 03:52] LABS: Basophils # 0.1 10^3/uL (0.0-0.1); Basophils % 0.4 %; Eosinophils # 0.5 10^3/uL (0.0-0.8); Eosinophils % 3.2 %; Hematocrit 31.6 % (42.0-52.0); Hemoglobin 10.1 g/dL (11.7-16.6); Lymphocytes # 1.5 10^3/uL (0.8-4.8); Mean Corpuscular Hemoglobin 28.9 pg (28.0-34.0); Mean Corpuscular Volume 90.3 fL (80-94); Mean Platelet Volume 9.9 fL (7.4-10.4); Monocytes % 5.9 %; Neutrophils # 12.93 10^3/uL (1.8-7.7); Nucleated Red Blood Cells % 0 %; Platelet Count 318 10^3/cmm (130-400); Red Cell Distribution Width 17.1 % (12.1-15.1); White Blood Count 16.2 10^3/uL (4.0-10.0)
[2020-10-07] MEDS: morphine 4 mg/mL SDV 1 mL IVP ×2 (03:54→08:56)
[2020-10-07 04:17] LABS: Anion Gap 13.9 (5-19); Blood Urea Nitrogen 64 mg/dL (8-23); Carbon Dioxide 27 mmol/L (22-29); Chloride 84 mmol/L (98-107); Creatinine Clr Calc Pharmacy 68.3309; Glomerular Filtration Rate 66.6 mL/min (90-130); Glucose 303 mg/dL (65-115); Magnesium 1.8 mg/dL (1.7-2.3); Osmolality Calculated 282 mOsm/kg (285-295); Potassium 3.9 mmol/L (3.5-5.1); Sodium 121 mmol/L (136-145)
[2020-10-07] MEDS: diphenhydrAMINE 25 mg Capsule PO (05:21)
[2020-10-07] MEDS: piperacillin-tazobactam 3.375 GM in sodium chloride 0.9% (plus) 50 ML IV ×3 (05:22→22:07)
[2020-10-07] MEDS: FUROsemide 10 mg/mL SDV 10mL 60 MG IVP ×2 (07:30→12:48)
[2020-10-07] MEDS: metOLazone 5 MG Tablet 20 MG PO (07:40)
[2020-10-07] MEDS: spironolactone 25 mg Tablet PO ×2 (07:44→13:06)
[2020-10-07] MEDS: metOLazone 5 MG Tablet 10 MG PO ×2 (07:45→13:05)
[2020-10-07] MEDS: clopidogrel 75 mg Tablet PO (07:45)
[2020-10-07] MEDS: potassium chloride ER 20 mEq Tablet 60 MEQ PO ×3 (07:45→21:09)
--- NOTE | 2020-10-07 08:10 | PC.NURSE ---
req. pain med. given d/t other meds lowering b/p.
--- NOTE | 2020-10-07 08:14 | PC.NURSE ---
unable to get tempature at this time. pt. cold.
[2020-10-07] MEDS: lactobacillus 1 Tablet 1 TAB PO ×2 (09:00→18:42)
[2020-10-07] MEDS: pantoprazole DR 40 mg Tablet PO ×2 (09:01→18:42)
--- NOTE | 2020-10-07 09:20 | PC.CHAP ---
Pastoral Care Encounter/Spiritual Assessment Type of Contact [] Declined inpatient services rn visit [] Patient/Family/Request visit [] Outpatient visit [] Follow-up visit [] Physician referral [] Code/Alert [x] Routine visit [] Staff referral [] Actively dying [] Patient sleeping [] Family support [] [] Out of room [] Palliative care [] [] Receiving care in room [] Pre-surgical visit [] Trauma [] Long length of stay [x] ICU visit [] Other: Relational/Emotional Strength [] Patient feels connected with others/family/visitors/staff [] Distress [] Loneliness/isolation [] Abandonment Spirituality of Patient [] Person of Rhiannon [] Attends Confucianist of their Rhiannon [] Believes in Prayer [] Reads Bible or Episcopalian materials [] There are Spiritual issues to be addressed Gravity Prospecting Operator Helper Interventions [x] Prayer [] Active listening [] Non-anxious presence [] Spiritual/emotional support [] Crisis/trauma care [] Spiritual counseling [] Bereavement support [] Provided bereavement packet [] Provided Bible/devotional materials [] Provided toy/stuffed animal, coloring book to patient or family member [] Provided Communion [] Anointing/[place] [] Salvation [x] Completed spiritual assessment [] Other: Impact on Illness or Injury [] Angry [] Fearful [] Anxious [] Often cries [] Exhaustion [] Unable to work [] Unable to attend adventism [] Unable to walk/stand [] Unable to read [] Unable to drive [] Unable to eat/drink [] Unable to sleep [] Unable to be with family [] Patient intubated [] Other: Summary Time spent with patient
--- NOTE | 2020-10-07 10:06 | PC.NURSE ---
will discuss with physician treatment for lower ext. [facility]
[2020-10-07 11:56] LABS: Glucose Point of Care 200 mg/dL (70-110)
[2020-10-07 11:57] LABS: Glucose Point of Care 294 mg/dL (70-110)
--- NOTE | 2020-10-07 13:11 | PC.NURSE ---
pt. has been resting quietly since last m.s. dose this am. resp. even and unlabored. b/p running on low side and does so per family.
--- NOTE | 2020-10-07 15:23 | P.PN_ITS ---
Subjective Subjective: Interval history: Patient was sleeping comfortably D/w ICU nurse. Medications: Reviewed: Yes Vitals/I&O/Wt Last Vital Signs Temp 97.0 F L 10/07/20 04:04 Pulse 89 10/07/20 12:00 Resp 22 H 10/07/20 12:00 BP 99/62 10/07/20 12:00 Pulse Ox 97 10/07/20 12:00 10/07/20 10/07/20 10/07/20 06:59 14:59 22:59 Intake Total 700 / 700 290 / 290 Output Total 850 / 850 475 / 475 Balance -150 / -150 -185 / -185 Weight last 48 hrs Weight 98.883 kg Weight 99.11 kg Weight 104.326 kg Physical Exam Const: OTHER: Sleepy but easily awakens, alert, oriented x3, , chronic ill appearance HENMT: OTHER: Normocephalic atraumatic, moist mucus membranes Eye: OTHER: Pupils equally round and reactive to light, muddy sclera, mild proptosis Neck/C-Spine: OTHER: Supple, large Resp: OTHER: Bibasilar crackles, no wheezes noted, chest expansion equal bilaterally Cardio: OTHER: Regular, distant heart sounds GI: OTHER: Abdomen soft, rotund, normal bowel sounds : OTHER: Deferred Extremity: OTHER: Patient with pitting edema 3 approaching 4+ both lower extremities. Neuro: OTHER: Face symmetric, speech clear, moves all extremities Psych: OTHER: Normal affect, though very quick to fall back asleep Skin: OTHER: Not able to visualize intertriginous areas in the groin currently due to patient sitting up on the side of the bed. Both lower extremities with extensive erythema below the knee to the feet. Distal toes mildly cyanotic but capillary refill is around 3 seconds. Both legs with weeping skin serous in color. There is whitish-yellow slough covering the majority of both calves circumferentially. Posterior to the right leg are several wounds with eschar that are similar in description to last wound care note. No specific odor is noted to the lower extremities. Data : 10/07/20 03:15 10/07/20 03:15 Micro: Microbiology 10/06/20 21:53 Blood Culture - Preliminary Blood SPECIMEN COLLECTED 10/06/20 21:53 Blood Culture - Preliminary Blood SPECIMEN COLLECTED A&P Assessment and plan (1) Cellulitis: Extensive stasis cellulitis both lower extremities in a patient with known peripheral artery disease. He has chronic ulcer with eschar formation to the right lower extremity posteriorly as well. Consult wound care Continue vancomycin Zosyn 3.375g IV q8hr Follow up on culture May require surgical consult Elevate lower extremities IV Lasix, metolazone and continued Aldactone Status: Acute Qualifiers: Site of cellulitis of extremity: lower extremity Laterality: unspecified laterality (2) Acute on chronic systolic heart failure: Status: Acute (3) Ischemic cardiomyopathy: Status: Chronic (4) PAD (peripheral artery disease): Status: Chronic (5) COPD (chronic obstructive pulmonary disease): Chronically on oxygen Status: Chronic Qualifiers: COPD type: unspecified COPD Qualified Code(s): J44.9 - Chronic obst ructive pulmonary disease, unspecified (6) Diabetes: On Ozempic Status: Chronic Additional A&P Information Hyponatremia and hypochloremia, could be from volume overload but more likely also secondary to diuresis - Repeat BMP in am Attestations Medical Necessity Statement*: Will require further hospitalization for management of bilateral wound with suspected superimposed infection req IV abx Time Spent in Patient Care: Greater than 35 minutes (>than 50% of time spent in counselling and/or direct pt care on unit) . Coding Level of Care Code Acute Loading Unit Operator Crimping for [facility] Diagnoses Cellulitis L03.90 Site of cellulitis of extremity: lower extremity Laterality: unspecified laterality Acute on chronic systolic heart failure I50.23 Ischemic cardiomyopathy I25.5 PAD (peripheral artery disease) I73.9 COPD (chronic obstructive pulmonary disease) J44.9 COPD type: unspecified COPD Diabetes E11.9
[2020-10-07 18:21] LABS: Glucose Point of Care 129 mg/dL (70-110)
--- NOTE | 2020-10-07 19:00 | PC.NURSE ---
Report received, care assumed. Monitor alarms, plan of care et previous orders reviewed. Please see physical assessment et vital sign flowsheet for details.
[2020-10-07 21:02] LABS: Glucose Point of Care 161 mg/dL (70-110)
[2020-10-07] MEDS: atorvastatin 40 mg Tablet 80 MG PO (21:08)
[2020-10-07] MEDS: tamsulosin 0.4 mg Capsule PO (21:09)
--- NOTE | 2020-10-07 23:16 | PC.NURSE ---
Dobutamine not administered due to it being a continuous infusion that patient is receiving at home. Medication is non-formulary.
[2020-10-07] MEDS: enoxaparin 40 mg/0.4 mL Syringe SUBCUT (23:25)
[2020-10-08] VITALS (29 sets, daily range): BP systolic 73–105; BP diastolic 48–71; PULSE 82–113; RESP 14–22; TEMP 36.6–36.8; O2SAT 86–99
[2020-10-08] MEDS: morphine 4 mg/mL SDV 1 mL IVP ×4 (04:55→23:23)
[2020-10-08 05:23] LABS: Basophils % 0.2 %; Eosinophils # 0.5 10^3/uL (0.0-0.8); Eosinophils % 3.5 %; Hemoglobin 10.2 g/dL (11.7-16.6); Lymphocytes # 1.5 10^3/uL (0.8-4.8); Mean Corpuscular HGB Conc 31.9 g/dL (30.0-36.0); Mean Corpuscular Hemoglobin 29.4 pg (28.0-34.0); Mean Corpuscular Volume 92.2 fL (80-94); Mean Platelet Volume 9.6 fL (7.4-10.4); Monocytes # 0.8 10^3/uL (0.2-0.9); Neutrophils # 10.86 10^3/uL (1.8-7.7); Neutrophils % 78.5 %; Nucleated Red Blood Cells % 0 %; Platelet Count 310 10^3/cmm (130-400); Red Blood Count 3.47 10^6/uL (4.1-5.3); Red Cell Distribution Width 17.1 % (12.1-15.1); White Blood Count 13.8 10^3/uL (4.0-10.0)
[2020-10-08 05:56] LABS: Alanine Aminotransferase 15 U/L (0-41); Albumin Level 3.8 g/dL (3.5-5.2); Alkaline Phosphatase 112 IU/L (40-130); Anion Gap 17.1 (5-19); Aspartate Amino Transferase 18 U/L (0-40); Blood Urea Nitrogen 63 mg/dL (8-23); Calcium 9.2 mg/dL (8.5-10.5); Carbon Dioxide 28 mmol/L (22-29); Chloride 83 mmol/L (98-107); Glomerular Filtration Rate 54.9 mL/min (90-130); Glucose 187 mg/dL (65-115); Osmolality Calculated 279 mOsm/kg (285-295); Potassium 5.1 mmol/L (3.5-5.1); Sodium 123 mmol/L (136-145); Total Bilirubin 0.7 mg/dL (0.15-1.2); Total Protein 6.8 g/dL (6.6-8.7)
[2020-10-08 06:11] LABS: Procalcitonin 0.27 ng/mL (0-0.5)
[2020-10-08] MEDS: piperacillin-tazobactam 3.375 GM in sodium chloride 0.9% (plus) 50 ML IV ×3 (06:18→21:49)
[2020-10-08 07:54] LABS: Glucose Point of Care 203 mg/dL (70-110)
--- NOTE | 2020-10-08 08:51 | PC.CHAP ---
Pastoral Care Encounter/Spiritual Assessment Type of Contact [] Declined leveling machine operator visit [] Patient/Family/Request visit [] Outpatient visit [] Follow-up visit [] Physician referral [] Code/Alert [] Routine visit [] Staff referral [] Actively dying [] Patient sleeping [] Family support [] [] Out of room [] Palliative care [] [] Receiving care in room [] Pre-surgical visit [] Trauma [] Long length of stay [x] ICU visit [x] Other: family present Relational/Emotional Strength [] Patient feels connected with others/family/visitors/staff [] Distress [] Loneliness/isolation [] Abandonment Spirituality of Patient [] Person of Rhiannon [] Attends Confucianism of their [place]ian[place] [] Believes in Prayer [] Reads Bible or Religion materials [] There are Spiritual issues to be addressed Corporate Communications Intern Interventions [x] Prayer [] Active listening [] Non-anxious presence [] Spiritual/emotional support [] Crisis/trauma care [] Spiritual counseling [] Bereavement support [] Provided bereavement packet [] Provided Bible/devotional materials [] Provided toy/stuffed animal, coloring book to patient or family member [] Provided Communion [] Anointing/[place] [] Salvation [x] Completed spiritual assessment [] Other: Impact on Illness or Injury [] Angry [] Fearful [] Anxious [] Often cries [] Exhaustion [] Unable to work [] Unable to attend faith [] Unable to walk/stand [] Unable to read [] Unable to drive [] Unable to eat/drink [] Unable to sleep [] Unable to be with family [] Patient intubated [] Other: Summary Time spent with patient
--- NOTE | 2020-10-08 09:35 | PC.RESP ---
SMOKING CESSATION AND PULMONARY REHAB INFORMATION SENT TO PATIENT.
[2020-10-08] MEDS: FUROsemide 10 mg/mL SDV 10mL 60 MG IVP (09:41)
[2020-10-08] MEDS: pantoprazole DR 40 mg Tablet PO ×2 (09:42→18:37)
[2020-10-08] MEDS: isosorbide mononitrate ER 60 mg Tablet PO (09:43)
[2020-10-08] MEDS: spironolactone 25 mg Tablet PO (09:43)
[2020-10-08] MEDS: clopidogrel 75 mg Tablet PO (09:44)
[2020-10-08] MEDS: metOLazone 5 MG Tablet 10 MG PO ×2 (09:47→15:53)
[2020-10-08] MEDS: lactobacillus 1 Tablet 1 TAB PO ×2 (09:48→18:37)
[2020-10-08] MEDS: potassium chloride ER 20 mEq Tablet 60 MEQ PO ×2 (09:51→15:53)
[2020-10-08 11:17] LABS: Glucose Point of Care 234 mg/dL (70-110)
--- NOTE | 2020-10-08 12:33 | PM.PN ---
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 He was seen by PCP where his diuretics were adjusted. He was also on clindamycin course outpatient which he had completed on 10/06/19. Patient follow with wound care clinic where he was most recently seen on 10/03. Patient did have curetter debridement performed. he was continued on santyl and started on med-honey primary to right posteroir calf eschar. He continued to have weeping from multiple areas on both lower extremities. Upon admission to the hospital patients initial vital signs showed a blood pressure of 107/72, O2 saturation above 92 on 6 L via nasal cannula, and afebrile. Initial laboratory workup showed a WBC of 14.9, hemoglobin of 10.8, hematocrit 33.3 and a platelet count of 340. sodium 122, potassium 4.3, chloride 82, bicarb 27, BUN of 70 and creatinine of 1.4. Previous creatinine on the was 1.3. ProBNP was 8244 which was a decrease from 9576 on . Blood culture x 2 were obtained on 10/06/20. Lactic acid was 2.3 Patient was started on Zyvox 600 mg IV q.12, Zosyn 3.375 g IV q.8 in addition to Lasix 60 mg IV BID. 10/08/20 Patient did not have any fever episodes. He did however become hypotensive. Remained net positive balance. Urine output was 0.42ml/kg/hr. Due to hypotension his lasix was transitioned back to oral and additional changes were made to any-hypertensives. He was continued on zaroxolyn 10 mg PO BID as well. He was continued on dobutamine as per prior pump which I believe is at 5mcg. Medications: Reviewed: Yes Vitals/I&O/Wt Last Vital Signs Temp 98.0 F 10/08/20 04:00 Pulse 89 10/08/20 11:00 Resp 19 H 10/08/20 11:00 BP 81/57 10/08/20 11:00 Pulse Ox 91 10/08/20 11:00 10/07/20 10/08/20 10/08/20 22:59 06:59 14:59 Intake Total 1049.167 / 1639.167 850 / 2489.167 Output Total 500 / 975 525 / 1500 Balance 549.167 / 664.167 325 / 989.167 Weight last 48 hrs Weight 101.015 kg Weight 98.883 kg Weight 99.11 kg Weight 104.326 kg Physical Exam Const: OTHER: Sleepy but easily awakens, alert, oriented x3, , chronic ill appearance HENMT: OTHER: Normocephalic atraumatic, moist mucus membranes Eye: OTHER: Pupils equally round and reactive to light, muddy sclera, mild proptosis Neck/C-Spine: OTHER: Supple, large Resp: OTHER: Bibasilar crackles, no wheezes noted, chest expansion equal bilaterally Cardio: OTHER: Regular, distant heart sounds GI: OTHER: Abdomen soft, rotund, normal bowel sounds : OTHER: Deferred Extremity: OTHER: Patient with pitting edema 3 approaching 4+ both lower extremities. Neuro: OTHER: Face symmetric, speech clear, moves all extremities Psych: OTHER: Normal affect, though very quick to fall back asleep Skin: NAILS: other OTHER: Not able to visualize intertriginous areas in the groin currently due to patient sitting up on the side of the bed. Both lower extremities with extensive erythema below the knee to the feet. Distal toes mildly cyanotic but capillary refill is around 3 seconds. Both legs with weeping skin serous in color. There is whitish-yellow slough covering the majority of both calves circumferentially. Posterior to the right leg are several wounds with eschar that are similar in description to last wound care note. No specific odor is noted to the lower extremities. Data : 10/08/20 04:50 10/08/20 04:50 Micro: Microbiology 10/06/20 21:53 Blood Culture - Preliminary Blood NEGATIVE TO DATE 10/06/20 21:53 Blood Culture - Preliminary Blood NEGATIVE TO DATE A&P Assessment and plan (1) Cellulitis: Extensive stasis cellulitis both lower extremities in a patient with known peripheral artery disease. He has chronic ulcer with eschar formation to the right lower extremity posteriorly as well. Consult wound care - Previously using med-honey. Unavaiable in-patient. Will consult Dr. Pedroza. Pro-calcitonin negative, afebrile, mild leukocytosis 13 - Zyvox 600 mg IV BID - Zosyn 3.375g IV q8hr Follow up on culture - Unclear if blood culture x 2 were drawn in ER Will obtain if not already drawn Elevate lower extremities Status: Acute Qualifiers: Laterality: unspecified laterality Site of cellulitis of extremity: lower extremity (2) Acute on chronic systolic heart failure: 08/2020 - ECHO showed worsening EF to 20% On lasix 60 mg IV BID and metalazone 10 mg PO BID Net positive 1L balance overnight Due to hypotension, increasing renal dysfunction Will change lasix to 80 mg PO BID Will consult cardiology To continue dobutamine at 5mcg/hr via pump Status: Acute (3) Ischemic cardiomyopathy: As above Status: Chronic (4) PAD (peripheral artery disease): Continue antiplatelets Status: Chronic (5) COPD (chronic obstructive pulmonary disease): Chronically on oxygen Status: Chronic Qualifiers: COPD type: unspecified COPD Qualified Code(s): J44.9 - Chronic obstructive pulmonary disease, unspecified (6) Diabetes: Continue current sliding scale Monitor blood sugars achs Status: Chronic Attestations Medical Necessity Statement*: Continue hospitalization for management of bilateral lower extremity wounds, fluid overload and heart failure exacerbation Time Spent in Patient Care: Greater than 35 minutes (>than 50% of time spent in counselling and/or direct pt care on unit). Coding Level of Care Code Acute Social Human Services Assistants for [facility] Fwd Exam Problem Focused Diagnoses Cellulitis L03.90 Laterality: unspecified laterality Site of cellulitis of extremity: lower extremity Acute on chronic systolic heart failure I50.23 Ischemic cardiomyopathy I25.5 PAD (peripheral artery disease) I73.9 COPD (chronic obstructive pulmonary disease) J44.9 COPD type: unspecified COPD Diabetes E11.9
[2020-10-08] MEDS: linezolid premix 600 MG/300 ML PREMIX 300 MG IV ×2 (12:44→23:44)
--- NOTE | 2020-10-08 12:57 | P.CONIM_ITS ---
Providers/Reason For Consult Consulting Physican/Specialty*: Chandler Thompson/ Cardiology Reason for Consult*: HFrEF Requesting Physcian: Gino Olivas Attending Physician: Gino Olivas Primary Care Provider: Melinda Mccullough DO History of Present Illness History of Present Illness 70 year old male with history of systolic and diastolic heart failure secondary to ischemic cardiomyopathy. Late last year he required Impella device and ECMO which were done up at [facility]. He is currently on a home dobutamine drip and high-dose diuretic therapy. He has recent lower extremity stasis cellulitis. He is followed at wound care clinic as well as with his primary care provider. Despite all of this his wounds have progressively worsened. Over the last few days he has had significantly increased sloughing as well as serous drainage from the lower extremities. At home he is on 80 mg of oral Lasix twice a day plus spironolactone 50 mg twice a day and metolazone 20 mg twice a day. He is a person with known COPD on 6 L of oxygen by nasal cannula. Cardiology was consulted as patient is clinically volume overloaded with elevated NT Pro BNP and has low urine output. He is currently on Lasix 80 mg BID, Metolazone and dobutamine. Pump shows that he is on 5mcg/kg/min. Review of Systems Const: Reports: change in appetite; Denies: fever(s) or chills Eyes: Denies: change in vision ENMT: Reports: dry mouth; Denies: throat pain or nasal congestion Card: Reports: edema; Denies: chest pain or palpitations Resp: Reports: dyspnea and productive cough; Denies: non-productive cough GI: Reports: nausea and diarrhea; Denies: abdominal pain, vomiting or constipation : Denies: difficulty urinating Musc: Reports: extremity pain Skin/Breast: Reports: rash, erythema, skin tenderness, skin swelling and sores; Denies: pruritus Neuro: Reports: weakness in extremities; Denies: headache(s), numbness in extremities or dizziness Psych: Denies: anxiety or depression Joao/Lymph: Denies: easy bruising or easy bleeding Meds/Allergies Home Medications and Allergies Home Medications Medication Instructions Recorded Confirmed Last Taken Type clopidogrel 75 mg tablet 75 mg PO DAILY@0830 01/08/20 10/06/20 10/06/20 History tamsulosin 0.4 mg capsule 0.4 mg PO BEDTIME 01/08/20 10/06/20 10/05/20 History Stiolto Respimat See Rx Instructions .ROUTE 01/10/20 10/06/20 10/06/20 History .COMPLEX PRN nitroglycerin 0.4 mg SUBLINGUAL PRN PRN 01/10/20 10/06/20 08/26/20 History atorvastatin 40 mg tablet 80 mg PO BEDTIME tab 05/28/20 10/06/20 10/05/20 History guaifenesin 600 mg tablet, 600 mg PO BID PRN 05/28/20 10/06/20 Unknown History extended release 12 hr ivabradine 5 mg tablet 5 mg PO BID@829,199905/28/20 10/06/20 10/06/20 History oxycodone-acetaminophen 1 tab PO TID PRN 06/28/20 10/06/20 10/06/20 History Ozempic 50 mg SUBCUT Q7D 08/26/20 10/06/20 10/06/20 History acetaminophen 325 - 650 mg PO Q4H PRN 08/26/20 10/06/20 10/06/20 History pantoprazole [Protonix] 40 mg PO BID 30 Days #60 tab 09/07/20 10/06/20 10/06/20 Rx simethicone 80 mg PO QID PRN 30 Days #60 tab 09/07/20 10/06/20 Unknown Rx dobutamine [dobutamine] See Rx Instructions .ROUTE .COMPLEX 10/06/20 10/06/20 10/06/20 History furosemide 80 mg PO BID@08,10/06/20 10/06/20 10/06/20 History isosorbide mononitrate 60 mg PO DAILY 10/06/20 10/06/20 10/06/20 History metolazone 20 mg PO BID@08,10/06/20 10/06/20 10/06/20 History potassium chloride 60 meq PO TID@30,10/06/20 10/06/20 10/06/20 History spironolactone 25 mg PO BID@08,12 10/06/20 10/06/20 10/06/20 History Allergies Allergy/AdvReac Type Severity Reaction Status Date / Time No Known Allergies Allergy Verified 09/18/20 14:11 Current Medications Current Medications Generic Name Dose Route Start Last Admin Trade Name Freq PRN Reason Stop Dose Admin Atorvastatin Calcium 80 mg 10/06/20 23:32 10/07/20 21:08 Atorvastatin 40 Mg Tablet PO 80 mg BEDTIME AMBERLY Administration Clopidogrel Bisulfate 75 mg 10/07/20 08:30 10/08/20 09:44 Clopidogrel 75 Mg Tablet PO 75 mg DAILY@0830 AMBERLY Administration Diphenhydramine HCl 25 mg 10/06/20 23:32 10/07/20 05:21 Diphenhydramine 25 Mg Capsule PO 25 mg Q6H PRN Administration ITCHING Enoxaparin Sodium 40 mg 10/06/20 23:32 10/07/20 23:25 Enoxaparin 40 Mg/0.4 Ml Syringe SUBCUT 40 mg Q24H AMBERLY Administration Linezolid 600 mg in 300 mls @ 300 mls/hr 10/07/20 00:00 10/08/20 12:44 Zyvox Premix IV 300 mls/hr Q12H AMBERLY Administration Protocol Piperacillin Sod/Tazobactam 50 mls @ 12.5 mls/hr 10/07/20 06:30 10/08/20 10:18 Sod 3.375 gm/ Sodium Chloride IV Infused Q8H [facility] Infusion Protocol Insulin Aspart 0 unit 10/07/20 21:00 10/07/20 21:09 Insulin Aspart 100 Unit/1 Ml SUBCUT 3 unit BEDTIME AMBERLY Administration Protocol Insulin Aspart 0 unit 10/07/20 08:00 10/08/20 12:45 Insulin Aspart 100 Unit/1 Ml SUBCUT 10 unit TIDWM [facility] Administration Protocol Isosorbide Mononitrate 60 mg 10/07/20 09:00 10/08/20 09:43 Isosorbide Mononitrate Er 60 Mg Tablet PO 60 mg DAILY AMBERLY Administration Lactobacillus Acidophilus 1 tab 10/07/20 09:00 10/08/20 09:48 Lactobacillus 1 Tablet PO 1 tab BID AMBERLY Administration Metolazone 10 mg 10/07/20 08:00 10/08/20 09:47 Metolazone 5 Mg Tablet PO 10 mg BID@08,12 AMBERLY Administration Morphine Sulfate 4 mg 10/06/20 23:32 10/08/20 09:56 Morphine 4 Mg/Ml Sdv 1 Ml IVP 4 mg Q4H PRN Administration SEVERE PAIN Non-Formulary Medication 5 mcg 10/06/20 23:32 10/07/20 23:16 Dobutamine [Dobutamine] IV Not Given CONT [facility] Non-Formulary Medication 5 mg 10/07/20 08:30 10/07/20 21:26 Ivabradine [Corlanor] PO 5 mg BID@0830,1999 AMBERLY Administration Ondansetron HCl 4 mg 10/06/20 23:32 10/07/20 03:04 Ondansetron 2 Mg/Ml Sdv 2 Ml IVP 4 mg Q6H PRN Administration NAUSEA AND VOMITING Pantoprazole Sodium 40 mg 10/07/20 09:00 10/08/20 09:[address] 40 Mg Tablet PO 40 mg BID AMBERLY Administration Potassium Chloride 60 meq 10/07/20 08:00 10/08/20 09:51 Potassium Chloride Er 20 Meq Tablet PO 60 meq TID@08,,20 AMBERLY Administration Spironolactone 25 mg 10/07/20 08:00 10/08/20 09:43 Spironolactone 25 Mg Tablet PO 25 mg BID@08,12 AMBERLY Administration Tamsulosin HCl 0.4 mg 10/07/20 21:00 10/07/20 21:09 Tamsulosin 0.4 Mg Capsule PO 0.4 mg BEDTIME AMBERLY Administration PFSH Acute PFSH: Medical History Atherosclerotic heart disease [place] coronary artery w/angina pectoris Carotid stenosis, bilateral COPD (chronic obstructive pulmonary disease) Cor pulmonale Diabetes Diastolic heart failure Dyslipidemia Haemophilus influenzae pneumonia Treated with Levaquin in 2017 Ischemic cardiomyopathy Obesity PAD (peripheral artery disease) Sleep apnea Systolic heart failure LVEF 40%, echocardiogram 01/11/2020 Tobacco abuse Surgical History H/O heart artery stent PCI to ostial 99% LCx on July 11, 2012;12/15/2016 he had another angiogram showing patent circumflex stent, 10-20% ostial left main, 20-30% ostial RCA stenosis and LV gram showed left ventricular ejection fraction of 50-55% with mild apical hypokinesis. S/P peripheral artery angioplasty with stent placement S/P shoulder surgery Family History Mother Psychiatric illness Other Cancer Social History Smoking and tobacco status: current some day smoker smokeless tobacco Alcohol intake: former Household members: family Housing: House Vitals/I&O/Wt Last Vital Signs Temp 98.0 F 10/08/20 04:00 Pulse 86 10/08/20 12:00 Resp 15 10/08/20 12:00 BP 73/48 10/08/20 12:00 Pulse Ox 95 10/08/20 12:00 10/07/20 10/08/20 10/08/20 22:59 06:59 14:59 Intake Total 1049.167 / 1639.167 850 / 2489.167 50 / 50 Output Total 500 / 975 525 / 1500 Balance 549.167 / 664.167 325 / 989.167 50 / 50 Weight last 48 hrs Weight 222 lb 11.2 oz Weight 218 lb Weight 218 lb 8 oz Weight 230 lb Physical Exam Narrative: EXAM NARRATIVE: GENERAL: Patient is alert, awake and oriented x3. NECK: No jugular vein distension. HEENT: No cyanosis. No icterus. No pallor. HEART: Regular S1 and S2. No murmur, rub or gallop. LUNGS: Clear to auscultate bilaterally. ABDOMEN: Soft, nontender and mildly distended. Positive bowel sounds. No guarding, rebound or tenderness. CENTRAL NERVOUS SYSTEM: Grossly nonfocal. EXTREMITIES: Lower extremities have 2+ edema. Erythema noted on the lower extremities, both lower extremities have serous discharge with eschar Urinary Catheter Management^: Reyes Latex: Cath Placed During This Visit: yes, but has since been removed by the nurse Reason for Continuing Indwelling Catheter: Accurate Measurement of Urinary Output in Critically Ill Patients Urinary Catheter Date of Insertion: 08/27/20 Urinary Catheter Time of Insertion: 13:00 Date Urinary Catheter Removed: 08/29/20 Time Urinary Catheter Discontinued: 13:19 Data Micro: Micro: Microbiology 10/06/20 21:53 Blood Culture - Pr eliminary Blood NEGATIVE TO LOY E 10/06/20 21:53 Blood Culture - Pr eliminary Blood NEGATIVE TO LOY E A&P Assessment and plan (1) Acute on chronic systolic heart failure: Status: Acute (2) Diabetes: Status: Chronic (3) Cellulitis: Status: Acute Qualifiers: Site of cellulitis of extremity: lower extremity Laterality: unspecified laterality (4) Ischemic cardiomyopathy: Status: Chronic (5) Atherosclerotic heart disease [place] coronary artery w/angina pectoris: Status: Chronic Qualifiers: [place] vs. transplanted heart: [place] heart Qualified Code(s): I25.119 - Atherosclerotic heart disease of [place] coronary artery with unspecified angina pectoris (6) PAD (peripheral artery disease): Status: Chronic (7) COPD (chronic obstructive pulmonary disease): Status: Chronic Qualifiers: COPD type: unspecified COPD Qualified Code(s): J44.9 - Chronic ob structive pulmonary disease, unspecified (8) Obesity: Status: Chronic (9) Dyslipidemia: Status: Chronic Patient's main complaint is bilateral lower extremity pain. He is volume overloaded on exam. NT Pro BNP is elevated as well Increase lasix dose to 80 mg tid. Continue Metolazone Strict I and Os. Monitor renal function Will continue on the same dose of dobutamine (on 5mcg). Patient does not want to increase the rate Antibiotic regimen for cellulitis treatment per the hospitalist team Thank you for involving us with care of this patient. We will continue to follow. Please call with questions. Coding Level of Care Code Acute Mechanical System Technician for [facility] Diagnoses Acute on chronic systolic heart failure I50.23 Diabetes E11.9 Cellulitis L03.90 Site of cellulitis of extremity: lower extremity Laterality: unspecified laterality Ischemic cardiomyopathy I25.5 Atherosclerotic heart disease [place] coronary artery w/angina pectoris I25.119 [place] vs. transplanted heart: [place] heart PAD (peripheral artery disease) I73.9 COPD (chronic obstructive pulmonary disease) J44.9 COPD type: unspecified COPD Obesity E66.9 Dyslipidemia E78.5
[2020-10-08 17:24] LABS: Glucose Point of Care 228 mg/dL (70-110)
[2020-10-08] MEDS: atorvastatin 40 mg Tablet 80 MG PO (21:50)
[2020-10-08] MEDS: FUROsemide 40 mg Tablet 80 MG PO (21:51)
[2020-10-08] MEDS: tamsulosin 0.4 mg Capsule PO (21:51)
[2020-10-08] MEDS: nitroglycerin 0.4 mg sublingual Tablet SUBLINGUAL ×2 (22:55→23:14)
--- NOTE | 2020-10-08 23:14 | ECG_ITS ---
[facility] Test Date: 2020-10-08 Pat Name: Ramy Lawler Department: Room: ICU03 Gender: Male Varying Exceptionalities Teacher: : 1950 Requested By: Simran Hopkins Order Number: [id number] Aristeo MD: Chandler Thompson M.D. Measurements Intervals [place] Rate: 86 P: 27 ME: 174 QRS: -64 QRSD: 101 T: 54 QT: 382 QTc: 459 Interpretive Statements SINUS RHYTHM MARKED LEFT AXIS DEVIATION [QRS AXIS < -30] LOW QRS VOLTAGE [QRS DEFLECTION < 0.5/1.0 mV IN LIMB/CHEST LEADS] Compared to ECG 08/29/2020 13:44:28 Left-axis deviation now present Indeterminate axis no longer present Electronically Signed On 10-09-2020 18:03:38 METAL SPONGE MAKING MACHINE OPERATOR by Chandler Thompson M.D. [id number]
[2020-10-08] MEDS: enoxaparin 40 mg/0.4 mL Syringe SUBCUT (23:44)
--- NOTE | 2020-10-08 23:47 | PC.NURSE ---
Potassium held per MD order, due to potassium level of 5.1
[2020-10-09] VITALS (27 sets, daily range): BP systolic 82–112; BP diastolic 52–68; PULSE 74–99; RESP 14–28; TEMP 36.7; O2SAT 88–100
[2020-10-09 00:06] LABS: Troponin(5th) Baseline 125 ng/L (0-15)
[2020-10-09 01:09] LABS: Glucose Point of Care 170 mg/dL (70-110)
[2020-10-09 02:04] LABS: Troponin 5 2HR 109.4 ng/L (0-15); Troponin 5 2HR Delta -15.6 ABS# (0-10)
[2020-10-09] MEDS: piperacillin-tazobactam 3.375 GM in sodium chloride 0.9% (plus) 50 ML IV ×3 (06:28→23:36)
[2020-10-09 06:35] LABS: Basophils # 0.1 10^3/uL (0.0-0.1); Basophils % 0.4 %; Eosinophils # 0.7 10^3/uL (0.0-0.8); Eosinophils % 5.1 %; Hematocrit 29.9 % (42.0-52.0); Hemoglobin 9.8 g/dL (11.7-16.6); Lymphocytes # 1.7 10^3/uL (0.8-4.8); Lymphocytes % 13.3 %; Mean Corpuscular HGB Conc 32.8 g/dL (30.0-36.0); Mean Corpuscular Hemoglobin 29.5 pg (28.0-34.0); Mean Corpuscular Volume 90.1 fL (80-94); Mean Platelet Volume 9.3 fL (7.4-10.4); Monocytes # 0.9 10^3/uL (0.2-0.9); Monocytes % 6.9 %; Neutrophils # 9.37 10^3/uL (1.8-7.7); Neutrophils % 73.2 %; Nucleated Red Blood Cells % 0 %; Platelet Count 303 10^3/cmm (130-400); Red Blood Count 3.32 10^6/uL (4.1-5.3); Red Cell Distribution Width 16.9 % (12.1-15.1); White Blood Count 12.8 10^3/uL (4.0-10.0)
[2020-10-09 07:10] LABS: Lactate (Lactic Acid level) 1.3 mmol/L (0.5-2.2)
[2020-10-09 07:11] LABS: Alanine Aminotransferase 13 U/L (0-41); Albumin Level 3.6 g/dL (3.5-5.2); Alkaline Phosphatase 97 IU/L (40-130); Anion Gap 14.7 (5-19); Aspartate Amino Transferase 16 U/L (0-40); Blood Urea Nitrogen 59 mg/dL (8-23); Calcium 8.9 mg/dL (8.5-10.5); Carbon Dioxide 28 mmol/L (22-29); Chloride 82 mmol/L (98-107); Globulin 2.9 g/dL (1.3-4.6); Glomerular Filtration Rate 60.2 mL/min (90-130); Glucose 206 mg/dL (65-115); Osmolality Calculated 273 mOsm/kg (285-295); Potassium 4.7 mmol/L (3.5-5.1); Sodium 120 mmol/L (136-145); Total Bilirubin 0.7 mg/dL (0.15-1.2); Total Protein 6.5 g/dL (6.6-8.7)
[2020-10-09 07:20] LABS: Troponin 5 6HR Delta -6.6 ng/L (0-12)
[2020-10-09 07:22] LABS: Troponin 5 6HR 118.4 ng/L (0-15)
[2020-10-09 07:24] LABS: Procalcitonin 0.27 ng/mL (0-0.5)
[2020-10-09 08:14] LABS: Glucose Point of Care 301 mg/dL (70-110)
--- NOTE | 2020-10-09 08:59 | PC.SOCIAL ---
IMM Update Pg 2 of Medicare rights provided to patient's daughter Tamera at bedside, patient resting with eyes closed.
--- NOTE | 2020-10-09 09:29 | PC.CHAP ---
Pastoral Care Encounter/Spiritual Assessment Type of Contact [] Declined ski patroller visit [] Patient/Family/Request visit [] Outpatient visit [] Follow-up visit [] Physician referral [] Code/Alert [] Routine visit [] Staff referral [] Actively dying [x] Patient sleeping [] Family support [] [] Out of room [] Palliative care [] [] Receiving care in room [] Pre-surgical visit [] Trauma [] Long length of stay [x] ICU visit [] Other: Relational/Emotional Strength [] Patient feels connected with others/family/visitors/staff [] Distress [] Loneliness/isolation [] Abandonment Spirituality of Patient [] Person of Rhiannon [] Attends Baptism of their Rhiannon [] Believes in Prayer [] Reads Bible or Samaritan materials [] There are Spiritual issues to be addressed [place] [employer] Interventions [x] Prayer [] Active listening [] Non-anxious presence [] Spiritual/emotional support [] Crisis/trauma care [] Spiritual counseling [] Bereavement support [] Provided bereavement packet [] Provided Bible/devotional materials [] Provided toy/stuffed animal, coloring book to patient or family member [] Provided Communion [] Anointing/[place] [] Salvation [x] Completed spiritual assessment [] Other: Impact on Illness or Injury [] Angry [] Fearful [] Anxious [] Often cries [] Exhaustion [] Unable to work [] Unable to attend christianity [] Unable to walk/stand [] Unable to read [] Unable to drive [] Unable to eat/drink [] Unable to sleep [] Unable to be with family [] Patient intubated [] Other: Summary Time spent with patient
[2020-10-09] MEDS: enoxaparin 100 mg/mL Syringe SUBCUT (09:35)
[2020-10-09] MEDS: metOLazone 5 MG Tablet 10 MG PO ×2 (09:37→13:34)
[2020-10-09] MEDS: lactobacillus 1 Tablet 1 TAB PO ×2 (09:38→18:35)
[2020-10-09] MEDS: FUROsemide 40 mg Tablet 80 MG PO ×3 (09:38→20:44)
[2020-10-09] MEDS: pantoprazole DR 40 mg Tablet PO ×2 (09:38→18:35)
[2020-10-09] MEDS: clopidogrel 75 mg Tablet PO (09:38)
[2020-10-09] MEDS: potassium chloride ER 20 mEq Tablet 60 MEQ PO ×3 (09:39→20:45)
[2020-10-09] MEDS: isosorbide mononitrate ER 60 mg Tablet PO (09:39)
--- NOTE | 2020-10-09 10:00 | PC.NURSE ---
Pt allowed me to wrap legs with telfa and kerlex. Called Dr Olivas for leg treatment orders. Awaiting orders.
--- NOTE | 2020-10-09 11:13 | PM.PN ---
Subjective Subjective: Interval history: Patient is stable. He was sleeping comfortably. Appears drowsy. Says still feels short of breath. He is hyponatremic with sodium level of 120. Urine output has increased with increased doses of Lasix. Vitals/I&O/Wt Last Vital Signs Temp 98.1 F 10/09/20 00:00 Pulse 91 10/09/20 10:36 Resp 17 10/09/20 06:00 BP 91/64 10/09/20 06:00 Pulse Ox 97 10/09/20 10:36 10/08/20 10/09/20 10/09/20 22:59 06:59 14:59 Intake Total 410 / 1120 290 / 1410 Output Total 250 / 500 625 / 1125 Balance 160 / 620 -335 / 285 Weight last 48 hrs Weight 221 lb Weight 222 lb 11.2 oz Physical Exam Narrative: EXAM NARRATIVE: GENERAL: Patient is alert, awake and oriented x3. NECK: No jugular vein distension. HEENT: No cyanosis. No icterus. No pallor. HEART: Regular S1 and S2. No murmur, rub or gallop. LUNGS: Clear to auscultate bilaterally. ABDOMEN: Soft, nontender and mildly distended. Positive bowel sounds. No guarding, rebound or tenderness. CENTRAL NERVOUS SYSTEM: Grossly nonfocal. EXTREMITIES: Lower extremities have 2+ edema. Erythema noted on the lower extremities, both lower extremities have serous discharge with eschar Urinary Catheter Management^: Reyes Latex: Cath Placed During This Visit: no Data : 10/09/20 06:15 10/09/20 06:15 Micro: Microbiology 10/08/20 14:34 Gram Stain - Final Leg - #1 10/08/20 14:16 Blood Culture - Preliminary Blood SPECIMEN COLLECTED 10/08/20 14:10 Blood Culture - Preliminary Blood SPECIMEN COLLECTED A&P Assessment and plan (1) Acute on chronic systolic heart failure: Status: Acute (2) Diabetes: Status: Chronic (3) Cellulitis: Status: Acute Qualifiers: Site of cellulitis of extremity: lower extremity Laterality: unspecified laterality (4) Ischemic cardiomyopathy: Status: Chronic (5) Atherosclerotic heart disease [place] coronary artery w/angina pectoris: Status: Chronic Qualifiers: [place] vs. transplanted heart: [place] heart Qualified Code(s): I25.119 - Atherosclerotic heart disease of [place] coronary artery with unspecified angina pectoris (6) PAD (peripheral artery disease): Status: Chronic (7) COPD (chronic obstructive pulmonary disease): Status: Chronic Qualifiers: COPD type: unspecified COPD Qualified Code(s): J44.9 - Chronic obstructive pulmonary disease, unspecified (8) Obesity: Status: Chronic (9) Dyslipidemia: Status: Chronic (10) Hyponatremia: Status: Acute Patient's main complaint is bilateral lower extremity pain. He is volume overloaded on exam. NT Pro BNP is elevated as well Continue Lasix 80 mg 3 times daily and metolazone. Responding appropriately. Patient is hyponatremic with sodium level of 120. Monitor closely Strict I and Os. Monitor renal function Will continue on the same dose of dobutamine (on 5mcg). Patient does not want to increase the rate Order chest x-ray Antibiotic regimen for cellulitis treatment per the hospitalist team Thank you for involving us with care of this patient. We will continue to follow. Please call with questions. Attestations Medical Necessity Statement*: Care expected to cross 2 midnights. Coding Level of Care Code Acute Engineering Executive for [facility] Diagnoses Acute on chronic systolic heart failure I50.23 Diabetes E11.9 Cellulitis L03.90 Site of cellulitis of extremity: lower extremity Laterality: unspecified laterality Ischemic cardiomyopathy I25.5 Atherosclerotic heart disease [place] coronary artery w/angina pectoris I25.119 [place] vs. transplanted heart: [place] heart PAD (peripheral artery disease) I73.9 COPD (chronic obstructive pulmonary disease) J44.9 COPD type: unspecified COPD Obesity E66.9 Dyslipidemia E78.5 Hyponatremia E87.1
[2020-10-09 13:27] LABS: Glucose Point of Care 220 mg/dL (70-110)
[2020-10-09] MEDS: linezolid premix 600 MG/300 ML PREMIX 300 MG IV ×2 (13:33→23:36)
--- NOTE | 2020-10-09 13:46 | PC.CHAP ---
Pastoral Care Encounter/Spiritual Assessment Type of Contact [] Declined paper box cutter visit [x] Patient/Family/Request visit [] Outpatient visit [] Follow-up visit [] Physician referral [] Code/Alert [] Routine visit [] Staff referral [] Actively dying [] Patient sleeping [] Family support [] [] Out of room [] Palliative care [] [] Receiving care in room [] Pre-surgical visit [] Trauma [] Long length of stay [x] ICU visit [] Other: Relational/Emotional Strength [] Patient feels connected with others/family/visitors/staff [] Distress [x] Loneliness/isolation [] Abandonment Spirituality of Patient [] Person of Rhiannon [] Attends Sikhism of their Rhian[place] [] Believes in Prayer [] Reads Bible or Amish materials [] There are Spiritual issues to be addressed Sound Recording Technician Interventions [] Prayer [x] Active listening [x] Non-anxious presence [x] Spiritual/emotional support [] Crisis/trauma care [] Spiritual counseling [] Bereavement support [] Provided bereavement packet [] Provided Bible/devotional materials [] Provided toy/stuffed animal, coloring book to patient or family member [] Provided Communion [] Anointing/[place] [] Salvation [x] Completed spiritual assessment [] Other: Impact on Illness or Injury [] Angry [x] Fearful [] Anxious [] Often cries [] Exhaustion [] Unable to work [] Unable to attend mormon [] Unable to walk/stand [] Unable to read [] Unable to drive [] Unable to eat/drink [] Unable to sleep [x] Unable to be with family [] Patient intubated [] Other: Summary Sound Recording Technician sat and listen to patient. Patient fell asleep while he was speaking. Sound Recording Technician quietly left the room after silent prayer. Time spent with patient 20 min
[2020-10-09] MEDS: morphine 4 mg/mL SDV 1 mL IVP (14:16)
--- NOTE | 2020-10-09 15:30 | PC.NURSE ---
Dr Olivas to order med honey applied to bilateral legs. Wound care closed at this time. Pharmacy does not carry--receives from Wound Care. Called Editor At Large. She will call to attempt to retrieve med. Informed of new order. stated she has some at home. Advised to bring next visit to hospital in case we are unable to obtain any over night.
--- NOTE | 2020-10-09 17:00 | PC.NURSE ---
Daughter informed me this am that pt's to bring home Dobutamine bag to replace this evening. Dr aware. brought and replaced. Offered assistance. Pleasantly refused.
--- NOTE | 2020-10-09 17:30 | PC.NURSE ---
BG 232
--- NOTE | 2020-10-09 18:10 | P.PN_ITS ---
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 He was seen by PCP where his diuretics were adjusted. He was also on clindamycin course outpatient which he had completed on 10/06/19. Patient follow with wound care clinic where he was most recently seen on 10/03. Patient did have curetter debridement performed. he was continued on santyl and started on med-honey primary to right posteroir calf eschar. He continued to have weeping from multiple areas on both lower extremities. Upon admission to the hospital patients initial vital signs showed a blood pressure of 107/72, O2 saturation above 92 on 6 L via nasal cannula, and afebrile. Initial laboratory workup showed a WBC of 14.9, hemoglobin of 10.8, hematocrit 33.3 and a platelet count of 340. sodium 122, potassium 4.3, chloride 82, bicarb 27, BUN of 70 and creatinine of 1.4. Previous creatinine on the was 1.3. ProBNP was 8244 which was a decrease from 9576 on 14. Blood culture x 2 were obtained on 10/06/20. Lactic acid was 2.3 Patient was started on Zyvox 600 mg IV q.12, Zosyn 3.375 g IV q.8 in addition to Lasix 60 mg IV BID. 10/08/20 Patient did not have any fever episodes. He did however become hypotensive. Remained net positive balance. Urine output was 0.42ml/kg/hr. Due to hypotension his lasix was transitioned back to oral and additional changes were made to any- hypertensives. He was continued on zaroxolyn 10 mg PO BID as well. He was continued on dobutamine as per prior pump which I believe is at 5mcg. 10/09/20 Noted to have good u/o overnight, no fever or chills. no nausea or vomiting. Respiratory status stable Medications: Reviewed: Yes Vitals/I&O/Wt Last Vital Signs Temp 98.1 F 10/09/20 00:00 Pulse 74 10/09/20 17:00 Resp 21 H 10/09/20 17:00 BP 104/68 10/09/20 17:00 Pulse Ox 100 10/09/20 17:00 10/09/20 10/09/20 10/09/20 06:59 14:59 22:59 Intake Total 590 / 1710 410 / 410 Output Total 625 / 1125 1000 / 1000 300 / 1300 Balance -35 / 585 -590 / -590 -300 / -890 Weight last 48 hrs Weight 100.244 kg Weight 101.015 kg Physical Exam Const: OTHER: Sleepy but easily awakens, alert, oriented x3, , chronic ill appearance HENMT: OTHER: Normocephalic atraumatic, moist mucus membranes Eye: OTHER: Pupils equally round and reactive to light, muddy sclera, mild proptosis Neck/C-Spine: OTHER: Supple, large Resp: OTHER: Bibasilar crackles, no wheezes noted, chest expansion equal bilaterally Cardio: OTHER: Regular, distant heart sounds GI: OTHER: Abdomen soft, rotund, normal bowel sounds : OTHER: Deferred Extremity: OTHER: Patient with pitting edema 3 approaching 4+ both lower extremities. Neuro: OTHER: Face symmetric, speech clear, moves all extremities Psych: OTHER: Normal affect, though very quick to fall back asleep Skin: NAILS: other OTHER: Not able to visualize intertriginous areas in the groin currently due to patient sitting up on the side of the bed. Both lower extremities with extensive erythema below the knee to the feet. Distal toes mildly cyanotic but capillary refill is around 3 seconds. Both legs with weeping skin serous in color. There is whitish-yellow slough covering the bridget ority of both calves circumferentially. Posterior to the right leg are several wounds with eschar that are similar in description to last wound care note. No specific odor is noted to the lower extremities. Urinary Catheter Management^: Reyes Latex: Cath Placed During This Visit: no Data : 10/09/20 06:15 10/09/20 06:15 Micro: Microbiology 10/08/20 14:16 Blood Culture - Preliminary Blood NEGATIVE TO DATE 10/08/20 14:10 Blood Culture - Preliminary Blood NEGATIVE TO DATE 10/08/20 14:34 Gram Stain - Final Leg - #1 A&P Assessment and plan (1) Cellulitis: Extensive stasis cellulitis both lower extremities in a patient with known peripheral artery disease. He has chronic ulcer with eschar formation to the right lower extremity posteriorly as well. Consult wound care - Previously using med-honey. Unavaiable in-patient. Will consult Dr. Pedroza. Pro-calcitonin negative, afebrile, mild leukocytosis 13 - Zyvox 600 mg IV BID - Zosyn 3.375g IV q8hr Culture- NGTD Local wound care Improving Will consult with surgery Status: Acute Qualifiers: Site of cellulitis of extremity: lower extremity Laterality: unspecified laterality (2) Acute on chronic systolic heart failure: 08/2020 - ECHO showed worsening EF to 20% Cardiology was consulted Lasix changed to 80 mg PO TID Noted to have good u/o To continue dobutamine at 5mcg/hr via pump Chest x-ray ordered by cards Status: Acute (3) Ischemic cardiomyopathy: As above Status: Chronic (4) PAD (peripheral artery disease): Continue antiplatelets Status: Chronic (5) COPD (chronic obstructive pulmonary disease): Chronically on oxygen Status: Chronic Qualifiers: COPD type: unspecified COPD Qualified Code(s): J44.9 - Chronic obstructive pulmonary disease, unspecified (6) Diabetes: Continue current sliding scale Monitor blood sugars achs Status: Chronic Additional A&P Information Hyponatremia and hypochloremia, could be from volume overload but more likely also secondary to diuresis - Repeat BMP in am Attestations Medical Necessity Statement*: Will continue hospitalization for management of fluid overload requiring diuretics and lower extremity cellulitis requiring IV antibiotics Time Spent in Patient Care: Greater than 35 minutes (>than 50% of time spent in counselling and/or direct pt care on unit) . Coding Level of Care Code Acute Java Enterprise Architect for [facility] Diagnoses Cellulitis L03.90 Site of cellulitis of extremity: lower extremity Laterality: unspecified laterality Acute on chronic systolic heart failure I50.23 Ischemic cardiomyopathy I25.5 PAD (peripheral artery disease) I73.9 COPD (chronic obstructive pulmonary disease) J44.9 COPD type: unspecified COPD Diabetes E11.9
[2020-10-09 18:40] LABS: Glucose Point of Care 232 mg/dL (70-110)
--- NOTE | 2020-10-09 19:38 | PC.NURSE ---
Daughter requested central line dressing to be changed with special home dressing and disc tonight. Will bring supplies tonight. Night nurse notified.
[2020-10-09] MEDS: tamsulosin 0.4 mg Capsule PO (20:44)
[2020-10-09] MEDS: atorvastatin 40 mg Tablet 80 MG PO (20:44)
[2020-10-10] VITALS (27 sets, daily range): BP systolic 70–114; BP diastolic 43–78; PULSE 78–100; RESP 15–24; TEMP 36.3–36.7; O2SAT 90–100
[2020-10-10] MEDS: diphenhydrAMINE 25 mg Capsule PO (00:04)
[2020-10-10 02:47] LABS: Glucose Point of Care 226 mg/dL (70-110)
[2020-10-10 03:31] LABS: Basophils # 0.1 10^3/uL (0.0-0.1); Basophils % 0.4 %; Eosinophils # 0.6 10^3/uL (0.0-0.8); Eosinophils % 4.8 %; Hematocrit 28.3 % (42.0-52.0); Hemoglobin 9.3 g/dL (11.7-16.6); Lymphocytes # 1.4 10^3/uL (0.8-4.8); Lymphocytes % 11.7 %; Mean Corpuscular HGB Conc 32.9 g/dL (30.0-36.0); Mean Corpuscular Hemoglobin 29.3 pg (28.0-34.0); Mean Corpuscular Volume 89.3 fL (80-94); Mean Platelet Volume 8.9 fL (7.4-10.4); Monocytes # 0.8 10^3/uL (0.2-0.9); Monocytes % 6.8 %; Neutrophils # 9.07 10^3/uL (1.8-7.7); Neutrophils % 74.9 %; Nucleated Red Blood Cells % 0 %; Platelet Count 284 10^3/cmm (130-400); Red Blood Count 3.17 10^6/uL (4.1-5.3); Red Cell Distribution Width 16.9 % (12.1-15.1); White Blood Count 12.1 10^3/uL (4.0-10.0)
[2020-10-10 04:10] LABS: Alanine Aminotransferase 12 U/L (0-41); Albumin Level 3.3 g/dL (3.5-5.2); Alkaline Phosphatase 90 IU/L (40-130); Anion Gap 14.1 (5-19); Aspartate Amino Transferase 14 U/L (0-40); Blood Urea Nitrogen 60 mg/dL (8-23); Calcium 8.7 mg/dL (8.5-10.5); Carbon Dioxide 31 mmol/L (22-29); Chloride 84 mmol/L (98-107); Globulin 3.3 g/dL (1.3-4.6); Glomerular Filtration Rate 54.9 mL/min (90-130); Glucose 223 mg/dL (65-115); Osmolality Calculated 286 mOsm/kg (285-295); Potassium 3.1 mmol/L (3.5-5.1); Sodium 126 mmol/L (136-145); Total Bilirubin 0.5 mg/dL (0.15-1.2); Total Protein 6.6 g/dL (6.6-8.7)
[2020-10-10 04:15] LABS: Procalcitonin 0.26 ng/mL (0-0.5)
--- NOTE | 2020-10-10 05:18 | PC.NURSE ---
Pt's potassium down to 3.[address] Hopkins notified, no new orders received.
[2020-10-10] MEDS: morphine 4 mg/mL SDV 1 mL IVP ×3 (06:27→22:36)
[2020-10-10] MEDS: piperacillin-tazobactam 3.375 GM in sodium chloride 0.9% (plus) 50 ML IV (06:28)
[2020-10-10 07:23] LABS: Glucose Point of Care 169 mg/dL (70-110)
[2020-10-10] MEDS: lactobacillus 1 Tablet 1 TAB PO ×2 (07:59→17:55)
[2020-10-10] MEDS: FUROsemide 40 mg Tablet 80 MG PO ×2 (07:59→17:55)
[2020-10-10] MEDS: isosorbide mononitrate ER 60 mg Tablet PO (08:00)
[2020-10-10] MEDS: clopidogrel 75 mg Tablet PO (08:00)
[2020-10-10] MEDS: pantoprazole DR 40 mg Tablet PO ×2 (08:00→17:55)
[2020-10-10] MEDS: potassium chloride ER 20 mEq Tablet 60 MEQ PO ×2 (08:00→12:11)
[2020-10-10] MEDS: metOLazone 5 MG Tablet 10 MG PO ×2 (08:00→12:10)
[2020-10-10] MEDS: enoxaparin 100 mg/mL Syringe SUBCUT (08:01)
--- NOTE | 2020-10-10 08:21 | PC.NURSE ---
Shift report Upon entering room patients nurse noted drip running per orders and abt running per orders. Patient is alert and oriented x 3. Confused about time. Patient stated he thinks he is going into shock and when ask why he stated I don't know I just feel weird I think. Patient has already asked for morphine multiple times this shift. Unable to give morphine per parameters. Patient refused Tylenol. Patient is very agitated this AM.
--- NOTE | 2020-10-10 09:48 | PC.NURSE ---
Addendum entered by Alesia Lorenz RN 10/10/20 09:56: Patient also took off blood pressure cuff and o2 sensor. This nurse educated patient on the importance of wearing so this nurse can monitor vitals and patient refused to put them back on. Original Note: Behavior Patient has been very agitated at this nurse this AM. Patient has been yelling out at nurse saying I need a damn doctor in here right now Patient also states I need a shot of something to fix my legs! This nurse has been offering position changes and PRN medication that is available. Continue cares
--- NOTE | 2020-10-10 10:49 | P.PN_ITS ---
Subjective Subjective: Interval history: Patient is responding well to diuresis. Hyponatremia has improved. He complains of lower extremity pain and asking for pain meds. Vitals/I&O/Wt Last Vital Signs Temp 97.7 F 10/10/20 04:00 Pulse 92 10/10/20 10:00 Resp 19 H 10/10/20 10:37 BP 70/43 10/10/20 09:00 Pulse Ox 97 10/10/20 09:00 10/09/20 10/10/20 10/10/20 22:59 06:59 14:59 Intake Total 50 / 760 290 / 1050 Output Total 500 / 1500 500 / 2000 215 / 215 Balance -450 / -740 -210 / -950 -215 / -215 Weight last 48 hrs Weight 271 lb Weight 221 lb Physical Exam Narrative: EXAM NARRATIVE: GENERAL: Patient is alert, awake and oriented x3. NECK: No jugular vein distension. HEENT: No cyanosis. No icterus. No pallor. HEART: Regular S1 and S2. No murmur, rub or gallop. LUNGS: Clear to auscultate bilaterally. ABDOMEN: Soft, nontender and mildly distended. Positive bowel sounds. No guarding, rebound or tenderness. CENTRAL NERVOUS SYSTEM: Grossly nonfocal. EXTREMITIES: Lower extremities have 1+ edema. Erythema noted on the lower extremities, both lower extremities have serous discharge with eschar Urinary Catheter Management^: Reyes Latex: Cath Placed During This Visit: no Data : 10/10/20 03:12 10/10/20 03:12 Micro: Microbiology 10/08/20 14:16 Blood Culture - Preliminary Blood NEGATIVE TO DATE 10/08/20 14:10 Blood Culture - Preliminary Blood NEGATIVE TO DATE A&P Assessment and plan (1) Acute on chronic systolic heart failure: Status: Acute (2) Diabetes: Status: Chronic (3) Cellulitis: Status: Acute Qualifiers: Site of cellulitis of extremity: lower extremity Laterality: unspecified laterality (4) Ischemic cardiomyopathy: Status: Chronic (5) Atherosclerotic heart disease [place] coronary artery w/angina pectoris: Status: Chronic Qualifiers: [place] vs. transplanted heart: [place] heart Qualified Code(s): I25.119 - Atherosclerotic heart disease of [place] coronary artery with unspecified angina pectoris (6) PAD (peripheral artery disease): Status: Chronic (7) COPD (chronic obstructive pulmonary disease): Status: Chronic Qualifiers: COPD type: unspecified COPD Qualified Code(s): J44.9 - Chronic obstructive pulmonary disease, unspecified (8) Obesity: Status: Chronic (9) Dyslipidemia: Status: Chronic (10) Hyponatremia: Status: Acute Patient's main complaint is bilateral lower extremity pain. He is volume overloaded on exam. NT Pro BNP is elevated as well Continue Lasix 80 mg 3 times daily and metolazone. Responding appropriately. Hyponatremia has responded well to aggressive diuresis and sodium improved to 126. Monitor closely Strict I and Os. Monitor renal function Will continue on the same dose of dobutamine (on 5mcg). Patient does not want to increase the rate Antibiotic regimen for cellulitis treatment per the hospitalist team Thank you for involving us with care of this patient. We will continue to follow. Please call with questions. Attestations Medical Necessity Statement*: Care expected to cross 2 midnights Coding Level of Care Code Acute Load Dropper for [facility] Fwd Diagnoses Acute on chronic systolic heart failure I50.23 Diabetes E11.9 Cellulitis L03.90 Site of cellulitis of extremity: lower extremity Laterality: unspecified laterality Ischemic cardiomyopathy I25.5 Atherosclerotic heart disease [place] coronary artery w/angina pectoris I25.119 [place] vs. transplanted heart: [place] heart PAD (peripheral artery disease) I73.9 COPD (chronic obstructive pulmonary disease) J44.9 COPD type: unspecified COPD Obesity E66.9 Dyslipidemia E78.5 Hyponatremia E87.1
[2020-10-10 11:15] LABS: Glucose Point of Care 162 mg/dL (70-110)
[2020-10-10] MEDS: linezolid premix 600 MG/300 ML PREMIX 300 MG IV (12:10)
--- NOTE | 2020-10-10 13:13 | PC.NURSE ---
dressing change Dressing was applied per doctors verbal orders. Patient tolerated poorly
--- NOTE | 2020-10-10 14:09 | PM.PN ---
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 He was seen by PCP where his diuretics were adjusted. He was also on clindamycin course outpatient which he had completed on 10/06/19. Patient follow with wound care clinic where he was most recently seen on 10/03. Patient did have curetter debridement performed. he was continued on santyl and started on med-honey primary to right posteroir calf eschar. He continued to have weeping from multiple areas on both lower extremities. Upon admission to the hospital patients initial vital signs showed a blood pressure of 107/72, O2 saturation above 92 on 6 L via nasal cannula, and afebrile. Initial laboratory workup showed a WBC of 14.9, hemoglobin of 10.8, hematocrit 33.3 and a platelet count of 340. sodium 122, potassium 4.3, chloride 82, bicarb 27, BUN of 70 and creatinine of 1.4. Previous creatinine on the was 1.3. ProBNP was 8244 which was a decrease from 9576 on 14. Blood culture x 2 were obtained on 10/06/20. Lactic acid was 2.3 Patient was started on Zyvox 600 mg IV q.12, Zosyn 3.375 g IV q.8 in addition to Lasix 60 mg IV BID. 10/08/20 Patient did not have any fever episodes. He did however become hypotensive. Remained net positive balance. Urine output was 0.42ml/kg/hr. Due to hypotension his lasix was transitioned back to oral and additional changes were made to any-hypertensives. He was continued on zaroxolyn 10 mg PO BID as well. He was continued on dobutamine as per prior pump which I believe is at 5mcg. 10/09/20 Noted to have good u/o overnight, no fever or chills. no nausea or vomiting. Respiratory status stable 10/10/20 Patient was complaining of pain in bilateral LE, with right greater than left. Denied any chest pain overnight. No fever or chills. No nausea or vomiting. Medications: Reviewed: Yes Vitals/I&O/Wt Last Vital Signs Temp 97.6 F 10/10/20 13:08 Pulse 80 10/10/20 13:00 Resp 24 H 10/10/20 13:00 BP 96/58 10/10/20 13:00 Pulse Ox 97 10/10/20 09:00 10/09/20 10/10/20 10/10/20 22:59 06:59 14:59 Intake Total 50 / 760 590 / 1350 50 / 50 Output Total 500 / 1500 500 / 2000 740 / 740 Balance -450 / -740 90 / -650 -690 / -690 Weight last 48 hrs Weight 122.924 kg Weight 100.244 kg Physical Exam Const: OTHER: Sleepy but easily awakens, alert, oriented x3, , chronic ill appearance HENMT: OTHER: Normocephalic atraumatic, moist mucus membranes Eye: OTHER: Pupils equally round and reactive to light, muddy sclera, mild proptosis Neck/C-Spine: OTHER: Supple, large Resp: OTHER: Bibasilar crackles, no wheezes noted, chest expansion equal bilaterally Cardio: OTHER: Regular, distant heart sounds GI: OTHER: Abdomen soft, rotund, normal bowel sounds : OTHER: Deferred Extremity: OTHER: Patient with pitting edema 3 approaching 4+ both lower extremities. Neuro: OTHER: Face symmetric, speech clear, moves all extremities Psych: OTHER: Normal affect, though very quick to fall back asleep Skin: NAILS: other OTHER: Not able to visualize intertriginous areas in the groin currently due to patient sitting up on the side of the bed. Both lower extremities with extensive erythema below the knee to the feet. Distal toes mildly cyanotic but capillary refill is around 3 seconds. Both legs with weeping skin serous in color. There is whitish-yellow slough covering the majority of both calves circumferentially. Posterior to the right leg are several wounds with eschar that are similar in description to last wound care note. No specific odor is noted to the lower extremities. Urinary Catheter Management^: Reyes Latex: Cath Placed During This Visit: no Data : 10/10/20 03:12 10/10/20 03:12 Micro: Microbiology 10/08/20 14:34 Gram Stain - Final Leg - #1 Wound Culture - Preliminary Enterococcus species 10/08/20 14:16 Blood Culture - Preliminary Blood NEGATIVE TO DATE 10/08/20 14:10 Blood Culture - Preliminary Blood NEGATIVE TO DATE A&P Assessment and plan (1) Cellulitis: Extensive stasis cellulitis both lower extremities in a patient with known peripheral artery disease. He has chronic ulcer with eschar formation to the right lower extremity posteriorly as well. Consult wound care - Previously using med-honey. Unavaiable in-patient. Pro-calcitonin negative, afebrile, mild leukocytosis 13 - > 12.1 - Wound culture - Enterococcus - vancomycin susceptible - Will continue Zyvox 600 mg IV BID - change to PO at discharge - Will d/c zosyn - Local wound care with santyl at wound bed, ABD and kerlix wrap - low compression due to hx of PVD - Family to bring in med-honey from home - Will need to follow up with wound care outpatient - Keep legs elevated - Pain control - Will d/c morphine - Will start on long active oxycontin 10 mg PO BID - may add oxycodone 5 mg PO q6hr for break through if BP tolerates Status: Acute Qualifiers: Site of cellulitis of extremity: lower extremity Laterality: unspecified laterality (2) Acute on chronic systolic heart failure: 08/2020 - ECHO showed worsening EF to 20% Cardiology was consulted Lasix changed to 80 mg PO TID 0.59 ml/kg/hr net negative balance of 750 overnight To continue dobutamine at 5mcg/hr via pump Status: Acute (3) Ischemic cardiomyopathy: As above Status: Chronic (4) PAD (peripheral artery disease): Continue antiplatelets Status: Chronic (5) COPD (chronic obstructive pulmonary disease): Chronically on oxygen Status: Chronic Qualifiers: COPD type: unspecified COPD Qualified Code(s): J44.9 - Chronic obstructive pulmonary disease, unspecified (6) Diabetes: Continue current sliding scale Monitor blood sugars achs Status: Chronic Additional A&P Information Hyponatremia and hypochloremia, could be from volume overload but more likely also secondary to diuresis Elevated troponin - no recurrence of CP, cardiology on board, continue plavix, will stop lovenox full dose - change to dvt ppx dose Gi ppx - Protonix 40 mg PO BID Disposition: Will likely plan to discharge home in am D/w care plan with daughter Attestations Medical Necessity Statement*: Will need additional day in hospital to optimize pain medication and de-escalate antibiotics. Time Spent in Patient Care: Greater than 35 minutes (>than 50% of time spent in counselling and/or direct pt care on unit). Coding Level of Care Code Acute Veneer Sorter for [facility] Fwd Diagnoses Cellulitis L03.90 Site of cellulitis of extremity: lower extremity Laterality: unspecified laterality Acute on chronic systolic heart failure I50.23 Ischemic cardiomyopathy I25.5 PAD (peripheral artery disease) I73.9 COPD (chronic obstructive pulmonary disease) J44.9 COPD type: unspecified COPD Diabetes E11.9
[2020-10-10 17:45] LABS: Glucose Point of Care 251 mg/dL (70-110)
[2020-10-10] MEDS: oxyCODONE 10 mg ER (12 HR) Tablet PO (17:54)
[2020-10-11] VITALS (31 sets, daily range): BP systolic 81–114; BP diastolic 33–77; PULSE 70–100; RESP 15–28; TEMP 36.5–37; O2SAT 92–99; BMI 37.4
[2020-10-11] MEDS: atorvastatin 40 mg Tablet 80 MG PO ×2 (00:28→21:06)
[2020-10-11] MEDS: FUROsemide 40 mg Tablet 80 MG PO ×4 (00:28→21:06)
[2020-10-11] MEDS: tamsulosin 0.4 mg Capsule PO ×2 (00:29→21:07)
[2020-10-11] MEDS: potassium chloride ER 20 mEq Tablet 60 MEQ PO ×3 (00:29→21:06)
[2020-10-11 00:41] LABS: Glucose Point of Care 113 mg/dL (70-110)
--- NOTE | 2020-10-11 00:51 | PC.NURSE ---
Patient's medications were late due to [employer] software mishap.
[2020-10-11] MEDS: linezolid premix 600 MG/300 ML PREMIX 300 MG IV (00:55)
[2020-10-11 07:43] LABS: Glucose Point of Care 160 mg/dL (70-110)
[2020-10-11] MEDS: lactobacillus 1 Tablet 1 TAB PO ×2 (07:50→18:10)
[2020-10-11] MEDS: isosorbide mononitrate ER 60 mg Tablet PO (07:50)
[2020-10-11] MEDS: pantoprazole DR 40 mg Tablet PO ×2 (07:51→18:10)
[2020-10-11] MEDS: metOLazone 5 MG Tablet 10 MG PO ×2 (07:51→13:17)
[2020-10-11] MEDS: oxyCODONE 10 mg ER (12 HR) Tablet PO ×2 (07:51→18:10)
[2020-10-11] MEDS: clopidogrel 75 mg Tablet PO (07:51)
--- NOTE | 2020-10-11 08:15 | P.PN_ITS ---
Subjective Subjective: Interval history: Patient complains of severe lower extremity pain bilaterally. Wants to increase the pain medications. He is diuresing well. Vitals/I&O/Wt Last Vital Signs Temp 98.2 F 10/11/20 05:00 Pulse 87 10/11/20 07:00 Resp 19 H 10/11/20 07:00 BP 112/77 10/11/20 07:00 Pulse Ox 93 10/11/20 05:00 10/10/20 10/11/20 10/11/20 22:59 06:59 14:59 Intake Total 650 / 700 Output Total 850 / 1590 1350 / 2940 Balance -200 / -890 -1350 / -2240 Weight last 48 hrs Weight 218 lb 3 oz Weight 271 lb Physical Exam Narrative: EXAM NARRATIVE: GENERAL: Patient is alert, awake and oriented x3. NECK: No jugular vein distension. HEENT: No cyanosis. No icterus. No pallor. HEART: Regular S1 and S2. No murmur, rub or gallop. LUNGS: Clear to auscultate bilaterally. ABDOMEN: Soft, nontender and mildly distended. Positive bowel sounds. No guarding, rebound or tenderness. CENTRAL NERVOUS SYSTEM: Grossly nonfocal. EXTREMITIES: Lower extremities have 1+ edema. Erythema noted on the lower extremities, both lower extremities have serous discharge with eschar Urinary Catheter Management^: Reyes Latex: Cath Placed During This Visit: no Data : 10/10/20 03:12 10/10/20 03:12 Micro: Microbiology 10/08/20 14:34 Gram Stain - Final Leg - #1 Wound Culture - Preliminary Enterococcus species A&P Assessment and plan (1) Acute on chronic systolic heart failure: Status: Acute (2) Diabetes: Status: Chronic (3) Cellulitis: Status: Acute Qualifiers: Site of cellulitis of extremity: lower extremity Laterality: unspecified laterality (4) Ischemic cardiomyopathy: Status: Chronic (5) Atherosclerotic heart disease [place] coronary artery w/angina pectoris: Status: Chronic Qualifiers: [place] vs. transplanted heart: [place] heart Qualified Code(s): I25.119 - Atherosclerotic heart disease of [place] coronary artery with unspecified angina pectoris (6) PAD (peripheral artery disease): Status: Chronic (7) COPD (chronic obstructive pulmonary disease): Status: Chronic Qualifiers: COPD type: unspecified COPD Qualified Code(s): J44.9 - Chronic obstructive pulmonary disease, unspecified (8) Obesity: Status: Chronic (9) Dyslipidemia: Status: Chronic (10) Hyponatremia: Status: Acute Patient's main complaint is bilateral lower extremity pain. Can be switched to PO lasix 80mg TID and Metolazone. Check BMP daily Hyponatremia has responded well to aggressive diuresis and sodium improved to 126. Monitor closely Strict I and Os. Monitor renal function Will continue on the same dose of dobutamine (on 5mcg). Antibiotic regimen for cellulitis treatment per the hospitalist team Thank you for involving us with care of this patient. Please call with questions. 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 transplanted heart: [place] heart PAD (peripheral artery disease) I73.9 COPD (chronic obstructive pulmonary disease) J44.9 COPD type: unspecified COPD Obesity E66.9 Dyslipidemia E78.5 Hyponatremia E87.1
--- NOTE | 2020-10-11 08:24 | PC.NURSE ---
pt request pain medication at this time Dr zayas.. am meds at this time for pt comfort
--- NOTE | 2020-10-11 09:33 | PC.NURSE ---
up to bsc with max assist at this time had large bm at this time
--- NOTE | 2020-10-11 09:55 | PC.NURSE ---
up in bed repositioned at this time linen change done and geovanni care done ...
--- NOTE | 2020-10-11 11:07 | PC.SOCIAL ---
IMM Update Pg.2 of IMM updated and reviewed with patient who verbalized understanding. Copy provided.
--- NOTE | 2020-10-11 12:20 | P.PN_ITS ---
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 He was seen by PCP where his diuretics were adjusted. He was also on clindamycin course outpatient which he had completed on 10/06/19. Patient follow with wound care clinic where he was most recently seen on 10/03. Patient did have curetter debridement performed. he was continued on santyl and started on med-honey primary to right posteroir calf eschar. He continued to have weeping from multiple areas on both lower extremities. Upon admission to the hospital patients initial vital signs showed a blood pressure of 107/72, O2 saturation above 92 on 6 L via nasal cannula, and afebrile. Initial laboratory workup showed a WBC of 14.9, hemoglobin of 10.8, hematocrit 33.3 and a platelet count of 340. sodium 122, potassium 4.3, chloride 82, bicarb 27, BUN of 70 and creatinine of 1.4. Previous creatinine on the was 1.3. ProBNP was 8244 which was a decrease from 9576 on 14. Blood culture x 2 were obtained on 10/06/20. Lactic acid was 2.3 Patient was started on Zyvox 600 mg IV q.12, Zosyn 3.375 g IV q.8 in addition to Lasix 60 mg IV BID. 10/08/20 Patient did not have any fever episodes. He did however become hypotensive. Remained net positive balance. Urine output was 0.42ml/kg/hr. Due to hypotension his lasix was transitioned back to oral and additional changes were made to any- hypertensives. He was continued on zaroxolyn 10 mg PO BID as well. He was continued on dobutamine as per prior pump which I believe is at 5mcg. 10/09/20 Noted to have good u/o overnight, no fever or chills. no nausea or vomiting. Respiratory status stable 10/10/20 Patient was complaining of pain in bilateral LE, with right greater than left. D enied any chest pain overnight. No fever or chills. No nausea or vomiting. 10/11/20 Patient continued to c/o pain in LE otherwise no new clinical events overnight Medications: Reviewed: Yes Vitals/I&O/Wt Last Vital Signs Temp 98.2 F 10/11/20 09:00 Pulse 90 10/11/20 11:00 Resp 15 10/11/20 11:00 BP 81/33 10/11/20 11:00 Pulse Ox 99 10/11/20 11:00 10/10/20 10/11/20 10/11/20 22:59 06:59 14:59 Intake Total 650 / 700 370 / 370 Output Total 850 / 1590 1350 / 2940 750 / 750 Balance -200 / -890 -1350 / -2240 -380 / -380 Weight last 48 hrs Weight 98.968 kg Weight 122.924 kg Physical Exam Const: OTHER: Sleepy but easily awakens, alert, oriented x3, , chronic ill appearance HENMT: OTHER: Normocephalic atraumatic, moist mucus membranes Eye: OTHER: Pupils equally round and reactive to light, muddy sclera, mild proptosis Neck/C-Spine: OTHER: Supple, large Resp: OTHER: Bibasilar crackles, no wheezes noted, chest expansion equal bilaterally Cardio: OTHER: Regular, distant heart sounds GI: OTHER: Abdomen soft, rotund, normal bowel sounds : OTHER: Deferred Extremity: OTHER: Patient with pitting edema 3 approaching 4+ both lower extremities. Neuro: OTHER: Face symmetric, speech clear, moves all extremities Psych: OTHER: Normal affect, though very quick to fall back asleep Skin: NAILS: other OTHER: Not able to visualize intertriginous areas in the groin currently due to patient sitting up on the side of the bed. Both lower extremities with extensive erythema below the knee to the feet. Distal toes mildly cyanotic but capillary refill is around 3 seconds. Both legs with weeping skin serous in color. There is whitish-yellow slough covering the majority of both calves circumferentially. Posterior to the right leg are several wounds with eschar that are similar in description to last wound care note. No specific odor is noted to the lower extremities. Urinary Catheter Management^: Reyes Latex: Cath Placed During This Visit: no Data : 10/10/20 03:12 10/10/20 03:12 Micro: Microbiology 10/08/20 14:34 Gram Stain - Final Leg - #1 Wound Culture - Preliminary Enterococcus species A&P Assessment and plan (1) Cellulitis: Extensive stasis cellulitis both lower extremities in a patient with known peripheral artery disease. He has chronic ulcer with eschar formation to the right lower extremity posteriorly as well. Consult wound care - Previously using med-honey. Unavaiable in-patient. Pro-calcitonin negative, afebrile, mild leukocytosis 13 - > 12.1 - Wound culture - Enterococcus - vancomycin susceptible - Will continue Zyvox 600 mg PO BID - Local wound care with santyl at wound bed, Med-honey, ABD and kerlix wrap - low compression due to hx of PVD - D/w surgery - not candidate for surgical debridement - Will need to follow up with wound care outpatient - Keep legs elevated - Pain control - Continue oxycontin 10 mg PO BID - Add oxycodone 5 mg PO q6hr for break through if BP tolerates Status: Acute Qualifiers: Site of cellulitis of extremity: lower extremity Laterality: unspecified laterality (2) Acute on chronic systolic heart failure: 08/2020 - ECHO showed worsening EF to 20% Cardiology was consulted Lasix changed to 80 mg PO TID To continue dobutamine at 5mcg/hr via pump Status: Acute (3) Ischemic cardiomyopathy: As above Status: Chronic (4) PAD (peripheral artery disease): Continue antiplatelets Status: Chronic (5) COPD (chronic obstructive pulmonary disease): Chronically on oxygen Status: Chronic Qualifiers: COPD type: unspecified COPD Qualified Code(s): J44.9 - Chronic obstructive pulmonary disease, unspecified (6) Diabetes: Continue current sliding scale Monitor blood sugars achs Status: Chronic Additional A&P Information Hyponatremia and hypochloremia, could be from volume overload but more likely also secondary to diuresis Elevated troponin - no recurrence of CP, cardiology on board, continue plavix, will stop lovenox full dose - change to dvt ppx dose Gi ppx - Protonix 40 mg PO BID Disposition: Awaiting SNF authorization. Stable for discharge once arranged. Transfer to [facility]. Attestations Medical Necessity Statement*: Will continue current hospitalization until placement to SNF arranged. Time Spent in Patient Care: Greater than 35 minutes (>than 50% of time spent in counselling and/or direct pt care on unit) . Coding Level of Care Code Acute Manager Resource for Michi Escobar Diagnoses Cellulitis L03.90 Site of cellulitis of extremity: lower extremity Laterality: unspecified laterality Acute on chronic systolic heart failure I50.23 Ischemic cardiomyopathy I25.5 PAD (peripheral artery disease) I73.9 COPD (chronic obstructive pulmonary disease) J44.9 COPD type: unspecified COPD Diabetes E11.9
--- NOTE | 2020-10-11 13:00 | PC.NURSE ---
From ICU transfer Pt is alert, awake, oriented. He is reporting of pain on his bilateral legs. Pt has a fixed rate of dobutamine drip from home. Call light within reach.
[2020-10-11 13:16] LABS: Glucose Point of Care 172 mg/dL (70-110)
[2020-10-11] MEDS: enoxaparin 40 mg/0.4 mL Syringe SUBCUT (13:17)
[2020-10-11] MEDS: ondansetron 2 mg/ML SDV 2 mL 4 MG IVP (13:23)
--- NOTE | 2020-10-11 13:53 | PC.NURSE ---
report given and transfered to room 105 family notified at this time
--- NOTE | 2020-10-11 14:38 | PC.NURSE ---
Went into Pts room to check on him. Observed that he was supposed to be on 6L NC and pt was not wearing it and was not wearing a pulse oximeter. I asked the patient if we could put NC back on. Patient stated I'll wear it while you're in the room but as soon as you leave I'm going to take it off patient also refuses to wear a pulse oximeter.
[2020-10-11] MEDS: oxyCODONE 5 mg IR Tab/Cap PO ×2 (15:38→21:21)
[2020-10-11] MEDS: linezolid 600 mg Tablet PO (16:16)
[2020-10-11 17:30] LABS: Glucose Point of Care 364 mg/dL (70-110)
--- NOTE | 2020-10-11 18:30 | PC.NURSE ---
spoke to Dr Arana via telephone with concerns would like to use max to dress bilteral leg wounds instructions received By Dr. arana to change order from santyl to lauren
[2020-10-11 20:16] LABS: Glucose Point of Care 250 mg/dL (70-110)
[2020-10-11] MEDS: HYDROmorphone 1 mg/mL INJ 1 mL 0.5 MG IVP (22:26)
[2020-10-11] MEDS: alteplase 1 mg/mL SDV 2 mL 2 MG INTRACATH (22:33)
[2020-10-12] VITALS (21 sets, daily range): BP systolic 95–138; BP diastolic 36–67; PULSE 58–93; RESP 12–20; TEMP 35.9–36.6; O2SAT 88–99
[2020-10-12] MEDS: oxyCODONE 5 mg IR Tab/Cap PO ×3 (06:12→22:49)
[2020-10-12] MEDS: linezolid 600 mg Tablet PO ×2 (06:23→15:03)
[2020-10-12 07:13] LABS: Glucose Point of Care 123 mg/dL (70-110)
[2020-10-12] MEDS: metOLazone 5 MG Tablet 10 MG PO ×2 (08:21→12:18)
[2020-10-12] MEDS: FUROsemide 40 mg Tablet 80 MG PO ×3 (08:21→20:58)
[2020-10-12] MEDS: isosorbide mononitrate ER 60 mg Tablet PO (08:21)
[2020-10-12] MEDS: lactobacillus 1 Tablet 1 TAB PO ×2 (08:21→17:37)
[2020-10-12] MEDS: clopidogrel 75 mg Tablet PO (08:21)
[2020-10-12] MEDS: potassium chloride ER 20 mEq Tablet 60 MEQ PO ×3 (08:21→20:59)
[2020-10-12] MEDS: oxyCODONE 10 mg ER (12 HR) Tablet PO ×2 (08:22→17:37)
[2020-10-12] MEDS: pantoprazole DR 40 mg Tablet PO ×2 (08:22→17:37)
[2020-10-12] MEDS: gabapentin 100 mg Capsule PO (08:22)
[2020-10-12 11:23] LABS: Glucose Point of Care 169 mg/dL (70-110)
--- NOTE | 2020-10-12 14:49 | P.PN_ITS ---
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 He was seen by PCP where his diuretics were adjusted. He was also on clindamycin course outpatient which he had completed on 10/06/19. Patient follow with wound care clinic where he was most recently seen on 10/03. Patient did have curetter debridement performed. he was continued on santyl and started on med-honey primary to right posteroir calf eschar. He continued to have weeping from multiple areas on both lower extremities. Upon admission to the hospital patients initial vital signs showed a blood pressure of 107/72, O2 saturation above 92 on 6 L via nasal cannula, and afebrile. Initial laboratory workup showed a WBC of 14.9, hemoglobin of 10.8, hematocrit 33.3 and a platelet count of 340. sodium 122, potassium 4.3, chloride 82, bicarb 27, BUN of 70 and creatinine of 1.4. Previous creatinine on the was 1.3. ProBNP was 8244 which was a decrease from 9576 on 14. Blood culture x 2 were obtained on 10/06/20. Lactic acid was 2.3 Patient was started on Zyvox 600 mg IV q.12, Zosyn 3.375 g IV q.8 in addition to Lasix 60 mg IV BID. 10/08/20 Patient did not have any fever episodes. He did however become hypotensive. Remained net positive balance. Urine output was 0.42ml/kg/hr. Due to hypotension his lasix was transitioned back to oral and additional changes were made to any- hypertensives. He was continued on zaroxolyn 10 mg PO BID as well. He was continued on dobutamine as per prior pump which I believe is at 5mcg. 10/09/20 Noted to have good u/o overnight, no fever or chills. no nausea or vomiting. Respiratory status stable 10/10/20 Patient was complaining of pain in bilateral LE, with right greater than left. D enied any chest pain overnight. No fever or chills. No nausea or vomiting. 10/11/20 Patient continued to c/o pain in LE otherwise no new clinical events overnight 10/12/20 No new clinical events overnight. Patients pain was better controlled. Continues to chew tobacco of during hospitalization. No fever chills overnight. No chest pain or shortness of breath Medications: Reviewed: Yes Vitals/I&O/Wt Last Vital Signs Temp 97.8 F 10/12/20 10:37 Pulse 90 10/12/20 10:37 Resp 12 10/12/20 12:46 BP 104/67 10/12/20 10:37 Pulse Ox 97 10/12/20 10:37 10/11/20 10/12/20 10/12/20 22:59 06:59 14:59 Intake Total 150 / 720 300 / 1020 240 / 240 Output Total 500 / 1850 250 / 2100 250 / 250 Balance -350 / -1130 50 / -1080 -10 / -10 Weight last 48 hrs Weight 96.751 kg Weight 98.968 kg Physical Exam Const: OTHER: Sitting in chair , alert, oriented x3, , chronic ill appearance HENMT: OTHER: Normocephalic atraumatic, moist mucus membranes Eye: OTHER: Pupils equally round and reactive to light, muddy sclera, mild proptosis Neck/C-Spine: OTHER: Supple, large Resp: OTHER: Bibasilar crackles, no wheezes noted, chest expansion equal bilaterally Cardio: OTHER: Regular, distant heart sounds GI: OTHER: Abdomen soft, rotund, normal bowel sounds : OTHER: Deferred Extremity: OTHER: Patient with pitting edema 3 approaching 4+ both lower extremities. Neuro: OTHER: Face symmetric, speech clear, moves all extremities Psych: OTHER: Normal affect, though very quick to fall back asleep Skin: NAILS: other OTHER: Not able to visualize intertriginous areas in the groin currently due to patient sitting up on the side of the bed. Both lower extremities with extensive erythema below the knee to the feet. Distal toes mildly cyanotic but capillary refill is around 3 seconds. Both legs with weeping skin serous in color. There is whitish-yellow slough covering the majority of both calves circumferentially. Posterior to the right leg are several wounds with eschar that are similar in description to last wound care note. No specific odor is noted to the lower extremities. Urinary Catheter Management^: Reyes Latex: Cath Placed During This Visit: no Data : 10/10/20 03:12 10/10/20 03:12 Micro: Microbiology 10/06/20 21:53 Blood Culture - Final Blood NO GROWTH AFTER 5 DAYS 10/06/20 21:53 Blood Culture - Final Blood NO GROWTH AFTER 5 DAYS A&P Assessment and plan (1) Cellulitis: Extensive stasis cellulitis both lower extremities in a patient with known peripheral artery disease. He has chronic ulcer with eschar formation to the right lower extremity posteriorly as well. Consult wound care - Previously using med-honey. Unavaiable in-patient. Pro-calcitonin negative, afebrile, mild leukocytosis 13 - > 12.1 - Wound culture - Enterococcus - vancomycin susceptible - Will continue Zyvox 600 mg PO BID - Local wound care with santyl at wound bed, Med-honey, ABD and kerlix wrap - low compression due to hx of PVD - D/w surgery - not candidate for surgical debridement - Will need to follow up with wound care outpatient - Keep legs elevated - Pain control - Continue oxycontin 10 mg PO BID - May consider increasing dose - oxycodone 5 mg PO q6hr for break through if BP tolerates Status: Acute Qualifiers: Site of cellulitis of extremity: lower extremity Laterality: unspecified laterality (2) Acute on chronic systolic heart failure: 08/2020 - ECHO showed worsening EF to 20% Cardiology was consulted Lasix changed to 80 mg PO TID To continue dobutamine at 5mcg/hr via pump No change to management Status: Acute (3) Ischemic cardiomyopathy: As above Status: Chronic (4) PAD (peripheral artery disease): Continue antiplatelets Status: Chronic (5) COPD (chronic obstructive pulmonary disease): Chronically on oxygen Status: Chronic Qualifiers: COPD type: unspecified COPD Qualified Code(s): J44.9 - Chronic obstructive pulmonary disease, unspecified (6) Diabetes: Continue current sliding scale Monitor blood sugars achs Status: Chronic Additional A&P Information Hyponatremia and hypochloremia, could be from volume overload but more likely also secondary to diuresis Elevated troponin - no recurrence of CP, cardiology on board, continue plavix, will stop lovenox full dose - change to dvt ppx dose Gi ppx - Protonix 40 mg PO BID Disposition: Awaiting SNF authorization. Stable for discharge once arranged. Attestations Medical Necessity Statement*: Continue hospialization unti placement to snf ar ranged. Time Spent in Patient Care: Greater than 35 minutes (>than 50% of time spent in counselling and/or direct pt care on unit) . Coding Level of Care Code Acute Distribution Sales Representative for Michi Escobar Diagnoses Cellulitis L03.90 Site of cellulitis of extremity: lower extremity Laterality: unspecified laterality Acute on chronic systolic heart failure I50.23 Ischemic cardiomyopathy I25.5 PAD (peripheral artery disease) I73.9 COPD (chronic obstructive pulmonary disease) J44.9 COPD type: unspecified COPD Diabetes E11.9
--- NOTE | 2020-10-12 15:09 | PC.NURSE ---
WOUND DRESSING CHANGE SITE CLEANSED WITH SALINE AND 4X4 GAUZE. DRESSED WITH MEDIHONEY, TELFA, ABD PADS AND KERLIX ROLL BILATERALLY.
[2020-10-12 17:09] LABS: Glucose Point of Care 270 mg/dL (70-110)
[2020-10-12 20:14] LABS: Glucose Point of Care 338 mg/dL (70-110)
[2020-10-12] MEDS: atorvastatin 40 mg Tablet 80 MG PO (20:58)
[2020-10-12] MEDS: diphenhydrAMINE 25 mg Capsule PO (20:58)
[2020-10-12] MEDS: tamsulosin 0.4 mg Capsule PO (21:01)
[2020-10-13] VITALS (16 sets, daily range): BP systolic 90–105; BP diastolic 59–69; PULSE 79–97; RESP 17–36; TEMP 36.1–37; O2SAT 92–100
[2020-10-13 04:00] LABS: Basophils % 0.4 %; Eosinophils # 0.7 10^3/uL (0.0-0.8); Eosinophils % 6.6 %; Hematocrit 30.8 % (42.0-52.0); Hemoglobin 9.8 g/dL (11.7-16.6); Lymphocytes # 2.1 10^3/uL (0.8-4.8); Lymphocytes % 18.3 %; Mean Corpuscular HGB Conc 31.8 g/dL (30.0-36.0); Mean Corpuscular Volume 91.1 fL (80-94); Monocytes # 0.9 10^3/uL (0.2-0.9); Monocytes % 7.9 %; Neutrophils # 7.43 10^3/uL (1.8-7.7); Neutrophils % 66.3 %; Nucleated Red Blood Cells % 0 %; Platelet Count 264 10^3/cmm (130-400); Red Blood Count 3.38 10^6/uL (4.1-5.3); Red Cell Distribution Width 17.1 % (12.1-15.1); White Blood Count 11.2 10^3/uL (4.0-10.0)
[2020-10-13 04:21] LABS: Alanine Aminotransferase 13 U/L (0-41); Albumin Level 3.5 g/dL (3.5-5.2); Alkaline Phosphatase 88 IU/L (40-130); Anion Gap 12.3 (5-19); Aspartate Amino Transferase 17 U/L (0-40); Blood Urea Nitrogen 51 mg/dL (8-23); Carbon Dioxide 33 mmol/L (22-29); Chloride 83 mmol/L (98-107); Globulin 3.2 g/dL (1.3-4.6); Glomerular Filtration Rate 50.4 mL/min (90-130); Glucose 125 mg/dL (65-115); Osmolality Calculated 273 mOsm/kg (285-295); Potassium 4.3 mmol/L (3.5-5.1); Sodium 124 mmol/L (136-145); Total Bilirubin 0.6 mg/dL (0.15-1.2); Total Protein 6.7 g/dL (6.6-8.7)
[2020-10-13] MEDS: linezolid 600 mg Tablet PO ×2 (06:10→15:01)
[2020-10-13 07:14] LABS: Glucose Point of Care 161 mg/dL (70-110)
[2020-10-13] MEDS: oxyCODONE 5 mg IR Tab/Cap PO ×3 (07:23→20:45)
--- NOTE | 2020-10-13 07:37 | PC.NURSE ---
Patient up most of the night finally fell asleep around 2am. Patient was sleeping until woken up at 0610 for medication. Patient closed eyes when this fiction and nonfiction writer prose was leaving room. GAMING FLOOR SUPERVISOR came to desk at 0710 and reported patient was hollering and saying if he did not get a pain pill by 0730 that he was going to start throwing things. Went into patient room at 0720 to give pain medication and patient was hollering that he had been sitting in there hollering for 2 hours waiting on pain medication. Patient was told that this fiction and nonfiction writer prose was in at just after 6 to give medication and he was resting quietly at that time. Patient very upset and stated, I have been calling out and I am tired of people not writing things down so that people are informed when the patients call. This fiction and nonfiction writer prose gave patient coffee and got vital signs on patient. Patient sitting on side of bed looking for wallet at this time. Pain medication administered bedside table within reach as well as call light. Patient sipping coffee at this time. Will continue to monitor and assist as needed. Dressings changed by Soledad NGObunker worker and Shira Lombardo CNA at approximately 0045.
[2020-10-13] MEDS: FUROsemide 40 mg Tablet 80 MG PO ×3 (09:01→20:44)
[2020-10-13] MEDS: isosorbide mononitrate ER 60 mg Tablet PO (09:01)
[2020-10-13] MEDS: metOLazone 5 MG Tablet 10 MG PO ×2 (09:01→13:06)
[2020-10-13] MEDS: potassium chloride ER 20 mEq Tablet 60 MEQ PO ×3 (09:01→20:37)
[2020-10-13] MEDS: oxyCODONE 10 mg ER (12 HR) Tablet PO ×2 (09:02→18:11)
[2020-10-13] MEDS: clopidogrel 75 mg Tablet PO (09:02)
[2020-10-13] MEDS: pantoprazole DR 40 mg Tablet PO ×2 (09:02→18:09)
[2020-10-13] MEDS: lactobacillus 1 Tablet 1 TAB PO ×2 (09:02→18:08)
[2020-10-13 11:17] LABS: Glucose Point of Care 237 mg/dL (70-110)
--- NOTE | 2020-10-13 12:47 | PC.SOCIAL ---
*IMM* Updated. initialled in chart.
--- NOTE | 2020-10-13 14:43 | PM.PN ---
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 He was seen by PCP where his diuretics were adjusted. He was also on clindamycin course outpatient which he had completed on 10/06/19. Patient follow with wound care clinic where he was most recently seen on 10/03. Patient did have curetter debridement performed. he was continued on santyl and started on med-honey primary to right posteroir calf eschar. He continued to have weeping from multiple areas on both lower extremities. Upon admission to the hospital patients initial vital signs showed a blood pressure of 107/72, O2 saturation above 92 on 6 L via nasal cannula, and afebrile. Initial laboratory workup showed a WBC of 14.9, hemoglobin of 10.8, hematocrit 33.3 and a platelet count of 340. sodium 122, potassium 4.3, chloride 82, bicarb 27, BUN of 70 and creatinine of 1.4. Previous creatinine on the was 1.3. ProBNP was 8244 which was a decrease from 9576 on 14. Blood culture x 2 were obtained on 10/06/20. Lactic acid was 2.3 Patient was started on Zyvox 600 mg IV q.12, Zosyn 3.375 g IV q.8 in addition to Lasix 60 mg IV BID. 10/08/20 Patient did not have any fever episodes. He did however become hypotensive. Remained net positive balance. Urine output was 0.42ml/kg/hr. Due to hypotension his lasix was transitioned back to oral and additional changes were made to any-hypertensives. He was continued on zaroxolyn 10 mg PO BID as well. He was continued on dobutamine as per prior pump which I believe is at 5mcg. 10/09/20 Noted to have good u/o overnight, no fever or chills. no nausea or vomiting. Respiratory status stable 10/10/20 Patient was complaining of pain in bilateral LE, with right greater than left. Denied any chest pain overnight. No fever or chills. No nausea or vomiting. 10/11/20 Patient continued to c/o pain in LE otherwise no new clinical events overnight 10/12/20 No new clinical events overnight. Patients pain was better controlled. Continues to chew tobacco of during hospitalization. No fever chills overnight. No chest pain or shortness of breath 10/13/20 No ovenright events. Patient continues to chew tobacco in his room despite asking him to stop. He is upset about hospital food. No fever, chills, nausea or vomiting. Medications: Reviewed: Yes Vitals/I&O/Wt Last Vital Signs Temp 97.6 F 10/13/20 12:00 Pulse 94 10/13/20 12:00 Resp 18 10/13/20 13:05 BP 91/60 10/13/20 12:00 Pulse Ox 97 10/13/20 12:00 10/12/20 10/13/20 10/13/20 22:59 06:59 14:59 Intake Total 600 / 840 600 / 600 Output Total 400 / 900 425 / 425 Balance 200 / -60 175 / 175 Weight last 48 hrs Weight 96.751 kg Physical Exam Const: OTHER: Sitting in chair , alert, oriented x3, , chronic ill appearance HENMT: OTHER: Normocephalic atraumatic, moist mucus membranes Eye: OTHER: Pupils equally round and reactive to light, muddy sclera, mild proptosis Neck/C-Spine: OTHER: Supple, large Resp: OTHER: Bibasilar crackles, no wheezes noted, chest expansion equal bilaterally Cardio: OTHER: Regular, distant heart sounds GI: OTHER: Abdomen soft, rotund, normal bowel sounds : OTHER: Deferred Extremity: OTHER: Patient with pitting edema 3 approaching 4+ both lower extremities. Neuro: OTHER: Face symmetric, speech clear, moves all extremities Psych: OTHER: Normal affect, though very quick to fall back asleep Skin: NAILS: other OTHER: Not able to visualize intertriginous areas in the groin currently due to patient sitting up on the side of the bed. Both lower extremities with extensive erythema below the knee to the feet. Distal toes mildly cyanotic but capillary refill is around 3 seconds. Both legs with weeping skin serous in color. There is whitish-yellow slough covering the majority of both calves circumferentially. Posterior to the right leg are several wounds with eschar that are similar in description to last wound care note. No specific odor is noted to the lower extremities. Urinary Catheter Management^: Reyes Latex: Cath Placed During This Visit: no Data : 10/13/20 03:28 10/13/20 03:28 Micro: Microbiology 10/08/20 14:16 Blood Culture - Final Blood NO GROWTH AFTER 5 DAYS 10/08/20 14:10 Blood Culture - Final Blood NO GROWTH AFTER 5 DAYS 10/08/20 14:34 Gram Stain - Final Leg - #1 Wound Culture - Final Enterococcus faecalis A&P Assessment and plan (1) Cellulitis: Extensive stasis cellulitis both lower extremities in a patient with known peripheral artery disease. He has chronic ulcer with eschar formation to the right lower extremity posteriorly as well. Consult wound care - Previously using med-honey. Unavaiable in-patient. Pro-calcitonin negative, afebrile, mild leukocytosis 13 - > 12.1 - Wound culture - Enterococcus - vancomycin susceptible - Will continue Zyvox 600 mg PO BID - Local wound care with santyl at wound bed, Med-honey, ABD and kerlix wrap - low compression due to hx of PVD - D/w surgery - not candidate for surgical debridement - Will need to follow up with wound care outpatient - Keep legs elevated - Pain control - Continue oxycontin 10 mg PO BID - May consider increasing dose - oxycodone 5 mg PO q6hr for break through if BP tolerates - No change to above management Status: Acute Qualifiers: Site of cellulitis of extremity: lower extremity Laterality: unspecified laterality (2) Acute on chronic systolic heart failure: 08/2020 - ECHO showed worsening EF to 20% Cardiology was consulted Lasix changed to 80 mg PO TID To continue dobutamine at 5mcg/hr via pump No change to management Status: Acute (3) Ischemic cardiomyopathy: As above Status: Chronic (4) PAD (peripheral artery disease): Continue antiplatelets Status: Chronic (5) COPD (chronic obstructive pulmonary disease): Chronically on oxygen Status: Chronic Qualifiers: COPD type: unspecified COPD Qualified Code(s): J44.9 - Chronic obstructive pulmonary disease, unspecified (6) Diabetes: Continue current sliding scale Monitor blood sugars achs Status: Chronic Additional A&P Information Hyponatremia and hypochloremia, could be from volume overload but more likely also secondary to diuresis Elevated troponin - no recurrence of CP, cardiology on board, continue plavix, will stop lovenox full dose - change to dvt ppx dose Gi ppx - Protonix 40 mg PO BID Disposition: Awaiting SNF authorization. Stable for discharge once arranged. CM to send referral to [facility] [place] Medical Necessity Statement*: Continue hospital stay until discharge placement arranged. Time Spent in Patient Care: Greater than 35 minutes (>than 50% of time spent in counselling and/or direct pt care on unit). Coding Level of Care Code Acute Pressure Test Operator for [facility] Fwd Diagnoses Cellulitis L03.90 Site of cellulitis of extremity: lower extremity Laterality: unspecified laterality Acute on chronic systolic heart failure I50.23 Ischemic cardiomyopathy I25.5 PAD (peripheral artery disease) I73.9 COPD (chronic obstructive pulmonary disease) J44.9 COPD type: unspecified COPD Diabetes E11.9
[2020-10-13 17:00] LABS: Glucose Point of Care 181 mg/dL (70-110)
[2020-10-13] MEDS: gabapentin 100 mg Capsule PO (18:09)
--- NOTE | 2020-10-13 18:59 | PC.NURSE ---
Pt change his dobutamine bag
[2020-10-13] MEDS: atorvastatin 40 mg Tablet 80 MG PO (20:44)
[2020-10-13] MEDS: tamsulosin 0.4 mg Capsule PO (20:44)
[2020-10-13 21:28] LABS: Glucose Point of Care 182 mg/dL (70-110)
[2020-10-13] MEDS: acetaminophen 325 mg Tablet 650 MG PO (23:10)
[2020-10-14] VITALS (14 sets, daily range): BP systolic 98–113; BP diastolic 59–79; PULSE 84–96; RESP 12–30; TEMP 36.4–36.8; O2SAT 97–100
[2020-10-14] MEDS: linezolid 600 mg Tablet PO ×2 (03:29→15:35)
[2020-10-14] MEDS: oxyCODONE 5 mg IR Tab/Cap PO ×3 (03:29→19:47)
[2020-10-14 03:56] LABS: Basophils # 0.1 10^3/uL (0.0-0.1); Basophils % 0.4 %; Eosinophils # 0.7 10^3/uL (0.0-0.8); Eosinophils % 5.6 %; Hematocrit 29.9 % (42.0-52.0); Hemoglobin 9.7 g/dL (11.7-16.6); Lymphocytes # 1.7 10^3/uL (0.8-4.8); Lymphocytes % 13.6 %; Mean Corpuscular HGB Conc 32.4 g/dL (30.0-36.0); Mean Corpuscular Hemoglobin 29.5 pg (28.0-34.0); Mean Corpuscular Volume 90.9 fL (80-94); Mean Platelet Volume 9.2 fL (7.4-10.4); Monocytes # 0.6 10^3/uL (0.2-0.9); Monocytes % 5.2 %; Neutrophils % 74.6 %; Nucleated Red Blood Cells % 0 %; Platelet Count 246 10^3/cmm (130-400); Red Blood Count 3.29 10^6/uL (4.1-5.3); Red Cell Distribution Width 16.9 % (12.1-15.1); White Blood Count 12.3 10^3/uL (4.0-10.0)
[2020-10-14 04:15] LABS: Alanine Aminotransferase 13 U/L (0-41); Albumin Level 3.6 g/dL (3.5-5.2); Alkaline Phosphatase 92 IU/L (40-130); Anion Gap 16.2 (5-19); Aspartate Amino Transferase 20 U/L (0-40); Blood Urea Nitrogen 54 mg/dL (8-23); Carbon Dioxide 31 mmol/L (22-29); Chloride 83 mmol/L (98-107); Glomerular Filtration Rate 54.9 mL/min (90-130); Glucose 140 mg/dL (65-115); Osmolality Calculated 279 mOsm/kg (285-295); Potassium 4.2 mmol/L (3.5-5.1); Sodium 126 mmol/L (136-145); Total Bilirubin 0.6 mg/dL (0.15-1.2)
[2020-10-14 06:58] LABS: Glucose Point of Care 164 mg/dL (70-110)
[2020-10-14] MEDS: pantoprazole DR 40 mg Tablet PO ×2 (09:23→18:56)
[2020-10-14] MEDS: oxyCODONE 10 mg ER (12 HR) Tablet PO (09:24)
[2020-10-14] MEDS: potassium chloride ER 20 mEq Tablet 60 MEQ PO ×3 (09:26→20:49)
[2020-10-14] MEDS: lactobacillus 1 Tablet 1 TAB PO ×2 (09:26→18:56)
[2020-10-14] MEDS: gabapentin 100 mg Capsule PO ×2 (09:26→18:56)
[2020-10-14] MEDS: FUROsemide 40 mg Tablet 80 MG PO ×3 (09:27→20:48)
[2020-10-14] MEDS: isosorbide mononitrate ER 60 mg Tablet PO (09:29)
[2020-10-14] MEDS: metOLazone 5 MG Tablet 10 MG PO ×2 (09:34→12:43)
[2020-10-14] MEDS: clopidogrel 75 mg Tablet PO (09:38)
[2020-10-14 11:33] LABS: Glucose Point of Care 241 mg/dL (70-110)
--- NOTE | 2020-10-14 13:22 | P.PN_ITS ---
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 He was seen by PCP where his diuretics were adjusted. He was also on clindamycin course outpatient which he had completed on 10/06/19. Patient follow with wound care clinic where he was most recently seen on 10/03. Patient did have curetter debridement performed. he was continued on santyl and started on med-honey primary to right posteroir calf eschar. He continued to have weeping from multiple areas on both lower extremities. Upon admission to the hospital patients initial vital signs showed a blood pressure of 107/72, O2 saturation above 92 on 6 L via nasal cannula, and afebrile. Initial laboratory workup showed a WBC of 14.9, hemoglobin of 10.8, hematocrit 33.3 and a platelet count of 340. sodium 122, potassium 4.3, chloride 82, bicarb 27, BUN of 70 and creatinine of 1.4. Previous creatinine on the was 1.3. ProBNP was 8244 which was a decrease from 9576 on 14. Blood culture x 2 were obtained on 10/06/20. Lactic acid was 2.3 Patient was started on Zyvox 600 mg IV q.12, Zosyn 3.375 g IV q.8 in addition to Lasix 60 mg IV BID. 10/08/20 Patient did not have any fever episodes. He did however become hypotensive. Remained net positive balance. Urine output was 0.42ml/kg/hr. Due to hypotension his lasix was transitioned back to oral and additional changes were made to any- hypertensives. He was continued on zaroxolyn 10 mg PO BID as well. He was continued on dobutamine as per prior pump which I believe is at 5mcg. 10/09/20 Noted to have good u/o overnight, no fever or chills. no nausea or vomiting. Respiratory status stable 10/10/20 Patient was complaining of pain in bilateral LE, with right greater than left. D enied any chest pain overnight. No fever or chills. No nausea or vomiting. 10/11/20 Patient continued to c/o pain in LE otherwise no new clinical events overnight 10/12/20 No new clinical events overnight. Patients pain was better controlled. Continues to chew tobacco of during hospitalization. No fever chills overnight. No chest pain or shortness of breath 10/13/20 No ovenright events. Patient continues to chew tobacco in his room despite asking him to stop. He is upset about hospital food. No fever, chills, nausea or vomiting. 10/14/20 No new clinical events. Awaiting placement to select Medications: Reviewed: Yes Vitals/I&O/Wt Last Vital Signs Temp 97.8 F 10/14/20 11:21 Pulse 96 10/14/20 11:21 Resp 23 H 10/14/20 12:43 BP 101/79 10/14/20 11:21 Pulse Ox 99 10/14/20 12:43 10/13/20 10/14/20 10/14/20 22:59 06:59 14:59 Intake Total 1000 / 1600 240 / 1840 120 / 120 Output Total 200 / 625 650 / 1275 Balance 800 / 975 -410 / 565 120 / 120 Weight last 48 hrs Weight 96.162 kg Physical Exam Const: OTHER: Sitting in chair , alert, oriented x3, , chronic ill appearance HENMT: OTHER: Normocephalic atraumatic, moist mucus membranes Eye: OTHER: Pupils equally round and reactive to light, muddy sclera, mild proptosis Neck/C-Spine: OTHER: Supple, large Resp: OTHER: Bibasilar crackles, no wheezes noted, chest expansion equal bilaterally Cardio: OTHER: Regular, distant heart sounds GI: OTHER: Abdomen soft, rotund, normal bowel sounds : OTHER: Deferred Extremity: OTHER: Patient with pitting edema 3 approaching 4+ both lower extremities. Neuro: OTHER: Face symmetric, speech clear, moves all extremities Psych: OTHER: Normal affect, though very quick to fall back asleep Skin: NAILS: other OTHER: Not able to visualize intertriginous areas in the groin currently due to patient sitting up on the side of the bed. Both lower extremities with extensive erythema below the knee to the feet. Distal toes mildly cyanotic but capillary refill is around 3 seconds. Both legs with weeping skin serous in color. There is whitish-yellow slough covering the majority of both calves circumferentially. Posterior to the right leg are several wounds with eschar that are similar in description to last wound care note. No specific odor is noted to the lower extremities. Urinary Catheter Management^: Reyes Latex: Cath Placed During This Visit: no Data : 10/14/20 03:19 10/14/20 03:19 Micro: Microbiology 10/08/20 14:16 Blood Culture - Final Blood NO GROWTH AFTER 5 DAYS 10/08/20 14:10 Blood Culture - Final Blood NO GROWTH AFTER 5 DAYS A&P Assessment and plan (1) Cellulitis: Extensive stasis cellulitis both lower extremities in a patient with known peripheral artery disease. He has chronic ulcer with eschar formation to the right lower extremity posteriorly as well. Consult wound care - Previously using med-honey. Unavaiable in-patient. Pro-calcitonin negative, afebrile, mild leukocytosis 13 - > 12.1 - Wound culture - Enterococcus - vancomycin susceptible - Will continue Zyvox 600 mg PO BID - Local wound care with santyl at wound bed, Med-honey, ABD and kerlix wrap - low compression due to hx of PVD - D/w surgery - not candidate for surgical debridement - Will need to follow up with wound care outpatient - Keep legs elevated - Pain control - Continue oxycontin 10 mg PO BID - May consider increasing dose - oxycodone 5 mg PO q6hr for break through if BP tolerates - No change to above management Status: Acute Qualifiers: Site of cellulitis of extremity: lower extremity Laterality: uns pecified laterality (2) Acute on chronic systolic heart failure: 08/2020 - ECHO showed worsening EF to 20% Cardiology was consulted Lasix changed to 80 mg PO TID To continue dobutamine at 5mcg/hr via pump No change to management Status: Acute (3) Ischemic cardiomyopathy: As above Status: Chronic (4) PAD (peripheral artery disease): Continue antiplatelets Status: Chronic (5) COPD (chronic obstructive pulmonary disease): Chronically on oxygen Status: Chronic Qualifiers: COPD type: unspecified COPD Qualified Code(s): J44.9 - Chronic ob structive pulmonary disease, unspecified (6) Diabetes: Continue current sliding scale Monitor blood sugars achs Status: Chronic Additional A&P Information Hyponatremia and hypochloremia, could be from volume overload but more likely also secondary to diuresis Elevated troponin - no recurrence of CP, cardiology on board, continue plavix, will stop lovenox full dose - change to dvt ppx dose Gi ppx - Protonix 40 mg PO BID Disposition: Awaiting SNF authorization. Stable for discharge once arranged. CM to send referral to [facility] No change to above management, awaiting placement Attestations Medical Necessity Statement*: Continue hospitalization pending placement Time Spent in Patient Care: Greater than 35 minutes (>than 50% of time spent in counselling and/or direct pt care on unit) . Coding Level of Care Code Acute Supervisor Of Operations for g Fwd Diagnoses Cellulitis L03.90 Site of cellulitis of extremity: lower extremity Laterality: unspecified laterality Acute on chronic systolic heart failure I50.23 Ischemic cardiomyopathy I25.5 PAD (peripheral artery disease) I73.9 COPD (chronic obstructive pulmonary disease) J44.9 COPD type: unspecified COPD Diabetes E11.9
--- NOTE | 2020-10-14 15:10 | PC.SOCIAL ---
C Diff called to this nurse by Castillo in [facility] today 10/14/2020 from last hospitalization with dc date of 09/07/2020. Evdiently machine was down so specimen was frozen and now resulted positive. Patient is currently in the hospital therefore this nurse went to speak with him and he is having some loose stools still per his report and indicates more foul smelling in nature. Discussed with Dr Olivas and given the order to enter a repeat C Diff test. Updated nurse Laila that specimen needs collected as well.
[2020-10-14 15:51] LABS: Globulin 3.2 g/dL (1.3-4.6); Total Protein 6.8 g/dL (6.6-8.7)
[2020-10-14 16:09] LABS: Glucose Point of Care 206 mg/dL (70-110)
[2020-10-14] MEDS: tamsulosin 0.4 mg Capsule PO (20:49)
[2020-10-14] MEDS: atorvastatin 40 mg Tablet 80 MG PO (20:49)
[2020-10-14 23:00] LABS: Glucose Point of Care 239 mg/dL (70-110)
[2020-10-15] VITALS (14 sets, daily range): BP systolic 88–98; BP diastolic 57–68; PULSE 80–100; RESP 16–23; TEMP 36.2–36.8; O2SAT 94–100
--- NOTE | 2020-10-15 02:28 | PC.NURSE ---
Patient hit his call light stating that he needed a urinal. I brought him a urinal. Patient had a urinal sitting on bedside table upon entering the room. Patient stated when nurse entered room, god john I don't know why you guys can't leave it where I can reach it and why you have to put the lid on it. Patient was assisted in using the urinal, then both urinals were placed on upper side rail per patient's request.
--- NOTE | 2020-10-15 04:19 | PC.NURSE ---
Addendum entered by Maryellen Edwards RN 10/15/20 04:45: When nurse lifted patient's leg to put a pillow under it, patient stated that it hurt. Nurse stated I'm sorry. Patient states hell, you ain't sorry. Original Note: Nurse went in room to assist patient. Patient asked for help back in bed, which was done. Patient stated, I want my legs propped up on a pillow. Nurse propped patients legs up on a pillow. Patient stated Iván rogers you're not doing it right, can't you do it right? Nurse asked patient how he would like it done. Patient stated, god dammit, this is ridiculous, you have to put one pillow under each leg, why am I having to tell you this. Nurse stated to patient, I am more than happy to help you, but you are not going to yell and cuss at me.
[2020-10-15] MEDS: oxyCODONE 5 mg IR Tab/Cap PO ×2 (04:21→19:41)
[2020-10-15] MEDS: linezolid 600 mg Tablet PO ×2 (04:21→15:12)
--- NOTE | 2020-10-15 04:22 | PC.NURSE ---
Enter patient room to do vital signs. Patient stated he needed to use the urinal I helped him to sit up and handed him the urinal. I asked the patient if he needed any further help. The patient stated he didn't want any help. I instructed him to use the call light when he was done and that I would be back to get vitals. I went to another patient's room (106) to do vital signs. HUBER Bojorquez stated that the patient complained that I left him, didn't help him, and never came back. This complaint occurred while I was assisting the patient in room 106.
--- NOTE | 2020-10-15 05:48 | PC.NURSE ---
Patient is kind and clam at this time. Patient seems to be slightly confused. Will monitor.
[2020-10-15 07:07] LABS: Glucose Point of Care 194 mg/dL (70-110)
[2020-10-15] MEDS: pantoprazole DR 40 mg Tablet PO ×2 (09:19→17:45)
[2020-10-15] MEDS: lactobacillus 1 Tablet 1 TAB PO ×2 (09:19→17:45)
[2020-10-15] MEDS: clopidogrel 75 mg Tablet PO (09:19)
[2020-10-15] MEDS: oxyCODONE 10 mg ER (12 HR) Tablet PO ×2 (09:19→17:46)
[2020-10-15] MEDS: metOLazone 5 MG Tablet 10 MG PO ×2 (09:21→12:38)
[2020-10-15] MEDS: gabapentin 100 mg Capsule PO ×2 (09:21→17:47)
[2020-10-15] MEDS: potassium chloride ER 20 mEq Tablet 60 MEQ PO ×3 (09:21→20:51)
[2020-10-15] MEDS: isosorbide mononitrate ER 60 mg Tablet PO (09:21)
--- NOTE | 2020-10-15 10:24 | DCPLANNER ---
IMM completed with pt on 10/15/20 @ [id number]. Pt was given a copy of rights.
[2020-10-15] MEDS: FUROsemide 40 mg Tablet 80 MG PO ×3 (10:32→20:53)
[2020-10-15 11:32] LABS: Glucose Point of Care 368 mg/dL (70-110)
--- NOTE | 2020-10-15 13:55 | P.PN_ITS ---
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 He was seen by PCP where his diuretics were adjusted. He was also on clindamycin course outpatient which he had completed on 10/06/19. Patient follow with wound care clinic where he was most recently seen on 10/03. Patient did have curetter debridement performed. he was continued on santyl and started on med-honey primary to right posteroir calf eschar. He continued to have weeping from multiple areas on both lower extremities. Upon admission to the hospital patients initial vital signs showed a blood pressure of 107/72, O2 saturation above 92 on 6 L via nasal cannula, and afebrile. Initial laboratory workup showed a WBC of 14.9, hemoglobin of 10.8, hematocrit 33.3 and a platelet count of 340. sodium 122, potassium 4.3, chloride 82, bicarb 27, BUN of 70 and creatinine of 1.4. Previous creatinine on the was 1.3. ProBNP was 8244 which was a decrease from 9576 on 14. Blood culture x 2 were obtained on 10/06/20. Lactic acid was 2.3 Patient was started on Zyvox 600 mg IV q.12, Zosyn 3.375 g IV q.8 in addition to Lasix 60 mg IV BID. 10/08/20 Patient did not have any fever episodes. He did however become hypotensive. Remained net positive balance. Urine output was 0.42ml/kg/hr. Due to hypotension his lasix was transitioned back to oral and additional changes were made to any- hypertensives. He was continued on zaroxolyn 10 mg PO BID as well. He was continued on dobutamine as per prior pump which I believe is at 5mcg. 10/09/20 Noted to have good u/o overnight, no fever or chills. no nausea or vomiting. Respiratory status stable 10/10/20 Patient was complaining of pain in bilateral LE, with right greater than left. D enied any chest pain overnight. No fever or chills. No nausea or vomiting. 10/11/20 Patient continued to c/o pain in LE otherwise no new clinical events overnight 10/12/20 No new clinical events overnight. Patients pain was better controlled. Continues to chew tobacco of during hospitalization. No fever chills overnight. No chest pain or shortness of breath 10/13/20 No ovenright events. Patient continues to chew tobacco in his room despite asking him to stop. He is upset about hospital food. No fever, chills, nausea or vomiting. 10/14/20 No new clinical events. Awaiting placement to select 10/15/20 No new issues. stated he feel the best today so far. Medications: Reviewed: Yes Vitals/I&O/Wt Last Vital Signs Temp 97.4 F L 10/15/20 11:03 Pulse 92 10/15/20 11:03 Resp 20 H 10/15/20 11:03 BP 88/57 10/15/20 11:03 Pulse Ox 99 10/15/20 11:03 10/14/20 10/15/20 10/15/20 22:59 06:59 14:59 Intake Total 360 / 840 1000 / 1840 120 / 120 Output Total 350 / 550 800 / 1350 200 / 200 Balance 10 / 290 200 / 490 -80 / -80 Weight last 48 hrs Weight 96.162 kg Physical Exam Const: OTHER: Sitting in chair , alert, oriented x3, , chronic ill appearance HENMT: OTHER: Normocephalic atraumatic, moist mucus membranes Eye: OTHER: Pupils equally round and reactive to light, muddy sclera, mild proptosis Neck/C-Spine: OTHER: Supple, large Resp: OTHER: Bibasilar crackles, no wheezes noted, chest expansion equal bilaterally Cardio: OTHER: Regular, distant heart sounds GI: OTHER: Abdomen soft, rotund, normal bowel sounds : OTHER: Deferred Extremity: OTHER: Patient with pitting edema 3 approaching 4+ both lower extremities. Neuro: OTHER: Face symmetric, speech clear, moves all extremities Psych: OTHER: Normal affect, though very quick to fall back asleep Skin: NAILS: other OTHER: Not able to visualize intertriginous areas in the groin currently due to patient sitting up on the side of the bed. Both lower extremities with extensive erythema below the knee to the feet. Distal toes mildly cyanotic but capillary refill is around 3 seconds. Both legs with weeping skin serous in color. There is whitish-yellow slough covering the majority of both calves circumferentially. Posterior to the right leg are several wounds with eschar that are similar in description to last wound care note. No specific odor is noted to the lower extremities. Urinary Catheter Management^: Reyes Latex: Cath Placed During This Visit: no Data : 10/14/20 03:19 10/14/20 03:19 A&P Assessment and plan (1) Cellulitis: Extensive stasis cellulitis both lower extremities in a patient with known peripheral artery disease. He has chronic ulcer with eschar formation to the right lower extremity posteriorly as well. Consult wound care - Previously using med-honey. Unavaiable in-patient. Pro-calcitonin negative, afebrile, mild leukocytosis 13 - > 12.1 - Wound culture - Enterococcus - vancomycin susceptible - Will continue Zyvox 600 mg PO BID - Local wound care with santyl at wound bed, Med-honey, ABD and kerlix wrap - low compression due to hx of PVD - D/w surgery - not candidate for surgical debridement - Will need to follow up with wound care outpatient - Keep legs elevated - Pain control - Continue oxycontin 10 mg PO BID - May consider increasing dose - oxycodone 5 mg PO q6hr for break through if BP tolerates - No change to above management Status: Acute Qualifiers: Site of cellulitis of extremity: lower extremity Laterality: unspecified laterality (2) Acute on chronic systolic heart failure: 08/2020 - ECHO showed worsening EF to 20% Cardiology was consulted Lasix changed to 80 mg PO TID To continue dobutamine at 5mcg/hr via pump No change to management Status: Acute (3) Ischemic cardiomyopathy: As above Status: Chronic (4) PAD (peripheral artery disease): Continue antiplatelets Status: Chronic (5) COPD (chronic obstructive pulmonary disease): Chronically on oxygen Status: Chronic Qualifiers: COPD type: unspecified COPD Qualified Code(s): J44.9 - Chronic obstructive pulmonary disease, unspecified (6) Diabetes: Continue current sliding scale Monitor blood sugars achs Status: Chronic Additional A&P Information Hyponatremia and hypochloremia, could be from volume overload but more likely also secondary to diuresis Elevated troponin - no recurrence of CP, cardiology on board, continue plavix, will stop lovenox full dose - change to dvt ppx dose Gi ppx - Protonix 40 mg PO BID Disposition: Awaiting SNF authorization. Stable for discharge once arranged. CM to send referral to [facility] No change to above management, awaiting placement Possible discharge to select Attestations Medical Necessity Statement*: Will continue [facility] hospital stay until discharge plan arranged. Time Spent in Patient Care: Greater than 35 minutes (>than 50% of time spe nt in counselling and/or direct pt care on unit) . Coding Level of Care Code Acute Staff Nuclear Weapons Officer for Michi Escobar Diagnoses Cellulitis L03.90 Site of cellulitis of extremity: lower extremity Laterality: unspecified laterality Acute on chronic systolic heart failure I50.23 Ischemic cardiomyopathy I25.5 PAD (peripheral artery disease) I73.9 COPD (chronic obstructive pulmonary disease) J44.9 COPD type: unspecified COPD Diabetes E11.9
[2020-10-15 16:11] LABS: Glucose Point of Care 158 mg/dL (70-110)
--- NOTE | 2020-10-15 19:22 | PC.NURSE ---
spoke with dr cummings regarding bilat le stasis ulcer wounds.received new orders to use silver alginate in place of medi-honey due to large amts of serous drng..and extensive size of wounds.
--- NOTE | 2020-10-15 19:49 | PC.NURSE ---
Received report from HUBER Self. Patient up to chair. Spouse at bedside. Patient has home Dobutamine at bedside which spouse takes care of. Dobutamine has been changed this evening and spouse reports, it will last until evening. Patient c/o generalized pain 03/29. Medication was administered as ordered. Patient has been shaved and bathed at bedside this evening. Patient wants to leave door closed to hold in the heat . Patient denies other needs at this time. Was informed by patient and spouse that they have been using a tape recorder at bedside to record sessions with care team. Patient does not want to miss understand any instructions or plan of care.
[2020-10-15] MEDS: tamsulosin 0.4 mg Capsule PO (20:51)
[2020-10-15] MEDS: atorvastatin 40 mg Tablet 80 MG PO (20:53)
--- NOTE | 2020-10-15 21:09 | PC.NURSE ---
Patient c/o I am not getting enough alone time. Seems like someone is always in here. Discussed patient's needs and desires. Patient agreeable to take medication. Discussed plan to allow for personal time. Patient agreeable. Will wait for midnight vitals until he is ready.
[2020-10-15 21:24] LABS: Glucose Point of Care 209 mg/dL (70-110)
[2020-10-15] MEDS: HYDROmorphone 1 mg/mL INJ 1 mL 0.5 MG IVP (23:10)
--- NOTE | 2020-10-15 23:20 | PC.NURSE ---
Patient c/o pain to bilateral lower extremities 03/29. Informed Dr Hopkins of patient continued pain. Scheduled pain med given at 1746 with PRN given at [address] Hopkins placed order for one time dose of Dilaudid 0.5mg IVP. Medication has been administered at this time. Daughter HUBER Philip in room at this time.
--- NOTE | 2020-10-15 23:24 | PC.NURSE ---
Patient dressings to bilateral lower extremities are saturated. Patient does not want them changed at this time. Patient to inform this RN when he is ready .
[2020-10-15] MEDS: ondansetron 2 mg/ML SDV 2 mL 4 MG IVP (23:36)
[2020-10-16] VITALS (9 sets, daily range): BP systolic 96–108; BP diastolic 61–76; PULSE 84–93; RESP 18–26; TEMP 36.4; O2SAT 95–97
--- NOTE | 2020-10-16 01:09 | PC.NURSE ---
Performed dressing changes to BLE per patient request. Dressing to both legs were saturated. Removed soaked dressings. Cleaned legs with normal saline. Replaced dressing with Silvercell, abds, and kerlix bilaterally. Patient tolerated well. Expressed thanks again for administering Dilaudid as ordered. Patient stated, that medication works very well. Patient has been mostly agreeable this evening and stated sometimes I just have to vent . Patient requested to remain up to chair to watch TV and is very appreciative of his time alone. Informed patient that he was in charge and to let us know when he was ready for care. Instructed patient on timing of medications and patient is agreeable. No other distress observed.
[2020-10-16] MEDS: linezolid 600 mg Tablet PO (02:57)
[2020-10-16] MEDS: oxyCODONE 5 mg IR Tab/Cap PO ×2 (03:06→14:45)
--- NOTE | 2020-10-16 03:15 | PC.NURSE ---
Patient requested assistance to get in bed which was provided x2 assist . 0400 antibiotic given early per patient request stating, I want to get as much done as possible so I can sleep without interruption. Patient also requesting something for pain 03/29 to BLE. Patient has massager at bedside he uses on his legs to help with continuous cramping. Dressings to BLE remain c,i, with small amount of drainage noted. Patient has had legs elevated since dressing changes at 0100. Patient denies other needs or complaints at this time. No additional distress observed.
[2020-10-16] MEDS: HYDROmorphone 1 mg/mL INJ 1 mL 0.4 MG IVP (05:27)
--- NOTE | 2020-10-16 05:35 | PC.NURSE ---
Patient c/o pain to BLE 03/29. Patient stated, the usual medicine is just not working.. Last PRN Oxycodone IR was administered ~ 0300. Patient unable to have anything else until 0900. Informed Dr Hopkins and he placed onetime order for Dialaudid 0.4mg IVP which was administered as ordered. Patient expressed thanks for all we have done tonight. Patient is requesting to have dressing changes to BLE.
--- NOTE | 2020-10-16 06:07 | PC.NURSE ---
Patient requested dressing to be changed to BLE. Patient says my legs burn when they get real wet. Dressings changed as requested.
[2020-10-16 06:46] LABS: Glucose Point of Care 187 mg/dL (70-110)
[2020-10-16] MEDS: potassium chloride ER 20 mEq Tablet 60 MEQ PO (07:55)
[2020-10-16] MEDS: metOLazone 5 MG Tablet 10 MG PO ×2 (07:55→12:50)
[2020-10-16] MEDS: clopidogrel 75 mg Tablet PO (07:55)
[2020-10-16] MEDS: isosorbide mononitrate ER 60 mg Tablet PO (09:08)
[2020-10-16] MEDS: FUROsemide 40 mg Tablet 80 MG PO (09:09)
[2020-10-16] MEDS: lactobacillus 1 Tablet 1 TAB PO (09:09)
[2020-10-16] MEDS: gabapentin 100 mg Capsule PO (09:09)
[2020-10-16] MEDS: pantoprazole DR 40 mg Tablet PO (09:09)
[2020-10-16] MEDS: oxyCODONE 10 mg ER (12 HR) Tablet PO (09:09)
--- NOTE | 2020-10-16 10:18 | PC.NURSE ---
patient resting in bed. patient did not eat breakfast and was offered a substitute and refused and stated, I'll just wait for supper. patient requested leg dressing change at this time. nurse gathered supplies and changed dressing.
--- NOTE | 2020-10-16 11:00 | PC.NURSE ---
patient requested dressing change at this time due to them feeling saturated dressings were changed.
[2020-10-16 11:55] LABS: Glucose Point of Care 159 mg/dL (70-110)
--- NOTE | 2020-10-16 12:58 | PC.NURSE ---
nurses tried to administered medications patient refused to take the Lovenox shot as ordered. patient stated, I don't want that damn shot! I have to you 100 times I never want that shot! Patient yelled at nurse, I want my water! Nurse handed patient water, patient became agitated and stated, No not that. That is hot water! nurse filled patient's pitcher with ice and water and handed him his water again, patient then began to yell at the nurse again Get out of here and just leave me alone! I am discharge, just leave me alone! patient educated that discharge orders had not been placed yet and that is why nurse is trying to administer medications as ordered. patient then stated, Well what the hell am I going to do about my medications? 24 hours of no medications where am I going to get them? nurse tried to explain to patient that upon discharge orders being place we would get his medications set up for him so that he would have medications available at home. patient became more agitated swinging his arms in the arm air and yell at nurse Just get out and leave me alone! I just don't want to think! Dr Olivas called and notified of patient behavior and refusal of Lovenox.
--- NOTE | 2020-10-16 13:00 | PC.NURSE ---
Clyde Lopes from social sciences chair and primary nurse in patient room to discuss with patient and family as to why the patient is being discharged home instead of to a facility. Dr. Olivas explained that we have treated the acute problem and that we could keep him like a long term care pharmacist care facility. expressed concern about patient needing halfway care but understood that no facilities that social sciences chair has contacted has beds/ or patient has been denied. Family and patient verbalized an understanding and was agreeable to being discharged today to home. Patient requested pain pill and dressings to be changed on his legs again. nurse gathered supplies and returned to room to do the dressing change. assisted with wound change.
--- NOTE | 2020-10-16 13:13 | PC.NURSE ---
patient refused to eat lunch tray or substitution.
--- NOTE | 2020-10-16 15:38 | PC.NURSE ---
patient refused to take potassium and lasix before discharge. would take at home.
--- NOTE | 2020-10-16 15:51 | P.DS_ITS ---
Discharge Providers Date of Admission: 10/06/20 21:48 Date of Discharge: October 16, 2020 Attending Provider at Admission: Kassandra Wall MD Attending Provider at Discharge: Gino Olivas Primary Care Provider: Melinda Mccullough DO Diagnoses at Discharge Discharge Diagnosis (1) Cellulitis: Status: Acute Qualifiers: Site of cellulitis of extremity: lower extremity Laterality: unspeci fied laterality (2) Acute on chronic systolic heart failure: Status: Acute (3) Ischemic cardiomyopathy: Status: Chronic (4) PAD (peripheral artery disease): Status: Chronic (5) COPD (chronic obstructive pulmonary disease): Status: Chronic Qualifiers: COPD type: unspecified COPD Qualified Code(s): J44.9 - Chronic o bstructive pulmonary disease, unspecified (6) Diabetes: Status: Chronic Reason for Visit Reason for Visit: BI-LATERAL LEG, PAIN/WOUNDS Hospital Course Hospital Course 10-year-old male with a past medical history significant for hypertension, dyslipidemia, diabetes mellitus, morbid obesity, obstructive sleep apnea, chroni c obstructive pulmonary disease on 6L of o2 via NC, 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 He was seen by PCP where his diuretics were adjusted. He was also on clindamycin course outpatient which he had completed on 10/06/19. Patient follow with wound care clinic where he was most recently seen on 10/03. Patient did have curetter debridement performed. he was continued on santyl and started on med-honey primary to right posteroir calf eschar. He continued to have weeping from multiple areas on both lower extremities. Upon admission to the hospital patients initial vital signs showed a blood pressure of 107/72, O2 saturation above 92 on 6 L via nasal cannula, and afebrile. Initial laboratory workup showed a WBC of 14.9, hemoglobin of 10.8, hematocrit 33.3 and a platelet count of 340. sodium 122, potassium 4.3, chloride 82, bicarb 27, BUN of 70 and creatinine of 1.4. Previous creatinine on the was 1.3. ProBNP was 8244 which was a decrease from 9576 on 14. Blood culture x 2 were obtained on 10/06/20. Lactic acid was 2.3 Patient was started on Zyvox 600 mg IV q.12, Zosyn 3.375 g IV q.8 in addition to Lasix 60 mg IV BID. cardiology was consulted. Patients diuretics were changed to Lasix 80 mg 3 times a day. Additionally was continued on metolazone 10 mg oral twice a day. Noted to have good urine output with this regimen. Due to low blood pressures Aldactone was held. Wound care was provided to both lower extremities. Regimen included med honey, santal ABD and Lino wraps. Antibiotics were deescalated to Zyvox 600 mg oral b.i.d.. Culture results showed Enterococcus. Did not have any signs of systemic infection. No fever or chills. He had slow but steady improvement in both lower extremity was seen. Patient was to follow-up with outpatient wound care with surgery as previously. Patient continued to have considerable amount of pain which initially was requiring Iv Narcotics. This was transition to long-acting OxyContin 10 mg twice daily with 5 mg for breakthrough of immediate release oxycodone. For the most part patient had good response to this. Hospitalization was prolonged due to placement. Unfortunately patient was denied by all facility were authorization was sent to. At this time due to no alternative options patient was discharged home with home care. Physical Exam Const: OTHER: Sitting in chair , alert, oriented x3, , chronic ill appearance HENMT: OTHER: Normocephalic atraumatic, moist mucus membranes Eye: OTHER: Pupils equally round and reactive to light, muddy sclera, mild proptosis Neck/C-Spine: OTHER: Supple, large Resp: OTHER: Bibasilar crackles, no wheezes noted, chest expansion equal bilaterally Cardio: OTHER: Regular, distant heart sounds GI: OTHER: Abdomen soft, rotund, normal bowel sounds : OTHER: Deferred Extremity: OTHER: Patient with pitting edema 3 approaching 4+ both lower extremities. Neuro: OTHER: Face symmetric, speech clear, moves all extremities Psych: OTHER: Normal affect, though very quick to fall back asleep Skin: NAILS: other OTHER: Not able to visualize intertriginous areas in the groin currently due to patient sitting up on the side of the bed. Both lower extremities with extensive erythema below the knee to the feet. Distal toes mildly cyanotic but capillary refill is around 3 seconds. Both legs with weeping skin serous in color. There is whitish-yellow slough covering the majority of both calves circumferentially. Posterior to the right leg are several wounds with eschar that are similar in description to last wound care note. No specific odor is noted to the lower extremities. Urinary Catheter Management^: Reyes Latex: Cath Placed During This Visit: no Discharge Data Data Completed and Pending: Labs from last 24 hours 10/16/20 10/16/20 10/15/20 11:44 06:37 20:42 POC Glucose 159 H 187 H 209 H 10/15/20 16:06 POC Glucose 158 H Vitals: Last Vital Signs Temp 97.5 F L 10/16/20 15:33 Pulse 86 10/16/20 15:33 Resp 19 H 10/16/20 15:33 BP 108/76 10/16/20 15:33 Pulse Ox 96 10/16/20 15:33 Discharge Plan Discharge Patient Disposition: Home Condition: Stable Prescriptions: New gabapentin 100 mg Capsule 100 mg PO BID Qty: 60 RF: 0 oxycodone 5 mg Tablet 5 mg PO Q6H PRN (Reason: Moderate Pain) Qty: 15 RF: 0 Lactobacillus acidoph-L.bulgar 1 million cell Tablet 1 tab PO BID 30 Days Qty: 60 RF: 0 OxyContin 10 mg Tablet,Oral Only,Ext.Rel.12 Hr 10 mg PO BID Qty: 15 RF: 0 Continued clopidogrel 75 mg tablet 75 mg PO DAILY@0830 RF: 0 tamsulosin [Flomax] 0.4 mg capsule 0.4 mg PO BEDTIME RF: 0 atorvastatin 40 mg tablet 80 mg PO BEDTIME RF: 0 Corlanor 5 mg tablet 5 mg PO BID@0830,1999 RF: 0 guaifenesin [Mucinex] 600 mg tablet extended release 12hr 600 mg PO BID PRN (Reason: Congestion) RF: 0 nitroglycerin 0.4 mg tablet, sublingual 0.4 mg sublingual PRN PRN (Reason: CHEST PAINS) RF: 0 Stiolto Respimat 2.5-2.5 mcg/actuation mist See Rx Instructions .ROUTE .COMPLEX PRN (Reason: Shortness Of Breath) RF: 0 furosemide 80 mg Tablet 80 mg PO BID@,12 RF: 0 potassium chloride 20 mEq tablet extended release 60 meq PO TID@829,, RF: 0 dobutamine [dobutamine] See Rx Instructions .ROUTE .COMPLEX RF: 0 isosorbide mononitrate 60 mg tablet extended release 24 hr 60 mg PO DAILY RF: 0 acetaminophen 325 mg Tablet 325 - 650 mg PO Q4H PRN (Reason: Pain) RF: 0 Ozempic 0.25 mg or 0.5 mg(2 mg/1.5 mL) pen injector 50 mg SUBCUT Q7D RF: 0 simethicone 80 mg Tablet,Chewable 80 mg PO QID PRN (Reason: Flatulence) 30 Days Qty: 60 RF: 0 pantoprazole [Protonix] 40 mg tablet,delayed release (DR/EC) 40 mg PO BID 30 Days Qty: 60 RF: 0 Changed metolazone 10 mg Tablet 10 mg PO BID@,12 Qty: 0 RF: 0 Discontinued oxycodone-acetaminophen 7.5-325 mg Tablet 1 tab PO TID PRN (Reason: Pain) RF: 0 spironolactone 25 mg Tablet 25 mg PO BID@,12 RF: 0 Discharge Orders: Discharge Order (Routine); Ordered 10/16/20 Ordered By: Gino Olivas Referrals: Chandler Thompson M.D [Physician] - (Please follow-up with Dr. Thompson on October 24 at 3:45p.m. If you have any questions or need to reschedule. Please call ) Beck Pedroza MD [Physician] - 1-3 days (Please follow-up with at [facility] on October 24 at 1:15p.m. If you have any questions or need to reschedule. Please call ) Melinda Mccullough DO [Primary Care Provider] - (Please follow-up with Melinda Mccullough on October 21 at 3:30p.m. If you have any questions or need reschedule. Please call ) Discharge Diet: Cardiac Discharge Activity: Increase activity as tolerated Patient Instructions: Oxycodone/Acetaminophen (By mouth), Gabapentin (By mouth), Oxycodone, Slow Release (By mouth), Heart Failure (DC), Cellulitis (DC), Hyponatremia (DC), Chronic Obstructive Pulmonary Disease (DC), COPD Stoplight Activity Restrictions/Additional Instructions: Wound care: Continue medhoney, santyl to wound bed, abd and kerlix wrap. Keep legs elevated. Monitor daily weight, Discharge Attestations Time Spent in Discharge Care*: greater than 30 min Specific Discharge Activities: educating patient, discussing with pcp/other providers, discussing with correctional case manager/social workers/dc planners, documenting/other paperwork and evaluating patient/reviewing data Status at Discharge: Cognitive status at discharge: cognitively intact , Behavioral status at discharge: can be uncooperative , Functional status at discharge: uses cane/walker Overall status at discharge: patient is progressing back to baseline Quality Metrics Clinical Quality Measures During this hospital stay, did patient experience: None Coding Level of Care Code Acute Wildlife Policy Professional for Michi Fwd Diagnoses Cellulitis L03.90 Site of cellulitis of extremity: lower extremity Laterality: unspecified laterality Acute on chronic systolic heart failure I50.23 Ischemic cardiomyopathy I25.5 PAD (peripheral artery disease) I73.9 COPD (chronic obstructive pulmonary disease) J44.9 COPD type: unspecified COPD Diabetes E11.9
--- NOTE | 2020-10-16 15:58 | PC.NURSE ---
discharge instructions given to the patient and his . both verbalized an understanding of the medications and all education. paper prescriptions handed to . patient's gathered all belongings, patient transferred to wheelchair with the assistance of the veterinary toxicologist. patient on home oxygen and has belongings. taken to exit where he got into a private vehicle.
--- NOTE | 2020-10-16 16:15 | PC.NURSE ---
medications noted to be in med room along with personal heater. ammunition assembly i laborer called patient and she came back to get these belongings that were left in the med room.
--- NOTE | 2020-10-16 16:41 | PC.NURSE ---
1334:spoke to [facility] about dobutamine order. faxed over the no change order to them. 1600 [facility] called back to say that they would not be able to refill dobutamine due to the patient being hospitalized over 24 hours and that they would need a new order. 1605: Dr. Olivas notified that they needed a new order. said he would put that in and send it electronically. 1622: Deisy asked to make sure that it did get received, varnishing unit tool setter on the phone with pharmacy already. Pharmacy wanted to verify that he only wanted one bag with no refills. Deisy verified that he wanted one bag no refills, They have enough for 4 days. After that the original prescriber has to take over. [facility] aware of correct order.
== END 2020-10-16 15:58 | disposition home health service (06) | DRG 602 ==
LOC: ER 18:45 → ICU 21:56 → CSU 10-11 13:39
PROVIDERS: Internal Medicine; Admitting Provider Hospitalist; Emergency Provider Emergency Medicine; PCP Family Medicine; Visit Provider Hospitalist
DX: L03.115 Cellulitis of right lower limb (principal); I50.43 Acute on chronic combined systolic (congestive) and diastolic (congestive) heart failure; I13.0 Hypertensive heart and chronic kidney disease with heart failure and stage 1 through stage 4 chronic kidney disease, or unspecified chronic kidney disease; E87.1 Hypo-osmolality and hyponatremia; L03.116 Cellulitis of left lower limb; N18.30 Chronic kidney disease, stage 3 unspecified; E11.22 Type 2 diabetes mellitus with diabetic chronic kidney disease; I25.5 Ischemic cardiomyopathy; J44.9 Chronic obstructive pulmonary disease, unspecified; Z99.81 Dependence on supplemental oxygen; I25.10 Atherosclerotic heart disease of native coronary artery without angina pectoris; Z95.5 Presence of coronary angioplasty implant and graft; I65.23 Occlusion and stenosis of bilateral carotid arteries; E11.51 Type 2 diabetes mellitus with diabetic peripheral angiopathy without gangrene; E78.5 Hyperlipidemia, unspecified; Z87.01 Personal history of pneumonia (recurrent); E66.01 Morbid (severe) obesity due to excess calories; Z68.38 Body mass index [BMI] 38.0-38.9, adult; G47.33 Obstructive sleep apnea (adult) (pediatric); F17.220 Nicotine dependence, chewing tobacco, uncomplicated; F10.21 Alcohol dependence, in remission; I27.81 Cor pulmonale (chronic); Z79.02 Long term (current) use of antithrombotics/antiplatelets; I95.9 Hypotension, unspecified
CPT/HCPCS: 11042; 11045; 12345; 36415; 36416; 80048; 80053; 81003; 82550; 82962; 83605; 83735; 83880; 84145; 84484; 85007; 85025; 85027; 86140; 87040; 87070; 87075; 87077; 87186; 87205; 87493; 93005; 96372; 99282; J1170; J1200; J1650; J1815; J1940; J2020; J2270; J2405; J2543; J2997; J3370; J7050

== ENCOUNTER 2020-10-19 18:00 | Emergency (ER) | payer MEDICARE, SELFPAY ==
[2020-10-19 18:04] VITALS: PULSE 0; RESP 0; O2SAT 0; BMI 44.6
--- NOTE | 2020-10-19 18:11 | PC.NURSE ---
Pt arrived to ED with I-jel in place, ambu-bag ventilation. EMS was performing CPR. Per family request, no CPR was performed upon arrival. Pt daughter at bedside requesting all measures to be stopped. TOD 1802. I-jel removed, pt cleaned for family.
--- NOTE | 2020-10-19 18:15 | ED_ITS ---
HPI - CPR General: Chief Complaint: Cardiac Arrest/CPR Stated Complaint: CPR IN PROGRESS Time Seen by Provider: 10/19/20 18:15 History of Present Illness: HPI narrative: 70 yo male Review of Systems General: Reports: ROS unobtainable due to medical condition PFS ED PFSH: Medical History Atherosclerotic heart disease [place] coronary artery w/angina pectoris Carotid stenosis, bilateral COPD (chronic obstructive pulmonary disease) Cor pulmonale Diabetes Diastolic heart failure Dyslipidemia Haemophilus influenzae pneumonia Treated with Levaquin in 2017 Ischemic cardiomyopathy Obesity PAD (peripheral artery disease) Sleep apnea Systolic heart failure LVEF 40%, echocardiogram 01/11/2020 Tobacco abuse Surgical History H/O heart artery stent PCI to ostial 99% LCx on July 11, 2012;12/15/2016 he had another angiogram showing patent circumflex stent, 10-20% ostial left main, 20-30% ostial RCA stenosis and LV gram showed left ventricular ejection fraction of 50-55% with mild apical hypokinesis. S/P peripheral artery angioplasty with stent placement S/P shoulder surgery Family History Mother Psychiatric illness Other Cancer Social History Smoking and tobacco status: current some day smoker smokeless tobacco Alcohol intake: former Household members: family Housing: House Physical Exam Resp: OTHER: No respiratory effort. Supraglottic airway in place large amount of blood in the mouth noted. Cardio: OTHER: No auscultated by heart sounds. On the monitor patient is in persistent asystole Course Vital Signs: Vital signs: Vital Signs Pulse Rate 0 L 10/19/20 18:04 Respiratory Rate 0 L 10/19/20 18:04 Pulse Oximetry 0 L 10/19/20 18:04 MDM - Cardiac Arrest/CPR MDM Narrative: Medical decision making narrative: Prolonged downtime in the field with ACLS protocols and no response. Patient has a history of severe ischemic cardiomyopathy, he was on a continuous dobutamine pump. The daughter who is a nurse at our facility had contacted me prior to his arrival here and asked that we stop resuscitative efforts when he arrived When patient arrived evaluated the patient in the room reviewed course of the code with EMS crew. Given the history of the code as well as is longstanding history of artery disease and congestive heart failure code was stopped. There is no meaningful chance of recovery at this point. Discussed with the family they were in agreement. Discharge Plan Discharge Patient Disposition: Clinical Impression: Cardiac arrest, COPD (chronic obstructive pulmonary disease), Ischemic cardiomyopathy Prescriptions: No Action clopidogrel 75 mg tablet 75 mg PO DAILY@0830 RF: 0 tamsulosin [Flomax] 0.4 mg capsule 0.4 mg PO BEDTIME RF: 0 atorvastatin 40 mg tablet 80 mg PO BEDTIME RF: 0 Corlanor 5 mg tablet 5 mg PO BID@829,1999 RF: 0 guaifenesin [Mucinex] 600 mg tablet extended release 12hr 600 mg PO BID PRN (Reason: Congestion) RF: 0 nitroglycerin 0.4 mg tablet, sublingual 0.4 mg sublingual PRN PRN (Reason: CHEST PAINS) RF: 0 Stiolto Respimat 2.5-2.5 mcg/actuation mist See Rx Instructions .ROUTE .COMPLEX PRN (Reason: Shortness Of Breath) RF: 0 furosemide 80 mg Tablet 80 mg PO BID@, RF: 0 potassium chloride 20 mEq tablet extended release 60 meq PO TID@829,, RF: 0 dobutamine [dobutamine] See Rx Instructions .ROUTE .COMPLEX RF: 0 isosorbide mononitrate 60 mg tablet extended release 24 hr 60 mg PO DAILY RF: 0 gabapentin 100 mg Capsule 100 mg PO BID Qty: 60 RF: 0 oxycodone 5 mg Tablet 5 mg PO Q6H PRN (Reason: Moderate Pain) Qty: 15 RF: 0 Lactobacillus acidoph-L.bulgar 1 million cell Tablet 1 tab PO BID 30 Days Qty: 60 RF: 0 OxyContin 10 mg Tablet,Oral Only,Ext.Rel.12 Hr 10 mg PO BID Qty: 15 RF: 0 metolazone 10 mg Tablet 10 mg PO BID@08,12 Qty: 0 RF: 0 dobutamine in D5W 1,000 mg/250 mL (4,000 mcg/mL) parenteral solution 351 ml continuous IV infusion .q48 Qty: 1000 RF: 0 acetaminophen 325 mg Tablet 325 - 650 mg PO Q4H PRN (Reason: Pain) RF: 0 Ozempic 0.25 mg or 0.5 mg(2 mg/1.5 mL) pen injector 50 mg SUBCUT Q7D RF: 0 Referrals: Melinda Mccullough DO [Primary Care Provider] - Coding Level of Care Code ED Brand Specialist for Michi Escobar
--- NOTE | 2020-10-19 18:16 | PC.NURSE ---
Per EMS, call came in at 1711, CPR intiated at approx 1715. EMS gave 3 rounds epi.
--- NOTE | 2020-10-19 19:15 | PC.NURSE ---
MTS and experimental machining lab manager were notified of . International Marketing Coordinator Dao Sierra released body. MTS to call family. Pt family selected [facility] in [place].
--- NOTE | 2020-10-19 21:24 | PC.NURSE ---
[facility]ro [facility] picked up patient at [phone]
== END 2020-10-19 21:26 | disposition expired ==
LOC: ER 18:23
PROVIDERS: Emergency Provider Family Medicine; PCP Family Medicine
DX: I46.9 Cardiac arrest, cause unspecified (principal); J44.9 Chronic obstructive pulmonary disease, unspecified; I25.5 Ischemic cardiomyopathy; Z79.02 Long term (current) use of antithrombotics/antiplatelets; I25.119 Atherosclerotic heart disease of native coronary artery with unspecified angina pectoris; E11.9 Type 2 diabetes mellitus without complications; E78.5 Hyperlipidemia, unspecified; I50.40 Unspecified combined systolic (congestive) and diastolic (congestive) heart failure; F17.210 Nicotine dependence, cigarettes, uncomplicated
CPT/HCPCS: 12345; 99281